=== PATIENT | male | born 1980 | race Two or more races ===

== ENCOUNTER 2020-11-06 17:04 | Emergency (ER) | payer MEDICAID, OTHER ==
[~2020-11-06] VITALS: Ht 165.1 cm; Wt 121.6 kg
[2020-11-06 18:00] LABS: Basophils # (auto) 0 10 ^3/uL (0-0.2); Basophils % (auto) 0.7 % (0.0-2.0); Eosinophils # (auto) 0.1 10 ^3/uL (0-0.8); Eosinophils % (auto) 1.7 % (0.0-7.0); Hematocrit 35.9 % (41.0-53.0); Hemoglobin 12.7 g/dL (13.5-17.5); Lymphocytes # (auto) 1.6 10 ^3/uL (0.4-5.4); Lymphocytes % (auto) 28.1 % (10.0-50.0); Mean Corpuscular Hemoglobin 31.2 pg (28.0-32.0); Mean Corpuscular Hgb Conc. 35.5 g/dL (32.0-36.0); Mean Corpuscular Volume 87.9 fL (80.0-100.0); Monocytes # (auto) 0.7 10 ^3/uL (0-1.3); Monocytes % (auto) 12.1 % (0.0-12.0); Neutrophils # (auto) 3.3 10 ^3/uL (1.6-8.6); Neutrophils % (auto) 57.4 % (37.0-80.0); Nucleated Red Blood Cells % 0.2 %; Platelet Count (auto) 100 10^3/uL (140-450); Red Blood Cells 4.08 10^6/uL (4.5-5.90); Red Cell Distribution Width 17.3 % (11.8-14.3); White Blood Cell 5.7 10^3/uL (4.4-10.8)
[2020-11-06 18:17] LABS: Albumin 2.8 g/dL (3.4-5.0); Calcium 8.3 mg/dL (8.5-10.1); Magnesium 2.2 mg/dL (1.6-2.6)
[2020-11-06 18:21] LABS: BUN/Creatinine Ratio 8.4; Bilirubin, Total 3.3 mg/dL (0.2-1.0); Total Protein 7.4 g/dL (6.4-8.2)
[2020-11-06 18:32] LABS: Potassium 2.4 mmol/L (3.5-5.1)
[2020-11-06 18:33] VITALS: BP 151/72
[2020-11-06] MEDS ORDERED: POTASSIUM EFFERVESENT TAB 25 MEQ PO ONE (18:45)
== END 2020-11-06 19:10 | disposition home or self-care (01) ==
LOC: ER 17:04
DX: E87.6 Hypokalemia (principal); K74.60 Unspecified cirrhosis of liver; E80.6 Other disorders of bilirubin metabolism; E44.0 Moderate protein-calorie malnutrition; Z68.41 Body mass index [BMI] 40.0-44.9, adult
CPT/HCPCS: 36415; 80053; 83735; 85025; 93005; 99284; J7030

== ENCOUNTER 2021-01-27 17:35 | Inpatient (IN) | payer MEDICAID, OTHER ==
[~2021-01-27] VITALS: Ht 165.1 cm; Wt 134.3 kg
[2021-01-27] MEDS ORDERED: IOHEXOL 300 MG/ML 100ML BOTTLE IJ ONE (18:24)
[2021-01-27 18:25] LABS: Hemoglobin 13.1 g/dL (13.5-17.5)
[2021-01-27 18:27] LABS: Hematocrit 36.8 % (41.0-53.0); Mean Corpuscular Hemoglobin 31.6 pg (28.0-32.0); Mean Corpuscular Hgb Conc. 35.7 g/dL (32.0-36.0); Mean Corpuscular Volume 88.5 fL (80.0-100.0); Platelet Count (auto) 53 10^3/uL (140-450); Red Blood Cells 4.16 10^6/uL (4.5-5.90); Red Cell Distribution Width 15.7 % (11.8-14.3); White Blood Cell 6.8 10^3/uL (4.4-10.8)
[2021-01-27 18:35] LABS: Basophils % (manual) 0 (0.0-2.0); Blast Cells 0; Eosinophils % (manual) 0 (0-7); Myelocytes % 0; Promyelocytes % 0; Reactive Lymphocytes 0
[2021-01-27 18:41] LABS: Albumin 2.5 g/dL (3.4-5.0); BUN/Creatinine Ratio 9.2; Calcium 7.7 mg/dL (8.5-10.1); Potassium 3.2 mmol/L (3.5-5.1)
[2021-01-27 18:43] LABS: Bilirubin, Total 5.3 mg/dL (0.2-1.0); Total Protein 6.4 g/dL (6.4-8.2)
[2021-01-27 19:07] LABS: Band Neutrophils % (manual) 17; Lymphocytes % (manual) 2 (10.0-50.0); Metamyelocytes % 1; Monocytes % (manual) 5 (0-12)
[2021-01-27] MEDS ORDERED: CLINDAMYCIN 600MG IV 50 ML IV ONE (19:30)
[2021-01-27] MEDS ORDERED: ONDANSETRON HCL 4 MG/2 ML VIAL IV ONE (20:30)
[2021-01-27] MEDS ORDERED: MORPHINE SULFATE 4 MG/ML SYR/VIAL IV ONE (20:30)
[2021-01-27 21:10] LABS: Urine Bacteria NONE SEEN /hpf (None Seen); Urine Blood Negative /uL (Negative); Urine Specific Gravity 1.042 (1.001-1.035); Urine WBC <1 /hpf (0 - 3)
[2021-01-27] MEDS ORDERED: DOCUSATE SOD 100 MG CAP PO PRN (22:00)
[2021-01-27] MEDS ORDERED: POTASSIUM CHL 20 Meq TABLET PO ONE (22:00)
[2021-01-27] MEDS ORDERED: MORPHINE SULFATE 4 MG/ML SYR/VIAL IV PRN (22:00)
[2021-01-27] MEDS ORDERED: NITROGLYCERIN 0.4 MG SL TAB SL PRN (22:00)
[2021-01-27] MEDS ORDERED: ONDANSETRON HCL 4 MG/2 ML VIAL IV PRN (22:00)
[2021-01-27] MEDS ORDERED: TEMAZEPAM 15 MG CAP PO PRN (22:00)
[2021-01-27] MEDS ORDERED: ACETAMINOPHEN 325 MG TAB PO PRN (22:00)
[2021-01-27] MEDS ORDERED: CLINDAMYCIN 600MG IV 50 ML IV SCH (22:00)
[2021-01-27] MEDS ORDERED: MORPHINE SULF INJ 2 MG/ML SYRINGE 1ML IV PRN (22:00)
[2021-01-27] MEDS: SODIUM CHLOR 0.9% PF (SALINE LOCK) 10ML VIAL/SYR IV SCH (22:56)
[2021-01-27] MEDS: ASCORBIC ACID 500 MG TAB PO SCH (23:02)
[2021-01-27] MEDS: FAMOTIDINE 20 MG TAB PO SCH (23:03)
[2021-01-28 01:08] VITALS: BP 121/69
[2021-01-28] MEDS ORDERED: LACT10PA2 PO (01:22)
[2021-01-28] MEDS ORDERED: FURO1TAB33 PO (01:22)
[2021-01-28] MEDS: HYDROcodone-ACET 5/325MG TAB PO PRN (02:39)
[2021-01-28 05:00] VITALS: BP 118/61
[2021-01-28] MEDS: SODIUM CHLOR 0.9% PF (SALINE LOCK) 10ML VIAL/SYR IV SCH ×3 (06:18→22:30)
[2021-01-28] MEDS: CLINDAMYCIN 600MG IV 50 ML IV SCH ×3 (06:19→22:30)
[2021-01-28 06:47] LABS: White Blood Cell 13.4 10^3/uL (4.4-10.8)
[2021-01-28 06:50] LABS: Hematocrit 36.9 % (41.0-53.0); Mean Corpuscular Hemoglobin 31.2 pg (28.0-32.0); Mean Corpuscular Hgb Conc. 35.3 g/dL (32.0-36.0); Mean Corpuscular Volume 88.4 fL (80.0-100.0); Platelet Count (auto) 46 10^3/uL (140-450); Red Blood Cells 4.18 10^6/uL (4.5-5.90); Red Cell Distribution Width 16.4 % (11.8-14.3)
[2021-01-28 06:57] LABS: INR 1.62 (0.9-1.15); Partial Thromboplastin Time 37.3 sec (23.0-31.2)
[2021-01-28 07:03] LABS: Albumin 2.5 g/dL (3.4-5.0); Basophils % (manual) 0 (0.0-2.0); Blast Cells 0; Calcium 7.6 mg/dL (8.5-10.1); Eosinophils % (manual) 0 (0-7); Myelocytes % 0; Potassium 4.2 mmol/L (3.5-5.1); Promyelocytes % 0; Reactive Lymphocytes 0
[2021-01-28 07:06] LABS: Bilirubin, Total 5.6 mg/dL (0.2-1.0); Total Protein 6.5 g/dL (6.4-8.2)
[2021-01-28 07:35] LABS: Lymphocytes % (manual) 4 (10.0-50.0); Metamyelocytes % 2; Monocytes % (manual) 8 (0-12)
[2021-01-28 07:36] LABS: Band Neutrophils % (manual) 27
[2021-01-28 08:00] VITALS: BP 96/55
[2021-01-28] MEDS: SPIRONOLACTONE 25 MG TAB PO SCH (09:31)
[2021-01-28] MEDS: ZINC SULFATE 220mg CAP or TAB PO SCH (09:32)
[2021-01-28] MEDS: FAMOTIDINE 20 MG TAB PO SCH ×2 (09:32→22:30)
[2021-01-28] MEDS: ASCORBIC ACID 500 MG TAB PO SCH ×2 (09:32→22:31)
[2021-01-28] MEDS: MULTIPLE VITAMIN TAB PO SCH (09:32)
[2021-01-28 12:53] VITALS: BP 96/57
[2021-01-28] MEDS ORDERED: cefTRIAXone 1GM/50ML D5W 50 ML IV ONE (14:15)
[2021-01-28 16:46] VITALS: BP 125/75
[2021-01-28 22:00] VITALS: BP 119/66
[2021-01-29 05:00] VITALS: BP 103/48
[2021-01-29] MEDS: SODIUM CHLOR 0.9% PF (SALINE LOCK) 10ML VIAL/SYR IV SCH (05:40)
[2021-01-29] MEDS: CLINDAMYCIN 600MG IV 50 ML IV SCH (05:40)
[2021-01-29 06:41] LABS: Basophils # (auto) 0 10 ^3/uL (0-0.2); Eosinophils # (auto) 0 10 ^3/uL (0-0.8); Eosinophils % (auto) 0.2 % (0.0-7.0); Hemoglobin 12.2 g/dL (13.5-17.5); Lymphocytes # (auto) 1.1 10 ^3/uL (0.4-5.4); Monocytes # (auto) 0.8 10 ^3/uL (0-1.3); Neutrophils # (auto) 9.7 10 ^3/uL (1.6-8.6); Red Cell Distribution Width 16.3 % (11.8-14.3); White Blood Cell 11.7 10^3/uL (4.4-10.8)
[2021-01-29 06:46] LABS: Basophils % (auto) 0.2 % (0.0-2.0); Hematocrit 33.8 % (41.0-53.0); Lymphocytes % (auto) 9.7 % (10.0-50.0); Mean Corpuscular Hemoglobin 31.7 pg (28.0-32.0); Mean Corpuscular Volume 87.8 fL (80.0-100.0); Monocytes % (auto) 7.2 % (0.0-12.0); Neutrophils % (auto) 82.7 % (37.0-80.0); Platelet Count (auto) 38 10^3/uL (140-450); Red Blood Cells 3.84 10^6/uL (4.5-5.90)
[2021-01-29 07:02] LABS: Albumin 2.3 g/dL (3.4-5.0); Calcium 7.9 mg/dL (8.5-10.1); Potassium 3.5 mmol/L (3.5-5.1)
[2021-01-29 07:06] LABS: BUN/Creatinine Ratio 18.5; Bilirubin, Total 4.7 mg/dL (0.2-1.0); Total Protein 6.3 g/dL (6.4-8.2)
[2021-01-29 09:00] VITALS: BP 129/76
[2021-01-29] MEDS ORDERED: cefTRIAXone 1GM/50ML D5W 50 ML IV SCH (09:00)
[2021-01-29] MEDS: FAMOTIDINE 20 MG TAB PO SCH (10:09)
[2021-01-29] MEDS: SPIRONOLACTONE 25 MG TAB PO SCH (10:09)
[2021-01-29] MEDS: ASCORBIC ACID 500 MG TAB PO SCH (10:09)
[2021-01-29] MEDS: ZINC SULFATE 220mg CAP or TAB PO SCH (10:10)
[2021-01-29] MEDS: HYDROcodone-ACET 5/325MG TAB PO PRN (10:10)
[2021-01-29] MEDS: MULTIPLE VITAMIN TAB PO SCH (10:10)
[2021-01-29 12:41] VITALS: BP 131/76
== END 2021-01-29 13:30 | disposition home or self-care (01) | DRG 383 ==
LOC: ER 17:35 → TELE 21:54 → TELE-WESTW 23:20
PROVIDERS: ADMIT Nurse Practitioner Family; ATTEND Internal Medicine
DX: L03.115 Cellulitis of right lower limb (principal); N17.0 Acute kidney failure with tubular necrosis; R65.11 Systemic inflammatory response syndrome (SIRS) of non-infectious origin with acute organ dysfunction; E44.0 Moderate protein-calorie malnutrition; K76.6 Portal hypertension; E88.09 Other disorders of plasma-protein metabolism, not elsewhere classified; E66.01 Morbid (severe) obesity due to excess calories; K74.60 Unspecified cirrhosis of liver; L03.314 Cellulitis of groin; R10.9 Unspecified abdominal pain; K80.20 Calculus of gallbladder without cholecystitis without obstruction; E87.6 Hypokalemia; R16.1 Splenomegaly, not elsewhere classified; D47.3 Essential (hemorrhagic) thrombocythemia; Z20.822 Contact with and (suspected) exposure to COVID-19; Z68.41 Body mass index [BMI] 40.0-44.9, adult; D63.8 Anemia in other chronic diseases classified elsewhere; K42.9 Umbilical hernia without obstruction or gangrene; K59.00 Constipation, unspecified; N18.9 Chronic kidney disease, unspecified; T50.2X5A Adverse effect of carbonic-anhydrase inhibitors, benzothiadiazides and other diuretics, initial encounter; Z82.49 Family history of ischemic heart disease and other diseases of the circulatory system; Z83.3 Family history of diabetes mellitus; Y92.89 Other specified places as the place of occurrence of the external cause
CPT/HCPCS: 36415; 71045; 74177; 74250; 80053; 81001; 82150; 83690; 84443; 85007; 85025; 85027; 85049; 85610; 85730; 86850; 86900; 86901; 87426; 96365; 96366; 96375; G0378; J0696; J2405; J3490

== ENCOUNTER 2021-03-18 20:55 | Inpatient (IN) | payer MEDICAID ==
[~2021-03-18] VITALS: Ht 165.1 cm; Wt 129.6 kg
[~2021-03-18 20:55] MED LIST: FURO1TAB33 PO; LACT10PA2 PO
[2021-03-18] MEDS ORDERED: KETOROLAC TROMETH 60MG/2ML VIAL IM ONE (21:45)
[2021-03-18] MEDS ORDERED: SODIUM CHLORIDE 0.9% 1,000 ML IV ONE (22:00)
[2021-03-18 22:33] LABS: Eosinophils # (auto) 0 10 ^3/uL (0-0.8); Hematocrit 40.1 % (41.0-53.0); Monocytes # (auto) 0.3 10 ^3/uL (0-1.3); Neutrophils # (auto) 1.8 10 ^3/uL (1.6-8.6); White Blood Cell 2.9 10^3/uL (4.4-10.8)
[2021-03-18 22:35] LABS: Basophils # (auto) 0 10 ^3/uL (0-0.2); Basophils % (auto) 0.4 % (0.0-2.0); Eosinophils % (auto) 0.4 % (0.0-7.0); Hemoglobin 14.1 g/dL (13.5-17.5); Lymphocytes # (auto) 0.7 10 ^3/uL (0.4-5.4); Lymphocytes % (auto) 25.1 % (10.0-50.0); Mean Corpuscular Hemoglobin 30.5 pg (28.0-32.0); Mean Corpuscular Volume 87.2 fL (80.0-100.0); Monocytes % (auto) 11.2 % (0.0-12.0); Neutrophils % (auto) 62.9 % (37.0-80.0); Nucleated Red Blood Cells % 0.6 %
[2021-03-18 22:40] LABS: Albumin 2.6 g/dL (3.4-5.0); Calcium 7.6 mg/dL (8.5-10.1); Potassium 4.6 mmol/L (3.5-5.1)
[2021-03-18 22:44] LABS: BUN/Creatinine Ratio 7.5; Bilirubin, Total 2.5 mg/dL (0.2-1.0); Total Protein 7.4 g/dL (6.4-8.2)
[2021-03-18] MEDS ORDERED: cefTRIAXone 1GM/50ML D5W 50 ML IV ONE (23:30)
[2021-03-18] MEDS ORDERED: DOXYCYCLINE 100MG/250ML 250 ML IV ONE (23:30)
[2021-03-18 23:44] LABS: Urine Bacteria FEW /hpf (None Seen); Urine Blood Negative /uL (Negative); Urine Specific Gravity 1.012 (1.001-1.035); Urine WBC 1 /hpf (0 - 3)
[2021-03-19] VITALS (7 sets, daily range): BP systolic 117–133; BP diastolic 52–78
[2021-03-19] MEDS ORDERED: ACETAMINOPHEN 500 MG TAB PO PRN (04:00)
[2021-03-19] MEDS ORDERED: MORPHINE SULFATE INJECTION 2 MG/2 ML SYRG IV PRN (04:00)
[2021-03-19] MEDS ORDERED: HYDROcodone-ACET 5/325MG TAB PO PRN (04:00)
[2021-03-19] MEDS ORDERED: ONDANSETRON HCL 4 MG/2 ML VIAL IV PRN (04:00)
[2021-03-19] MEDS ORDERED: NITROGLYCERIN 0.4 MG SL TAB SL PRN (04:00)
[2021-03-19] MEDS: SODIUM CHLOR 0.9% PF (SALINE LOCK) 10ML VIAL/SYR IV SCH ×3 (06:15→22:28)
[2021-03-19] MEDS ORDERED: ENOXAPARIN SOD 40 MG/0.4 ML SYRINGE SC SCH (10:00)
[2021-03-19] MEDS: FAMOTIDINE (10MG/ML) 2ML VL IV SCH ×2 (10:16→22:27)
[2021-03-19] MEDS: DexAMETHasone SOD PHOS 10MG/1ML VIAL INJ IV SCH (10:16)
[2021-03-19] MEDS: MULTIPLE VITAMIN TAB PO SCH (10:16)
[2021-03-19] MEDS: cefTRIAXone 1GM/50ML D5W 50 ML IV SCH (10:16)
[2021-03-19] MEDS: ZINC SULFATE 220mg CAP or TAB PO SCH (10:16)
[2021-03-19] MEDS: CHOLECALCIFEROL (VITD3) 2,000 UNIT CAP/TAB PO SCH (10:17)
[2021-03-19] MEDS: ASCORBIC ACID 1,000 MG TAB PO SCH (10:17)
[2021-03-19] MEDS: DOXYCYCLINE 100MG/250ML 250 ML IV SCH ×2 (10:37→22:28)
[2021-03-19] MEDS: BUDESONIDE (INHALATION) 180 MCG IH IN SCH (19:13)
[2021-03-19] MEDS: ALBUTEROL SULF HFA 90MCG INH 200DOSE IN PRN (19:13)
[2021-03-20 05:00] VITALS: BP 116/50
[2021-03-20] MEDS: SODIUM CHLOR 0.9% PF (SALINE LOCK) 10ML VIAL/SYR IV SCH ×2 (05:44→14:38)
[2021-03-20 06:45] LABS: Basophils # (auto) 0 10 ^3/uL (0-0.2); Eosinophils # (auto) 0 10 ^3/uL (0-0.8); Hemoglobin 14.3 g/dL (13.5-17.5); Lymphocytes # (auto) 0.8 10 ^3/uL (0.4-5.4); Monocytes # (auto) 0.4 10 ^3/uL (0-1.3); Nucleated Red Blood Cells % 0.1 %
[2021-03-20 06:47] LABS: Basophils % (auto) 0.2 % (0.0-2.0); Hematocrit 40.6 % (41.0-53.0); Lymphocytes % (auto) 11.6 % (10.0-50.0); Mean Corpuscular Hemoglobin 30.8 pg (28.0-32.0); Mean Corpuscular Hgb Conc. 35.3 g/dL (32.0-36.0); Mean Corpuscular Volume 87.2 fL (80.0-100.0); Monocytes % (auto) 5.7 % (0.0-12.0); Neutrophils % (auto) 82.5 % (37.0-80.0); Red Blood Cells 4.65 10^6/uL (4.5-5.90); Red Cell Distribution Width 15.9 % (11.8-14.3); White Blood Cell 7.3 10^3/uL (4.4-10.8)
[2021-03-20] MEDS: ALBUTEROL SULF HFA 90MCG INH 200DOSE IN PRN (06:54)
[2021-03-20] MEDS: BUDESONIDE (INHALATION) 180 MCG IH IN SCH (06:54)
[2021-03-20 07:02] LABS: Albumin 2.5 g/dL (3.4-5.0); Potassium 4.1 mmol/L (3.5-5.1)
[2021-03-20 07:12] LABS: BUN/Creatinine Ratio 13.1; Bilirubin, Total 1.9 mg/dL (0.2-1.0); Total Protein 7.5 g/dL (6.4-8.2)
[2021-03-20 08:20] VITALS: BP 128/73
[2021-03-20 09:03] VITALS: BP 128/73
[2021-03-20] MEDS: cefTRIAXone 1GM/50ML D5W 50 ML IV SCH (09:10)
[2021-03-20] MEDS: DOXYCYCLINE 100MG/250ML 250 ML IV SCH (09:40)
[2021-03-20] MEDS: ZINC SULFATE 220mg CAP or TAB PO SCH (09:40)
[2021-03-20] MEDS: DexAMETHasone SOD PHOS 10MG/1ML VIAL INJ IV SCH (09:40)
[2021-03-20] MEDS: MULTIPLE VITAMIN TAB PO SCH (09:40)
[2021-03-20] MEDS: FAMOTIDINE (10MG/ML) 2ML VL IV SCH (09:40)
[2021-03-20] MEDS: ASCORBIC ACID 1,000 MG TAB PO SCH (09:41)
[2021-03-20] MEDS: CHOLECALCIFEROL (VITD3) 2,000 UNIT CAP/TAB PO SCH (09:41)
[2021-03-20] MEDS ORDERED: IVERMECTIN 3 MG TAB PO SCH (10:00)
[2021-03-20 12:21] VITALS: BP 123/55
[2021-03-20 13:12] VITALS: BP 123/85
== END 2021-03-20 14:40 | disposition home or self-care (01) | DRG 137 ==
LOC: ER 20:55 → OVERFLOW 03-19 03:46 → EAST 03-19 09:13
PROVIDERS: ADMIT Nurse Practitioner Family; ATTEND Nurse Practitioner Family
DX: U07.1 COVID-19 (principal); J12.82 Pneumonia due to coronavirus disease 2019; D61.818 Other pancytopenia; D69.59 Other secondary thrombocytopenia; K70.30 Alcoholic cirrhosis of liver without ascites; E66.9 Obesity, unspecified; E88.09 Other disorders of plasma-protein metabolism, not elsewhere classified; Z68.41 Body mass index [BMI] 40.0-44.9, adult; Z79.899 Other long term (current) drug therapy; Z82.49 Family history of ischemic heart disease and other diseases of the circulatory system; Z83.3 Family history of diabetes mellitus; F10.20 Alcohol dependence, uncomplicated; Y90.9 Presence of alcohol in blood, level not specified; I51.7 Cardiomegaly; R79.89 Other specified abnormal findings of blood chemistry; J98.11 Atelectasis
CPT/HCPCS: 36415; 71045; 80053; 81001; 83735; 83880; 84484; 85025; 85379; 87081; 87426; 94640; 96361; 96365; 96366; 96368; G0378; J0696; J1100; J3490

== ENCOUNTER 2021-12-19 19:35 | Inpatient (IN) | payer MEDICAID ==
[~2021-12-19] VITALS: Ht 162.6 cm; Wt 137.3 kg
[2021-12-19 20:35] LABS: Hematocrit 38.2 % (41.0-53.0); Hemoglobin 13.5 g/dL (13.5-17.5); Mean Corpuscular Hgb Conc. 35.4 g/dL (32.0-36.0); Mean Corpuscular Volume 90.5 fL (80.0-100.0); Red Blood Cells 4.22 10^6/uL (4.5-5.90); Red Cell Distribution Width 17.1 % (11.8-14.3)
[2021-12-19 20:50] LABS: INR 1.36 (0.9-1.15); Partial Thromboplastin Time 28.8 sec (23.6-33.0)
[2021-12-19 20:51] LABS: Albumin 2.4 g/dL (3.4-5.0); BUN/Creatinine Ratio 11.1; Calcium 7.8 mg/dL (8.5-10.1); Magnesium 1.9 mg/dL (1.6-2.6); Potassium 3.2 mmol/L (3.5-5.1)
[2021-12-19 20:54] LABS: Bilirubin, Total 4.6 mg/dL (0.2-1.0); Lactic Acid w/Reflex 3.4 mmol/L (0.4-2.0); Total Protein 6.3 g/dL (6.4-8.2)
[2021-12-19 20:55] LABS: White Blood Cell 1.6 10^3/uL (4.4-10.8)
[2021-12-19 21:58] LABS: Basophils % (manual) 0 (0.0-2.0); Blast Cells 0; Eosinophils % (manual) 0 (0-7); Metamyelocytes % 0; Myelocytes % 0; Promyelocytes % 0; Reactive Lymphocytes 0
[2021-12-19 22:02] LABS: Band Neutrophils % (manual) 5; Lymphocytes % (manual) 23 (10.0-50.0); Monocytes % (manual) 5 (0-12)
[2021-12-20 02:13] LABS: Urine Bacteria NONE SEEN /hpf (None Seen); Urine Blood Negative /uL (Negative); Urine Specific Gravity 1.018 (1.001-1.035); Urine WBC 1 /hpf (0 - 3)
[2021-12-20] MEDS ORDERED: ONDANSETRON HCL 4 MG/2 ML VIAL IV ONE (03:00)
[2021-12-20] MEDS ORDERED: HYDROmorphone HCL 2 MG/ML VL/or syr IV ONE ×2 (03:00→12:30)
[2021-12-20] MEDS ORDERED: cefTRIAXone 1GM/50ML D5W 50 ML IV ONE (03:45)
[2021-12-20] MEDS ORDERED: SOD CHL 0.9%/ KCL 20MEQ 1,000 ML IV ONE (05:15)
[2021-12-20] MEDS ORDERED: ONDANSETRON HCL 4 MG/2 ML VIAL IV PRN (05:15)
[2021-12-20] MEDS ORDERED: PANTOPRAZOLE 40 MG/10 ML VIAL INJ IV ONE (05:15)
[2021-12-20] MEDS ORDERED: VANCOMYCIN PER PHARMACY 0 MG IV SCH (07:15)
[2021-12-20 08:09] LABS: Hemoglobin 13.3 g/dL (13.5-17.5)
[2021-12-20 08:11] LABS: Hematocrit 38.5 % (41.0-53.0)
[2021-12-20] MEDS: VANCOMYCIN 1GM/250ML 250 ML IV SCH ×3 (08:37→18:12)
[2021-12-20] MEDS: PANTOPRAZOLE 40 MG/10 ML VIAL INJ IV SCH ×2 (10:37→22:33)
[2021-12-20 12:30] VITALS: BP 120/63
[2021-12-20 14:12] VITALS: BP 104/60
[2021-12-20] MEDS ORDERED: FUROSEMIDE 40 MG/4 ML VIAL IV ONE (14:15)
[2021-12-20] MEDS: ALBUMIN 25% 100 ML IV SCH ×2 (15:45→22:34)
[2021-12-20 16:48] VITALS: BP 110/64
[2021-12-20] MEDS ORDERED: SPIR25TA8 PO (17:43)
[2021-12-20] MEDS: LACTULOSE 20Gm/30ML SOLN PO SCH ×2 (18:12→22:33)
[2021-12-20] MEDS ORDERED: cefTRIAXone 1GM/50ML D5W 50 ML IV SCH (21:00)
[2021-12-20 22:00] VITALS: BP 116/74
[2021-12-21] MEDS: VANCOMYCIN 1GM/250ML 250 ML IV SCH ×2 (00:45→08:53)
[2021-12-21] MEDS: MORPHINE SULFATE 4 MG/ML SYR/VIAL IV PRN ×2 (01:09→21:43)
[2021-12-21] MEDS: LACTULOSE 20Gm/30ML SOLN PO SCH ×6 (02:00→21:44)
[2021-12-21 05:00] VITALS: BP 126/71
[2021-12-21 06:02] LABS: Albumin 2.8 g/dL (3.4-5.0); Calcium 7.9 mg/dL (8.5-10.1); Potassium 3.7 mmol/L (3.5-5.1)
[2021-12-21 06:05] LABS: BUN/Creatinine Ratio 21.6; Bilirubin, Total 6.1 mg/dL (0.2-1.0); Phosphorus 2.6 mg/dL (2.5-4.90); Total Protein 6.1 g/dL (6.4-8.2)
[2021-12-21 06:08] LABS: Red Blood Cells 3.55 10^6/uL (4.5-5.90)
[2021-12-21 06:10] LABS: Hematocrit 32.2 % (41.0-53.0); Hemoglobin 11.4 g/dL (13.5-17.5); Mean Corpuscular Hgb Conc. 35.4 g/dL (32.0-36.0); Mean Corpuscular Volume 90.5 fL (80.0-100.0); Red Cell Distribution Width 17.3 % (11.8-14.3); White Blood Cell 5.6 10^3/uL (4.4-10.8)
[2021-12-21] MEDS: ALBUMIN 25% 100 ML IV SCH (06:12)
[2021-12-21 06:15] LABS: Basophils % (manual) 0 (0.0-2.0); Blast Cells 0; Eosinophils % (manual) 0 (0-7); Myelocytes % 0; Promyelocytes % 0; Reactive Lymphocytes 0
[2021-12-21 08:20] LABS: Band Neutrophils % (manual) 42; Lymphocytes % (manual) 7 (10.0-50.0); Metamyelocytes % 5; Monocytes % (manual) 4 (0-12)
[2021-12-21] MEDS: PANTOPRAZOLE 40 MG/10 ML VIAL INJ IV SCH ×2 (08:52→21:36)
[2021-12-21] MEDS: FUROSEMIDE 40 MG/4 ML VIAL IV SCH (08:53)
[2021-12-21 09:00] VITALS: BP 109/56
[2021-12-21] MEDS: CEFTRIAXONE SODIUM 2 GM in D5W 5% 50 ML IV SCH (11:19)
[2021-12-21] MEDS ORDERED: LIDOCAINE VISCOUS 2% 15ML UD ONE (12:04)
[2021-12-21] MEDS ORDERED: MIDAZOLAM HCL 5 MG/ML-1ML VIAL ONE (12:04)
[2021-12-21] MEDS ORDERED: SODIUM CHLORIDE LOCK 10 ML ONE (12:04)
[2021-12-21] MEDS ORDERED: diphenhdrAMINE HCL 50 MG/1 ML VL ONE (12:04)
[2021-12-21] MEDS ORDERED: fentaNYL CITRATE 100 MCG/2 ML VL ONE (12:05)
[2021-12-21 13:00] VITALS: BP 104/61
[2021-12-21 17:00] VITALS: BP 119/66
[2021-12-21 21:48] VITALS: BP 122/79
[2021-12-22] MEDS: LACTULOSE 20Gm/30ML SOLN PO SCH ×6 (02:00→22:34)
[2021-12-22] MEDS: MORPHINE SULFATE 4 MG/ML SYR/VIAL IV PRN (03:49)
[2021-12-22 04:37] VITALS: BP 113/68
[2021-12-22 08:00] VITALS: BP 110/77
[2021-12-22 09:00] VITALS: BP 110/77
[2021-12-22] MEDS: PANTOPRAZOLE 40 MG/10 ML VIAL INJ IV SCH ×2 (11:08→22:34)
[2021-12-22] MEDS: FUROSEMIDE 40 MG/4 ML VIAL IV SCH (11:08)
[2021-12-22] MEDS ORDERED: MORPHINE SULFATE 4 MG/ML SYR/VIAL IV PRN (11:45)
[2021-12-22] MEDS: CEFTRIAXONE SODIUM 2 GM in D5W 5% 50 ML IV SCH (11:58)
[2021-12-22 14:00] VITALS: BP_SYST 133; BP_SYST 94; BP_DIAS 42; BP_DIAS 83
[2021-12-22 17:00] VITALS: BP 117/80
[2021-12-22 21:38] VITALS: BP 131/77
[2021-12-23] MEDS: LACTULOSE 20Gm/30ML SOLN PO SCH ×4 (02:00→14:00)
[2021-12-23 04:59] VITALS: BP 119/84
[2021-12-23] MEDS: PANTOPRAZOLE 40 MG/10 ML VIAL INJ IV SCH (08:36)
[2021-12-23] MEDS: FUROSEMIDE 40 MG/4 ML VIAL IV SCH (08:37)
[2021-12-23] MEDS: CEFTRIAXONE SODIUM 2 GM in D5W 5% 50 ML IV SCH (08:46)
[2021-12-23 09:00] VITALS: BP 128/56
[2021-12-23] MEDS ORDERED: POTA10TA51 PO (11:01)
[2021-12-23] MEDS ORDERED: FURO1TAB31 PO (11:01)
[2021-12-23] MEDS ORDERED: PANT40T PO (11:01)
[2021-12-23] MEDS ORDERED: CLIN-203 PO (11:04)
[2021-12-23 13:00] VITALS: BP 128/91
== END 2021-12-23 15:25 | disposition home or self-care (01) | DRG 720 ==
LOC: ER 19:35 → OVERFLOW 12-20 05:14 → EAST 12-20 08:59
PROVIDERS: ADMIT Nurse Practitioner; ATTEND Family Medicine
PROC: 0DB68ZX Excision of Stomach, Via Natural or Artificial Opening Endoscopic, Diagnostic (ICD-10-PCS; 2021-12-21)
PROC: 0DB98ZX Excision of Duodenum, Via Natural or Artificial Opening Endoscopic, Diagnostic (ICD-10-PCS; principal; 2021-12-21 12:53)
DX: A40.1 Sepsis due to streptococcus, group B (principal); K72.00 Acute and subacute hepatic failure without coma; R65.21 Severe sepsis with septic shock; D61.818 Other pancytopenia; E43 Unspecified severe protein-calorie malnutrition; K29.91 Gastroduodenitis, unspecified, with bleeding; K74.60 Unspecified cirrhosis of liver; E88.09 Other disorders of plasma-protein metabolism, not elsewhere classified; L03.115 Cellulitis of right lower limb; K80.20 Calculus of gallbladder without cholecystitis without obstruction; K44.9 Diaphragmatic hernia without obstruction or gangrene; E66.9 Obesity, unspecified; E87.6 Hypokalemia; Z20.822 Contact with and (suspected) exposure to COVID-19; Z68.43 Body mass index [BMI] 50.0-59.9, adult; Z86.16 Personal history of COVID-19; Z82.49 Family history of ischemic heart disease and other diseases of the circulatory system; Z83.3 Family history of diabetes mellitus
CPT/HCPCS: 36415; 43239; 71045; 74176; 80053; 81001; 82140; 82270; 83605; 83690; 83735; 84100; 84484; 85007; 85014; 85018; 85027; 85610; 85730; 86850; 86900; 86901; 87040; 87077; 87186; 93005; 93971; C9113; G0378; J0696; J2250; J2405; J7060; P9047

== ENCOUNTER 2022-05-13 11:40 | Emergency (ER) | payer MEDICAID ==
[~2022-05-13] VITALS: Ht 165.1 cm; Wt 121.5 kg
[~2022-05-13 11:40] MED LIST changes: +CLIN-203 PO; +FURO1TAB31 PO; +PANT40T PO; +POTA10TA51 PO; +SPIR25TA8 PO
[2022-05-13 11:59] VITALS: BP 118/70
[2022-05-13 12:31] LABS: Basophils # (auto) 0 10 ^3/uL (0-0.2); Eosinophils # (auto) 0 10 ^3/uL (0-0.8); Monocytes # (auto) 0.8 10 ^3/uL (0-1.3); Nucleated Red Blood Cells % 0.2 %
[2022-05-13 12:33] LABS: Basophils % (auto) 0.4 % (0.0-2.0); Eosinophils % (auto) 0.1 % (0.0-7.0); Hematocrit 38.4 % (41.0-53.0); Hemoglobin 13.3 g/dL (13.5-17.5); Lymphocytes % (auto) 9.7 % (10.0-50.0); Mean Corpuscular Hemoglobin 31.2 pg (28.0-32.0); Mean Corpuscular Hgb Conc. 34.7 g/dL (32.0-36.0); Neutrophils # (auto) 8.5 10 ^3/uL (1.6-8.6); Neutrophils % (auto) 81.8 % (37.0-80.0); Red Blood Cells 4.27 10^6/uL (4.5-5.90); Red Cell Distribution Width 14.9 % (11.8-14.3); White Blood Cell 10.4 10^3/uL (4.4-10.8)
[2022-05-13 12:55] LABS: Albumin 2.6 g/dL (3.4-5.0); Calcium 7.8 mg/dL (8.5-10.1); Potassium 3.6 mmol/L (3.5-5.1)
[2022-05-13 12:58] LABS: Total Protein 6.8 g/dL (6.4-8.2)
[2022-05-13] MEDS ORDERED: CEFD300C2 PO (16:46)
[2022-05-13] MEDS ORDERED: SPIR25TA PO (16:46)
[2022-05-13] MEDS ORDERED: FURO1TAB33 PO (16:46)
== END 2022-05-13 17:33 | disposition home or self-care (01) ==
LOC: ER 11:40
DX: I87.2 Venous insufficiency (chronic) (peripheral) (principal); E80.6 Other disorders of bilirubin metabolism; E46 Unspecified protein-calorie malnutrition; R60.9 Edema, unspecified; K74.60 Unspecified cirrhosis of liver; I50.9 Heart failure, unspecified; Z79.899 Other long term (current) drug therapy
CPT/HCPCS: 36415; 80053; 85025; 93971

== ENCOUNTER 2023-03-22 16:22 | Inpatient (IN) | payer MEDICAID ==
[~2023-03-22] VITALS: Ht 165.1 cm; Wt 133.4 kg
[~2023-03-22 16:22] MED LIST changes: +CEFD300C2 PO; +SPIR25TA PO
[2023-03-22 16:53] VITALS: PULSE 74; RESP 16; O2SAT 97
[2023-03-22 17:12] LABS: Basophils # (auto) 0 10 ^3/uL (0-0.2); Basophils % (auto) 0.3 % (0.0-2.0); Eosinophils # (auto) 0 10 ^3/uL (0-0.8); Eosinophils % (auto) 0.1 % (0.0-7.0); Hematocrit 41.9 % (41.0-53.0); Hemoglobin 13.7 g/dL (13.5-17.5); Lymphocytes # (auto) 0.8 10 ^3/uL (0.4-5.4); Lymphocytes % (auto) 6.5 % (10.0-50.0); Mean Corpuscular Hemoglobin 29.8 pg (28.0-32.0); Mean Corpuscular Hgb Conc. 32.7 g/dL (32.0-36.0); Mean Corpuscular Volume 91.1 fL (80.0-100.0); Monocytes # (auto) 0.3 10 ^3/uL (0-1.3); Monocytes % (auto) 2.5 % (0.0-12.0); Neutrophils # (auto) 11.2 10 ^3/uL (1.6-8.6); Neutrophils % (auto) 90.6 % (37.0-80.0); Nucleated Red Blood Cells % 0.1 %; Red Cell Distribution Width 16.2 % (11.8-14.3); White Blood Cell 12.3 10^3/uL (4.4-10.8)
[2023-03-22] MEDS ORDERED: ONDANSETRON HCL 4 MG/2 ML VIAL IV ONE (17:15)
[2023-03-22] MEDS ORDERED: MORPHINE SULFATE INJ 2 MG/ml SYRG IV ONE (17:15)
[2023-03-22 17:30] LABS: INR 1.57 (0.9-1.15); Partial Thromboplastin Time 30.7 SEC (24.5-34.5)
[2023-03-22 18:27] LABS: Albumin 2.7 g/dL (3.4-5.0); Anion Gap 11 (5-15); Calcium 8.1 mg/dL (8.5-10.1); Carbon Dioxide 21 mmol/L (21-32); Chloride 109 mmol/L (98-107); Glucose 131 mg/dL (74-106); Potassium 3.1 mmol/L (3.5-5.1); Sodium 141 mmol/L (136-145)
[2023-03-22 18:28] LABS: Lactic Acid w/Reflex 3.2 mmol/L (0.4-2.0)
[2023-03-22 18:32] LABS: Alanine Aminotransferase 53 U/L (16-61); Alkaline Phosphatase 128 U/L (45-117); Aspartate Aminotransferase 104 U/L (15-37); Bilirubin, Total 5.4 mg/dL (0.2-1.0); GFR African American 107 mL/min; GFR Non-African American 88 mL/min; Total Protein 6.8 g/dL (6.4-8.2)
[2023-03-22 18:37] LABS: Lipase > 30000 U/L (73-393)
[2023-03-22 18:41] LABS: BUN/Creatinine Ratio 10.2 (10.0-20.0); Blood Urea Nitrogen 10 mg/dL (7-18)
[2023-03-22] MEDS ORDERED: VANCOMYCIN 1GM/250ML 250 ML IV ONE (18:45)
[2023-03-22] MEDS ORDERED: PIPERACILLIN-TAZOB 3.375GM 100 ML IV ONE (18:45)
[2023-03-22] MEDS ORDERED: SODIUM CHLORIDE 0.9% 1,000 ML IV ONE (18:45)
[2023-03-22] MEDS ORDERED: HYDROmorphone HCL 2 MG/ML VL/or syr IV ONE (19:15)
[2023-03-22] MEDS ORDERED: LACTULOSE 20Gm/30ML SOLN PO ONE (19:30)
[2023-03-22 19:40] VITALS: PULSE 68; RESP 28; O2SAT 98
[2023-03-22] MEDS ORDERED: ACETAMINOPHEN 325 MG TAB PO PRN (20:15)
[2023-03-22] MEDS ORDERED: POTASSIUM EFFERVESENT TAB 25 MEQ PO ONE (20:15)
[2023-03-22] MEDS ORDERED: KETOROLAC TROMETH 30 MG/ML 1ML VIAL IV ONE (20:15)
[2023-03-22] MEDS ORDERED: KETOROLAC TROMETH 30 MG/ML 1ML VIAL IV PRN (20:15)
[2023-03-22] MEDS ORDERED: VANCOMYCIN PER PHARMACY 0 MG IV SCH (20:15)
[2023-03-22] MEDS ORDERED: ALBUTEROL SULF 2.5 MG/0.5ML(0.5%) NEB SOLN NEB PRN (20:45)
[2023-03-22 21:21] LABS: Cholesterol 126 mg/dL (< 200); Triglycerides 109 mg/dL (< 150)
[2023-03-22 21:22] LABS: HDL Cholesterol 46 mg/dL (40-59); LDL Cholesterol 84 mg/dL (< 100)
[2023-03-22] MEDS: LACTULOSE 20Gm/30ML SOLN PO SCH (21:23)
[2023-03-22] MEDS: PANTOPRAZOLE 40 MG TAB PO SCH (21:23)
[2023-03-22 21:45] VITALS: PULSE 76; RESP 22; O2SAT 95
[2023-03-22] MEDS ORDERED: CEFDINIR PO SCH (22:00)
[2023-03-22] MEDS ORDERED: CEFDINIR 300 MG PO SCH (22:00)
[2023-03-22 22:35] LABS: Urine Bacteria NONE SEEN /hpf (None Seen); Urine Blood Negative /uL (Negative); Urine Clarity Clear (Clear); Urine Color Yellow (Yellow); Urine Protein, UAD Negative (Negative); Urine Specific Gravity 1.012 (1.001-1.035); Urine Urobilinogen Normal (Negative); Urine WBC <1 /hpf (0 - 3)
[2023-03-22 22:57] LABS: Alcohol, Urine < 3.0 mg/dL (0-10); Amphetamine Screen, Urine NEGATIVE (NEGATIVE); Barbiturate Scree,Urine NEGATIVE (NEGATIVE); Benzodiazephine Screen, Urine NEGATIVE (NEGATIVE); Cannabinoid Screen, Urine NEGATIVE (NEGATIVE); Cocaine Screen, Urine NEGATIVE (NEGATIVE); Opiate Scree,Urine NEGATIVE (NEGATIVE); Phencyclidine Screen, Urine NEGATIVE (NEGATIVE)
[2023-03-22 23:17] VITALS: BP 133/69; PULSE 74; RESP 19; TEMP 97.9; O2SAT 97
[2023-03-23] VITALS (7 sets, daily range): BP systolic 123–152; BP diastolic 79–91; PULSE 76–82; RESP 18–20; TEMP 36.6; O2SAT 92–97
[2023-03-23] MEDS: PIPERACILLIN-TAZOB 3.375GM 100 ML IV SCH ×3 (03:00→18:12)
[2023-03-23] MEDS: VANCOMYCIN 1GM/250ML 250 ML IV SCH ×3 (03:17→21:18)
[2023-03-23 06:53] LABS: Basophils # (auto) 0 10 ^3/uL (0-0.2); Eosinophils # (auto) 0.2 10 ^3/uL (0-0.8); Lymphocytes # (auto) 0.9 10 ^3/uL (0.4-5.4); Monocytes # (auto) 0.7 10 ^3/uL (0-1.3); Monocytes % (auto) 6.9 % (0.0-12.0); Nucleated Red Blood Cells % 0.2 %
[2023-03-23 07:02] LABS: Basophils % (auto) 0.2 % (0.0-2.0); Eosinophils % (auto) 1.6 % (0.0-7.0); Hematocrit 37.6 % (41.0-53.0); Lymphocytes % (auto) 8.6 % (10.0-50.0); Mean Corpuscular Hemoglobin 31.1 pg (28.0-32.0); Mean Corpuscular Hgb Conc. 34.6 g/dL (32.0-36.0); Neutrophils # (auto) 8.8 10 ^3/uL (1.6-8.6); Neutrophils % (auto) 82.7 % (37.0-80.0); Red Blood Cells 4.18 10^6/uL (4.5-5.90); Red Cell Distribution Width 16.3 % (11.8-14.3); White Blood Cell 10.7 10^3/uL (4.4-10.8)
[2023-03-23 07:05] LABS: Potassium 3.5 mmol/L (3.5-5.1)
[2023-03-23 07:15] LABS: BUN/Creatinine Ratio 10.8 (10.0-20.0); Bilirubin, Total 6.6 mg/dL (0.2-1.0); Calcium 7.7 mg/dL (8.5-10.1); Total Protein 6.3 g/dL (6.4-8.2)
[2023-03-23 07:25] LABS: Albumin 2.3 g/dL (3.4-5.0)
[2023-03-23 09:17] LABS: Platelet Estimate Decreased
[2023-03-23] MEDS: FUROSEMIDE 20 MG TAB PO SCH (09:46)
[2023-03-23] MEDS: SPIRONOLACTONE 25 MG TAB PO SCH (09:46)
[2023-03-23] MEDS: POTASSIUM CHL 10 Meq TABLET PO SCH (09:47)
[2023-03-23] MEDS: LACTULOSE 20Gm/30ML SOLN PO SCH ×4 (09:47→23:34)
[2023-03-23] MEDS: PANTOPRAZOLE 40 MG TAB PO SCH ×2 (09:47→21:15)
[2023-03-23] MEDS ORDERED: ENOXAPARIN SOD 40 MG/0.4 ML SYRINGE SC SCH (10:00)
[2023-03-23] MEDS: D5W/SOD CHLO 0.9% 1,000 ML IV SCH ×2 (13:10→20:45)
[2023-03-23 14:52] LABS: Lactic Acid w/Reflex 2.8 mmol/L (0.4-2.0)
[2023-03-23] MEDS: HYDROcodone-ACET 5/325MG TAB PO PRN (21:15)
[2023-03-24] VITALS (8 sets, daily range): BP systolic 128–149; BP diastolic 70–95; PULSE 68–74; RESP 18–20; TEMP 36.8; O2SAT 92–97
[2023-03-24] MEDS: PIPERACILLIN-TAZOB 3.375GM 100 ML IV SCH ×4 (02:38→23:05)
[2023-03-24] MEDS: VANCOMYCIN 1GM/250ML 250 ML IV SCH ×3 (03:48→20:14)
[2023-03-24] MEDS: D5W/SOD CHLO 0.9% 1,000 ML IV SCH ×3 (04:45→20:45)
[2023-03-24] MEDS: LACTULOSE 20Gm/30ML SOLN PO SCH ×4 (06:22→23:05)
[2023-03-24 06:58] LABS: Hemoglobin 12.6 g/dL (13.5-17.5); Lymphocytes # (auto) 1.4 10 ^3/uL (0.4-5.4); Monocytes # (auto) 0.9 10 ^3/uL (0-1.3)
[2023-03-24 07:04] LABS: Basophils # (auto) 0.1 10 ^3/uL (0-0.2); Basophils % (auto) 0.8 % (0.0-2.0); Eosinophils # (auto) 0.5 10 ^3/uL (0-0.8); Eosinophils % (auto) 5.9 % (0.0-7.0); Lymphocytes % (auto) 17.2 % (10.0-50.0); Mean Corpuscular Hemoglobin 30.7 pg (28.0-32.0); Mean Corpuscular Volume 90.2 fL (80.0-100.0); Monocytes % (auto) 11.4 % (0.0-12.0); Neutrophils # (auto) 5.2 10 ^3/uL (1.6-8.6); Neutrophils % (auto) 64.7 % (37.0-80.0); Nucleated Red Blood Cells % 0.6 %; Red Cell Distribution Width 16.3 % (11.8-14.3)
[2023-03-24 07:32] LABS: Albumin 2.5 g/dL (3.4-5.0); Calcium 7.5 mg/dL (8.5-10.1); Potassium 3.1 mmol/L (3.5-5.1)
[2023-03-24 07:38] LABS: BUN/Creatinine Ratio 8.1 (10.0-20.0); Bilirubin, Total 5.9 mg/dL (0.2-1.0); Total Protein 6.3 g/dL (6.4-8.2)
[2023-03-24] MEDS: SPIRONOLACTONE 25 MG TAB PO SCH (09:01)
[2023-03-24] MEDS: FUROSEMIDE 20 MG TAB PO SCH (09:01)
[2023-03-24] MEDS: PANTOPRAZOLE 40 MG TAB PO SCH ×2 (09:01→21:29)
[2023-03-24] MEDS: POTASSIUM CHL 10 Meq TABLET PO SCH (09:01)
[2023-03-24] MEDS: HYDROcodone-ACET 5/325MG TAB PO PRN (23:05)
[2023-03-25] MEDS: VANCOMYCIN 1GM/250ML 250 ML IV SCH ×2 (03:54→12:17)
[2023-03-25] MEDS: D5W/SOD CHLO 0.9% 1,000 ML IV SCH (04:45)
[2023-03-25 05:00] VITALS: BP 134/69; PULSE 72; RESP 20; TEMP 97.8; O2SAT 93
[2023-03-25 05:02] LABS: Potassium 2.7 mmol/L (3.5-5.1)
[2023-03-25 05:08] LABS: Albumin 2.3 g/dL (3.4-5.0); BUN/Creatinine Ratio 8.2 (10.0-20.0); Bilirubin, Total 5.4 mg/dL (0.2-1.0); Calcium 7.4 mg/dL (8.5-10.1); Total Protein 6.2 g/dL (6.4-8.2)
[2023-03-25] MEDS ORDERED: POTASSIUM CHL 20 Meq TABLET PO ONE (05:15)
[2023-03-25] MEDS ORDERED: POTASSIUM CHL 20MEQ/100ML 200 ML IV ONE (05:48)
[2023-03-25] MEDS: LACTULOSE 20Gm/30ML SOLN PO SCH ×2 (05:54→12:16)
[2023-03-25] MEDS ORDERED: POTASSIUM CHLORIDE 40 MEQ, LIDOCAINE 1% (LOCAL ANESTH.) 4 ML in SODIUM CHL 0.9% 250 ML IV ONE (06:00)
[2023-03-25 07:53] VITALS: O2SAT 96
[2023-03-25 08:33] LABS: Basophils % (auto) 0.6 % (0.0-2.0); Lymphocytes % (auto) 13.6 % (10.0-50.0); Monocytes % (auto) 12.1 % (0.0-12.0); Neutrophils % (auto) 70.7 % (37.0-80.0); White Blood Cell 7.6 10^3/uL (4.4-10.8)
[2023-03-25 08:34] LABS: Basophils # (auto) 0 10 ^3/uL (0-0.2); Eosinophils # (auto) 0.2 10 ^3/uL (0-0.8); Hematocrit 36.2 % (41.0-53.0); Hemoglobin 12.3 g/dL (13.5-17.5); Mean Corpuscular Hemoglobin 30.4 pg (28.0-32.0); Mean Corpuscular Hgb Conc. 33.9 g/dL (32.0-36.0); Mean Corpuscular Volume 89.7 fL (80.0-100.0); Monocytes # (auto) 0.9 10 ^3/uL (0-1.3); Neutrophils # (auto) 5.3 10 ^3/uL (1.6-8.6); Red Blood Cells 4.03 10^6/uL (4.5-5.90); Red Cell Distribution Width 16.4 % (11.8-14.3)
[2023-03-25 09:15] VITALS: BP 132/83; PULSE 77; RESP 20; TEMP 98.9; O2SAT 98
[2023-03-25 10:00] VITALS: O2SAT 5; O2SAT 95
[2023-03-25] MEDS: FUROSEMIDE 20 MG TAB PO SCH (10:00)
[2023-03-25] MEDS: SPIRONOLACTONE 25 MG TAB PO SCH (10:00)
[2023-03-25] MEDS ORDERED: FURO1TAB33 PO (10:29)
[2023-03-25] MEDS ORDERED: POTA1TAB4 PO (10:29)
[2023-03-25] MEDS ORDERED: SPIR25TA8 PO (10:29)
[2023-03-25] MEDS: PANTOPRAZOLE 40 MG TAB PO SCH (10:30)
[2023-03-25] MEDS: POTASSIUM CHL 10 Meq TABLET PO SCH (10:30)
[2023-03-25 12:17] VITALS: BP 132/83; PULSE 77; RESP 20; TEMP 98.9; O2SAT 95
[2023-03-25 13:00] VITALS: BP 131/81; PULSE 77; RESP 16; TEMP 98.1; O2SAT 97
[2023-03-26 13:38] LABS: Hepatitis B Surface Antigen Negative (Negative)
[2023-03-26 13:39] LABS: Hepatitis C Antibody Negative (Negative)
== END 2023-03-25 13:15 | disposition home or self-care (01) | DRG 720 ==
LOC: ER 16:22 → OVERFLOW 20:10 → WEST WING 23:03
PROVIDERS: ADMIT Nurse Practitioner Family; ATTEND Family Medicine
DX: A41.9 Sepsis, unspecified organism (principal); I50.31 Acute diastolic (congestive) heart failure; E44.0 Moderate protein-calorie malnutrition; K85.10 Biliary acute pancreatitis without necrosis or infection; K70.31 Alcoholic cirrhosis of liver with ascites; I11.0 Hypertensive heart disease with heart failure; E87.6 Hypokalemia; E66.01 Morbid (severe) obesity due to excess calories; K21.9 Gastro-esophageal reflux disease without esophagitis; K80.20 Calculus of gallbladder without cholecystitis without obstruction; Z83.3 Family history of diabetes mellitus; Z82.49 Family history of ischemic heart disease and other diseases of the circulatory system; Z68.41 Body mass index [BMI] 40.0-44.9, adult
CPT/HCPCS: 36415; 71250; 74176; 74181; 80053; 80061; 80202; 80307; 81001; 82140; 83605; 83690; 83880; 84443; 84484; 85025; 85610; 85730; 86803; 87040; 87340; 93005; 93306; 96365; 96366; 96368; 96375; G0378; J1885; J2001; J2405; J2543; J3480; J7042

== ENCOUNTER 2023-05-03 12:18 | Inpatient (IN) | payer MEDICAID ==
[~2023-05-03] VITALS: Ht 165.1 cm; Wt 131.8 kg
[~2023-05-03 12:18] MED LIST changes: +POTA1TAB4 PO
[2023-05-03 13:03] LABS: Basophils # (auto) 0 10 ^3/uL (0-0.2); Eosinophils # (auto) 0 10 ^3/uL (0-0.8); Hemoglobin 13.4 g/dL (13.5-17.5); Lymphocytes # (auto) 0.8 10 ^3/uL (0.4-5.4); Monocytes # (auto) 0 10 ^3/uL (0-1.3); Neutrophils # (auto) 2.2 10 ^3/uL (1.6-8.6)
[2023-05-03 13:06] LABS: Basophils % (auto) 0.4 % (0.0-2.0); Eosinophils % (auto) 0.5 % (0.0-7.0); Hematocrit 38.9 % (41.0-53.0); Lymphocytes % (auto) 26.3 % (10.0-50.0); Mean Corpuscular Hemoglobin 30.8 pg (28.0-32.0); Mean Corpuscular Hgb Conc. 34.5 g/dL (32.0-36.0); Mean Corpuscular Volume 89.3 fL (80.0-100.0); Monocytes % (auto) 0.8 % (0.0-12.0); Nucleated Red Blood Cells % 0.7 %; Red Blood Cells 4.36 10^6/uL (4.5-5.90); Red Cell Distribution Width 17.4 % (11.8-14.3)
[2023-05-03 13:16] LABS: INR 1.46 (0.9-1.15); Partial Thromboplastin Time 29.1 SEC (24.5-34.5)
[2023-05-03 13:23] LABS: Alanine Aminotransferase 38 U/L (7-40); Albumin 2.9 g/dL (3.2-4.8); Alkaline Phosphatase 235 U/L (46-116); Anion Gap 12 (5-15); Aspartate Aminotransferase 91 U/L (13-40); BUN/Creatinine Ratio 10.4 (10.0-20.0); Bilirubin, Total 5.8 mg/dL (0.2-1.0); Blood Urea Nitrogen 8 mg/dL (9-23); Calcium 7.9 mg/dL (8.7-10.4); Carbon Dioxide 19 mmol/L (20-30); Chloride 109 mmol/L (98-107); Glucose 96 mg/dL (74-106); Potassium 3.2 mmol/L (3.5-5.1); Sodium 140 mmol/L (136-145); Total Protein 6.9 g/dL (5.7-8.2)
[2023-05-03 13:33] VITALS: PULSE 107; RESP 14; O2SAT 95
[2023-05-03] MEDS ORDERED: LACTULOSE 20Gm/30ML SOLN PO ONE (13:45)
[2023-05-03] MEDS ORDERED: PANTOPRAZOLE 80 MG in SODIUM CHL 0.9% 100 ML IV ONE (14:30)
[2023-05-03] MEDS ORDERED: OCTREOTIDE ACETATE 100 MCG in SODIUM CHL 0.9% 50 ML IV ONE (14:30)
[2023-05-03] MEDS ORDERED: ONDANSETRON HCL 4 MG/2 ML VIAL IV ONE (14:45)
[2023-05-03] MEDS ORDERED: MORPHINE SULFATE INJ 2 MG/ml SYRG IV ONE (14:45)
[2023-05-03] MEDS ORDERED: DOCUSATE SOD 100 MG CAP PO PRN (16:15)
[2023-05-03] MEDS ORDERED: PANTOPRAZOLE 40mg/50ML NS AE 50 ML IV ONE (16:15)
[2023-05-03] MEDS ORDERED: ONDANSETRON HCL 4 MG/2 ML VIAL IV PRN (16:15)
[2023-05-03] MEDS ORDERED: POTASSIUM EFFERVESENT TAB 25 MEQ PO ONE (16:45)
[2023-05-03 16:48] LABS: Lactic Acid w/Reflex 3.5 mmol/L (0.4-2.0)
[2023-05-03] MEDS: ceFAZolin 1GM/50ML 50 ML IV SCH (18:00)
[2023-05-03] MEDS: FUROSEMIDE 40 MG/4 ML VIAL IV SCH (18:00)
[2023-05-03] MEDS: metroNIDAZOLE 500MG/100ML 100 ML IV SCH (18:24)
[2023-05-03] MEDS: LACTULOSE 20Gm/30ML SOLN PO SCH ×2 (18:25→23:02)
[2023-05-03 19:30] VITALS: PULSE 96; RESP 18; O2SAT 95
[2023-05-03 20:14] LABS: Hematocrit 35.3 % (41.0-53.0); Hemoglobin 11.8 g/dL (13.5-17.5)
[2023-05-03 21:40] VITALS: BP 107/41; PULSE 94; RESP 18; TEMP 98.1; O2SAT 97
[2023-05-03 22:14] VITALS: PULSE 94; RESP 18; O2SAT 97
[2023-05-03] MEDS ORDERED: phytonadione 10 MG in SODIUM CHL 0.9% 50 ML IV ONE (23:45)
[2023-05-03] MEDS ORDERED: VANCOMYCIN 1GM/250ML 250 ML IV ONE (23:45)
[2023-05-04] VITALS (7 sets, daily range): BP systolic 100–114; BP diastolic 46–68; PULSE 100–114; RESP 16–68; TEMP 98.2–98.7; O2SAT 91–100
[2023-05-04] MEDS ORDERED: phytonadione 1 ML ONE (00:28)
[2023-05-04] MEDS: MORPHINE SULFATE INJ 2 MG/ml SYRG IV PRN ×2 (02:02→09:38)
[2023-05-04] MEDS: ceFAZolin 1GM/50ML 50 ML IV SCH ×3 (02:03→17:22)
[2023-05-04] MEDS: LACTULOSE 20Gm/30ML SOLN PO SCH ×6 (02:03→21:23)
[2023-05-04] MEDS: metroNIDAZOLE 500MG/100ML 100 ML IV SCH ×3 (03:22→18:53)
[2023-05-04] MEDS: FUROSEMIDE 40 MG/4 ML VIAL IV SCH ×2 (06:03→18:53)
[2023-05-04 06:49] LABS: Basophils # (auto) 0 10 ^3/uL (0-0.2); Basophils % (auto) 0.1 % (0.0-2.0); Eosinophils # (auto) 0 10 ^3/uL (0-0.8); Lymphocytes # (auto) 0.2 10 ^3/uL (0.4-5.4); Monocytes # (auto) 0.5 10 ^3/uL (0-1.3); Monocytes % (auto) 3.1 % (0.0-12.0); Nucleated Red Blood Cells % 0.1 %
[2023-05-04 06:51] LABS: Eosinophils % (auto) 0.1 % (0.0-7.0); Hematocrit 37.1 % (41.0-53.0); Hemoglobin 12.5 g/dL (13.5-17.5); Mean Corpuscular Hemoglobin 31.2 pg (28.0-32.0); Mean Corpuscular Hgb Conc. 33.7 g/dL (32.0-36.0); Mean Corpuscular Volume 92.6 fL (80.0-100.0); Neutrophils # (auto) 16.2 10 ^3/uL (1.6-8.6); Neutrophils % (auto) 95.7 % (37.0-80.0); Red Blood Cells 4.01 10^6/uL (4.5-5.90); Red Cell Distribution Width 18.2 % (11.8-14.3); White Blood Cell 16.9 10^3/uL (4.4-10.8)
[2023-05-04 07:07] LABS: Alanine Aminotransferase 50 U/L (7-40); Albumin 2.4 g/dL (3.2-4.8); Alkaline Phosphatase 81 U/L (46-116); Anion Gap 17 (5-15); Aspartate Aminotransferase 162 U/L (13-40); BUN/Creatinine Ratio 9.9 (10.0-20.0); Bilirubin, Total 9.1 mg/dL (0.2-1.0); Blood Urea Nitrogen 15 mg/dL (9-23); Calcium 8.1 mg/dL (8.5-10.1); Carbon Dioxide 13 mmol/L (20-30); Chloride 111 mmol/L (98-107); Glucose 100 mg/dL (74-106); Potassium 3.5 mmol/L (3.5-5.1); Sodium 141 mmol/L (136-145); Total Protein 6.1 g/dL (5.7-8.2)
[2023-05-04 08:59] LABS: Platelet Estimate Decreased
[2023-05-04] MEDS: SPIRONOLACTONE 25 MG TAB PO SCH (09:32)
[2023-05-04] MEDS: D5W/SOD CHL 0.45% 1,000 ML IV SCH ×2 (13:05)
[2023-05-04 14:58] LABS: Hemoglobin 12.9 g/dL (13.5-17.5)
[2023-05-04 15:00] LABS: Hematocrit 38.9 % (41.0-53.0)
[2023-05-04 23:20] LABS: Hemoglobin 12.4 g/dL (13.5-17.5)
[2023-05-05] VITALS (7 sets, daily range): BP systolic 107–121; BP diastolic 57–69; PULSE 87–111; RESP 14–19; TEMP 97.4–98.4; O2SAT 0–97
[2023-05-05] MEDS: ceFAZolin 1GM/50ML 50 ML IV SCH ×3 (01:08→16:45)
[2023-05-05] MEDS: LACTULOSE 20Gm/30ML SOLN PO SCH ×6 (01:10→22:49)
[2023-05-05] MEDS: D5W/SOD CHL 0.45% 1,000 ML IV SCH ×3 (01:10→16:46)
[2023-05-05] MEDS: MORPHINE SULFATE INJ 2 MG/ml SYRG IV PRN (01:50)
[2023-05-05] MEDS: FUROSEMIDE 40 MG/4 ML VIAL IV SCH ×2 (05:29→18:51)
[2023-05-05 05:47] LABS: Urine Bacteria NONE SEEN /hpf (None Seen); Urine Blood 2+ /uL (Negative); Urine Clarity Clear (Clear); Urine Color Yellow (Yellow); Urine Hyaline Cast FEW /lpf (0 - 2); Urine Protein, UAD Negative (Negative); Urine Specific Gravity 1.014 (1.001-1.035); Urine Urobilinogen Normal (Negative); Urine WBC 7 /hpf (0 - 3)
[2023-05-05] MEDS: SPIRONOLACTONE 25 MG TAB PO SCH (11:08)
[2023-05-05] MEDS ORDERED: guaiFENesin 200 MG/10 ML UD PO PRN (22:00)
[2023-05-05] MEDS: traMADol HCL 50 MG TAB PO PRN (23:22)
[2023-05-06] VITALS (7 sets, daily range): BP systolic 109–119; BP diastolic 45–66; PULSE 77–100; RESP 15–22; TEMP 97.7–98.3; O2SAT 0–99
[2023-05-06] MEDS: ceFAZolin 1GM/50ML 50 ML IV SCH ×3 (01:48→17:16)
[2023-05-06] MEDS: LACTULOSE 20Gm/30ML SOLN PO SCH ×6 (01:48→23:02)
[2023-05-06] MEDS: D5W/SOD CHL 0.45% 1,000 ML IV SCH ×2 (05:13→17:27)
[2023-05-06] MEDS: FUROSEMIDE 40 MG/4 ML VIAL IV SCH ×2 (05:14→17:16)
[2023-05-06] MEDS: SPIRONOLACTONE 25 MG TAB PO SCH (10:00)
[2023-05-06] MEDS: URSODIOL 300 MG CAP PO SCH ×2 (14:25→22:59)
[2023-05-06] MEDS: traMADol HCL 50 MG TAB PO PRN (19:39)
[2023-05-07] VITALS (7 sets, daily range): BP systolic 110–141; BP diastolic 50–79; PULSE 71–86; RESP 18–20; TEMP 97.1–98.3; O2SAT 95–98
[2023-05-07] MEDS: ceFAZolin 1GM/50ML 50 ML IV SCH ×3 (01:47→17:29)
[2023-05-07] MEDS: LACTULOSE 20Gm/30ML SOLN PO SCH ×4 (01:47→17:29)
[2023-05-07] MEDS: FUROSEMIDE 40 MG/4 ML VIAL IV SCH ×2 (05:29→17:30)
[2023-05-07] MEDS: D5W/SOD CHL 0.45% 1,000 ML IV SCH ×2 (05:29→17:33)
[2023-05-07 06:11] LABS: Basophils # (auto) 0 10 ^3/uL (0-0.2); Neutrophils # (auto) 6.2 10 ^3/uL (1.6-8.6); Neutrophils % (auto) 66.2 % (37.0-80.0)
[2023-05-07 06:14] LABS: Basophils % (auto) 0.3 % (0.0-2.0); Eosinophils # (auto) 0.1 10 ^3/uL (0-0.8); Eosinophils % (auto) 1.5 % (0.0-7.0); Hematocrit 36.7 % (41.0-53.0); Hemoglobin 12.6 g/dL (13.5-17.5); Lymphocytes # (auto) 2.1 10 ^3/uL (0.4-5.4); Lymphocytes % (auto) 22.3 % (10.0-50.0); Mean Corpuscular Hgb Conc. 34.5 g/dL (32.0-36.0); Mean Corpuscular Volume 89.9 fL (80.0-100.0); Monocytes # (auto) 0.9 10 ^3/uL (0-1.3); Monocytes % (auto) 9.7 % (0.0-12.0); Nucleated Red Blood Cells % 0.3 %; Red Blood Cells 4.08 10^6/uL (4.5-5.90); Red Cell Distribution Width 17.9 % (11.8-14.3); White Blood Cell 9.4 10^3/uL (4.4-10.8)
[2023-05-07 06:35] LABS: Alanine Aminotransferase 41 U/L (7-40); Alkaline Phosphatase 101 U/L (46-116); Anion Gap 9 (5-15); Aspartate Aminotransferase 132 U/L (13-40); Blood Urea Nitrogen 19 mg/dL (9-23); Calcium 7.9 mg/dL (8.5-10.1); Carbon Dioxide 25 mmol/L (20-30); Chloride 103 mmol/L (98-107); Glucose 90 mg/dL (74-106); Sodium 137 mmol/L (136-145)
[2023-05-07 06:36] LABS: Albumin 2.7 g/dL (3.2-4.8); Bilirubin, Total 12.3 mg/dL (0.2-1.0); Total Protein 6.7 g/dL (5.7-8.2)
[2023-05-07 06:42] LABS: Potassium 2.5 mmol/L (3.5-5.1)
[2023-05-07 06:43] LABS: BUN/Creatinine Ratio 16.1 (10.0-20.0)
[2023-05-07] MEDS ORDERED: POTASSIUM CHL 20MEQ/100ML 100 ML IV ONE (07:00)
[2023-05-07] MEDS ORDERED: POTASSIUM CHL 20 Meq TABLET PO ONE (07:00)
[2023-05-07 08:46] LABS: Platelet Estimate Markedly Decreased
[2023-05-07 09:28] LABS: Anisocytosis Slight
[2023-05-07] MEDS: SPIRONOLACTONE 25 MG TAB PO SCH (09:31)
[2023-05-07] MEDS: URSODIOL 300 MG CAP PO SCH ×2 (13:02→21:17)
[2023-05-07] MEDS: traMADol HCL 50 MG TAB PO PRN (17:29)
[2023-05-07] MEDS ORDERED: VANCOMYCIN PER PHARMACY 0 MG IV SCH (19:15)
[2023-05-07] MEDS ORDERED: VANCOMYCIN 1GM/250ML 250 ML IV ONE (19:30)
[2023-05-07] MEDS: MORPHINE SULFATE INJ 2 MG/ml SYRG IV PRN (22:29)
[2023-05-08] MEDS: ceFAZolin 1GM/50ML 50 ML IV SCH ×3 (00:03→16:48)
[2023-05-08] MEDS: LACTULOSE 20Gm/30ML SOLN PO SCH ×4 (00:04→18:01)
[2023-05-08 05:00] VITALS: BP 135/77; PULSE 74; RESP 17; TEMP 98.1; O2SAT 97
[2023-05-08] MEDS: FUROSEMIDE 40 MG/4 ML VIAL IV SCH ×2 (05:00→18:02)
[2023-05-08] MEDS: VANCOMYCIN 1GM/250ML 250 ML IV SCH ×2 (05:01→12:24)
[2023-05-08] MEDS: traMADol HCL 50 MG TAB PO PRN ×2 (05:30→18:02)
[2023-05-08 07:45] VITALS: PULSE 78
[2023-05-08 09:00] VITALS: BP 147/82; PULSE 70; RESP 19; TEMP 98.4; O2SAT 96
[2023-05-08] MEDS ORDERED: POTASSIUM EFFERVESENT TAB 25 MEQ GT ONE (10:00)
[2023-05-08] MEDS: URSODIOL 300 MG CAP PO SCH ×2 (10:02→21:33)
[2023-05-08] MEDS: SPIRONOLACTONE 25 MG TAB PO SCH (10:02)
[2023-05-08] MEDS: D5W/SOD CHL 0.45% 1,000 ML IV SCH (12:24)
[2023-05-08 13:00] VITALS: BP 146/74; PULSE 81; RESP 19; TEMP 98; O2SAT 97
[2023-05-08 13:32] LABS: Hematocrit 37.4 % (41.0-53.0); Hemoglobin 12.4 g/dL (13.5-17.5); Red Blood Cells 4.07 10^6/uL (4.5-5.90); White Blood Cell 11.2 10^3/uL (4.4-10.8)
[2023-05-08 13:33] LABS: Mean Corpuscular Hemoglobin 30.4 pg (28.0-32.0); Mean Corpuscular Hgb Conc. 33.2 g/dL (32.0-36.0); Mean Corpuscular Volume 91.8 fL (80.0-100.0); Red Cell Distribution Width 18.2 % (11.8-14.3)
[2023-05-08 13:45] LABS: Basophils % (manual) 0 (0.0-2.0); Blast Cells 0; Eosinophils % (manual) 0 (0-7); Myelocytes % 0; Promyelocytes % 0; Reactive Lymphocytes 0
[2023-05-08 14:07] LABS: Band Neutrophils % (manual) 3; Lymphocytes % (manual) 23 (10.0-50.0); Metamyelocytes % 4; Monocytes % (manual) 6 (0-12); Platelet Estimate Decreased
[2023-05-08 14:26] LABS: Alanine Aminotransferase 37 U/L (7-40); Albumin 2.4 g/dL (3.2-4.8); Alkaline Phosphatase 126 U/L (46-116); Anion Gap 11 (5-15); Aspartate Aminotransferase 116 U/L (13-40); Blood Urea Nitrogen 17 mg/dL (9-23); Carbon Dioxide 23 mmol/L (20-30); Chloride 100 mmol/L (98-107); Glucose 112 mg/dL (74-106); Sodium 134 mmol/L (136-145)
[2023-05-08 14:27] LABS: Bilirubin, Total 11.1 mg/dL (0.2-1.0)
[2023-05-08 15:55] LABS: BUN/Creatinine Ratio 18.3 (10.0-20.0)
[2023-05-08 15:57] LABS: Potassium 2.4 mmol/L (3.5-5.1)
[2023-05-08] MEDS ORDERED: POTASSIUM CHLORIDE 60 MEQ, LIDOCAINE 1% (LOCAL ANESTH.) 6 ML in SODIUM CHL 0.9% 500 ML IV ONE (16:15)
[2023-05-08 16:55] VITALS: BP 150/75; PULSE 74; RESP 19; TEMP 97.8; O2SAT 97
[2023-05-08] MEDS ORDERED: POTASSIUM EFFERVESENT TAB 25 MEQ GT SCH (18:00)
[2023-05-08] MEDS: POTASSIUM EFFERVESENT TAB 25 MEQ PO SCH (18:02)
[2023-05-08 20:00] VITALS: BP 136/69; PULSE 85; PULSE 93; RESP 19; TEMP 97.1
[2023-05-09] VITALS (7 sets, daily range): BP systolic 127–138; BP diastolic 66–76; PULSE 79–97; RESP 16–22; TEMP 97.1–98.8; O2SAT 95–99
[2023-05-09] MEDS: LACTULOSE 20Gm/30ML SOLN PO SCH ×4 (00:23→18:29)
[2023-05-09] MEDS: FUROSEMIDE 40 MG/4 ML VIAL IV SCH ×2 (06:16→18:29)
[2023-05-09] MEDS: D5W/SOD CHL 0.45% 1,000 ML IV SCH (06:36)
[2023-05-09] MEDS ORDERED: POTASSIUM EFFERVESENT TAB 25 MEQ PO ONE (08:30)
[2023-05-09] MEDS: URSODIOL 300 MG CAP PO SCH ×2 (09:01→21:07)
[2023-05-09] MEDS: SPIRONOLACTONE 25 MG TAB PO SCH (09:01)
[2023-05-09] MEDS: CEFTRIAXONE SODIUM 2 GM in D5W 5% 100 ML IV SCH (09:02)
[2023-05-09] MEDS: POTASSIUM EFFERVESENT TAB 25 MEQ PO SCH (11:05)
[2023-05-10] MEDS: LACTULOSE 20Gm/30ML SOLN PO SCH ×3 (00:35→11:46)
[2023-05-10 05:00] VITALS: BP 135/53; PULSE 85; RESP 22; TEMP 97.9; O2SAT 98
[2023-05-10] MEDS: FUROSEMIDE 40 MG/4 ML VIAL IV SCH (05:36)
[2023-05-10 08:00] VITALS: PULSE 80
[2023-05-10 09:00] VITALS: BP 143/73; PULSE 90; RESP 20; TEMP 98.1; O2SAT 100
[2023-05-10] MEDS: POTASSIUM EFFERVESENT TAB 25 MEQ PO SCH (09:03)
[2023-05-10] MEDS: SPIRONOLACTONE 25 MG TAB PO SCH (09:03)
[2023-05-10] MEDS: CEFTRIAXONE SODIUM 2 GM in D5W 5% 100 ML IV SCH (09:03)
[2023-05-10] MEDS: URSODIOL 300 MG CAP PO SCH (09:03)
[2023-05-10] MEDS ORDERED: POTA10TA51 PO (10:26)
[2023-05-10] MEDS ORDERED: AUG875T PO (10:26)
[2023-05-10] MEDS ORDERED: POTA-180 PO (10:26)
[2023-05-10] MEDS ORDERED: POTASSIUM EFFERVESENT TAB 25 MEQ PO ONE (10:30)
[2023-05-10] MEDS ORDERED: URSO300C2 PO (10:40)
[2023-05-10 11:59] VITALS: BP 131/53; TEMP 36.7
[2023-05-10 13:00] VITALS: BP 138/70; PULSE 93; RESP 17; TEMP 98.3; O2SAT 99
== END 2023-05-10 17:52 | disposition home or self-care (01) | DRG 720 ==
LOC: ER 12:18 → TELE 16:14 → TELE-WESTW 21:28
PROVIDERS: ADMIT Nurse Practitioner Family; ATTEND Family Medicine
PROC: 05HD33Z Insertion of Infusion Device into Right Cephalic Vein, Percutaneous Approach (ICD-10-PCS; principal; 2023-05-08)
PROC: B54MZZA Ultrasonography of Right Upper Extremity Veins, Guidance (ICD-10-PCS; 2023-05-08)
DX: A40.1 Sepsis due to streptococcus, group B (principal); K76.82 Hepatic encephalopathy; D68.59 Other primary thrombophilia; E44.1 Mild protein-calorie malnutrition; D69.59 Other secondary thrombocytopenia; K92.2 Gastrointestinal hemorrhage, unspecified; L03.116 Cellulitis of left lower limb; E87.6 Hypokalemia; K21.9 Gastro-esophageal reflux disease without esophagitis; D64.9 Anemia, unspecified; K80.20 Calculus of gallbladder without cholecystitis without obstruction; K70.30 Alcoholic cirrhosis of liver without ascites; I50.9 Heart failure, unspecified; F10.20 Alcohol dependence, uncomplicated; Z82.49 Family history of ischemic heart disease and other diseases of the circulatory system; Z83.3 Family history of diabetes mellitus; Z68.42 Body mass index [BMI] 45.0-49.9, adult
CPT/HCPCS: 36415; 70450; 71045; 76705; 80053; 81001; 82140; 83605; 83880; 84132; 84484; 85007; 85014; 85018; 85025; 85027; 85610; 85730; 86850; 86900; 86901; 87040; 87077; 87186; 93005; 93306; 93970; 93971; 96365; 96367; 96375; 99291; C9113; G0378; J0690; J0696; J2001; J2405; J3430; J3480; J3490; J7060

== ENCOUNTER 2023-06-09 13:04 | Emergency (ER) | payer MEDICAID ==
[~2023-06-09] VITALS: Ht 165.1 cm; Wt 123.4 kg
[~2023-06-09 13:04] MED LIST changes: +AUG875T PO; +POTA-180 PO; +URSO300C2 PO
[2023-06-09 13:41] LABS: Basophils # (auto) 0 10 ^3/uL (0-0.2); Basophils % (auto) 0.5 % (0.0-2.0); Eosinophils # (auto) 0 10 ^3/uL (0-0.8); Eosinophils % (auto) 0.7 % (0.0-7.0); Hematocrit 34.3 % (41.0-53.0); Hemoglobin 11.6 g/dL (13.5-17.5); Lymphocytes # (auto) 1.2 10 ^3/uL (0.4-5.4); Lymphocytes % (auto) 22.4 % (10.0-50.0); Mean Corpuscular Hemoglobin 32.1 pg (28.0-32.0); Mean Corpuscular Hgb Conc. 33.9 g/dL (32.0-36.0); Mean Corpuscular Volume 94.5 fL (80.0-100.0); Monocytes # (auto) 0.3 10 ^3/uL (0-1.3); Monocytes % (auto) 6.3 % (0.0-12.0); Neutrophils # (auto) 3.7 10 ^3/uL (1.6-8.6); Neutrophils % (auto) 70.1 % (37.0-80.0); Nucleated Red Blood Cells % 0.1 %; Red Blood Cells 3.62 10^6/uL (4.5-5.90); Red Cell Distribution Width 17.7 % (11.8-14.3); White Blood Cell 5.3 10^3/uL (4.4-10.8)
[2023-06-09 13:58] LABS: INR 1.58 (0.9-1.15); Partial Thromboplastin Time 34.4 SEC (24.5-34.5); Prothrombin Time 16.1 sec (9.3-11.8)
[2023-06-09 14:01] LABS: Alanine Aminotransferase 49 U/L (7-40); Albumin 2.5 g/dL (3.2-4.8); Alkaline Phosphatase 175 U/L (46-116); Anion Gap 8 (5-15); Aspartate Aminotransferase 111 U/L (13-40); BUN/Creatinine Ratio 9.5 (10.0-20.0); Blood Urea Nitrogen 7 mg/dL (9-23); Carbon Dioxide 25 mmol/L (20-30); Chloride 102 mmol/L (98-107); Glucose 171 mg/dL (74-106); Potassium 3.1 mmol/L (3.5-5.1); Sodium 135 mmol/L (136-145)
[2023-06-09 14:02] LABS: Bilirubin, Total 7.3 mg/dL (0.2-1.0); Total Protein 6.7 g/dL (5.7-8.2)
[2023-06-09] MEDS ORDERED: POTASSIUM EFFERVESENT TAB 25 MEQ PO ONE (17:15)
[2023-06-09] MEDS ORDERED: POTA10TA51 PO (17:17)
[2023-06-09 17:34] VITALS: BP 129/50; TEMP 97.6
[2023-06-09 17:36] VITALS: PULSE 82; RESP 16; O2SAT 97
== END 2023-06-09 17:41 | disposition home or self-care (01) ==
LOC: ER 13:04
DX: E87.6 Hypokalemia (principal); K74.60 Unspecified cirrhosis of liver; R73.9 Hyperglycemia, unspecified; E80.6 Other disorders of bilirubin metabolism; E43 Unspecified severe protein-calorie malnutrition; Z79.899 Other long term (current) drug therapy; K21.9 Gastro-esophageal reflux disease without esophagitis; I50.9 Heart failure, unspecified
CPT/HCPCS: 36415; 80053; 82962; 85025; 85610; 85730; 93005

== ENCOUNTER 2024-05-08 20:46 | Inpatient (IN) | payer MEDICAID ==
[~2024-05-08] VITALS: Ht 165.1 cm; Wt 123.2 kg
[~2024-05-08 20:46] MED LIST changes: +POTA-36 PO; -POTA10TA51 PO
[2024-05-08 21:38] LABS: Basophils # (auto) 0 10 ^3/uL (0-0.2); Eosinophils # (auto) 0 10 ^3/uL (0-0.8); Hemoglobin 9.8 g/dL (13.5-17.5); Lymphocytes # (auto) 0.7 10 ^3/uL (0.4-5.4); Monocytes # (auto) 0.7 10 ^3/uL (0-1.3); Neutrophils # (auto) 7.4 10 ^3/uL (1.6-8.6)
[2024-05-08 21:40] LABS: Basophils % (auto) 0.3 % (0.0-2.0); Eosinophils % (auto) 0.5 % (0.0-7.0); Hematocrit 30.7 % (41.0-53.0); Lymphocytes % (auto) 7.4 % (10.0-50.0); Mean Corpuscular Hemoglobin 25.5 pg (28.0-32.0); Mean Corpuscular Volume 79.6 fL (80.0-100.0); Monocytes % (auto) 7.6 % (0.0-12.0); Neutrophils % (auto) 84.2 % (37.0-80.0); Platelet Count (auto) 71 10^3/uL (140-450); Red Blood Cells 3.86 10^6/uL (4.5-5.90); White Blood Cell 8.8 10^3/uL (4.4-10.8)
[2024-05-08 21:44] LABS: Red Cell Distribution Width 20.8 % (11.8-14.3)
[2024-05-08 21:59] LABS: Alanine Aminotransferase 38 U/L (7-40); Albumin 2.9 g/dL (3.2-4.8); Alkaline Phosphatase 165 U/L (46-116); Anion Gap 5 (5-15); Aspartate Aminotransferase 77 U/L (13-40); BUN/Creatinine Ratio 7.4 (10.0-20.0); Bilirubin, Total 5.3 mg/dL (0.2-1.0); Blood Urea Nitrogen 9 mg/dL (9-23); Calcium 8.4 mg/dL (8.7-10.4); Carbon Dioxide 25 mmol/L (20-31); Chloride 107 mmol/L (98-107); Glucose 126 mg/dL (74-106); Magnesium 1.9 mg/dL (1.6-2.6); Potassium 3.6 mmol/L (3.5-5.1); Sodium 137 mmol/L (136-145); Total Protein 6.2 g/dL (5.7-8.2)
[2024-05-08 22:07] LABS: Lipase 3477 U/L (12-53)
[2024-05-08 22:18] LABS: Anisocytosis Slight; Large Platelets FEW; Platelet Estimate Decreased
[2024-05-08] MEDS: FUROSEMIDE 100 MG/10ML VIAL IV ONE (23:31)
[2024-05-08] MEDS: fentaNYL CITRATE 100 MCG/2 ML VL IV ONE (23:43)
[2024-05-08] MEDS: PIPERACILLIN-TAZOB 3.375GM 100 ML IV ONE (23:57)
[2024-05-09] VITALS (7 sets, daily range): BP systolic 109–132; BP diastolic 40–69; PULSE 63–80; RESP 16–24; TEMP 97.8–99.2; O2SAT 93–99
[2024-05-09] MEDS: ONDANSETRON HCL 4 MG/2 ML VIAL IV PRN (00:03)
[2024-05-09] MEDS: LACTATED RINGER'S 1,000 ML IV SCH ×2 (00:26→01:45)
[2024-05-09] MEDS: PANTOPRAZOLE 40 MG/10 ML VIAL INJ IV ONE (02:00)
[2024-05-09 02:26] LABS: Urine Bacteria None Seen /hpf (None Seen); Urine WBC None Seen /hpf (0 - 3)
[2024-05-09 02:35] LABS: Urine Blood Negative /uL (Negative); Urine Clarity Clear (Clear); Urine Protein, UAD Negative (Negative); Urine Specific Gravity 1.006 (1.001-1.035); Urine Urobilinogen Normal (Negative)
[2024-05-09 02:37] LABS: Urine Color STRAW (Yellow)
[2024-05-09 03:06] LABS: Amphetamine Screen, Urine Neg (NEGATIVE)
[2024-05-09 03:07] LABS: Barbiturate Scree,Urine Neg (NEGATIVE); Benzodiazephine Screen, Urine Neg (NEGATIVE); Cannabinoid Screen, Urine Neg (NEGATIVE); Cocaine Screen, Urine Neg (NEGATIVE); Opiate Scree,Urine Neg (NEGATIVE); Phencyclidine Screen, Urine Neg (NEGATIVE)
[2024-05-09] MEDS: MORPHINE SULFATE INJ 2 MG/ml SYRG IV PRN (03:23)
[2024-05-09] MEDS ORDERED: CHOL500021 OR (05:19)
[2024-05-09] MEDS: PANTOPRAZOLE 40 MG/10 ML VIAL INJ IV SCH (09:50)
[2024-05-09] MEDS: ALBUMIN 25% 50 ML IV ONE (09:50)
[2024-05-09 12:07] LABS: Basophils # (auto) 0 10 ^3/uL (0-0.2); Lymphocytes # (auto) 0.9 10 ^3/uL (0.4-5.4); White Blood Cell 6.3 10^3/uL (4.4-10.8)
[2024-05-09 12:13] LABS: Basophils % (auto) 0.4 % (0.0-2.0); Eosinophils # (auto) 0 10 ^3/uL (0-0.8); Eosinophils % (auto) 0.8 % (0.0-7.0); Hematocrit 30.5 % (41.0-53.0); Lymphocytes % (auto) 14.2 % (10.0-50.0); Mean Corpuscular Hgb Conc. 32.8 g/dL (32.0-36.0); Mean Corpuscular Volume 79.4 fL (80.0-100.0); Monocytes # (auto) 0.6 10 ^3/uL (0-1.3); Monocytes % (auto) 9.2 % (0.0-12.0); Neutrophils # (auto) 4.7 10 ^3/uL (1.6-8.6); Neutrophils % (auto) 75.4 % (37.0-80.0); Platelet Count (auto) 63 10^3/uL (140-450); Red Blood Cells 3.84 10^6/uL (4.5-5.90); Red Cell Distribution Width 20.7 % (11.8-14.3)
[2024-05-09 12:15] LABS: INR 1.69 (0.9-1.15); Partial Thromboplastin Time 36.2 SEC (24.5-34.5); Prothrombin Time 17.2 sec (9.3-11.8)
[2024-05-09 12:19] LABS: Alanine Aminotransferase 38 U/L (7-40); Alkaline Phosphatase 161 U/L (46-116); Anion Gap 8 (5-15); Aspartate Aminotransferase 79 U/L (13-40); BUN/Creatinine Ratio 10.3 (10.0-20.0); Bilirubin, Total 5.9 mg/dL (0.2-1.0); Blood Urea Nitrogen 10 mg/dL (9-23); Calcium 8.1 mg/dL (8.7-10.4); Carbon Dioxide 25 mmol/L (20-31); Chloride 107 mmol/L (98-107); Glucose 82 mg/dL (74-106); Magnesium 1.8 mg/dL (1.6-2.6); Potassium 3.1 mmol/L (3.5-5.1); Sodium 140 mmol/L (136-145); Total Protein 6.3 g/dL (5.7-8.2)
[2024-05-09 12:59] LABS: Triglycerides 60 mg/dL (< 150)
[2024-05-09 13:00] LABS: Blood Alcohol < 3.0 mg/dL (<10); LDL Cholesterol 58 mg/dL (< 100)
[2024-05-09 13:01] LABS: Bilirubin, Direct 2.3 mg/dL (<0.3); Cholesterol 110 mg/dL (< 200); HDL Cholesterol 28 mg/dL (40-59)
[2024-05-09] MEDS: ERGOCALCIFEROL 50,000 UNIT(1.25MG) CAP PO SCH (14:24)
[2024-05-10 05:00] VITALS: BP 117/52; PULSE 77; RESP 21; TEMP 99.1; O2SAT 97
[2024-05-10 06:05] LABS: Eosinophils # (auto) 0.3 10 ^3/uL (0-0.8); Hemoglobin 9.2 g/dL (13.5-17.5); Lymphocytes # (auto) 1.2 10 ^3/uL (0.4-5.4); Neutrophils # (auto) 3.2 10 ^3/uL (1.6-8.6); White Blood Cell 5.4 10^3/uL (4.4-10.8)
[2024-05-10 06:07] LABS: Basophils # (auto) 0.1 10 ^3/uL (0-0.2); Eosinophils % (auto) 5.8 % (0.0-7.0); Lymphocytes % (auto) 22.6 % (10.0-50.0); Mean Corpuscular Hemoglobin 25.2 pg (28.0-32.0); Mean Corpuscular Hgb Conc. 31.7 g/dL (32.0-36.0); Mean Corpuscular Volume 79.6 fL (80.0-100.0); Monocytes # (auto) 0.6 10 ^3/uL (0-1.3); Monocytes % (auto) 11.5 % (0.0-12.0); Neutrophils % (auto) 59.1 % (37.0-80.0); Nucleated Red Blood Cells % 0.4 %; Platelet Count (auto) 59 10^3/uL (140-450); Red Blood Cells 3.65 10^6/uL (4.5-5.90)
[2024-05-10 06:16] LABS: Red Cell Distribution Width 20.8 % (11.8-14.3)
[2024-05-10 06:26] LABS: Alanine Aminotransferase 33 U/L (7-40); Albumin 2.7 g/dL (3.2-4.8); Alkaline Phosphatase 144 U/L (46-116); Anion Gap 7 (5-15); Aspartate Aminotransferase 62 U/L (13-40); BUN/Creatinine Ratio 10.5 (10.0-20.0); Bilirubin, Total 7.5 mg/dL (0.2-1.0); Blood Urea Nitrogen 9 mg/dL (9-23); Calcium 8.1 mg/dL (8.7-10.4); Carbon Dioxide 25 mmol/L (20-31); Chloride 108 mmol/L (98-107); Glucose 81 mg/dL (74-106); Lipase 67 U/L (12-53); Potassium 2.9 mmol/L (3.5-5.1); Sodium 140 mmol/L (136-145); Total Protein 5.6 g/dL (5.7-8.2)
[2024-05-10 06:44] LABS: Anisocytosis Slight
[2024-05-10 06:46] LABS: Large Platelets FEW; Stomatocytes Few
[2024-05-10 06:48] LABS: Platelet Estimate Decreased
[2024-05-10 07:35] LABS: INR 1.76 (0.9-1.15); Partial Thromboplastin Time 39.5 SEC (24.5-34.5); Prothrombin Time 17.9 sec (9.3-11.8)
[2024-05-10 08:04] VITALS: O2SAT 98
[2024-05-10] MEDS ORDERED: POTASSIUM CHL 20 Meq TABLET PO ONE (08:45)
[2024-05-10 09:08] VITALS: BP 120/50; PULSE 75; RESP 18; TEMP 97.6; O2SAT 100
[2024-05-10] MEDS: POTASSIUM CHL 20 Meq TABLET PO SCH (09:58)
[2024-05-10] MEDS: LACTULOSE 20Gm/30ML SOLN PO SCH (09:59)
[2024-05-10] MEDS: MAGNESIUM SULFATE 1GM/100ML 100 ML IV ONE (12:11)
[2024-05-10 13:00] VITALS: BP 120/42; PULSE 72; RESP 16; TEMP 98; O2SAT 98
[2024-05-10] MEDS ORDERED: METOCLOPRAMIDE HCL 5MG/ml INJ 2ml VIAL ONE (13:59)
[2024-05-10] MEDS: POTASSIUM CHL 20 Meq TABLET PO ONE (16:30)
[2024-05-10] MEDS ORDERED: PANT40T PO (16:38)
[2024-05-10] MEDS ORDERED: POTA1TAB4 PO (16:38)
[2024-05-10] MEDS ORDERED: LACT10PA2 PO (16:38)
[2024-05-10 16:58] VITALS: BP 125/47; PULSE 74; RESP 17; TEMP 98; O2SAT 98
== END 2024-05-10 17:47 | disposition home or self-care (01) | DRG 282 ==
LOC: ER 20:46 → OVERFLOW 23:42 → EAST 05-09 05:00
PROVIDERS: ADMIT Internal Medicine; ATTEND Internal Medicine Gastroenterology
DX: K85.10 Biliary acute pancreatitis without necrosis or infection (principal); K76.82 Hepatic encephalopathy; D69.6 Thrombocytopenia, unspecified; E44.0 Moderate protein-calorie malnutrition; I50.42 Chronic combined systolic (congestive) and diastolic (congestive) heart failure; I11.0 Hypertensive heart disease with heart failure; K74.60 Unspecified cirrhosis of liver; D64.9 Anemia, unspecified; R16.1 Splenomegaly, not elsewhere classified; E55.9 Vitamin D deficiency, unspecified; R74.01 Elevation of levels of liver transaminase levels; K21.9 Gastro-esophageal reflux disease without esophagitis; E66.01 Morbid (severe) obesity due to excess calories; Z68.42 Body mass index [BMI] 45.0-49.9, adult; Z79.899 Other long term (current) drug therapy
CPT/HCPCS: 36415; 71045; 74176; 76705; 80053; 80061; 80307; 80320; 81001; 82140; 82248; 82306; 82607; 83036; 83540; 83550; 83605; 83615; 83690; 83735; 83880; 84132; 84484; 85025; 85045; 85610; 85730; 93306; 93970; 99291; G0378; J2405; J2470; J2543

== ENCOUNTER 2024-09-07 10:49 | Inpatient (IN) | payer MEDICAID, OTHER ==
[~2024-09-07] VITALS: Ht 165.1 cm; Wt 97.6 kg
[~2024-09-07 10:49] MED LIST changes: -AUG875T PO; -CEFD300C2 PO; +CHOL500021 OR; -CLIN-203 PO; -FURO1TAB31 PO; -POTA-180 PO; -POTA-36 PO; -SPIR25TA PO; -URSO300C2 PO
--- NOTE | 2024-09-07 11:32 | ED.PDOC ---
GI ASSESSMENT HPI Comments 44 y.o male with PMHx of Liver cirrhosis, presents to the ED for a chief complaint of rectal bleeding associated with nausea, vomiting, lower abdominal pain, dizziness, SOB and headaches that presented 3 days ago. Patient reports having bloody stool daily, described as red and black with increased headache and SOB. Patient states previous episode of rectal bleeding due to his liver cirrhosis diagnose and has had colonoscopies and endoscopies. He denies any recent alcohol use, fever, chills, diarrhea, chest pain. Chief Complaint: GI Bleed Time Seen by MD: 11:17 Primary Care Provider: ludy Reviewed Notes: Nurses Notes, Medications, Allergies Allergies: Coded Allergies: NO KNOWN ALLERGIES (Unverified , 11/06/20) Home Meds Active Scripts Potassium Chloride (K-Tab) 20 Meq Tab, 20 MEQ PO DAILY for 90 Days, #90 TAB Prov:HERON LEVY RESIDENT 05/10/24 Pantoprazole Sodium Sesquihydr (Pantoprazole Sodium) 40 Mg Tab, 40 MG PO BID for 30 Days, #60 TAB Prov:HERON LEVY RESIDENT 05/10/24 Lactulose (Lactulose) 10 Gm Rei, 30 ML PO BID for 30 Days, #2000 ML 1 Refill Prov:HERON LEVY RESIDENT 05/10/24 Reported Medications Cholecalciferol (VITAMIN D) 5,000 Unit Tab, 5000 UNIT OR DAILY, TAB 05/09/24 Spironolactone (Spironolactone) 25 Mg Tab, 1 TAB PO DAILY, #90 TAB 1 Refill 12/20/21 Furosemide (Lasix) 20 Mg Tb, 1 TAB PO DAILY, #90 TAB 1 Refill 01/28/21 Information Source: Patient Mode of Arrival: Ambulatory Timing: Days (3) Duration: Since onset Quality: Aching Vomitus: None Stool: Blood Streaked, Black Severity: Moderate Recent: None Recent Hx of: None Pain Location: Suprapubic Modifying Factors: Nothing Associated sign and symptoms: Nausea, Vomiting, Abdominal Pain, Blood in Stool Past Medical History PAST MEDICAL HISTORY: CHF, GERD, Liver Surgical History (Other): stent, colonoscopy and endoscopy Family History Family History: Family hx of DM, Family hx of HTN Social History Smoker: Non-Smoker Alcohol: Sober Drugs: Denies Drug Use Lives In: Home Constitutional: denies: chills, diaphoresis, fatigue, fever, malaise, sweats, weakness, others EENTM: denies: blurred vision, double vision, ear bleeding, ear discharge, ear drainage, ear pain, ear ringing, eye pain, eye redness, hearing loss, mouth pain, mouth swelling, nasal discharge, nose bleeding, nose congestion, nose pain, photophobia, tearing, throat pain, throat swelling, voice changes, others Respiratory: reports: SOB at rest, shortness of breath, SOB with excertion; denies: cough, hemoptysis, orthopnea, stridor, wheezing, others Cardiovascular: denies: chest pain, dizzy spells, diaphoresis, Dyspnea on exertion, edema, irregular heart beat, left arm pain, lightheadedness, palpitations, PND, syncope, others Gastrointestinal: reports: abdominal pain, rectal pain; denies: abdomen distended, blood streaked bowels, constipated, diarrhea, dysphagia, difficulty swallowing, hematemesis, melena, nausea, poor appetite, poor fluid intake, rectal bleeding, vomiting, others Genitourinary: denies: burning, dysuria, flank pain, frequency, hematuria, incontinence, penile discharge, penile sore, pain, testicle pain, testicle swelling, urgency, others Neurological: reports: dizziness, headache; denies: fainting, left sided numbness, left sided weakness, numbness, paresthesia, pre-existing deficit, right sided numbness, right sided weakness, seizure, speech problems, tingling, tremors, weakness, others Musculoskeletal: denies: back pain, gout, joint pain, joint swelling, muscle pain, muscle stiffness, neck pain, others Integumetry: denies: bruises, change in color, change in hair/nails, dryness, laceration, lesions, lumps, rash, wounds, others Allergic/Immunocompromised: denies: Difficulty Healing, Frequent Infections, Hives, Itching, others Hematologic/Lymphatic: denies: anemia, blood clots, easy bleeding, easy bruising, swollen glands, others Endocrine: denies: excessive hunger, excessive sweating, excessive thirst, excessive urination, flushing, intolerance to cold, intolerance to heat, unexplained weight gain, unexplained weight loss, others Psychiatric: denies: anxiety, bipolar disorder, depression, hopeless, panic disorder, schizophrenia, sleepless, suicidal, others All Other Systems: Reviewed and Negative Physical Exam General Appearance: No Apparent Distress, Normal HEENT: Normal ENT Inspection, Pharynx Normal, Scleral Icterus (L), Scleral Icterus (R), TMs Normal Neck: Full Range of Motion, Non-Tender, Normal, Normal Inspection Respiratory: Chest Non-Tender, Lungs Clear, No Accessory Muscle Use, No Respiratory Distress, Normal Breath Sounds Cardiovascular: No Edema, No JVD, No Murmur, No Gallop, Normal Peripheral Pulses, Regular Rate/Rhythm Breast Exam: Deferred Gastrointestinal: Non Tender, No Pulsatile Mass, Normal Bowel Sounds, Soft Genitalia: Deferred Pelvic: Deferred Rectal: Deferred Extremities: No calf tenderness, Normal capillary refill, Normal inspection, Normal range of motion, Non-tender, No pedal edema Musculoskeletal : Apperance: Normal Neurologic: Alert, safety manager II-XII nml as Tested, No Motor Deficits, Normal Affect, Normal Mood, No Sensory Deficits Cerebellar Function: Normal Reflexes: Normal Skin: Dry, Normal Color, Warm Lymphatic: No Adenopathy Was a procedure done? Was a procedure done?: No GI differential Dx Differential Diagnosis: AAA, Appendicitis, Esophagitis, Gastritis/PUD, Gastroenteritis, GI hemorrhage, Hepatitis, Pancreatitis, Electrolyte Imbalance, Anemia, Esophageal Varicies, Stress Ulcer X-Ray, Labs, Meds, VS Vital Signs Date Time Temp Pulse Resp B/P (MAP) Pulse Ox O2 Delivery O2 Flow Rate FiO2 09/07/24 12:51 97.8 90 20 138/65 (89) 99 97.8 09/07/24 12:50 Room Air* 0 21 09/07/24 10:59 97.5 89 19 138/65 (89) 98 Lab Test 09/07/24 11:25 Range/Units White Blood Count 5.0 4.4-10.8 10^3/uL Red Blood Count 2.78 L 4.5-5.90 10^6/uL Hemoglobin 7.8 L 13.5-17.5 g/dL Hematocrit 24.8 L 41.0-53.0 % Mean Corpuscular Volume 89.3 80.0-100.0 fL Mean Corpuscular Hemoglobin 28.2 28.0-32.0 pg Mean Corpuscular Hemoglobin Concent 31.6 L 32.0-36.0 g/dL Red Cell Distribution Width 21.3 H 11.8-14.3 % Platelet Count 52 L 140-450 10^3/uL Mean Platelet Volume 9.1 6.9-10.8 fL Neutrophils (%) (Auto) 61.1 37.0-80.0 % Lymphocytes (%) (Auto) 23.0 10.0-50.0 % Monocytes (%) (Auto) 12.7 H 0.0-12.0 % Eosinophils (%) (Auto) 2.1 0.0-7.0 % Basophils (%) (Auto) 1.1 0.0-2.0 % Neutrophils # (Auto) 3.0 1.6-8.6 10 ^3/uL Lymphocytes # (Auto) 1.1 0.4-5.4 10 ^3/uL Monocytes # (Auto) 0.6 0-1.3 10 ^3/uL Eosinophils # (Auto) 0.1 0-0.8 10 ^3/uL Basophils # (Auto) 0.1 0-0.2 10 ^3/uL Nucleated Red Blood Cells 0.1 % Platelet Estimate Decreased Prothrombin Time 17.1 H 9.3-11.8 sec Prothrombin Time INR 1.70 H 0.9-1.15 Sodium Level 140 136-145 mmol/L Potassium Level 2.9 L 3.5-5.1 mmol/L Chloride Level 107 98-107 mmol/L Carbon Dioxide Level 25 20-31 mmol/L Anion Gap 8 5-15 Blood Urea Nitrogen 10 9-23 mg/dL Creatinine 0.97 0.700-1.30 mg/dL Glomerular Filtration Rate Calc 98 >90 mL/min BUN/Creatinine Ratio 10.3 10.0-20.0 Serum Glucose 88 74-106 mg/dL Calcium Level 7.8 L 8.7-10.4 mg/dL Total Bilirubin 6.4 H 0.2-1.0 mg/dL Direct Bilirubin 2.9 H <0.3 mg/dL Aspartate Amino Transferase (AST) 98 H 13-40 U/L Alanine Aminotransferase (ALT) 44 H 7-40 U/L Alkaline Phosphatase 198 H 46-116 U/L Total Protein 5.4 L 5.7-8.2 g/dL Albumin 2.5 L 3.2-4.8 g/dL Current Medications Medications (Trade) Dose Ordered Sig/Christina Route Start Time Stop Time Status Last Admin Potassium Chloride/Sodium Chloride 1,000 ml @ 75 mls/hr [id number] ONCE IV 09/07/24 12:30 09/08/24 01:49 09/07/24 12:47 X-Ray, Labs, Meds, VS Comment 44 yo male w hx cirrhosis here with c/o rectal bleeding, weakness, SOB with history of the same requiring EGD/colo. VSS. Exam w e/o scleral icterus but otherwise unremarkable. Labs notable for mild anemia not requiring transfusion and hypoK which was repleted with IV K. Plan to admit patient for EGD/colo for UGIB iso cirrhosis. Patient started on fluids and protonix and admitted to medicine team. Time of 1ST Reevaluation: 11:27 Reevaluation 1ST: Improved Patient Education/Counseling: Diagnosis, Treatment, Prognosis Family Education/Counseling: No Family Present Departure 1 Departure Time of Disposition: 13:56 Impression: Primary Impression: UGIB (upper gastrointestinal bleed) Additional Impressions: Anemia Hypokalemia History of cirrhosis Disposition: ADMITTED INPATIENT Admit to: Tele Condition: Guarded Critical Care Note Critical Care Time?: Yes (35 min-critical care time only) Stability Stability form required: No I personally scribed for PARVEEN YOUSIF MD ([email or web address]) on 09/07/24 at 11:32. Electronically submitted by Brunilda aLl ([facility]). PARVEEN YOUSIF MD Sep 07, 2024 11:32
[2024-09-07 12:05] LABS: Basophils # (auto) 0.1 10 ^3/uL (0-0.2); Basophils % (auto) 1.1 % (0.0-2.0); Chloride 107 mmol/L (98-107); Eosinophils # (auto) 0.1 10 ^3/uL (0-0.8); Eosinophils % (auto) 2.1 % (0.0-7.0); Hematocrit 24.8 % (41.0-53.0); Hemoglobin 7.8 g/dL (13.5-17.5); Lymphocytes # (auto) 1.1 10 ^3/uL (0.4-5.4); Mean Corpuscular Hemoglobin 28.2 pg (28.0-32.0); Mean Corpuscular Hgb Conc. 31.6 g/dL (32.0-36.0); Mean Corpuscular Volume 89.3 fL (80.0-100.0); Monocytes # (auto) 0.6 10 ^3/uL (0-1.3); Monocytes % (auto) 12.7 % (0.0-12.0); Neutrophils % (auto) 61.1 % (37.0-80.0); Nucleated Red Blood Cells % 0.1 %; Platelet Count (auto) 52 10^3/uL (140-450); Red Blood Cells 2.78 10^6/uL (4.5-5.90); Red Cell Distribution Width 21.3 % (11.8-14.3); Sodium 140 mmol/L (136-145)
[2024-09-07 12:06] LABS: Anion Gap 8 (5-15); Carbon Dioxide 25 mmol/L (20-31)
[2024-09-07 12:10] LABS: INR 1.7 (0.9-1.15); Prothrombin Time 17.1 sec (9.3-11.8)
[2024-09-07 12:11] LABS: BUN/Creatinine Ratio 10.3 (10.0-20.0); Blood Urea Nitrogen 10 mg/dL (9-23); Calcium 7.8 mg/dL (8.7-10.4); Glucose 88 mg/dL (74-106); Potassium 2.9 mmol/L (3.5-5.1)
[2024-09-07 12:14] LABS: Albumin 2.5 g/dL (3.2-4.8); Bilirubin, Direct 2.9 mg/dL (<0.3); Bilirubin, Total 6.4 mg/dL (0.2-1.0); Total Protein 5.4 g/dL (5.7-8.2)
[2024-09-07 12:36] LABS: Platelet Estimate Decreased
[2024-09-07] MEDS: SOD CHL 0.9%/ KCL 40MEQ 1,000 ML IV ONE (12:47)
[2024-09-07] MEDS: PANTOPRAZOLE 40 MG/10 ML VIAL INJ IV ONE (14:53)
[2024-09-07] MEDS: SODIUM CHLORIDE 0.9% 1,000 ML IV ONE (14:53)
[2024-09-07] MEDS: cefTRIAXone 2GM/50ML D5W 50 ML IV ONE (14:53)
[2024-09-07] MEDS ORDERED: PANTOPRAZOLE 40mg/50ML NS AE 50 ML IV SCH (19:00)
[2024-09-07] MEDS ORDERED: ONDANSETRON HCL 4 MG/2 ML VIAL IV PRN (19:00)
[2024-09-07 19:50] LABS: Hematocrit 27.3 % (41.0-53.0); Hemoglobin 8.6 g/dL (13.5-17.5)
[2024-09-07] MEDS: PANTOPRAZOLE 40mg/50ML NS AE 50 ML IV SCH (20:53)
[2024-09-07 21:37] VITALS: BP 123/52; PULSE 83; RESP 19; TEMP 98.4; O2SAT 99
--- NOTE | 2024-09-07 22:31 | DVHHP2 ---
History of Present Illness Reason for Visit: GI bleed History of Present Illness 44-year-old male with a history of liver cirrhosis currently on a transplant list at [facility]. He presents with a two day history of noticing dark colored stool. He denies abdominal pain or nausea. Reports mild dizziness. No chest pain or palpitations. No other acute complaints reported. Past Medical History Liver cirrhosis, CHF carried Past Surgical History Biliary stent Family History Noncontributory ALCOHOL: none (sober x 20 years) Drugs: None Lives: with Family Review of Systems Review of Systems Review of systems are currently negative addressed in HPI Allergies: Coded Allergies: NO KNOWN ALLERGIES (Unverified , 11/06/20) Medications Current Medications Medications Dose Ordered Sig/Christina Route Start Time Stop Time Status Last Admin Dose Admin Ondansetron HCl 4 mg Q4HP PRN IV 09/07/24 19:15 Pantoprazole Sodium 50 ml @ 10 mls/hr Q5H IV 09/07/24 19:15 Exam Vital Signs Vital Signs Date Time Temp Pulse Resp B/P (MAP) Pulse Ox O2 Delivery O2 Flow Rate FiO2 09/07/24 21:37 98.4 83 19 123/52 (75) 99 98.4 09/07/24 12:50 Room Air* 0 21 Exam Gen: 44-year-old male in mild distress Skin: Warm, dry, normal color and texture, no rash. HEENT: Normocephalic atraumatic, mucous membranes moist and pink. Neck: Cervical and supraclavicular nodes normal without enlargement, trachea is midline, thyroid gland is normal without masses. Pulmonary: Clear to auscultation and percussion bilaterally. Cardiac: Regular rate and rhythm. No murmur Abdomen: Soft, nontender, nondistended, bowel sounds present all 4 quadrants, no guarding, no rigidity, no organomegaly. Extremities: No cyanosis, clubbing, no edema Neuro: Cranial nerves II through XII grossly intact, normal affect and speech, no focal motor deficits. Labs/Xrays Labs Test 09/07/24 19:36 09/07/24 11:25 Range/Units Hemoglobin 8.6 L 13.5-17.5 g/dL Hematocrit 27.3 #L 41.0-53.0 % White Blood Count 5.0 4.4-10.8 10^3/uL Red Blood Count 2.78 L 4.5-5.90 10^6/uL Mean Corpuscular Volume 89.3 80.0-100.0 fL Mean Corpuscular Hemoglobin 28.2 28.0-32.0 pg Mean Corpuscular Hemoglobin Concent 31.6 L 32.0-36.0 g/dL Red Cell Distribution Width 21.3 H 11.8-14.3 % Platelet Count 52 L 140-450 10^3/uL Mean Platelet Volume 9.1 6.9-10.8 fL Neutrophils (%) (Auto) 61.1 37.0-80.0 % Lymphocytes (%) (Auto) 23.0 10.0-50.0 % Monocytes (%) (Auto) 12.7 H 0.0-12.0 % Eosinophils (%) (Auto) 2.1 0.0-7.0 % Basophils (%) (Auto) 1.1 0.0-2.0 % Neutrophils # (Auto) 3.0 1.6-8.6 10 ^3/uL Lymphocytes # (Auto) 1.1 0.4-5.4 10 ^3/uL Monocytes # (Auto) 0.6 0-1.3 10 ^3/uL Eosinophils # (Auto) 0.1 0-0.8 10 ^3/uL Basophils # (Auto) 0.1 0-0.2 10 ^3/uL Nucleated Red Blood Cells 0.1 % Platelet Estimate Decreased Prothrombin Time 17.1 H 9.3-11.8 sec Prothrombin Time INR 1.70 H 0.9-1.15 Sodium Level 140 136-145 mmol/L Potassium Level 2.9 L 3.5-5.1 mmol/L Chloride Level 107 98-107 mmol/L Carbon Dioxide Level 25 20-31 mmol/L Anion Gap 8 5-15 Blood Urea Nitrogen 10 9-23 mg/dL Creatinine 0.97 0.700-1.30 mg/dL Glomerular Filtration Rate Calc 98 >90 mL/min BUN/Creatinine Ratio 10.3 10.0-20.0 Serum Glucose 88 74-106 mg/dL Calcium Level 7.8 L 8.7-10.4 mg/dL Total Bilirubin 6.4 H 0.2-1.0 mg/dL Direct Bilirubin 2.9 H <0.3 mg/dL Aspartate Amino Transferase (AST) 98 H 13-40 U/L Alanine Aminotransferase (ALT) 44 H 7-40 U/L Alkaline Phosphatase 198 H 46-116 U/L Total Protein 5.4 L 5.7-8.2 g/dL Albumin 2.5 L 3.2-4.8 g/dL Assessment/Plan Assessment/Plan Assessment GI bleed Liver cirrhosis Pancytopenia secondary to the above Coagulopathy Hypokalemia Moderate protein malnutrition Morbid obesity Plan Admit the patient to Med surge to the hospitalist NPO GI consultation Protonix IV twice a day Maintenance IV fluids Replete electrolytes Continue treatment per orders. Plan discussed with: Patient My Orders Orders - ADALID DILL Procedure Category Date Status Time * Gi [facility] S[facility] CONS 09/07/24 Transmitted 18:58 Admit ADMIT 09/07/24 Transmitted 18:58 Complete Blood Count LAB 09/08/24 Verified 04:00 Comprehensive LAB 09/08/24 Verified Metabolic Panel 04:00 Npo (Nothing By DIET 09/08/24 Transmitted Mouth) Diet Breakfast Condition: Fair MAHAD 09/07/24 In Process 18:58 Bedrest With Bathroom MAHAD 09/07/24 In Process Privileg 18:58 Stool Occult Blood LAB 09/07/24 Logged 18:58 PTPTT LAB 09/08/24 Verified 04:00 Ondansetron Hcl PHA 09/07/24 In Process (Zofran) 19:15 Pantoprazole PHA 09/07/24 In Process 40mg/50ml Ns Ae 19:15 Pantoprazole PHA 09/08/24 Verified (Protonix) 10:00 Date of Service: Sep 07, 2024 Billing Provider: ADALID DILL Common Visit Codes: 99351-[id number] INP/OBS CARE (HIGH) ADALID DILL Sep 07, 2024 22:31
[2024-09-08] VITALS (9 sets, daily range): BP systolic 112–143; BP diastolic 48–75; PULSE 74–89; RESP 16–20; TEMP 97.1–98.5; O2SAT 96–100
[2024-09-08 06:13] LABS: Basophils # (auto) 0 10 ^3/uL (0-0.2); Eosinophils # (auto) 0.1 10 ^3/uL (0-0.8); Hemoglobin 7.4 g/dL (13.5-17.5); Lymphocytes # (auto) 0.9 10 ^3/uL (0.4-5.4); White Blood Cell 4.7 10^3/uL (4.4-10.8)
[2024-09-08 06:15] LABS: Basophils % (auto) 0.8 % (0.0-2.0); Eosinophils % (auto) 1.8 % (0.0-7.0); Lymphocytes % (auto) 19.8 % (10.0-50.0); Mean Corpuscular Hemoglobin 28.8 pg (28.0-32.0); Mean Corpuscular Volume 89.8 fL (80.0-100.0); Monocytes # (auto) 0.5 10 ^3/uL (0-1.3); Monocytes % (auto) 10.8 % (0.0-12.0); Neutrophils # (auto) 3.1 10 ^3/uL (1.6-8.6); Neutrophils % (auto) 66.8 % (37.0-80.0); Nucleated Red Blood Cells % 0.3 %; Platelet Count (auto) 52 10^3/uL (140-450); Red Blood Cells 2.56 10^6/uL (4.5-5.90)
[2024-09-08 06:19] LABS: INR 1.8 (0.9-1.15); Partial Thromboplastin Time 38.8 SEC (24.5-34.5)
[2024-09-08 06:20] LABS: Red Cell Distribution Width 21.4 % (11.8-14.3)
[2024-09-08 06:44] LABS: Alanine Aminotransferase 36 U/L (7-40); Anion Gap 8 (5-15); BUN/Creatinine Ratio 11.8 (10.0-20.0); Blood Urea Nitrogen 10 mg/dL (9-23); Carbon Dioxide 23 mmol/L (20-31); Glucose 81 mg/dL (74-106); Sodium 143 mmol/L (136-145)
[2024-09-08 06:45] LABS: Albumin 2.4 g/dL (3.2-4.8); Alkaline Phosphatase 176 U/L (46-116); Aspartate Aminotransferase 82 U/L (13-40); Bilirubin, Total 6.8 mg/dL (0.2-1.0); Chloride 112 mmol/L (98-107); Potassium 3.2 mmol/L (3.5-5.1); Total Protein 5.2 g/dL (5.7-8.2)
[2024-09-08] MEDS: PANTOPRAZOLE 40 MG/10 ML VIAL INJ IV SCH (09:46)
[2024-09-08] MEDS ORDERED: FERR240T9 PO (09:55)
[2024-09-08 10:27] LABS: Hepatitis B Surface Antigen Negative (Negative); Hepatitis C Antibody Negative (Negative)
--- NOTE | 2024-09-08 11:17 | DVHCONRES ---
Date Seen: Sep 08, 2024 Resident Creating Document: JOSE ANTONIO ALVARADO RESIDENT History of Present Illness Mr. 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 BMs are formed but tarry black. Reports taking iron pills, EGD Denies hemetamesis, N/V/D On liver transplant list Admitted 12/2023 for Acute pancreatitis likely due to gallstones Upper Endoscopy with biopsy 12/21/21 for history of coffee-ground emesis: 2 cm sliding-type hiatal hernia with no significant erosive esophagitis; there were no varices. Mild gastroduodenitis with erosions. Home medications: Iron, Lactulose, Lasix, pantoprazole Patient seen and examined at the bedside. Hemoglobin dropped to 7.4 from 8.6. LFTs down trending. AFP pending. Liver ultrasound shows cholelithiasis with no acute cholecystitis. Family History: Diabetes mellitus G8 MOTHER Hypertension G8 MOTHER Allergies: Coded Allergies: NO KNOWN ALLERGIES (Unverified , 11/06/20) Home Meds Active Scripts Potassium Chloride (K-Tab) 20 Meq Tab, 20 MEQ PO DAILY for 90 Days, #90 TAB Prov:HERON LEVY RESIDENT 05/10/24 Pantoprazole Sodium Sesquihydr (Pantoprazole Sodium) 40 Mg Tab, 40 MG PO BID for 30 Days, #60 TAB Prov:HERON LEVY RESIDENT 05/10/24 Lactulose (Lactulose) 10 Gm Rei, 30 ML PO BID for 30 Days, #2000 ML 1 Refill Prov:HERON LEVY RESIDENT 05/10/24 Reported Medications Ferrous Gluconate (Iron 27) 240 Mg Tab, 240 MG PO DAILY, TAB 09/08/24 Cholecalciferol (VITAMIN D) 5,000 Unit Tab, 5000 UNIT OR DAILY, TAB 05/09/24 Spironolactone (Spironolactone) 25 Mg Tab, 1 TAB PO DAILY, #90 TAB 1 Refill 12/20/21 Furosemide (Lasix) 20 Mg Tb, 1 TAB PO DAILY, #90 TAB 1 Refill 01/28/21 Current Medications Current Medications Medications (Trade) Dose Ordered Sig/Christina Route PRN Reason Start Time Stop Time Status Last Admin Pantoprazole Sodium 50 ml @ 10 mls/hr Q5H IV 09/07/24 19:00 09/07/24 19:05 DC Ondansetron HCl (Zofran) 4 mg Q4HP PRN IV NAUSEA / VOMITING 09/07/24 19:00 09/07/24 19:05 DC Ondansetron HCl (Zofran) 4 mg Q4HP PRN IV NAUSEA / VOMITING 09/07/24 19:15 Pantoprazole Sodium 50 ml @ 10 mls/hr Q5H IV 09/07/24 19:15 09/07/24 22:18 DC Pantoprazole Sodium (Protonix) 40 mg BID IV 09/08/24 10:00 09/08/24 09:46 Potassium Chloride/Sodium Chloride 1,000 ml @ 75 mls/hr [id number] IV 09/08/24 10:00 Review of Systems Constitutional: No: Fever, Chills, Sweats, Weakness, Malaise, Other Eyes: No: Pain, Vision change, Conjunctivae inflammation, Eyelid inflammation, Other, Redness ENT: No: Ear pain, Ear discharge, Nose pain, Nose discharge, Nose congestion, Mouth pain, Mouth swelling, Throat pain, Throat swelling, Other Respiratory: No: Cough, Dry, Shortness of breath, SOB with excertion, Wheezing, Hemoptysis, Pleuritic Pain, Sputum, Wheezing, Other Cardiovascular: No: Chest Pain, Palpitations, Orthopnea, Paroxysmal Noc. Dyspnea, Edema, Lt Headedness, Other Gastrointestinal: Reports melena NO N/V/D Genitourinary: No Dysuria, No Frequency, No Incontinence, No Hematuria, No Retention, No Other Musculoskeletal: No: other, neck pain, shoulder pain, arm pain, back pain, hand pain, leg pain, foot pain Skin: No: Rash, Lesions, Jaundice, Bruising, Other Neurological: No: Weakness, Numbness, Incoordination, Change in speech, Confusion, Seizures, Other Vital Signs Vital Signs Date Time Temp Pulse Resp B/P (MAP) Pulse Ox O2 Delivery O2 Flow Rate FiO2 09/08/24 09:00 98.1 80 18 126/57 (80) 100 98.1 09/08/24 08:00 Room Air* 0 21 Physical Exam General Appearance: Alert, Oriented X3, Cooperative, No acute distress HEENT: Atraumatic, PERRLA, EOMI, mucous membranes moist Respiratory: Clear to auscultation, Normal air movement Cardiovascular: Regular rate, Normal S1, Normal S2 Abdominal: soft, non tender, non distended, normoactiv Extremities: Bilateral pedal pitting edema 1+ but no cyanosis or tenderness Skin: No rashes, No breakdown Neuro: normal speech, no sensory motor deficits Labs/Diagnostic Data Labs Test 09/08/24 05:24 09/07/24 11:25 Range/Units White Blood Count 4.7 4.4-10.8 10^3/uL Red Blood Count 2.56 L 4.5-5.90 10^6/uL Hemoglobin 7.4 L 13.5-17.5 g/dL Hematocrit 23.0 #L 41.0-53.0 % Mean Corpuscular Volume 89.8 80.0-100.0 fL Mean Corpuscular Hemoglobin 28.8 28.0-32.0 pg Mean Corpuscular Hemoglobin Concent 32.0 32.0-36.0 g/dL Red Cell Distribution Width 21.4 H 11.8-14.3 % Platelet Count 52 L 140-450 10^3/uL Mean Platelet Volume 9.7 6.9-10.8 fL Neutrophils (%) (Auto) 66.8 37.0-80.0 % Lymphocytes (%) (Auto) 19.8 10.0-50.0 % Monocytes (%) (Auto) 10.8 0.0-12.0 % Eosinophils (%) (Auto) 1.8 0.0-7.0 % Basophils (%) (Auto) 0.8 0.0-2.0 % Neutrophils # (Auto) 3.1 1.6-8.6 10 ^3/uL Lymphocytes # (Auto) 0.9 0.4-5.4 10 ^3/uL Monocytes # (Auto) 0.5 0-1.3 10 ^3/uL Eosinophils # (Auto) 0.1 0-0.8 10 ^3/uL Basophils # (Auto) 0 0-0.2 10 ^3/uL Nucleated Red Blood Cells 0.3 % Prothrombin Time 18.0 H 9.3-11.8 sec Prothrombin Time INR 1.80 H 0.9-1.15 Activated Partial Thromboplast Time 38.8 H 24.5-34.5 SEC Sodium Level 143 136-145 mmol/L Potassium Level 3.2 L 3.5-5.1 mmol/L Chloride Level 112 H 98-107 mmol/L Carbon Dioxide Level 23 20-31 mmol/L Anion Gap 8 5-15 Blood Urea Nitrogen 10 9-23 mg/dL Creatinine 0.85 0.700-1.30 mg/dL Glomerular Filtration Rate Calc 109 >90 mL/min BUN/Creatinine Ratio 11.8 10.0-20.0 Serum Glucose 81 74-106 mg/dL Calcium Level 8.0 L 8.7-10.4 mg/dL Total Bilirubin 6.8 H 0.2-1.0 mg/dL Aspartate Amino Transferase (AST) 82 H 13-40 U/L Alanine Aminotransferase (ALT) 36 7-40 U/L Alkaline Phosphatase 176 H 46-116 U/L Total Protein 5.2 L 5.7-8.2 g/dL Albumin 2.4 L 3.2-4.8 g/dL Hepatitis B Surface Antigen Negative Negative Hepatitis C Antibody Negative Negative Platelet Estimate Decreased Direct Bilirubin 2.9 H <0.3 mg/dL Assessment Liver cirrhosis secondary to alcoholic abuse Dx 2004, status post tips 2004 ? GI bleeding Anemia secondary to above Transaminitis Chronic cholelithiasis History of gallstone pancreatitis Morbid obesity Hypokalemia Plan; Given the history of melena, low hemoglobin and cirrhosis, patient will be scheduled for upper EGD 09/09/2024. Soft diet until midnight, NPO after midnight. Continue pantoprazole 40 mg IV b.i.d. Follow up with LDH, retic, haptoglobin Follow up with tumor marker AFP Plan discussed with patient in which all questions have been answered Case discussed with Dr. Flores Plan discussed with: Patient JOSE ANTONIO ALVARADO RESIDENT Sep 08, 2024 11:17
[2024-09-08] MEDS: SOD CHL 0.9%/ KCL 40MEQ 1,000 ML IV SCH (12:15)
--- NOTE | 2024-09-08 12:28 | DVH ---
CLINICAL INFORMATION: 44 years old, Male; hx of cirrhosis, r/o hcc. TECHNIQUE: Grayscale sonographic imaging of the right upper quadrant of the abdomen was performed, a ssisted by color Doppler techniques. COMPARISON: US LIVER on DOS: 05/09/24, US ABDOMEN LIMITED on DOS: 05/03/23 FINDINGS: Limited examination due to body habitus and bowel gas. The gallbladder wall measures 1.9 mm in thickness, within normal limits. Multiple shadowing gallstones are seen in the gallbladder. Neg ative reported sonographic zamudio's sign. The common bile duct measures 5.1 mm in diameter, within n ormal limits. Coarsened liver echotexture cirrhotic liver morphology. TIPS appears patent. The pancreas is obscured by bowel gas. The right kidney measures 9.9 cm. There is no hydronephrosis. Right renal cortical echogenicity an d cortical thickness are within normal limits. IMPRESSION: 1. Coarsened liver echotexture and cirrhotic liver morphology. TIPS in place and appears grossly neves nt. 2. Cholelithiasis. No sonographic evidence of acute cholecystitis. 3. Limited examination for the reasons described above.
[2024-09-08] MEDS: OCTREOTIDE ACETATE 500 MCG in SODIUM CHL 0.9% 99 ML IV SCH (13:33)
[2024-09-08] MEDS: phytonadione 5 MG in SODIUM CHL 0.9% 50 ML IV ONE (16:30)
--- NOTE | 2024-09-08 19:54 | DVHPNRES ---
Progress Note Date Seen: Sep 08, 2024 Resident Creating Document: PAKO HEARD RESIDENT Has the PT tested + for MRSA If YES, has PT been informed?: No Medical Necessity Reason Pt with a Central, PICC or Fol: No Medical Necessity Reason Melena stool x3 Subjective Review of Systems This is a 44-year-old male with a history of liver cirrhosis S/P TIPS currently on a transplant list at [facility] presented to the ED with 2 day's history of dark stools. According to the patient, 7 years ago, he had a similar episodes of melena stools that leads to diagnoses of liver cirrhossis. He denies hematemesis, recent drinking. He complained of fatigue, dizziness,but no chest pain ro palpitations. Vitals were temp: 98.7, hr: 89, RR: 18, BP: 138/65. WBC: 5 Hgb: 7.4, K: 2.9--> 3.2. US of the liver shows Coarsened liver echotexture and cirrhotic liver morphology. TIPS in place and appears grossly patent.Cholelithiasis. No sonographic evidence of acute cholecystitis. Review of Systems Constitutional: No: Fever, Chills, Sweats, Weakness, Malaise, Other Eyes: No: Pain, Vision change, Conjunctivae inflammation, Eyelid inflammation, Other, Redness ENT: No: Ear pain, Ear discharge, Nose pain, Nose discharge, Nose congestion, Mouth pain, Mouth swelling, Throat pain, Throat swelling, Other Respiratory: No: Cough, Dry, Shortness of breath, SOB with excertion, Wheezing, Hemoptysis, Pleuritic Pain, Sputum, Wheezing, Other Cardiovascular: No: Chest Pain, Palpitations, Orthopnea, Paroxysmal Noc. Dyspnea, Edema, Lt Headedness, Other Gastrointestinal: Reports melena NO N/V/D Genitourinary: No Dysuria, No Frequency, No Incontinence, No Hematuria, No Retention, No Other Musculoskeletal: No: other, neck pain, shoulder pain, arm pain, back pain, hand pain, leg pain, foot pain Skin: No: Rash, Lesions, Jaundice, Bruising, Other Neurological: No: Weakness, Numbness, Incoordination, Change in speech, Confusion, Seizures, Other Objective vital signs Vital Sign Date Time Temp Pulse Resp B/P (MAP) Pulse Ox O2 Delivery O2 Flow Rate FiO2 2/3/25 17:00 97.1 87 16 136/75 (95) 100 97.1 09/08/24 08:00 Room Air* 0 21 Total Intake and Output 09/07/24 09/07/24 09/08/24 15:00 23:00 07:00 Intake Total 150 ml 1425 ml 375 ml Output Total 300 ml Balance 150 ml 1425 ml 75 ml medications Current Medications Medications Dose Ordered Sig/Christina Route Start Time Stop Time Status Last Admin Dose Admin Ondansetron HCl 4 mg Q4HP PRN IV 09/07/24 19:15 Pantoprazole Sodium 40 mg BID IV 09/08/24 10:00 09/08/24 09:46 40 MG Potassium Chloride/Sodium Chloride 1,000 ml @ 75 mls/hr [id number] IV 09/08/24 10:00 09/08/24 12:15 75 MLS/HR Octreotide Acetate 500 mcg/ Sodium Chloride 100 ml @ 10 mls/hr Q10H IV 09/08/24 11:30 09/08/24 13:33 10 MLS/HR Examination Physical Exam General Appearance: Morbidly obese male, Alert, Oriented X3, Cooperative, No acute distress HEENT: Atraumatic, PERRLA, EOMI, mucous membranes moist Respiratory: Clear to auscultation, Normal air movement Cardiovascular: Regular rate, Normal S1, Normal S2 Abdominal: soft, non tender, non distended, normoactiv Extremities: Bilateral pedal pitting edema 1+ but no cyanosis or tenderness Skin: No rashes, No breakdown Neuro: normal speech, no sensory motor deficits laboratory and microbiology Laboratory Tests 09/08/24 05:24 Test 09/08/24 05:24 Range/Units Serum Glucose 81 74-106 mg/dL Problem List/Assessment/Plan Problem List/Assessment/Plan Assessment Melena stool rule Upper GI bleed Anemia secondary to ? GI bleed Liver cirrhosis secondary to alcoholic abuse Dx 2004, status post tips 2005 Transaminitis Chronic cholelithiasis History of gallstone pancreatitis Morbid obesity, BMI: 47.9 Hypokalemia Thrombocytopenia Coagulopathy Moderate protein malnutrition , albumin 2.4 Plan Monitor closely, transfuse if the hgb< 7 Continue pantoprazole 40 mg IV b.i.d octreotide Follow up with LDH, retic, haptoglobin Follow up with tumor marker AFP GI consult for possible EGD NPO at midnight Code status: full Goal of care discussed for more than 35 minutes Case and plan discussed with Dr. Hunter Plan discussed with: Patient My Orders My Orders Orders - PAKO HEARD Procedure Category Date Status Time Sod Chl 0.9%/ Kcl PHA 09/08/24 In Process 40meq 10:00 Date of Service: Sep 08, 2024 Billing Provider: HELENE HUNTER MD Common Visit Codes: [id number] INP/OBS CARE(HIGH) PAKO HEARD RESIDENT Sep 08, 2024 19:54 HELENE HUNTER MD Sep 08, 2024 21:48
[2024-09-08] MEDS: ONDANSETRON HCL 4 MG/2 ML VIAL IV PRN (21:18)
[2024-09-09] VITALS (9 sets, daily range): BP systolic 103–150; BP diastolic 52–78; PULSE 67–89; RESP 16–22; TEMP 97.2–98.4; O2SAT 94–100
[2024-09-09 07:47] LABS: Alanine Aminotransferase 39 U/L (7-40); Anion Gap 10 (5-15); BUN/Creatinine Ratio 10.2 (10.0-20.0); Blood Urea Nitrogen 11 mg/dL (9-23); Potassium 4.5 mmol/L (3.5-5.1); Sodium 141 mmol/L (136-145)
[2024-09-09 07:51] LABS: Albumin 2.1 g/dL (3.2-4.8); Alkaline Phosphatase 151 U/L (46-116); Aspartate Aminotransferase 113 U/L (13-40); Bilirubin, Total 6.9 mg/dL (0.2-1.0); Calcium 7.9 mg/dL (8.7-10.4); Carbon Dioxide 18 mmol/L (20-31); Chloride 113 mmol/L (98-107); Glucose 64 mg/dL (74-106); Total Protein 4.9 g/dL (5.7-8.2)
[2024-09-09 08:05] LABS: Basophils # (auto) 0 10 ^3/uL (0-0.2); Basophils % (auto) 0.8 % (0.0-2.0); Eosinophils # (auto) 0.3 10 ^3/uL (0-0.8); Eosinophils % (auto) 4.9 % (0.0-7.0); Hematocrit 24.2 % (41.0-53.0); Hemoglobin 7.4 g/dL (13.5-17.5); Lymphocytes # (auto) 1.3 10 ^3/uL (0.4-5.4); Lymphocytes % (auto) 21.3 % (10.0-50.0); Mean Corpuscular Hemoglobin 28.8 pg (28.0-32.0); Mean Corpuscular Hgb Conc. 30.8 g/dL (32.0-36.0); Mean Corpuscular Volume 93.5 fL (80.0-100.0); Monocytes # (auto) 0.8 10 ^3/uL (0-1.3); Monocytes % (auto) 12.6 % (0.0-12.0); Neutrophils # (auto) 3.7 10 ^3/uL (1.6-8.6); Neutrophils % (auto) 60.4 % (37.0-80.0); Nucleated Red Blood Cells % 0.2 %; Platelet Count (auto) 50 10^3/uL (140-450); Red Blood Cells 2.58 10^6/uL (4.5-5.90); Red Cell Distribution Width 22.3 % (11.8-14.3); White Blood Cell 6.1 10^3/uL (4.4-10.8)
[2024-09-09] MEDS ORDERED: LIDOCAINE VISCOUS 2% 15ML UD ONE (14:31)
[2024-09-09] MEDS ORDERED: MIDAZOLAM HCL 2MG/2ML 2ml VIAL (1mg/ml) ONE (14:40)
[2024-09-09] MEDS ORDERED: fentaNYL CITRATE 100 MCG/2 ML VL ONE (14:40)
[2024-09-09] MEDS ORDERED: PROPOFOL 10 MG/ML 20 ML IV ONE (14:43)
--- NOTE | 2024-09-09 14:51 | DVHOP2 ---
Operative Report DATE OF OPERATION: 09/09/24 PROCEDURE: Upper Endoscopy with biopsy. PREOPERATIVE INDICATION: The patient is a 44 -year-old male undergoing endoscopy for melena and anemia POSTOPERATIVE DIAGNOSES: 1. Mild antral gastritis with pre-pyloric 2 antral gastric ulcers and erosions 2. Pdqb-gl-phziurie gastroparesis 3. Otherwise grossly normal examination up to the 2nd and 3rd part of the duodenal with no blood in the upper GI tract 4. There was no evidence of esophageal or gastric varices although there was slight congestion of the gastric mucosa at the diaphragmatic impingement PROCEDURE PERFORMED BY: Zayda Flores GI NURSE: Pete SCOPE: Olympus videoendoscope. ASA CLASS: 3. PREOPERATIVE MEDICATIONS: MAC sedation, Dr. Mcneil PROCEDURE IN DETAIL: After obtaining an informed consent, the patient was placed on left lateral decubitus position. The patient was then sedated with the above medications. A bite block was placed between his teeth. The endoscope was then passed through the oropharynx, into the esophagus, and through the stomach and pylorus up to the second and third part of the duodenum. The endoscope was then withdrawn. The 2nd and 3rd part of the duodenum and the duodenal bulb were normal. The pre-pyloric area antrum and distal body showed gastritis. There were two pre-pyloric antral gastric ulcers and multiple small erosions. Gastric biopsies were obtained . There was no fresh or old blood in the GI tract On retroflexion there were no clear-cut gastric varices but mild congestion of the gastric mucosa of the diaphragmatic impingement. The endoscope was then withdrawn into the distal esophagus where there was no significant hiatal hernia, no esophagitis, no esophageal varices The patient tolerated the procedure well without difficulty. COMPLICATIONS : None SPECIMENS: Gastric biopsies DISPOSITION: Transfer back to the floor Stable PLAN: 1. Await for biopsy result 2. Will place pt on Protonix 40 mg bid 3. Carafate 1 g p.o. twice a day 4. Reglan 5 mg IV q.8 hours 5. DC aspirin NSAIDs smoking alcohol 6. Resume pre-admission medications and follow up with his transplant team ZAYDA FLORES MD Sep 09, 2024 14:51
[2024-09-09] MEDS ORDERED: METOCLOPRAMIDE HCL 5MG/ml INJ 2ml VIAL IV PRN (15:00)
--- NOTE | 2024-09-09 16:53 | DVHPNRES ---
Progress Note Date Seen: Sep 09, 2024 Resident Creating Document: PAKO HEARD RESIDENT Has the PT tested + for MRSA If YES, has PT been informed?: No Medical Necessity Reason Pt with a Central, PICC or Fol: No Medical Necessity Reason Melena stool EGD today Subjective Review of Systems This is a 44-year-old male with a history of liver cirrhosis S/P TIPS currently on a transplant list at [facility] presented to the ED with 2 day's history of dark stools. According to the patient, 7 years ago, he had a similar episodes of melena stools that leads to diagnoses of liver cirrhossis. He denies hematemesis, recent drinking. He complained of fatigue, dizziness,but no chest pain ro palpitations. Vitals were temp: 98.7, hr: 89, RR: 18, BP: 138/65. WBC: 5 Hgb: 7.4, K: 2.9--> 3.2. US of the liver shows Coarsened liver echotexture and cirrhotic liver morphology. TIPS in place and appears grossly patent.Cholelithiasis. No sonographic evidence of acute cholecystitis. PN 09/09/2024: Patient is seen and examined today the bedside. He was not did mood has no complaints actually no shortness a breath no dizziness no nausea. Patient had a bowel movement this my knee and I looked status the stool color was dark brown black. Patient had an EGD today and they thought revealed Mild antral gastritis with pre-pyloric 2 antral gastric ulcers and erosions, Zpep-oo-dsthaidc gastroparesis. Otherwise grossly normal examination up to the 2nd and 3rd part of the duodenal with no blood in the upper GI tract. But no evidence of esophageal or gastric varices although there was slight congestion of the gastric mucosa at the diaphragmatic impingement. Objective vital signs Vital Sign Date Time Temp Pulse Resp B/P (MAP) Pulse Ox O2 Delivery O2 Flow Rate FiO2 09/09/24 15:15 77 20 107/55 (72) 93 09/09/24 14:50 97.8 97.8 09/09/24 14:50 Room Air 0 100 Total Intake and Output 09/08/24 09/08/24 09/09/24 15:00 23:00 07:00 Intake Total 236 ml 1036 ml Output Total 790 ml 900 ml Balance -554 ml 136 ml medications Current Medications Medications Dose Ordered Sig/Christina Route Start Time Stop Time Status Last Admin Dose Admin Ondansetron HCl 4 mg Q4HP PRN IV 09/07/24 19:15 Hold 09/08/24 21:18 4 MG Pantoprazole Sodium 40 mg BID IV 09/08/24 10:00 09/09/24 08:37 40 MG Potassium Chloride/Sodium Chloride 1,000 ml @ 75 mls/hr [id number] IV 09/08/24 10:00 09/08/24 21:18 75 MLS/HR Sucralfate 1 gm QID@0600,1130,1700,2200 PO 09/09/24 17:00 Metoclopramide HCl 5 mg Q8HPRN PRN IV 09/09/24 15:00 Examination Physical Exam General Appearance: Morbidly obese male, Alert, Oriented X3, Cooperative, No acute distress HEENT: Atraumatic, PERRLA, EOMI, mucous membranes moist Respiratory: Clear to auscultation, Normal air movement Cardiovascular: Regular rate, Normal S1, Normal S2 Abdominal: soft, non tender, non distended, normoactive Extremities: Bilateral pedal pitting edema 1+ but no cyanosis or tenderness Skin: No rashes, No breakdown Neuro: normal speech, no sensory motor deficits laboratory and microbiology Laboratory Tests 09/09/24 06:15 Test 09/09/24 06:15 Range/Units Serum Glucose 64 L 74-106 mg/dL Problem List/Assessment/Plan Problem List/Assessment/Plan Assessment Melena stool; Upper GI bleed ruled out; S/P EGD: no evidence of esophageal varices or bleeding ulcers Melena stool could be secondary to iron tablets he is currently taking Anemia secondary hemoglobin 7.4 Mild antral gastritis with pre-pyloric 2 antral gastric ulcers and erosions Crej-pq-udcxnsne gastroparesis 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 Hunter Plan discussed with: Patient Date of Service: Sep 09, 2024 Billing Provider: HELENE HUNTER MD Common Visit Codes: [id number] INP/OBS CARE(HIGH) PAKO HEARD RESIDENT Sep 09, 2024 16:53 HELENE HUNTER MD Sep 09, 2024 18:18
[2024-09-09] MEDS: SUCRALFATE 1 GM/10 ML ORAL SUSP PO SCH (17:19)
[2024-09-09] MEDS: metroNIDAZOLE 500MG/100ML 100 ML IV SCH (21:54)
[2024-09-10] VITALS (8 sets, daily range): BP systolic 108–127; BP diastolic 50–75; PULSE 67–91; RESP 16–20; TEMP 97.2–98.6; O2SAT 93–100
[2024-09-10] MEDS: GASTROGRAFIN 30 ML SOL ONE (09:01)
[2024-09-10 11:08] LABS: Basophils # (auto) 0 10 ^3/uL (0-0.2); Basophils % (auto) 0.1 % (0.0-2.0); Eosinophils # (auto) 0 10 ^3/uL (0-0.8); Neutrophils # (auto) 18.4 10 ^3/uL (1.6-8.6)
[2024-09-10] MEDS: IOHEXOL 300 MG/ML 100ML BOTTLE IJ ONE (11:08)
[2024-09-10 11:14] LABS: Hematocrit 25.8 % (41.0-53.0); Hemoglobin 8.2 g/dL (13.5-17.5); Lymphocytes # (auto) 0.9 10 ^3/uL (0.4-5.4); Lymphocytes % (auto) 4.5 % (10.0-50.0); Mean Corpuscular Hemoglobin 28.2 pg (28.0-32.0); Mean Corpuscular Volume 88.2 fL (80.0-100.0); Monocytes # (auto) 1.1 10 ^3/uL (0-1.3); Monocytes % (auto) 5.3 % (0.0-12.0); Neutrophils % (auto) 90.1 % (37.0-80.0); Nucleated Red Blood Cells % 0.2 %; Platelet Count (auto) 60 10^3/uL (140-450); Red Blood Cells 2.92 10^6/uL (4.5-5.90); White Blood Cell 20.4 10^3/uL (4.4-10.8)
[2024-09-10 11:17] LABS: Red Cell Distribution Width 20.4 % (11.8-14.3)
--- NOTE | 2024-09-10 11:33 | DVH ---
Exam: CT CT ABD PELVIS W CON-ORAL IV History: MELENA, STOOL WBC POSITIVE. TECHNIQUE: A digital document control clerk image was obtained. During the uneventful, intravenous administration of c ontrast material, multislice data acquisition was obtained through the abdomen and pelvis. The data s et was subsequently reconstructed into axial images. Images were reviewed on a work station using a c ombination of axial and multiplanar using a variety of window levels and settings. 100 cc of Omnipaqu e 300 contrast was injected intravenously. All CT scans at this medical facility are performed using dose modulation techniques as appropriate t o a performed exam including the following:Automated exposure control was utilized; adjustment of the MA and/or KV according to patient size; and use of iterative reconstruction technique. Radiation Dose Information: CT Dose: CTDI volume is 28 mGy. Dose-length product is 15 16 mGy*cm Comparison: CT CT AB PEL WO CON-NO ORAL OR IV on DOS: 05/08/24 FINDINGS: There is stable appearing cirrhotic liver with no evidence of a suspicious appearing hepatic lesion o n CT. There is stable tips between the main portal vein and hepatic vein. There are multiple small calcified gallstones in the gallbladder. The pancreas, kidneys, adrenal gla nds, and spleen appear within normal limits. There is no evidence of abdominal lymphadenopathy. There is no significant ascites. There is no free intraperitoneal air. The stomach grossly appears unremarkable. The small and large bowel loops demonstrate normal caliber and appear within normal limits. The abdominal aorta and IVC appear within normal limits. The bladder is decompressed limiting evaluation. Pelvic organs is unremarkable. There is no evidence of a pelvic mass or lymphadenopathy. There is no free fluid collection. Lung bases are clear. There is no acute osseous abnormality. There is diffuse anasarca in the soft tissues. IMPRESSION: 1. There is no acute process in the abdomen and pelvis.. 2. Stable hepatic cirrhosis status post tips. 3. Cholelithiasis. 4. Diffuse soft tissue anasarca. HS:Y
[2024-09-10 11:36] LABS: Anion Gap 10 (5-15); BUN/Creatinine Ratio 10.9 (10.0-20.0); Blood Urea Nitrogen 11 mg/dL (9-23); Chloride 107 mmol/L (98-107); Potassium 3.9 mmol/L (3.5-5.1); Sodium 137 mmol/L (136-145)
[2024-09-10 11:37] LABS: Total Protein 5.9 g/dL (5.7-8.2)
[2024-09-10 11:47] LABS: Alanine Aminotransferase 46 U/L (7-40); Albumin 2.6 g/dL (3.2-4.8); Alkaline Phosphatase 182 U/L (46-116); Aspartate Aminotransferase 115 U/L (13-40); Calcium 8.2 mg/dL (8.7-10.4); Carbon Dioxide 20 mmol/L (20-31); Glucose 114 mg/dL (74-106)
--- NOTE | 2024-09-10 14:14 | DVHPN2 ---
Progress Note Date Seen: Sep 10, 2024 Resident Creating Document: JOSE ANTONIO ALVARADO RESIDENT Has the PT tested + for MRSA If YES, has PT been informed?: No Medical Necessity Reason Pt with a Central, PICC or Fol: No Subjective Review of Systems Mr. Cool is a 44 years old male with PMHx Liver cirrhosis 2004 secondary to alcoholism with TIPS, cholelithiasis, HTN, morbid obesity, GERD, hepatic encephalopathy, esophageal varices, pancreatitis and PSHx TIPS in 2004 in [place], Esophageal variceal banding who presented to the ED with the chief complaints of dizziness,SOB and black stools srarting 09/04. BMs are formed but tarry black. Reports taking iron pills, EGD Denies hemetamesis, N/V/D On liver transplant list Admitted 12/2023 for Acute pancreatitis likely due to gallstones Upper Endoscopy with biopsy 12/21/21 for history of coffee-ground emesis: 2 cm sliding-type hiatal hernia with no significant erosive esophagitis; there were no varices. Mild gastroduodenitis with erosions. Home medications: Iron, Lactulose, Lasix, pantoprazole Patient seen and examined at the bedside. CT abdomen shows no acute process. Stable hepatic cirrhosis. Hemoglobin stable 8.2. LFTs down trending. Unremarkable. Objective vital signs Vital Sign Date Time Temp Pulse Resp B/P (MAP) Pulse Ox O2 Delivery O2 Flow Rate FiO2 09/10/24 09:00 97.2 82 20 108/50 (69) 100 97.2 09/10/24 08:00 Room Air* 0 21 Total Intake and Output 09/09/24 09/09/24 09/10/24 14:59 22:59 06:59 Intake Total 200 ml 500 ml 2000 ml Output Total 500 ml Balance 200 ml 500 ml 1500 ml medications Current Medications Medications Dose Ordered Sig/Christina Route Start Time Stop Time Status Last Admin Dose Admin Ondansetron HCl 4 mg Q4HP PRN IV 09/07/24 19:15 Hold 09/08/24 21:18 4 MG Pantoprazole Sodium 40 mg BID IV 09/08/24 10:00 09/10/24 11:55 40 MG Potassium Chloride/Sodium Chloride 1,000 ml @ 75 mls/hr [id number] IV 09/08/24 10:00 09/08/24 21:18 75 MLS/HR Sucralfate 1 gm QID@0600,1130,1700,2200 PO 09/09/24 17:00 09/10/24 11:55 1 GM Metoclopramide HCl 5 mg Q8HPRN PRN IV 09/09/24 15:00 Metronidazole 100 ml @ 100 mls/hr Q8HR IV 09/09/24 22:00 09/10/24 05:44 100 MLS/HR Examination General Appearance: Alert, Oriented X3, Cooperative, No acute distress HEENT: Atraumatic, PERRLA, EOMI, mucous membranes moist Respiratory: Clear to auscultation, Normal air movement Cardiovascular: Regular rate, Normal S1, Normal S2 Abdominal: soft, non tender, non distended, normoactiv Extremities: Bilateral pedal pitting edema 1+ but no cyanosis or tenderness Skin: No rashes, No breakdown Neuro: normal speech, no sensory motor deficits laboratory and microbiology Laboratory Tests 09/10/24 10:40 Test 09/10/24 10:40 Range/Units Serum Glucose 114 H 74-106 mg/dL Labs and/or images reviewed: Labs reviewed by me, Image(s) reviewed by me Problem List/Assessment/Plan Problem List/Assessment/Plan Liver cirrhosis secondary to alcoholic abuse Dx 2004, status post tips 2004 GI bleeding - resolved, no varices Hasd-or-qcuzsfpq gastroparesis Anemia secondary to above Mild antral gastritis with 2 gastric ulcers Transaminitis Chronic cholelithiasis History of gallstone pancreatitis Morbid obesity Hypokalemia CT abdomen shows no acute process. Stable hepatic cirrhosis status post tips. Diffuse soft tissue anasarca. EGD completed 09/09/2024 shows mild antral gastritis with to antral gastric ulcers and erosions. Oxor-ls-idrelqyl gastroparesis. No variceal bleeding. AP unremarkable Plan; Given the unremarkable CT scan, resolved GI bleeding, we recommend outpatient GI follow up within 2-4 weeks for transaminitis. Follow up with the stool culture. Continue Flagyl Q 8 hourly, started ceftriaxone IV daily Continue pantoprazole 40 mg twice daily and Carafate 1 g p.o. twice daily. Continue Reglan Avoid NSAIDs/aspirin/smoking/alcohol Plan discussed with patient in which all questions have been answered Case discussed with Dr. Flores Plan discussed with: Patient My Orders My Orders Orders - JOSE ANTONIO ALVARADO RESIDENT Procedure Category Date Status Time Ct Abd Pelvis W CT 09/09/24 Resulted Con-Oral & Iv 15:27 JOSE ANTONIO ALVARADO RESIDENT Sep 10, 2024 14:14
[2024-09-10] MEDS: cefTRIAXone 1GM/50ML D5W 50 ML IV ONE (16:20)
--- NOTE | 2024-09-10 18:47 | DVHPNRES ---
Progress Note Date Seen: Sep 10, 2024 Resident Creating Document: PAKO HEARD RESIDENT Has the PT tested + for MRSA If YES, has PT been informed?: No Medical Necessity Reason Pt with a Central, PICC or Fol: No Medical Necessity Reason Melena Cirrhosis Subjective Review of Systems This is a 44-year-old male with a history of liver cirrhosis S/P TIPS currently on a transplant list at [facility] presented to the ED with 2 day's history of dark stools. According to the patient, 7 years ago, he had a similar episodes of melena stools that leads to diagnoses of liver cirrhossis. He denies hematemesis, recent drinking. He complained of fatigue, dizziness,but no chest pain ro palpitations. Vitals were temp: 98.7, hr: 89, RR: 18, BP: 138/65. WBC: 5 Hgb: 7.4, K: 2.9--> 3.2. US of the liver shows Coarsened liver echotexture and cirrhotic liver morphology. TIPS in place and appears grossly patent.Cholelithiasis. No sonographic evidence of acute cholecystitis. PN 09/09/2024: Patient is seen and examined today the bedside. He was not did mood has no complaints actually no shortness a breath no dizziness no nausea. Patient had a bowel movement this my knee and I looked status the stool color was dark brown black. Patient had an EGD today and they thought revealed Mild antral gastritis with pre-pyloric 2 antral gastric ulcers and erosions, Ghfw-zl-cqbxtdnv gastroparesis. Otherwise grossly normal examination up to the 2nd and 3rd part of the duodenal with no blood in the upper GI tract. But no evidence of esophageal or gastric varices although there was slight congestion of the gastric mucosa at the diaphragmatic impingement. PN 09/10/2024: Patient is seen and examined today the bedside with present. He is doing well. EGD did not reveal any variceal bleed. And CT abdomen with contrast today also did not relieve any evidence of bleeding. However, his white cell count today weight was 20.4 and metabolic acidosis. No current evidence of infection noted Patient is started on ceftriaxone and we will monitor him overnight. Ordered blood blood culture, UA and chest x-ray to rule out any possible infection. Objective vital signs Vital Sign Date Time Temp Pulse Resp B/P (MAP) Pulse Ox O2 Delivery O2 Flow Rate FiO2 09/10/24 17:00 97.8 87 19 127/62 (83) 100 97.8 09/10/24 08:00 Room Air* 0 21 Total Intake and Output 09/09/24 09/09/24 09/10/24 15:00 23:00 07:00 Intake Total 200 ml 500 ml 2000 ml Output Total 500 ml Balance 200 ml 500 ml 1500 ml medications Current Medications Medications Dose Ordered Sig/Christina Route Start Time Stop Time Status Last Admin Dose Admin Ondansetron HCl 4 mg Q4HP PRN IV 09/07/24 19:15 Hold 09/08/24 21:18 4 MG Pantoprazole Sodium 40 mg BID IV 09/08/24 10:00 09/10/24 11:55 40 MG Potassium Chloride/Sodium Chloride 1,000 ml @ 75 mls/hr [id number] IV 09/08/24 10:00 09/08/24 21:18 75 MLS/HR Sucralfate 1 gm QID@0600,1130,1700,2200 PO 09/09/24 17:00 09/10/24 16:23 1 GM Metoclopramide HCl 5 mg Q8HPRN PRN IV 09/09/24 15:00 Metronidazole 100 ml @ 100 mls/hr Q8HR IV 09/09/24 22:00 09/10/24 15:03 100 MLS/HR Ceftriaxone Sodium 50 ml @ 100 mls/hr DAILY@09 IV 09/11/24 09:00 Examination General Appearance: Morbidly obese male, Alert, Oriented X3, Cooperative, No acute distress HEENT: Atraumatic, PERRLA, EOMI, mucous membranes moist Respiratory: Clear to auscultation, Normal air movement Cardiovascular: Regular rate, Normal S1, Normal S2 Abdominal: soft, non tender, non distended, normoactive Extremities: Bilateral pedal pitting edema 1+ but no cyanosis or tenderness Skin: No rashes, No breakdown Neuro: normal speech, no sensory motor deficits laboratory and microbiology Laboratory Tests 09/10/24 10:40 Test 09/10/24 10:40 Range/Units Serum Glucose 114 H 74-106 mg/dL Microbiology Date/Time Source Procedure Growth Status 09/10/24 10:30 Stool Stool Culture - Preliminary Resulted 09/10/24 10:30 Stool Shiga Toxin I & II - Final Resulted Problem List/Assessment/Plan Problem List/Assessment/Plan Assessment Melena stool; Upper GI bleed ruled out; S/P EGD: no evidence of esophageal varices or bleeding ulcers Melena stool could be secondary to iron tablets he is currently taking Anemia secondary hemoglobin 7.4 Mild antral gastritis with pre-pyloric 2 antral gastric ulcers and erosions Ukek-ul-yvhikemg gastroparesis 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 Hunter Plan discussed with: Patient, Spouse Date of Service: Sep 10, 2024 Billing Provider: HELENE HUNTER MD Common Visit Codes: [id number] INP/OBS CARE(HIGH) PAKO HEARD RESIDENT Sep 10, 2024 18:47 HELENE HUNTER MD Sep 10, 2024 19:52
[2024-09-10] MEDS ORDERED: ACETAMINOPHEN 325 MG TAB PO PRN (21:00)
[2024-09-10 21:29] LABS: Urine Bacteria None Seen /hpf (None Seen)
[2024-09-10 21:40] LABS: Urine Blood Negative /uL (Negative); Urine Clarity Clear (Clear); Urine Color Yellow (Yellow); Urine Protein, UAD Negative (Negative); Urine Specific Gravity 1.024 (1.001-1.035); Urine Squamous Epithelial Cell FEW /hpf (<5); Urine Urobilinogen Normal (Negative); Urine WBC 1 /HPF (0-3); Urine pH 6.5 (5.0-9.0)
[2024-09-10] MEDS: ACETAMINOPHEN 325 MG TAB PO ONE (21:56)
[2024-09-11] VITALS (7 sets, daily range): BP systolic 109–158; BP diastolic 65–89; PULSE 73–89; RESP 18–19; TEMP 97.7–98.3; O2SAT 95–99
--- NOTE | 2024-09-11 07:00 | DVH ---
CHEST RADIOGRAPH Indication: leukocytosis Technique: Single frontal view of the chest was obtained Comparison: XY CHEST PORTABLE on DOS: 05/09/24 FINDINGS: Lines and Tubes: None Lungs: No focal consolidation. Pleura: No effusion. No pneumothorax. Cardiomediastinal contours: Unremarkable Bones: No acute osseous abnormality. IMPRESSION: 1. No acute cardiopulmonary disease.
[2024-09-11 07:15] LABS: Basophils # (auto) 0 10 ^3/uL (0-0.2); Basophils % (auto) 0.1 % (0.0-2.0); Eosinophils # (auto) 0 10 ^3/uL (0-0.8); Hemoglobin 7.7 g/dL (13.5-17.5); Lymphocytes # (auto) 1.1 10 ^3/uL (0.4-5.4); Lymphocytes % (auto) 5.7 % (10.0-50.0); Monocytes # (auto) 0.7 10 ^3/uL (0-1.3); Neutrophils # (auto) 17.5 10 ^3/uL (1.6-8.6); Platelet Count (auto) 51 10^3/uL (140-450); White Blood Cell 19.3 10^3/uL (4.4-10.8)
[2024-09-11 07:18] LABS: Hematocrit 24.1 % (41.0-53.0); Mean Corpuscular Hemoglobin 28.1 pg (28.0-32.0); Mean Corpuscular Hgb Conc. 32.1 g/dL (32.0-36.0); Mean Corpuscular Volume 87.7 fL (80.0-100.0); Monocytes % (auto) 3.5 % (0.0-12.0); Neutrophils % (auto) 90.7 % (37.0-80.0); Nucleated Red Blood Cells % 0.1 %; Red Blood Cells 2.75 10^6/uL (4.5-5.90); Red Cell Distribution Width 20.8 % (11.8-14.3)
[2024-09-11 07:42] LABS: Anion Gap 10 (5-15); BUN/Creatinine Ratio 12.5 (10.0-20.0); Blood Urea Nitrogen 12 mg/dL (9-23); Potassium 3.8 mmol/L (3.5-5.1); Sodium 137 mmol/L (136-145)
[2024-09-11 07:47] LABS: Alanine Aminotransferase 46 U/L (7-40); Albumin 2.4 g/dL (3.2-4.8); Alkaline Phosphatase 167 U/L (46-116); Aspartate Aminotransferase 106 U/L (13-40); Bilirubin, Total 6.6 mg/dL (0.2-1.0); Calcium 7.9 mg/dL (8.7-10.4); Carbon Dioxide 19 mmol/L (20-31); Chloride 108 mmol/L (98-107); Glucose 108 mg/dL (74-106); Total Protein 5.4 g/dL (5.7-8.2)
[2024-09-11 08:44] LABS: Benzodiazephine Screen, Urine Pos (NEGATIVE)
[2024-09-11 08:50] LABS: Amphetamine Screen, Urine Neg (NEGATIVE); Barbiturate Scree,Urine Neg (NEGATIVE); Cannabinoid Screen, Urine Neg (NEGATIVE); Cocaine Screen, Urine Neg (NEGATIVE); Opiate Scree,Urine Neg (NEGATIVE); Phencyclidine Screen, Urine Neg (NEGATIVE)
[2024-09-11] MEDS: cefTRIAXone 1GM/50ML D5W 50 ML IV SCH (09:15)
[2024-09-11] MEDS: GOLYTELY 4L KIT PO ONE (11:54)
--- NOTE | 2024-09-11 12:06 | DVHPN2 ---
Progress Note Date Seen: Sep 11, 2024 Resident Creating Document: JOSE ANTONIO ALVARADO RESIDENT Has the PT tested + for MRSA If YES, has PT been informed?: No Medical Necessity Reason Pt with a Central, PICC or Fol: No Subjective Review of Systems Mr. Cool is a 44 years old male with PMHx Liver cirrhosis 2004 secondary to alcoholism with TIPS, cholelithiasis, HTN, morbid obesity, GERD, hepatic encephalopathy, esophageal varices, pancreatitis and PSHx TIPS in 2004 in [place], Esophageal variceal banding who presented to the ED with the chief complaints of dizziness,SOB and black stools srarting 09/04. BMs are formed but tarry black. Reports taking iron pills, EGD Denies hemetamesis, N/V/D On liver transplant list Admitted 12/2023 for Acute pancreatitis likely due to gallstones Upper Endoscopy with biopsy 12/21/21 for history of coffee-ground emesis: 2 cm sliding-type hiatal hernia with no significant erosive esophagitis; there were no varices. Mild gastroduodenitis with erosions. Home medications: Iron, Lactulose, Lasix, pantoprazole Patient seen and examined at the bedside. Reports feeling fine. CT abdomen shows no acute process. Colonoscopy scheduled for tomorrow. Objective vital signs Vital Sign Date Time Temp Pulse Resp B/P (MAP) Pulse Ox O2 Delivery O2 Flow Rate FiO2 09/11/24 09:00 98.1 83 18 147/74 (98) 95 98.1 09/10/24 20:00 Room Air* 0 21 Total Intake and Output 09/10/24 09/10/24 09/11/24 15:00 23:00 07:00 Intake Total 1205 ml 1040 ml Output Total 760 ml Balance 1205 ml 280 ml medications Current Medications Medications Dose Ordered Sig/Christina Route Start Time Stop Time Status Last Admin Dose Admin Ondansetron HCl 4 mg Q4HP PRN IV 09/07/24 19:15 Hold 09/08/24 21:18 4 MG Pantoprazole Sodium 40 mg BID IV 09/08/24 10:00 09/11/24 09:16 40 MG Potassium Chloride/Sodium Chloride 1,000 ml @ 75 mls/hr [id number] IV 09/08/24 10:00 09/08/24 21:18 75 MLS/HR Sucralfate 1 gm QID@0600,1130,1700,2200 PO 09/09/24 17:00 09/11/24 11:53 1 GM Metoclopramide HCl 5 mg Q8HPRN PRN IV 09/09/24 15:00 Metronidazole 100 ml @ 100 mls/hr Q8HR IV 09/09/24 22:00 09/11/24 05:31 100 MLS/HR Ceftriaxone Sodium 50 ml @ 100 mls/hr DAILY@09 IV 09/11/24 09:00 09/11/24 09:15 100 MLS/HR Acetaminophen 650 mg Q6HP PRN PO 09/10/24 21:00 Examination General Appearance: Alert, Oriented X3, Cooperative, No acute distress HEENT: Atraumatic, PERRLA, EOMI, mucous membranes moist Respiratory: Clear to auscultation, Normal air movement Cardiovascular: Regular rate, Normal S1, Normal S2 Abdominal: soft, non tender, non distended, normoactiv Extremities: Bilateral pedal pitting edema 1+ but no cyanosis or tenderness Skin: No rashes, No breakdown Neuro: normal speech, no sensory motor deficits laboratory and microbiology Laboratory Tests 09/11/24 06:17 Test 09/11/24 06:17 Range/Units Serum Glucose 108 H 74-106 mg/dL Microbiology Date/Time Source Procedure Growth Status 09/10/24 10:30 Stool Stool Culture - Preliminary Resulted 09/10/24 10:30 Stool Shiga Toxin I & II - Final Resulted Labs and/or images reviewed: Labs reviewed by me, Image(s) reviewed by me Problem List/Assessment/Plan Problem List/Assessment/Plan ? Colitis Liver cirrhosis secondary to alcoholic abuse Dx 2004, status post tips 2004 GI bleeding - resolved, no varices Kfdg-pj-ggfxlzvh gastroparesis Anemia secondary to above Mild antral gastritis with 2 gastric ulcers Transaminitis Chronic cholelithiasis History of gallstone pancreatitis Morbid obesity Hypokalemia CT abdomen shows no acute process. Stable hepatic cirrhosis status post tips. Diffuse soft tissue anasarca. EGD completed 09/09/2024 shows mild antral gastritis with to antral gastric ulcers and erosions. Lcde-ca-[id number] gastroparesis. No variceal bleeding. AP unremarkable Plan; Given the elevated WBC count, stool WBC, we will schedule the patient for colonoscopy to rule out colitis on 09/12. Bowel prep started. Clear liquid for now. Follow up with the stool culture. Change IV lines Continue Flagyl Q 8 hourly, started ceftriaxone IV daily Continue pantoprazole 40 mg twice daily and Carafate 1 g p.o. twice daily. Continue Reglan Avoid NSAIDs/aspirin/smoking/alcohol Plan discussed with patient in which all questions have been answered Case discussed with Dr. Flores Plan discussed with: Patient My Orders My Orders Orders - JOSE ANTONIO ALVARADO Procedure Category Date Status Time Ceftriaxone 1gm/50ml PHA 09/11/24 In Process D5w (Rocephin) 09:00 JOSE ANTONIO ALVARADO Sep 11, 2024 12:06
--- NOTE | 2024-09-11 20:28 | DVHPNRES ---
Progress Note Date Seen: Sep 11, 2024 Resident Creating Document: PAKO HEARD RESIDENT Has the PT tested + for MRSA If YES, has PT been informed?: No Medical Necessity Reason Pt with a Central, PICC or Fol: No Medical Necessity Reason melena stool leukocytes Subjective Review of Systems This is a 44-year-old male with a history of liver cirrhosis S/P TIPS currently on a transplant list at [facility] presented to the ED with 2 day's history of dark stools. According to the patient, 7 years ago, he had a similar episodes of melena stools that leads to diagnoses of liver cirrhossis. He denies hematemesis, recent drinking. He complained of fatigue, dizziness,but no chest pain ro palpitations. Vitals were temp: 98.7, hr: 89, RR: 18, BP: 138/65. WBC: 5 Hgb: 7.4, K: 2.9--> 3.2. US of the liver shows Coarsened liver echotexture and cirrhotic liver morphology. TIPS in place and appears grossly patent.Cholelithiasis. No sonographic evidence of acute cholecystitis. PN 09/09/2024: Patient is seen and examined today the bedside. He was not did mood has no complaints actually no shortness a breath no dizziness no nausea. Patient had a bowel movement this my knee and I looked status the stool color was dark brown black. Patient had an EGD today and they thought revealed Mild antral gastritis with pre-pyloric 2 antral gastric ulcers and erosions, Cqef-fy-kuvlaiwd gastroparesis. Otherwise grossly normal examination up to the 2nd and 3rd part of the duodenal with no blood in the upper GI tract. But no evidence of esophageal or gastric varices although there was slight congestion of the gastric mucosa at the diaphragmatic impingement. PN 09/10/2024: Patient is seen and examined today the bedside with present. He is doing well. EGD did not reveal any variceal bleed. And CT abdomen with contrast today also did not relieve any evidence of bleeding. However, his white cell count today weight was 20.4 and metabolic acidosis. No current evidence of infection noted Patient is started on ceftriaxone and we will monitor him overnight. Ordered blood blood culture, UA and chest x-ray to rule out any possible infection. PN 09/11/2024: Patient is seen and examined today the bedside with present. He is doing well. EGD did not reveal any variceal bleed. And CT abdomen with contrast today also did not relieve any evidence of bleeding. wbc is mild down on antibiotics.GI following and recommend sigmoidoscpy to rule out any colitis. Given the elevated WBC count, stool WBC, we will schedule the patient for colonoscopy to rule out colitis on 09/12. Bowel prep started. Clear liquid for now. Follow up with the stool culture. Change IV line Objective vital signs Vital Sign Date Time Temp Pulse Resp B/P (MAP) Pulse Ox O2 Delivery O2 Flow Rate FiO2 09/11/24 17:00 98.0 73 18 130/72 (91) 97 98.0 09/11/24 08:05 Room Air* 0 21 Total Intake and Output 09/10/24 09/10/24 09/11/24 15:00 23:00 07:00 Intake Total 1205 ml 1040 ml Output Total 760 ml Balance 1205 ml 280 ml medications Current Medications Medications Dose Ordered Sig/Christina Route Start Time Stop Time Status Last Admin Dose Admin Ondansetron HCl 4 mg Q4HP PRN IV 09/07/24 19:15 Hold 09/08/24 21:18 4 MG Pantoprazole Sodium 40 mg BID IV 09/08/24 10:00 09/11/24 09:16 40 MG Potassium Chloride/Sodium Chloride 1,000 ml @ 75 mls/hr [id number] IV 09/08/24 10:00 09/11/24 18:48 75 MLS/HR Sucralfate 1 gm QID@0600,1130,1700,2200 PO 09/09/24 17:00 09/11/24 18:48 1 GM Metoclopramide HCl 5 mg Q8HPRN PRN IV 09/09/24 15:00 Metronidazole 100 ml @ 100 mls/hr Q8HR IV 09/09/24 22:00 09/11/24 15:50 100 MLS/HR Ceftriaxone Sodium 50 ml @ 100 mls/hr DAILY@09 IV 09/11/24 09:00 09/11/24 09:15 100 MLS/HR Acetaminophen 650 mg Q6HP PRN PO 09/10/24 21:00 Examination General Appearance: Morbidly obese male, Alert, Oriented X3, Cooperative, No acute distress HEENT: Atraumatic, PERRLA, EOMI, mucous membranes moist Respiratory: Clear to auscultation, Normal air movement Cardiovascular: Regular rate, Normal S1, Normal S2 Abdominal: soft, non tender, non distended, normoactive Extremities: Bilateral pedal pitting edema 1+ but no cyanosis or tenderness Skin: No rashes, No breakdown Neuro: normal speech, no sensory motor deficits laboratory and microbiology Laboratory Tests 09/11/24 06:17 Test 09/11/24 06:17 Range/Units Serum Glucose 108 H 74-106 mg/dL Microbiology Date/Time Source Procedure Growth Status 09/10/24 10:30 Stool Stool Culture - Preliminary Resulted 09/10/24 10:30 Stool Shiga Toxin I & II - Final Resulted Problem List/Assessment/Plan Problem List/Assessment/Plan Assessment Melena stool; Upper GI bleed ruled out; S/P EGD: no evidence of esophageal varices or bleeding ulcers Melena stool could be secondary to iron tablets he is currently taking Anemia secondary hemoglobin 7.4 Mild antral gastritis with pre-pyloric 2 antral gastric ulcers and erosions Zezl-vi-zbkglpco gastroparesis Liver cirrhosis secondary to alcoholic abuse Dx 2004, status post tips 2005 Transaminitis History of gallstone pancreatitis Morbid obesity, BMI: 47.9 Hypokalemia Thrombocytopenia Coagulopathy Moderate protein malnutrition , albumin 2.4 AFP: 3.8 CT abdomen unremarkable Leukocytosis BC of 20.4 Cholelithiasis metabolic Acidosis leukocytosis rule out colitis Plan Monitor closely, transfuse if the hgb< 7 Continue pantoprazole 40 mg IV b.i.d Follow up with LDH, retic, haptoglobin: pending Blood culture For sigmoidoscopy Code status: full Goal of care discussed for more than 20 minutes Case and plan discussed with Dr. Hunter Plan discussed with: Patient My Orders My Orders Orders - PAKO HEARD Procedure Category Date Status Time Complete Blood Count LAB 09/12/24 Verified 04:00 Comprehensive LAB 09/12/24 Verified Metabolic Panel 04:00 Date of Service: Sep 11, 2024 Billing Provider: HELENE HUNTER MD Common Visit Codes: [id number] INP/OBS CARE(HIGH) PAKO HEARD Sep 11, 2024 20:28 HELENE HUNTER MD Sep 12, 2024 05:05
[2024-09-12] VITALS (10 sets, daily range): BP systolic 120–144; BP diastolic 53–78; PULSE 69–94; RESP 11–20; TEMP 97.5–98.1; O2SAT 97–100
[2024-09-12] MEDS: MAGNESIUM CITRATE SOLUTION 300 ML BTL PO ONE (05:56)
[2024-09-12] MEDS: GOLYTELY 4L KIT PO ONE (05:56)
[2024-09-12 11:32] LABS: Basophils # (auto) 0 10 ^3/uL (0-0.2); Basophils % (auto) 0.1 % (0.0-2.0); Eosinophils # (auto) 0 10 ^3/uL (0-0.8); Hematocrit 23.4 % (41.0-53.0); Hemoglobin 7.5 g/dL (13.5-17.5); Lymphocytes # (auto) 1.5 10 ^3/uL (0.4-5.4); Lymphocytes % (auto) 10.9 % (10.0-50.0); Mean Corpuscular Hemoglobin 27.7 pg (28.0-32.0); Mean Corpuscular Volume 86.8 fL (80.0-100.0); Monocytes # (auto) 1.7 10 ^3/uL (0-1.3); Monocytes % (auto) 12.4 % (0.0-12.0); Neutrophils # (auto) 10.4 10 ^3/uL (1.6-8.6); Neutrophils % (auto) 76.6 % (37.0-80.0); Nucleated Red Blood Cells % 0.6 %; Platelet Count (auto) 57 10^3/uL (140-450); Red Cell Distribution Width 20.7 % (11.8-14.3); White Blood Cell 13.6 10^3/uL (4.4-10.8)
[2024-09-12 11:57] LABS: Anion Gap 9 (5-15); BUN/Creatinine Ratio 12.5 (10.0-20.0); Blood Urea Nitrogen 12 mg/dL (9-23); Carbon Dioxide 23 mmol/L (20-31); Chloride 107 mmol/L (98-107); Sodium 139 mmol/L (136-145)
[2024-09-12 12:10] LABS: Alanine Aminotransferase 52 U/L (7-40); Albumin 2.4 g/dL (3.2-4.8); Alkaline Phosphatase 156 U/L (46-116); Aspartate Aminotransferase 99 U/L (13-40); Bilirubin, Total 6.4 mg/dL (0.2-1.0); Calcium 7.7 mg/dL (8.7-10.4); Glucose 108 mg/dL (74-106); Potassium 2.9 mmol/L (3.5-5.1); Total Protein 5.2 g/dL (5.7-8.2)
[2024-09-12] MEDS ORDERED: PROPOFOL 10 MG/ML 20 ML IV ONE (15:02)
--- NOTE | 2024-09-12 15:27 | DVHOP2 ---
Operative Report DATE OF OPERATION: 09/12/24 PROCEDURE: Diagnostic Colonoscopy PREOPERATIVE INDICATION: The patient is a 44 -year-old male undergoing colonoscopy for evaluation of GI bleeding WBCs in the stool and Hemoccult- positive stools rule out colitis POSTOPERATIVE DIAGNOSES: 1. 1+ internal hemorrhoids otherwise completely normal colonoscopy examination up to the cecum and terminal ileum PROCEDURE PERFORMED BY: Zayda Flores M.D. SCOPE: Olympus videocolonoscope. ASA CLASS: 3. PREOPERATIVE MEDICATIONS: Dr. Magdalena Gross PROCEDURE IN DETAIL: After obtaining an informed consent, the patient was placed on left lateral decubitus position. He was then sedated with the above medications. A rectal examination was performed that was normal. The colonoscope was then passed through the anus into the rectosigmoid and through the descending, transverse, and ascending colon up to the cecum with visualization of the appendiceal orifice, base of the cecum and the ileocecal valve. The colonoscope was then withdrawn. The distal 5-10 cm of the terminal ileum were normal There were no masses or polyps. There was no colitis or diverticular disease. On retroflexion and straight on view the patient had 1+ internal hemorrhoids that were slightly engorged The patient tolerated the procedure well without difficulty. WITHDRAWAL TIME: 6 minutes QUALITY OF THE PREP: Provencal Bowel Prep score: 9. COMPLICATIONS : None SPECIMENS: None DISPOSITION: Transfer back to the floor Stable PLAN: 1. Repeat colonoscopy in 10 years 2. Resume GI soft diet advance as tolerated 3. Increase fluid and fiber intake 4. Local anorectal hemorrhoidal care 5. Outpatient follow up with me in 4-6 weeks to monitor his liver condition ZAYDA FLORES MD Sep 12, 2024 15:27
--- NOTE | 2024-09-12 17:07 | DVHPNRES ---
Progress Note Date Seen: Sep 12, 2024 Resident Creating Document: PAKO HEARD RESIDENT Has the PT tested + for MRSA If YES, has PT been informed?: No Medical Necessity Reason Pt with a Central, PICC or Fol: No Medical Necessity Reason Melena stool Leukocytosis Subjective Review of Systems Review of Systems This is a 44-year-old male with a history of liver cirrhosis S/P TIPS currently on a transplant list at [facility] presented to the ED with 2 day's history of dark stools. According to the patient, 7 years ago, he had a similar episodes of melena stools that leads to diagnoses of liver cirrhossis. He denies hematemesis, recent drinking. He complained of fatigue, dizziness,but no chest pain ro palpitations. Vitals were temp: 98.7, hr: 89, RR: 18, BP: 138/65. WBC: 5 Hgb: 7.4, K: 2.9--> 3.2. US of the liver shows Coarsened liver echotexture and cirrhotic liver morphology. TIPS in place and appears grossly patent.Cholelithiasis. No sonographic evidence of acute cholecystitis. PN 09/09/2024: Patient is seen and examined today the bedside. He was not did mood has no complaints actually no shortness a breath no dizziness no nausea. Patient had a bowel movement this my knee and I looked status the stool color was dark brown black. Patient had an EGD today and they thought revealed Mild antral gastritis with pre-pyloric 2 antral gastric ulcers and erosions, Hywy-en-fydiuxxy gastroparesis. Otherwise grossly normal examination up to the 2nd and 3rd part of the duodenal with no blood in the upper GI tract. But no evidence of esophageal or gastric varices although there was slight congestion of the gastric mucosa at the diaphragmatic impingement. PN 09/10/2024: Patient is seen and examined today the bedside with present. He is doing well. EGD did not reveal any variceal bleed. And CT abdomen with contrast today also did not relieve any evidence of bleeding. However, his white cell count today weight was 20.4 and metabolic acidosis. No current evidence of infection noted Patient is started on ceftriaxone and we will monitor him overnight. Ordered blood blood culture, UA and chest x-ray to rule out any possible infection. PN 09/11/2024: Patient is seen and examined today the bedside with present. He is doing well. EGD did not reveal any variceal bleed. And CT abdomen with contrast today also did not relieve any evidence of bleeding. wbc is mild down on antibiotics.GI following and recommend sigmoidoscpy to rule out any colitis. Given the elevated WBC count, stool WBC, we will schedule the patient for colonoscopy to rule out colitis on 09/12. Bowel prep started. Clear liquid for now. Follow up with the stool culture. Change IV line PN 09/12/2024: Patient is seen and examined today at the bedside.Blood work done today shwoed WBC trending downward to the at 13.9. Patient will be going for occult sigmoidoscopy today to rule out any possible colitis contributing to the elevated WBC. Also notable today is potassium level of 2.9 which has been replaced. S/P sigmoidoscopy today there was no abnormal finding. Patient is stable for discharge. However given the low potassium we will keep the patient replaced the potassium and hopefully once everything improves we will discharge him tomorrow Objective vital signs Vital Sign Date Time Temp Pulse Resp B/P (MAP) Pulse Ox O2 Delivery O2 Flow Rate FiO2 09/12/24 15:55 80 15 142/62 (88) 99 09/12/24 15:35 Room Air 0 98 09/12/24 15:25 98.1 98.1 Total Intake and Output 09/11/24 09/11/24 09/12/24 15:00 23:00 07:00 Intake Total 50 ml 1100 ml 1000 ml Balance 50 ml 1100 ml 1000 ml medications Current Medications Medications Dose Ordered Sig/Christina Route Start Time Stop Time Status Last Admin Dose Admin Ondansetron HCl 4 mg Q4HP PRN IV 09/07/24 19:15 Hold 09/08/24 21:18 4 MG Pantoprazole Sodium 40 mg BID IV 09/08/24 10:00 09/12/24 08:42 40 MG Potassium Chloride/Sodium Chloride 1,000 ml @ 75 mls/hr [id number] IV 09/08/24 10:00 09/11/24 18:48 75 MLS/HR Sucralfate 1 gm QID@0600,1130,1700,2200 PO 09/09/24 17:00 09/12/24 05:56 1 GM Metoclopramide HCl 5 mg Q8HPRN PRN IV 09/09/24 15:00 Metronidazole 100 ml @ 100 mls/hr Q8HR IV 09/09/24 22:00 09/12/24 13:36 100 MLS/HR Ceftriaxone Sodium 50 ml @ 100 mls/hr DAILY@09 IV 09/11/24 09:00 09/12/24 08:42 100 MLS/HR Acetaminophen 650 mg Q6HP PRN PO 09/10/24 21:00 Examination General Appearance: Morbidly obese male, Alert, Oriented X3, Cooperative, No acute distress HEENT: Atraumatic, PERRLA, EOMI, mucous membranes moist Respiratory: Clear to auscultation, Normal air movement Cardiovascular: Regular rate, Normal S1, Normal S2 Abdominal: soft, non tender, non distended, normoactive Extremities: Bilateral pedal pitting edema 1+ but no cyanosis or tenderness Skin: No rashes, No breakdown Neuro: normal speech, no sensory motor deficits laboratory and microbiology Laboratory Tests 09/12/24 11:06 Test 09/12/24 11:06 Range/Units Serum Glucose 108 H 74-106 mg/dL Microbiology Date/Time Source Procedure Growth Status 09/11/24 02:10 Blood Blood Culture - Preliminary NO GROWTH AFTER 24 HOURS OF INCUBATION. Resulted 09/10/24 10:30 Stool Stool Culture - Preliminary Resulted 09/10/24 10:30 Stool Shiga Toxin I & II - Final Resulted Labs and/or images reviewed: Labs reviewed by me, Image(s) reviewed by me Problem List/Assessment/Plan Problem List/Assessment/Plan Assessment Melena stool; Upper GI bleed ruled out; S/P EGD: no evidence of esophageal varices or bleeding ulcers Melena stool could be secondary to iron tablets he is currently taking Anemia secondary to blood loss; hemoglobin 7.4; dropping level of hemoglobin Mild antral gastritis with pre-pyloric 2 antral gastric ulcers and erosions Qyxl-xd-rddbsjoo gastroparesis Liver cirrhosis secondary to alcoholic abuse Dx 2004, status post tips 2005 Transaminitis History of gallstone pancreatitis Morbid obesity, BMI: 47.9 Hypokalemia; potassium of 2.9 Thrombocytopenia Coagulopathy Moderate protein malnutrition , albumin 2.4 AFP: 3.8 CT abdomen unremarkable Leukocytosis WBCs of 20.4 Cholelithiasis metabolic Acidosis Sepsis due to suspected gastritis/colitis S/P SIGMOIDOSCOPY: 1+ internal hemorrhoids otherwise completely normal colonoscopy examination up to the cecum and terminal ileum Plan Monitor closely, transfuse if the hgb< 7 Continue pantoprazole 40 mg IV b.i.d Follow up with LDH, retic, haptoglobin: pending Blood culture Continue furosemide and spironolactone Ordered replacement for hypokalemia; ordered morning magnesium level Code status: full Goal of care discussed for 20 minutes Case and plan discussed with Dr. Mckeon Plan discussed with: Patient, Spouse, Other (RN) My Orders My Orders Orders - PAKO HEARD RESIDENT Procedure Category Date Status Time Potassium Chloride PHA 09/12/24 In Process (Potassium Chloride). 15:15 Magnesium LAB 09/13/24 Verified 04:00 Dietary Evaluation Review Comments: 1. TPN per pharmacy if NPO>7 days 2. Consider Clinimix 241ml/hr, providie 42.5g protein in amino acids and 510 kcal in dextrose plus TF if PO is not feasible. 3. If EN/GI accessible, TF nepro @30ml/hr providing 58g pro 1274 kcal in 24 hrs. the combo of TF and Clinimix will provide 100.5g Pro and 1784 kcal in 24 hrs. $. If pt is able to accept PO feedings, offer a 2 gNa high quality protein 80gram diet, texture as tolerated. Expected Outcomes/Goals: gradual wt loss, improved protein nutrition, a better candidate for transplant. Addendum Addendum Addendum I was physically present for the lee portions of the service provided to patient by THE RESIDENT. I have reviewed the documentation, discussed the case with resident and agree with the resident's documentation except as noted. Also the patient's clinical case was discussed with the patient's nurse. This medical document was created using an electronic medical record system with computerized dictation system. Although this document has been carefully reviewed, there might still be some phonetic and typographical errors. These areas are purely typographical due to imperfections of the software programs, and do not reflect any compromise in the patient's medical care. Late signature. Date of Service: Sep 12, 2024 Billing Provider: MATTHEW MCKEON MD Common Visit Codes: [id number] INP/OBS CARE(HIGH) Secondary Visit Codes: [id number] CARE PLAN 30 MINUTES (20 minutes) PAKO HEARD RESIDENT Sep 12, 2024 17:07 MATTHEW MCKEON MD Sep 13, 2024 07:50
[2024-09-12] MEDS: POTASSIUM EFFERVESENT TAB 25 MEQ PO ONE (17:32)
[2024-09-12] MEDS: POTASSIUM CHLORIDE 40 MEQ, LIDOCAINE 1% (LOCAL ANESTH.) 4 ML in SODIUM CHL 0.9% 250 ML IV ONE (18:13)
[2024-09-12] MEDS: FUROSEMIDE 20 MG TAB PO ONE (18:14)
[2024-09-13] VITALS (9 sets, daily range): BP systolic 112–148; BP diastolic 46–72; PULSE 75–93; RESP 14–20; TEMP 97.2–98.5; O2SAT 95–99
[2024-09-13 03:21] LABS: Basophils # (auto) 0 10 ^3/uL (0-0.2); Eosinophils # (auto) 0 10 ^3/uL (0-0.8); Mean Corpuscular Volume 87.1 fL (80.0-100.0)
[2024-09-13 03:24] LABS: Eosinophils % (auto) 0.4 % (0.0-7.0); Hematocrit 21.1 % (41.0-53.0); Lymphocytes # (auto) 1.3 10 ^3/uL (0.4-5.4); Lymphocytes % (auto) 18.2 % (10.0-50.0); Mean Corpuscular Hemoglobin 28.5 pg (28.0-32.0); Mean Corpuscular Hgb Conc. 32.8 g/dL (32.0-36.0); Monocytes % (auto) 13.8 % (0.0-12.0); Neutrophils % (auto) 67.6 % (37.0-80.0); Nucleated Red Blood Cells % 0.8 %; Platelet Count (auto) 41 10^3/uL (140-450); Red Blood Cells 2.42 10^6/uL (4.5-5.90); Red Cell Distribution Width 20.3 % (11.8-14.3); White Blood Cell 7.4 10^3/uL (4.4-10.8)
[2024-09-13 03:27] LABS: Hemoglobin 6.9 g/dL (13.5-17.5)
[2024-09-13 03:37] LABS: Anion Gap 7 (5-15); BUN/Creatinine Ratio 9.8 (10.0-20.0); Carbon Dioxide 25 mmol/L (20-31); Glucose 91 mg/dL (74-106); Potassium 3.5 mmol/L (3.5-5.1); Sodium 141 mmol/L (136-145)
[2024-09-13 03:41] LABS: Alanine Aminotransferase 48 U/L (7-40); Albumin 2.3 g/dL (3.2-4.8); Alkaline Phosphatase 145 U/L (46-116); Aspartate Aminotransferase 79 U/L (13-40); Bilirubin, Total 6.3 mg/dL (0.2-1.0); Blood Urea Nitrogen 9 mg/dL (9-23); Calcium 7.8 mg/dL (8.7-10.4); Chloride 109 mmol/L (98-107); Total Protein 4.8 g/dL (5.7-8.2)
[2024-09-13] MEDS: SPIRONOLACTONE 25 MG TAB PO SCH (09:18)
[2024-09-13] MEDS: FUROSEMIDE 20 MG TAB PO SCH (09:19)
[2024-09-13] MEDS: POTASSIUM EFFERVESENT TAB 25 MEQ GT ONE (10:24)
--- NOTE | 2024-09-13 16:11 | DVHPN2 ---
Progress Note Date Seen: Sep 13, 2024 Resident Creating Document: JOSE ANTONIO ALVARADO RESIDENT Has the PT tested + for MRSA If YES, has PT been informed?: No Medical Necessity Reason Pt with a Central, PICC or Fol: No Subjective Review of Systems Mr. Cool is a 44 years old male with PMHx Liver cirrhosis 2004 secondary to alcoholism with TIPS, cholelithiasis, HTN, morbid obesity, GERD, hepatic encephalopathy, esophageal varices, pancreatitis and PSHx TIPS in 2004 in [place], Esophageal variceal banding who presented to the ED with the chief complaints of dizziness,SOB and black stools srarting 09/04. BMs are formed but tarry black. Reports taking iron pills, EGD Denies hemetamesis, N/V/D On liver transplant list Admitted 12/2023 for Acute pancreatitis likely due to gallstones Upper Endoscopy with biopsy 12/21/21 for history of coffee-ground emesis: 2 cm sliding-type hiatal hernia with no significant erosive esophagitis; there were no varices. Mild gastroduodenitis with erosions. Home medications: Iron, Lactulose, Lasix, pantoprazole Patient seen and examined at the bedside. Reports feeling fine. H&H has dropped, could be dilutional or previous bleeding. CT abdomen shows no acute process. Colonoscopy was unremarkable. Objective vital signs Vital Sign Date Time Temp Pulse Resp B/P (MAP) Pulse Ox O2 Delivery O2 Flow Rate FiO2 09/13/24 15:47 98.5 77 17 130/54 98.5 09/13/24 13:00 95 09/13/24 08:00 Room Air* 0 21 Total Intake and Output 09/12/24 09/12/24 09/13/24 15:00 23:00 07:00 Intake Total 150 ml 374 ml 1300 ml Output Total 800 ml Balance 150 ml 374 ml 500 ml medications Current Medications Medications Dose Ordered Sig/Christina Route Start Time Stop Time Status Last Admin Dose Admin Ondansetron HCl 4 mg Q4HP PRN IV 09/07/24 19:15 Hold 09/08/24 21:18 4 MG Pantoprazole Sodium 40 mg BID IV 09/08/24 10:00 09/13/24 09:17 40 MG Potassium Chloride/Sodium Chloride 1,000 ml @ 75 mls/hr [id number] IV 09/08/24 10:00 09/12/24 22:12 75 MLS/HR Sucralfate 1 gm QID@0600,1130,1700,2200 PO 09/09/24 17:00 09/13/24 11:46 1 GM Metoclopramide HCl 5 mg Q8HPRN PRN IV 09/09/24 15:00 Metronidazole 100 ml @ 100 mls/hr Q8HR IV 09/09/24 22:00 09/13/24 05:32 100 MLS/HR Ceftriaxone Sodium 50 ml @ 100 mls/hr DAILY@09 IV 09/11/24 09:00 09/13/24 09:19 100 MLS/HR Acetaminophen 650 mg Q6HP PRN PO 09/10/24 21:00 Furosemide 20 mg DAILY PO 09/13/24 10:00 09/13/24 09:19 20 MG Spironolactone 25 mg DAILY PO 09/13/24 10:00 09/13/24 09:18 25 MG Examination General Appearance: Alert, Oriented X3, Cooperative, No acute distress HEENT: Atraumatic, PERRLA, EOMI, mucous membranes moist Respiratory: Clear to auscultation, Normal air movement Cardiovascular: Regular rate, Normal S1, Normal S2 Abdominal: soft, non tender, non distended, normoactiv Extremities: Bilateral pedal pitting edema 1+ but no cyanosis or tenderness Skin: No rashes, No breakdown Neuro: normal speech, no sensory motor deficits laboratory and microbiology Laboratory Tests 09/13/24 02:50 Test 09/13/24 02:50 Range/Units Serum Glucose 91 74-106 mg/dL Microbiology Date/Time Source Procedure Growth Status 09/11/24 02:10 Blood Blood Culture - Preliminary NO GROWTH AFTER 48 HOURS OF INCUBATION. Resulted 09/10/24 10:30 Stool Stool Culture - Final Complete 09/10/24 10:30 Stool Shiga Toxin I & II - Final Complete Labs and/or images reviewed: Labs reviewed by me, Image(s) reviewed by me Problem List/Assessment/Plan Problem List/Assessment/Plan Rule out colitis - remarkable colonoscopy 1+ internal hemorrhoids Liver cirrhosis secondary to alcoholic abuse Dx 2004, status post tips 2004 GI bleeding - resolved, no varices Eitb-hr-lwdvfowr gastroparesis Anemia secondary to above, requiring transfusion Mild antral gastritis with 2 gastric ulcers Transaminitis, likely alcoholic hepatitis Chronic cholelithiasis History of gallstone pancreatitis Morbid obesity Hypokalemia CT abdomen shows no acute process. Stable hepatic cirrhosis status post tips. Diffuse soft tissue anasarca. EGD completed 09/09/2024 shows mild antral gastritis with to antral gastric ulcers and erosions. Fueh-jm-itnukjro gastroparesis. No variceal bleeding. AP unremarkable Colonoscopy 09/12 shows 1+ internal hemorrhoids, otherwise normal. Next colonoscopy in 10 years. Plan; Drop in hemoglobin could be dilutional. Repeat H&H after transfusion. No active bleeding noted clinically. Patient is stable. Continue Flagyl Q 8 hourly, started ceftriaxone IV daily Continue pantoprazole 40 mg twice daily and Carafate 1 g p.o. twice daily. Continue Reglan Avoid NSAIDs/aspirin/smoking/alcohol Plan discussed with patient in which all questions have been answered Case discussed with Dr. Flores Plan discussed with: Patient, Spouse Dietary Evaluation Review Comments: 1. TPN per pharmacy if NPO>7 days 2. Consider Clinimix 241ml/hr, providie 42.5g protein in amino acids and 510 kcal in dextrose plus TF if PO is not feasible. 3. If EN/GI accessible, TF nepro @30ml/hr providing 58g pro 1274 kcal in 24 hrs. the combo of TF and Clinimix will provide 100.5g Pro and 1784 kcal in 24 hrs. $. If pt is able to accept PO feedings, offer a 2 gNa high quality protein 80gram diet, texture as tolerated. Expected Outcomes/Goals: gradual wt loss, improved protein nutrition, a better candidate for transplant. JOSE ANTONIO ALVARADO RESIDENT Sep 13, 2024 16:11
[2024-09-13 16:56] LABS: Hemoglobin 8.3 g/dL (13.5-17.5)
[2024-09-13 16:58] LABS: Hematocrit 25.7 % (41.0-53.0)
--- NOTE | 2024-09-13 18:47 | DVHDSRES ---
Discharge Summary Date of Admission Resident Creating Document: JOSE ANTONIO ALVARADO Sep 07, 2024 at 18:58 Date of Discharge: Sep 13, 2024 Admitting Diagnosis Melena stool cirrhosis Labs/Diagnostic Data: PATIENT: IOANA PARK ACCT: [id number] UNIT: [id number] : 1980 LOC[facility] AGE / SEX: 44 / M ADM STATUS: ADM IN SERVICE 0700 ORDERING PHYSICIAN: PAKO HEARD PROCEDURE(s): CXR1 - CHEST XRAY 1 VIEW REASON: leukocytosis ORDER NUMBER(s): [id number], ACCESSION NUMBER(s): [id number] CHEST RADIOGRAPH Indication: leukocytosis Technique: Single frontal view of the chest was obtained Comparison: XY CHEST PORTABLE on DOS: 05/09/24 FINDINGS: Lines and Tubes: None Lungs: No focal consolidation. Pleura: No effusion. No pneumothorax. Cardiomediastinal contours: Unremarkable Bones: No acute osseous abnormality. IMPRESSION: 1. No acute cardiopulmonary disease. ATED BY: DASIA CHRISTENSEN MD DICTATED DATE/TIME: 09/11/24 0658 PATIENT: IOANA PARK ACCT: [id number] UNIT: [id number] : 1980 LOC: [facility] AGE / SEX: 44 / M ADM STATUS: ADM IN SERVICE 1527 ORDERING PHYSICIAN: JOSE ANTONIO ALVARADO PROCEDURE(s): ABPLC - CT ABD PELVIS W CON-ORAL & IV REASON: MELENA, STOOL WBC POSITIVE. ORDER NUMBER(s): [id number], ACCESSION NUMBER(s): [id number] Exam: CT CT ABD PELVIS W CON-ORAL IV History: MELENA, STOOL WBC POSITIVE. TECHNIQUE: A digital regional rehabilitation director image was obtained. During the uneventful, intravenous administration of contrast material, multislice data acquisition was obtained through the abdomen and pelvis. The data set was subsequently reconstructed into axial images. Images were reviewed on a work station using a combination of axial and multiplanar using a variety of window levels and settings. 100 cc of Omnipaque 300 contrast was injected intravenously. All CT scans at this medical facility are performed using dose modulation techniques as appropriate to a performed exam including the following:Automated exposure control was utilized; adjustment of the MA and/or KV according to patient size; and use of iterative reconstruction technique. Radiation Dose Information: CT Dose: CTDI volume is 28 mGy. Dose-length product is 15 16 mGy*cm Comparison: CT CT AB PEL WO CON-NO ORAL OR IV on DOS: 05/08/24 FINDINGS: There is stable appearing cirrhotic liver with no evidence of a suspicious appearing hepatic lesion on CT. There is stable tips between the main portal vein and hepatic vein. There are multiple small calcified gallstones in the gallbladder. The pancreas, kidneys, adrenal glands, and spleen appear within normal limits. There is no evidence of abdominal lymphadenopathy. There is no significant ascites. There is no free intraperitoneal air. The stomach grossly appears unremarkable. The small and large bowel loops demonstrate normal caliber and appear within normal limits. The abdominal aorta and IVC appear within normal limits. The bladder is decompressed limiting evaluation. Pelvic organs is unremarkable. There is no evidence of a pelvic mass or lymphadenopathy. There is no free fluid collection. Lung bases are clear. There is no acute osseous abnormality. There is diffuse anasarca in the soft tissues. IMPRESSION: 1. There is no acute process in the abdomen and pelvis.. 2. Stable hepatic cirrhosis status post tips. 3. Cholelithiasis. 4. Diffuse soft tissue anasarca. HS:Y ATED BY: IZAIAH SUMMERS MD DICTATED DATE/TIME: 09/10/24 1131 PATIENT: IOANA PARK ACCT: [id number] UNIT: [id number] : 1980 LOC: [facility] AGE / SEX: 44 / M ADM STATUS: ADM IN SERVICE 1115 ORDERING PHYSICIAN: JOSE ANTONIO ALVARADO RESIDENT PROCEDURE(s): LIVUS - LIVER REASON: hx of cirrhosis, r/o hcc ORDER NUMBER(s): [id number], ACCESSION NUMBER(s): [id number] CLINICAL INFORMATION: 44 years old, Male; hx of cirrhosis, r/o hcc. TECHNIQUE: Grayscale sonographic imaging of the right upper quadrant of the abdomen was performed, assisted by color Doppler techniques. COMPARISON: US LIVER on DOS: 05/09/24, US ABDOMEN LIMITED on DOS: 05/03/23 FINDINGS: Limited examination due to body habitus and bowel gas. The gallbladder wall measures 1.9 mm in thickness, within normal limits. Multiple shadowing gallstones are seen in the gallbladder. Negative reported sonographic zamudio's sign. The common bile duct measures 5.1 mm in diameter, within normal limits. Coarsened liver echotexture cirrhotic liver morphology. TIPS appears patent. The pancreas is obscured by bowel gas. The right kidney measures 9.9 cm. There is no hydronephrosis. Right renal cortical echogenicity and cortical thickness are within normal limits. IMPRESSION: 1. Coarsened liver echotexture and cirrhotic liver morphology. TIPS in place and appears grossly patent. 2. Cholelithiasis. No sonographic evidence of acute cholecystitis. 3. Limited examination for the reasons described above. ATED BY: MANSOOR HUNTER DO DICTATED DATE/TIME: 09/08/24 1225 Laboratory Results Test 09/13/24 16:42 09/13/24 02:50 09/11/24 06:17 09/10/24 20:39 Hemoglobin 8.3 g/dL (13.5-17.5) Hematocrit 25.7 % (41.0-53.0) White Blood Count 7.4 10^3/uL (4.4-10.8) Red Blood Count 2.42 10^6/uL (4.5-5.90) Mean Corpuscular Volume 87.1 fL (80.0-100.0) Mean Corpuscular Hemoglobin 28.5 pg (28.0-32.0) Mean Corpuscular Hemoglobin Concent 32.8 g/dL (32.0-36.0) Red Cell Distribution Width 20.3 % (11.8-14.3) Platelet Count 41 10^3/uL (140-450) Mean Platelet Volume 11.0 fL (6.9-10.8) Neutrophils (%) (Auto) 67.6 % (37.0-80.0) Lymphocytes (%) (Auto) 18.2 % (10.0-50.0) Monocytes (%) (Auto) 13.8 % (0.0-12.0) Eosinophils (%) (Auto) 0.4 % (0.0-7.0) Basophils (%) (Auto) 0.0 % (0.0-2.0) Neutrophils # (Auto) 5.0 10 ^3/uL (1.6-8.6) Lymphocytes # (Auto) 1.3 10 ^3/uL (0.4-5.4) Monocytes # (Auto) 1.0 10 ^3/uL (0-1.3) Eosinophils # (Auto) 0 10 ^3/uL (0-0.8) Basophils # (Auto) 0 10 ^3/uL (0-0.2) Nucleated Red Blood Cells 0.8 % Sodium Level 141 mmol/L (136-145) Potassium Level 3.5 mmol/L (3.5-5.1) Chloride Level 109 mmol/L (98-107) Carbon Dioxide Level 25 mmol/L (20-31) Anion Gap 7 (5-15) Blood Urea Nitrogen 9 mg/dL (9-23) Creatinine 0.92 mg/dL (0.700-1.30) Glomerular Filtration Rate Calc 105 mL/min (>90) BUN/Creatinine Ratio 9.8 (10.0-20.0) Serum Glucose 91 mg/dL (74-106) Calcium Level 7.8 mg/dL (8.7-10.4) Magnesium Level 2.0 mg/dL (1.6-2.6) Total Bilirubin 6.3 mg/dL (0.2-1.0) Aspartate Amino Transferase (AST) 79 U/L (13-40) Alanine Aminotransferase (ALT) 48 U/L (7-40) Alkaline Phosphatase 145 U/L (46-116) Total Protein 4.8 g/dL (5.7-8.2) Albumin 2.3 g/dL (3.2-4.8) B-Type Natriuretic Peptide 79.24 pg/mL (0-100) Lipase 47 U/L (12-53) Urine Color Yellow (Yellow) Urine Clarity Clear (Clear) Urine pH 6.5 (5.0-9.0) Urine Specific [place] 1.024 (1.001-1.035) Urine Protein Negative (Negative) Urine Ketones Negative (Negative) Urine Blood Negative /uL (Negative) Urine Nitrite Negative (Negative) Urine Bilirubin Negative (Negative) Urine Urobilinogen Normal mg/dL (Negative) Urine Leukocyte Esterase Negative /uL (Negative) Urine RBC 1 /hpf (0 - 3) Urine Microscopic WBC 1 /HPF (0-3) Urine Squamous Epithelial Cells Few /hpf (<5) Urine Bacteria None seen /hpf (None Seen) Urine Glucose Normal mg/dL (Normal) Urine Opiates Screen Neg (NEGATIVE) Urine Fentanyl Screen Neg (NEGATIVE) Urine Barbiturates Screen Neg (NEGATIVE) Urine Phencyclidine Screen Neg (NEGATIVE) Urine Amphetamines Screen Neg (NEGATIVE) Urine Benzodiazepines Screen Pos (NEGATIVE) Urine Cocaine Screen Neg (NEGATIVE) Urine Cannabinoids Screen Neg (NEGATIVE) Test 09/10/24 10:40 09/09/24 08:20 09/08/24 12:28 09/08/24 05:24 Plasma/Serum Blood Alcohol 3.3 mg/dL (<10) Stool Occult Blood Positive (Negative) Stool Occult Blood Sample #3 (Negative) Stool for White Cells Many Ammonia 30 umol/L (11-32) Tumor Marker Alpha Fetoprotein 3.8 ng/mL (0.0-6.9) Prothrombin Time 18.0 sec (9.3-11.8) Prothrombin Time INR 1.80 (0.9-1.15) Activated Partial Thromboplast Time 38.8 SEC (24.5-34.5) Hepatitis B Surface Antigen Negative (Negative) Hepatitis C Antibody Negative (Negative) Test 09/07/24 11:25 Platelet Estimate Decreased Direct Bilirubin 2.9 mg/dL (<0.3) Other Laboratory Tests 09/13/24 16:42 09/13/24 02:50 Brief Hx & Hospital Course: Brief history and physical and hospital course This 44-year-old male with a history of liver cirrhosis s/p TIPS currently on a transplant list at [facility] presented to the ED on 09/07/2024 with 2 day's history of dark stools. According to the patient, 7 years ago, he had a similar episodes of melena stools that leads to diagnoses of the variceal bled leading to his TIPs. He denied hematemesis or recent drinking. He complained of fatigue, dizziness, but no chest pain ro palpitations. Vitals were temp: 98.7, hr: 89, RR: 18, BP: 138/65. WBC: 5 Hgb: 7.4, K: 2.9--> 3.2. US of the liver shows Coarsened liver echotexture and cirrhotic liver morphology. TIPS in place and appears grossly patent. Cholelithiasis. No sonographic evidence of acute cholecystitis. Hospital course At [facility], Patient denied any complaints. He had a bowel movement that was dark brown black. Patient underwent EGD which revealed mild antral gastritis with pre-pyloric 2 antral gastric ulcers and erosions, Zbrv-zf-yvexxjes gastroparesis. Otherwise grossly normal examination up to the 2nd and 3rd part of the duodenal with no blood in the upper GI tract. No evidence of esophageal or gastric varices although there was slight congestion of the gastric mucosa at the diaphragmatic impingement. Patient then had CT abdomen with contrast which also did not reveal any evidence of bleeding. However, his white cell count increased to wbc 20.4 with lab data showing metabolic acidosis. No evidence of infection noted. Patient was started on ceftriaxone empirically. Blood blood culture, UA and chest x-ray were negative for infection. Given this elevated WBC, GI recommend sigmoidoscopy to rule out any colitis. Sigmoidoscopy was negative, electrolyte abnormality corrected and leukocytosis had improved. On 09/13/2024, patient's HGB dropped 6.9. I gave patient one PRBC. A repeat H/Hct showed 8.3/ 25.7. GI saw the patient and cleared him for discharge. Examination General Appearance: Morbidly obese male, Alert, Oriented X3, Cooperative, No acute distress HEENT: Atraumatic, PERRLA, EOMI, mucous membranes moist Respiratory: Clear to auscultation, Normal air movement Cardiovascular: Regular rate, Normal S1, Normal S2 Abdominal: soft, non tender, non distended, normoactive Extremities: Bilateral pedal pitting edema 1+ but no cyanosis or tenderness Skin: No rashes, No breakdown Neuro: normal speech, no sensory motor deficits Diagnoses Melena stool; Upper GI bleed ruled out; S/P EGD: no evidence of esophageal varices or bleeding ulcers Dark stool could be secondary to iron tablets he is currently taking Anemia likely due underlying liver cirrhosis; Hemorrhage ruled out Mild antral gastritis with pre-pyloric 2 antral gastric ulcers and erosions Tysg-jo-perkhany gastroparesis Liver cirrhosis secondary to alcoholic abuse Dx 2004 Transaminitis History of gallstone pancreatitis Morbid obesity, BMI: 47.9 Hypokalemia; potassium of 2.9 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 Boswell Consults/Reason for consult GI: ANEMIA, MELENA STOOL, IN A LIVER CIRRHOTIC PATIENT Operations or Procedures Operative Report DATE OF OPERATION: 09/12/24 PROCEDURE: Diagnostic Colonoscopy PREOPERATIVE INDICATION: The patient is a 44 -year-old male undergoing colonoscopy for evaluation of GI bleeding WBCs in the stool and Hemoccult- positive stools rule out colitis POSTOPERATIVE DIAGNOSES: 1. 1+ internal hemorrhoids otherwise completely normal colonoscopy examination up to the cecum and terminal ileum PROCEDURE PERFORMED BY: Zayda Stern M.D. SCOPE: Olympus videocolonoscope. ASA CLASS: 3. PREOPERATIVE MEDICATIONS: Dr. Magdalena Oneill PROCEDURE IN DETAIL: After obtaining an informed consent, the patient was placed on left lateral decubitus position. He was then sedated with the above medications. A rectal examination was performed that was normal. The colonoscope was then passed through the anus into the rectosigmoid and through the descending, transverse, and ascending colon up to the cecum with visualization of the appendiceal orifice, base of the cecum and the ileocecal valve. The colonoscope was then withdrawn. The distal 5-10 cm of the terminal ileum were normal There were no masses or polyps. There was no colitis or diverticular disease. On retroflexion and straight on view the patient had 1+ internal hemorrhoids that were slightly engorged The patient tolerated the procedure well without difficulty. WITHDRAWAL TIME: 6 minutes QUALITY OF THE PREP: [place] Bowel Prep score: 9. COMPLICATIONS : None SPECIMENS: None DISPOSITION: Transfer back to the floor Stable PLAN: 1. Repeat colonoscopy in 10 years 2. Resume GI soft diet advance as tolerated 3. Increase fluid and fiber intake 4. Local anorectal hemorrhoidal care 5. Outpatient follow up with me in 4-6 weeks to monitor his liver condition ZAYDA STERN MD Sep 12, 2024 15:27 DICTATED BY:ZAYDA STERN MD DICTATED DATE/TIME:09/12/24 1527 Operative Report DATE OF OPERATION: 09/09/24 PROCEDURE: Upper Endoscopy with biopsy. PREOPERATIVE INDICATION: The patient is a 44 -year-old male undergoing endoscopy for melena and anemia POSTOPERATIVE DIAGNOSES: 1. Mild antral gastritis with pre-pyloric 2 antral gastric ulcers and erosions 2. Peky-jr-pogjcruo gastroparesis 3. Otherwise grossly normal examination up to the 2nd and 3rd part of the duodenal with no blood in the upper GI tract 4. There was no evidence of esophageal or gastric varices although there was slight congestion of the gastric mucosa at the diaphragmatic impingement PROCEDURE PERFORMED BY: Zayda Stern GI NURSE: Pete SCOPE: Olympus videoendoscope. ASA CLASS: 3. PREOPERATIVE MEDICATIONS: Dr. Ewa Oneill PROCEDURE IN DETAIL: After obtaining an informed consent, the patient was placed on left lateral decubitus position. The patient was then sedated with the above medications. A bite block was placed between his teeth. The endoscope was then passed through the oropharynx, into the esophagus, and through the stomach and pylorus up to the second and third part of the duodenum. The endoscope was then withdrawn. The 2nd and 3rd part of the duodenum and the duodenal bulb were normal. The pre-pyloric area antrum and distal body showed gastritis. There were two pre-pyloric antral gastric ulcers and multiple small erosions. Gastric biopsies were obtained . There was no fresh or old blood in the GI tract On retroflexion there were no clear-cut gastric varices but mild congestion of the gastric mucosa of the diaphragmatic impingement. The endoscope was then withdrawn into the distal esophagus where there was no significant hiatal hernia, no esophagitis, no esophageal varices The patient tolerated the procedure well without difficulty. COMPLICATIONS : None SPECIMENS: Gastric biopsies DISPOSITION: Transfer back to the floor Stable PLAN: 1. Await for biopsy result 2. Will place pt on Protonix 40 mg bid 3. Carafate 1 g p.o. twice a day 4. Reglan 5 mg IV q.8 hours 5. DC aspirin NSAIDs smoking alcohol 6. Resume pre-admission medications and follow up with his transplant team ZAYDA STERN MD Sep 09, 2024 14:51 DICTATED BY:ZAYDA STERN MD DICTATED DATE/TIME:09/09/24 9344 Condition at Discharge: Good Final Diagnosis/Problems List Melena stool; Upper GI bleed ruled out; S/P EGD: no evidence of esophageal varices or bleeding ulcers Dark stool could be secondary to iron tablets he is currently taking Anemia likely due underlying liver cirrhosis; Hemorrhage ruled out Mild antral gastritis with pre-pyloric 2 antral gastric ulcers and erosions Vyyg-hl-tbwclvol gastroparesis Liver cirrhosis secondary to alcoholic abuse Dx 2004, status post tips 2004 Transaminitis History of gallstone pancreatitis Morbid obesity, BMI: 47.9 Hypokalemia; potassium of 2.9 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 Patient was counseled about treatment plan, medications, possible side effects, patientverbalized understanding. All questions were answered to the best of my ability. This discharge took greater then 30 minutes in planning, reviewing documentation, counseling the patient, and discussing with other team members." ASSESSMENT ASSESSMENT Assessment Melena stool; Upper GI bleed ruled out; S/P EGD: no evidence of esophageal varices or bleeding ulcers Melena stool could be secondary to iron tablets he is currently taking Anemia secondary to blood loss; hemoglobin 7.4; dropping level of hemoglobin Mild antral gastritis with pre-pyloric 2 antral gastric ulcers and erosions Hfgf-oe-itfqombq gastroparesis Liver cirrhosis secondary to alcoholic abuse Dx 2004, status post tips 2004 Transaminitis History of gallstone pancreatitis Morbid obesity, BMI: 47.9 Hypokalemia; potassium of 2.9 Thrombocytopenia Coagulopathy Moderate protein malnutrition , albumin 2.4 AFP: 3.8 CT abdomen unremarkable Leukocytosis WBCs of 20.4 Cholelithiasis metabolic Acidosis Sepsis due to suspected gastritis/colitis S/P SIGMOIDOSCOPY: 1+ internal hemorrhoids otherwise completely normal colonoscopy examination up to the cecum and terminal ileum Date of Service: Sep 13, 2024 Billing Provider: HELENE BOSWELL MD Common Visit Codes: 79277-KFW/OBS DISCH DAY >30min PAKO HEARD RESIDENT Sep 13, 2024 18:47 HELENE BOSWELL MD Sep 14, 2024 09:47
== END 2024-09-13 10:45 | disposition home or self-care (01) | DRG 378 ==
LOC: ER 10:54 → TELE 18:58 → TELE-WESTW 21:29
PROVIDERS: ADMIT Internal Medicine; ATTEND Internal Medicine
PROC: 0DJD8ZZ Inspection of Lower Intestinal Tract, Via Natural or Artificial Opening Endoscopic (ICD-10-PCS; 2024-09-09)
PROC: 0DB68ZX Excision of Stomach, Via Natural or Artificial Opening Endoscopic, Diagnostic (ICD-10-PCS; principal; 2024-09-09 14:37)
DX: K25.4 Chronic or unspecified gastric ulcer with hemorrhage (principal); D61.818 Other pancytopenia; D68.9 Coagulation defect, unspecified; E44.0 Moderate protein-calorie malnutrition; E66.01 Morbid (severe) obesity due to excess calories; Z68.35 Body mass index [BMI] 35.0-35.9, adult; E87.6 Hypokalemia; I11.0 Hypertensive heart disease with heart failure; K21.9 Gastro-esophageal reflux disease without esophagitis; K70.30 Alcoholic cirrhosis of liver without ascites; K80.20 Calculus of gallbladder without cholecystitis without obstruction; K29.71 Gastritis, unspecified, with bleeding; I50.9 Heart failure, unspecified; K31.84 Gastroparesis; K64.8 Other hemorrhoids; Z82.49 Family history of ischemic heart disease and other diseases of the circulatory system; Z83.3 Family history of diabetes mellitus; Z87.19 Personal history of other diseases of the digestive system
CPT/HCPCS: 36415; 71045; 74177; 76705; 80048; 80053; 80076; 80307; 80320; 81001; 82105; 82140; 82270; 83690; 83735; 83880; 85014; 85018; 85025; 85048; 85610; 85730; 86803; 86850; 86900; 86901; 86920; 87040; 87045; 87340; 87427; 96365; 96375; 99291; G0378; J2003; J2250; J2405; J2470; J2704; J3430; J3490

== ENCOUNTER 2024-10-18 20:28 | Inpatient (IN) | payer MEDICAID, OTHER ==
[~2024-10-18] VITALS: Ht 152.4 cm; Wt 137.5 kg
[~2024-10-18 20:28] MED LIST changes: +FERR240T9 PO
[2024-10-18 22:14] LABS: Urine Bacteria FEW /hpf (None Seen); Urine Blood TRACE /uL (Negative); Urine Clarity Turbid (Clear); Urine Color Yellow (Yellow); Urine Protein, UAD TRACE (Negative); Urine Specific Gravity 1.011 (1.001-1.035); Urine Squamous Epithelial Cell FEW /hpf (<5); Urine Urobilinogen Normal (Negative); Urine WBC 127 /HPF (0-3); Urine pH 6.5 (5.0-9.0)
--- NOTE | 2024-10-18 22:27 | ED.PDOC ---
General HPI Comments 44-year-old male who came to emergency room due to a urinary problems. Past 4 days has been having suprapubic abdominal pain, dysuria, foul-smelling urine, nausea, headaches, fever and chills. Persistence prompted check up. Patient was administered lower cirrhosis. Chief Complaint: Urinary Time Seen by MD: 22:25 Primary Care Provider: ludy Contreras notes: Nurses Notes Allergies: Coded Allergies: NO KNOWN ALLERGIES (Unverified , 11/06/20) Home Meds Active Scripts Ferrous Gluconate (Iron 27) 240 Mg Tab, 240 MG PO DAILY for 60 Days, #60 TAB Prov:WALTER VILLARREAL RESIDENT 10/22/24 Pantoprazole Sodium Sesquihydr (Pantoprazole Sodium) 40 Mg Tab, 40 MG PO BID for 60 Days, #120 TAB Prov:WALTER VILLARREAL RESIDENT 10/22/24 Spironolactone (Spironolactone) 25 Mg Tab, 1 TAB PO DAILY for 60 Days, #60 TAB 1 Refill Prov:WALTER VILLARREAL [facility] 10/22/24 Doxycycline Monohydrate (Doxycycline Monohydrate) 100 Mg Tab, 100 MG PO Q12HR for 10 Days, #20 TAB Prov:WALTER VILLARREAL [facility] 10/22/24 Sucralfate (CARAFATE SUSP) 1 Gm/10 Ml Ss, 1 GM PO Q6HR for 30 Days, #120 ML Prov:WALTER VILLARREAL [facility] 10/22/24 Potassium Chloride (K-Tab) 20 Meq Tab, 20 MEQ PO DAILY for 90 Days, #90 TAB Prov:HERON LEVY RESIDENT 05/10/24 Lactulose (Lactulose) 10 Gm Rei, 30 ML PO BID for 30 Days, #2000 ML 1 Refill Prov:HERON LEVY RESIDENT 05/10/24 Reported Medications Cholecalciferol (VITAMIN D) 5,000 Unit Tab, 5000 UNIT OR DAILY, TAB 05/09/24 Discontinued Reported Medications Furosemide (Lasix) 20 Mg Tb, 1 TAB PO DAILY, #90 TAB 1 Refill 01/28/21 Information Source: Patient Mode of Arrival: Wheelchair Severity: Moderate Review of Systems REVIEW OF SYSTEMS: (+) fever, (+) chills, or fatigue HEENT: No sore throat, no earache, no congestion, no neck pain. Cardiac: No chest pain. No palpitations. Lungs: No shortness of breath, no cough. GI: (+) nausea, no vomiting, no diarrhea, no constipation, (+) suprapubic abdominal pain : (+) dysuria, frequency, or urgency. No hematuria. Musculoskeletal: No joint pain , no joint swelling, no extremity edema. Skin: No rash, no itching. Neuro: No headache, no dizziness, no weakness Vital Signs Vital Signs Date Time Temp Pulse Resp B/P (MAP) Pulse Ox O2 Delivery O2 Flow Rate FiO2 10/18/24 23:58 98.6 89 19 141/67 (91) 96 98.6 10/18/24 23:58 Room Air* 0 21 Physical Exam General: Awake, alert and oriented. No acute distress. Obese. Skin: Skin in warm, dry and intact. Appropriate color for ethnicity. Nailbeds pink with no cyanosis. HEENT: The head is normocephalic and atraumatic. Conjunctivae are clear without exudates or hemorrhage. Sclera icteric. EOM are intact. No signs of nystagmus. Eyelids are normal in appearance without swelling or lesions. Oral mucosa is pink and moist Neck: The neck is supple with normal range of motion. No JVD. Cardiac: Heart rate and rhythm are normal. No murmurs, gallops, or rubs are auscultated. Respiratory: No signs of respiratory distress. Lung sounds are clear in all lobes bilaterally without rales, ronchi, or wheezes. Abdominal: Abdomen is soft, positive suprapubic tenderness. No CVA tenderness.. Bowel sounds are present and normoactive in all four quadrants. Extremities: Upper and lower extremities are atraumatic in appearance without deformity or edema. Neurological: The patient is awake, alert and oriented to person, place, and time with normal speech. Speech is clear. There is no facial asymmetry. Psychiatric: Appropriate mood and affect. Good judgement and insight. No visual or auditory hallucinations. Past Medical History PAST MEDICAL HISTORY: CHF, GERD, Liver, PUD Past Medical History (Other): Liver cirrhosis, pancreatitis Surgical History: Denies all surgeries Family History Family History: Family hx of DM, Family hx of HTN Social History Smoker: Non-Smoker Alcohol: Sober Drugs: Denies Drug Use Lives In: Home Was a procedure done? Was a procedure done?: No Differential Diagnosis Kidney stone (Female): N/A Kidney stone (Male): Pyelonephritis, Urinary obstruction, Urolithiasis, Renal infarction, Urinary tract infection Urinary Problem (Male): Urethritis, Urinary Retention, Urolithiasis, UTI, Other X-Ray, Labs, Meds, VS Vital Signs Date Time Temp Pulse Resp B/P (MAP) Pulse Ox O2 Delivery O2 Flow Rate FiO2 10/18/24 23:58 98.6 89 19 141/67 (91) 96 98.6 10/18/24 23:58 89 19 100 Room Air* 0 21 10/18/24 20:38 99.6 92 16 130/47 (74) 100 99.6 Lab Test 10/19/24 00:49 10/18/24 22:53 10/18/24 20:44 Range/Units White Blood Count 7.6 7.4 4.4-10.8 10^3/uL Red Blood Count 2.53 L 2.45 L 4.5-5.90 10^6/uL Hemoglobin 7.3 L 7.2 L 13.5-17.5 g/dL Hematocrit 22.3 L 21.8 L 41.0-53.0 % Mean Corpuscular Volume 88.4 89.1 80.0-100.0 fL Mean Corpuscular Hemoglobin 28.8 29.5 28.0-32.0 pg Mean Corpuscular Hemoglobin Concent 32.6 33.1 32.0-36.0 g/dL Red Cell Distribution Width 21.0 H 20.3 H 11.8-14.3 % Platelet Count 52 L 47 L 140-450 10^3/uL Mean Platelet Volume 9.3 9.4 6.9-10.8 fL Neutrophils (%) (Auto) 80.3 H 81.0 H 37.0-80.0 % Lymphocytes (%) (Auto) 9.1 L 8.8 L 10.0-50.0 % Monocytes (%) (Auto) 10.3 9.7 0.0-12.0 % Eosinophils (%) (Auto) 0.1 0.2 0.0-7.0 % Basophils (%) (Auto) 0.2 0.3 0.0-2.0 % Neutrophils # (Auto) 6.1 6.0 1.6-8.6 10 ^3/uL Lymphocytes # (Auto) 0.7 0.7 0.4-5.4 10 ^3/uL Monocytes # (Auto) 0.8 0.7 0-1.3 10 ^3/uL Eosinophils # (Auto) 0 0 0-0.8 10 ^3/uL Basophils # (Auto) 0 0 0-0.2 10 ^3/uL Nucleated Red Blood Cells 0.1 0.1 % Platelet Estimate Decreased Anisocytosis (manual) Slight Sodium Level 133 L 132 L 136-145 mmol/L Potassium Level 3.8 3.2 L 3.5-5.1 mmol/L Chloride Level 106 106 98-107 mmol/L Carbon Dioxide Level 21 20 20-31 mmol/L Anion Gap 6 6 5-15 Blood Urea Nitrogen 11 10 9-23 mg/dL Creatinine 0.96 0.93 0.700-1.30 mg/dL Glomerular Filtration Rate Calc 99 103 >90 mL/min BUN/Creatinine Ratio 11.5 10.8 10.0-20.0 Serum Glucose 98 99 74-106 mg/dL Calcium Level 7.6 L 7.5 L 8.7-10.4 mg/dL Total Bilirubin 6.5 H 6.4 H 0.2-1.0 mg/dL Aspartate Amino Transferase (AST) 120 H 121 H 13-40 U/L Alanine Aminotransferase (ALT) 43 H 43 H 7-40 U/L Alkaline Phosphatase 139 H 140 H 46-116 U/L Total Protein 5.8 5.7 5.7-8.2 g/dL Albumin 2.1 L 2.1 L 3.2-4.8 g/dL Hepatitis A IgM Antibody Negative Hepatitis B Surface Antigen Negative Negative Hepatitis B Core IgM Antibody Negative Negative Hepatitis C Antibody Negative Negative Urine Color Yellow Yellow Urine Clarity Turbid H Clear Urine pH 6.5 5.0-9.0 Urine Specific [place] 1.011 1.001-1.035 Urine Protein Trace H Negative Urine Ketones Negative Negative Urine Blood Trace H Negative /uL Urine Nitrite Negative Negative Urine Bilirubin 1+ Negative Urine Urobilinogen Normal Negative mg/dL Urine Leukocyte Esterase 3+ Negative /uL Urine RBC 2 0 - 3 /hpf Urine Microscopic WBC 127 H 0-3 /HPF Urine Squamous Epithelial Cells Few <5 /hpf Urine Bacteria Few H None Seen /hpf Urine Glucose Normal Normal mg/dL Microbiology Date/Time Source Procedure Growth Status 10/18/24 20:44 Voided Urine Urine Culture - Final Complete Exam: CT CT AB PEL WO CON-NO ORAL OR IV History: Abdominal pain, UTI Comparison Study: CT CT AB PEL WO CON-NO ORAL OR IV on DOS: 05/08/24, CT [facility] AB PEL WO CON-NO IV/ORAL on DOS: 03/22/23, CT ABD PELVIS WO CONTRAST on DOS: 12/19/21 Technique: Multidetector spiral CT of the abdomen was performed from lung bases to pubic symphysis. Imaging was performed without IV contrast. Axial, coronal and sagittal multiplanar reformats were obtained from the axial data set by the technologist. Radiation Dose : 1. Abdomen/Pelvis: CTDIvol 25.4 mGy, DLP 1626 mGy*cm. Findings: Evaluation of solid organs is limited due to lack of intravenous contrast use. Lung Bases: 6 mm nodular density in the right upper lobe may reflect mild atypical pneumonia Liver: Cirrhotic liver. Tips stent in place. Multiple abdominal varices are seen. Gallbladder and Biliary Tree: Cholelithiasis. Spleen: Splenomegaly measuring up to 14.8 cm Pancreas: The pancreas is grossly normal in appearance. Adrenal Glands: Unremarkable Kidneys: Kidneys are grossly normal without calculi or hydronephrosis. Bladder: Grossly unremarkable for degree of distention. Bowel: The stomach is grossly normal in appearance. Minimal wall thickening of the distal colon may reflect mild colitis The appendix is not visualized; however, no secondary findings of acute appendicitis identified. Ascites: Trace abdominopelvic ascites. Lymphadenopathy: No mesenteric, retroperitoneal or periportal lymphadenopathy. Abdominal Wall and Mesentery: Unremarkable. Vasculature: The visualized abdominal aorta is normal in size and caliber. Evaluation of abdominal and pelvic vessels is limited due to lack of intravenous contrast. Pelvic Organs: Unremarkable Musculoskeletal: No aggressive focal bony lesions, acute fractures or dislocation. IMPRESSION: 1. Cirrhotic liver with portal hypertension. 2. Mild wall thickening of the distal colon may reflect mild colitis. 3. 6 mm nodular density is partially visualized in the right upper lobe may reflect mild atypical pneumonia. Recommend follow-up noncontrast chest CT in 2-4 weeks to evaluate for stability. 4. Trace abdominopelvic ascites. Time of 1ST Reevaluation: 22:23 Reevaluation 1ST: Unchanged Patient Education/Counseling: Diagnosis, Treatment Family Education/Counseling: No Family Present Departure 1 Departure Time of Disposition: 22:46 Impression: Primary Impression: Urinary tract infection Additional Impression: History of cirrhosis of liver Disposition: ADMITTED INPATIENT Condition: Stable e-Prescriptions Ferrous Gluconate (Iron 27) 240 Mg Tab 240 MG PO DAILY for 60 Days, #60 TAB Prov: WALTER VILLARREAL 10/22/24 Pantoprazole Sodium Sesquihydr (Pantoprazole Sodium) 40 Mg Tab 40 MG PO BID for 60 Days, #120 TAB Prov: WALTER VILLARREAL 10/22/24 Spironolactone (Spironolactone) 25 Mg Tab 1 TAB PO DAILY for 60 Days, #60 TAB 1 Refill Prov: WALTER VILLARREAL 10/22/24 Doxycycline Monohydrate (Doxycycline Monohydrate) 100 Mg Tab 100 MG PO Q12HR for 10 Days, #20 TAB Prov: WALTER VILLARREAL 10/22/24 Sucralfate (CARAFATE SUSP) 1 Gm/10 Ml Ss 1 GM PO Q6HR for 30 Days, #120 ML Prov: WALTER VILLARREAL 10/22/24 Critical Care Note Critical Care Time?: No Stability Stability form required: No Heart Score Heart Score: Heart Score Response (Comments) Value History N/A 0 EKG N/A 0 Age N/A 0 Risk Factors N/A 0 Troponin N/A 0 Total 0 I personally scribed for ROBEL RAGLAND MD ([email or web address]) on 10/18/24 at 22:27. Electronically submitted by Mehran Carter ([facility]). I personally scribed for ROBEL RAGLAND MD ([email or web address]) on 10/19/24 at 00:29. Electronically submitted by Mehran Carter ([employer]). ROBEL RAGLAND MD Oct 18, 2024 22:27
[2024-10-18] MEDS ORDERED: CEFEPIME 1GM/ 50ML 50 ML IV ONE (22:45)
[2024-10-18] MEDS: CEFEPIME 1GM/ 50ML 50 ML IV ONE (22:58)
--- NOTE | 2024-10-18 22:59 | DVH ---
Exam: CT CT AB PEL WO CON-NO ORAL OR IV History: Abdominal pain, UTI Comparison Study: CT CT AB PEL WO CON-NO ORAL OR IV on DOS: 05/08/24, CT [facility] AB PEL WO CON-NO IV/ORA L on DOS: 03/22/23, CT ABD PELVIS WO CONTRAST on DOS: 12/19/21 Technique: Multidetector spiral CT of the abdomen was performed from lung bases to pubic symphysis. Imaging was performed without IV contrast. Axial, coronal and sagittal multiplanar reformats were ob tained from the axial data set by the technologist. Radiation Dose : 1. Abdomen/Pelvis: CTDIvol 25.4 mGy, DLP 1626 mGy*cm. Findings: Evaluation of solid organs is limited due to lack of intravenous contrast use. Lung Bases: 6 mm nodular density in the right upper lobe may reflect mild atypical pneumonia Liver: Cirrhotic liver. Tips stent in place. Multiple abdominal varices are seen. Gallbladder and Biliary Tree: Cholelithiasis. Spleen: Splenomegaly measuring up to 14.8 cm Pancreas: The pancreas is grossly normal in appearance. Adrenal Glands: Unremarkable Kidneys: Kidneys are grossly normal without calculi or hydronephrosis. Bladder: Grossly unremarkable for degree of distention. Bowel: The stomach is grossly normal in appearance. Minimal wall thickening of the distal colon may r eflect mild colitis The appendix is not visualized; however, no secondary findings of acute appendic itis identified. Ascites: Trace abdominopelvic ascites. Lymphadenopathy: No mesenteric, retroperitoneal or periportal lymphadenopathy. Abdominal Wall and Mesentery: Unremarkable. Vasculature: The visualized abdominal aorta is normal in size and caliber. Evaluation of abdominal a nd pelvic vessels is limited due to lack of intravenous contrast. Pelvic Organs: Unremarkable Musculoskeletal: No aggressive focal bony lesions, acute fractures or dislocation. IMPRESSION: 1. Cirrhotic liver with portal hypertension. 2. Mild wall thickening of the distal colon may reflect mild colitis. 3. 6 mm nodular density is partially visualized in the right upper lobe may reflect mild atypical pne umonia. Recommend follow-up noncontrast chest CT in 2-4 weeks to evaluate for stability. 4. Trace abdominopelvic ascites. Radiation optimization: All CT scans at this facility use at least one of these dose optimization tj hniques: automated exposure control mA and/or kV adjustment per patient size (includes targeted exam s where dose is matched to clinical indication) or iterative reconstruction.
[2024-10-18 23:03] LABS: Basophils # (auto) 0 10 ^3/uL (0-0.2); Basophils % (auto) 0.3 % (0.0-2.0); Eosinophils # (auto) 0 10 ^3/uL (0-0.8); Eosinophils % (auto) 0.2 % (0.0-7.0); Hemoglobin 7.2 g/dL (13.5-17.5); Lymphocytes # (auto) 0.7 10 ^3/uL (0.4-5.4); Monocytes # (auto) 0.7 10 ^3/uL (0-1.3); Red Cell Distribution Width 20.3 % (11.8-14.3)
[2024-10-18 23:05] LABS: Hematocrit 21.8 % (41.0-53.0); Lymphocytes % (auto) 8.8 % (10.0-50.0); Mean Corpuscular Hemoglobin 29.5 pg (28.0-32.0); Mean Corpuscular Hgb Conc. 33.1 g/dL (32.0-36.0); Mean Corpuscular Volume 89.1 fL (80.0-100.0); Monocytes % (auto) 9.7 % (0.0-12.0); Nucleated Red Blood Cells % 0.1 %; Platelet Count (auto) 47 10^3/uL (140-450); Red Blood Cells 2.45 10^6/uL (4.5-5.90); White Blood Cell 7.4 10^3/uL (4.4-10.8)
[2024-10-18 23:21] LABS: Anion Gap 6 (5-15); BUN/Creatinine Ratio 10.8 (10.0-20.0); Blood Urea Nitrogen 10 mg/dL (9-23); Chloride 106 mmol/L (98-107); Glucose 99 mg/dL (74-106); Total Protein 5.7 g/dL (5.7-8.2)
[2024-10-18 23:28] LABS: Alanine Aminotransferase 43 U/L (7-40); Albumin 2.1 g/dL (3.2-4.8); Alkaline Phosphatase 140 U/L (46-116); Aspartate Aminotransferase 121 U/L (13-40); Bilirubin, Total 6.4 mg/dL (0.2-1.0); Calcium 7.5 mg/dL (8.7-10.4); Carbon Dioxide 20 mmol/L (20-31); Potassium 3.2 mmol/L (3.5-5.1); Sodium 132 mmol/L (136-145)
[2024-10-18 23:58] VITALS: PULSE 89; RESP 19; O2SAT 100
[2024-10-19] VITALS (8 sets, daily range): BP systolic 113–130; BP diastolic 45–71; PULSE 65–94; RESP 14–18; TEMP 37.2; O2SAT 99–100
[2024-10-19] MEDS: POTASSIUM EFFERVESENT TAB 25 MEQ PO ONE (00:12)
[2024-10-19] MEDS ORDERED: ONDANSETRON HCL 4 MG/2 ML VIAL IV PRN (00:30)
[2024-10-19] MEDS ORDERED: IBUPROFEN 400 MG TAB PO PRN (00:30)
[2024-10-19] MEDS ORDERED: DOCUSATE SOD 100 MG CAP PO PRN (00:30)
[2024-10-19 01:19] LABS: Basophils # (auto) 0 10 ^3/uL (0-0.2); Eosinophils # (auto) 0 10 ^3/uL (0-0.8); Hemoglobin 7.3 g/dL (13.5-17.5); Lymphocytes # (auto) 0.7 10 ^3/uL (0.4-5.4); Monocytes # (auto) 0.8 10 ^3/uL (0-1.3); Neutrophils # (auto) 6.1 10 ^3/uL (1.6-8.6); White Blood Cell 7.6 10^3/uL (4.4-10.8)
[2024-10-19 01:21] LABS: Basophils % (auto) 0.2 % (0.0-2.0); Eosinophils % (auto) 0.1 % (0.0-7.0); Hematocrit 22.3 % (41.0-53.0); Lymphocytes % (auto) 9.1 % (10.0-50.0); Mean Corpuscular Hemoglobin 28.8 pg (28.0-32.0); Mean Corpuscular Hgb Conc. 32.6 g/dL (32.0-36.0); Mean Corpuscular Volume 88.4 fL (80.0-100.0); Monocytes % (auto) 10.3 % (0.0-12.0); Neutrophils % (auto) 80.3 % (37.0-80.0); Nucleated Red Blood Cells % 0.1 %; Platelet Count (auto) 52 10^3/uL (140-450); Red Blood Cells 2.53 10^6/uL (4.5-5.90)
[2024-10-19 01:28] LABS: Anion Gap 6 (5-15); BUN/Creatinine Ratio 11.5 (10.0-20.0); Blood Urea Nitrogen 11 mg/dL (9-23); Carbon Dioxide 21 mmol/L (20-31); Chloride 106 mmol/L (98-107); Glucose 98 mg/dL (74-106); Potassium 3.8 mmol/L (3.5-5.1); Total Protein 5.8 g/dL (5.7-8.2)
[2024-10-19 01:36] LABS: Alanine Aminotransferase 43 U/L (7-40); Albumin 2.1 g/dL (3.2-4.8); Alkaline Phosphatase 139 U/L (46-116); Aspartate Aminotransferase 120 U/L (13-40); Bilirubin, Total 6.5 mg/dL (0.2-1.0); Calcium 7.6 mg/dL (8.7-10.4); Sodium 133 mmol/L (136-145)
[2024-10-19 02:52] LABS: Platelet Estimate Decreased
[2024-10-19 02:57] LABS: Anisocytosis Slight
[2024-10-19] MEDS ORDERED: NITROGLYCERIN 0.4 MG SL TAB SL PRN (03:30)
[2024-10-19] MEDS ORDERED: MORPHINE SULFATE INJ 2 MG/ml SYRG IV PRN (03:30)
--- NOTE | 2024-10-19 03:47 | DVHHP2 ---
History of Present Illness Reason for Visit: Generalized weakness History of Present Illness The patient is a 45-year-old male morbidly obese with past medical history of liver cirrhosis, CHF, GERD, PUD, and pancreatitis who presented to [facility] ED with complaint of suprapubic abdominal pain. Patient reports symp toms progressively get worse with dysuria, foul-smelling urine, nausea, headache, fever, chills, getting worse that prompted this visit. Patient was seen and evaluated in the ED, laboratory data shows WBC 7.4, hemoglobin 7.2, hematocrit 21.8, platelets [id number], sodium 132, potassium 3.2, BUN 10, creatinine 0.93, GFR 103, glucose 99, albumin 2.1, AST 121, ALT 43, urinalysis positive for urinary tract infection. Abdomen/pelvis CT revealing cirrhotic liver with portal hypertension, mild wall thickening of the distal colon may reflect mild colitis, 6 mm nodular density is partially visualized in the right upper lobe may reflect mild atypical pneumonia. Patient was started on IV antibiotic regimen Rocephin, please see medication orders section in the computer. On my assessment, at bedside, patient denies chest pain, no headache, no dizziness, no diaphoresis, no nausea, vomiting, fever, or chills at this moment. Patient was admitted for further evaluation and medical management. Past Medical History CHF, GERD, PUD, Liver cirrhosis, pancreatitis Past Surgical History Denies all surgeries Family History Reviewed, noncontributory to the management of this case. Past Social History The patient lives at home, denies smoking, alcohol or illicit drugs abuse. Review of Systems Constitutional: Yes: Fever, Chills, Weakness; No: Sweats, Malaise, Other Eyes: No: Pain, Vision change, Conjunctivae inflammation, Eyelid inflammation, Other, Redness ENT: No: Ear pain, Ear discharge, Nose pain, Nose discharge, Nose congestion, Mouth pain, Mouth swelling, Throat pain, Throat swelling, Other Respiratory: No: Cough, Dry, Shortness of breath, SOB with excertion, Wheezing, Hemoptysis, Pleuritic Pain, Sputum, Wheezing, Other Cardiovascular: No: Chest Pain, Palpitations, Orthopnea, Paroxysmal Noc. Dyspnea, Edema, Lt Headedness, Other Gastrointestinal: No: Nausea, Vomiting, Abdominal Pain, Diarrhea, Constipation, Melena, Hematochezia, Other Genitourinary: Dysuria; No Frequency, No Incontinence, No Hematuria, No Retention, No Other Musculoskeletal: No: other, neck pain, shoulder pain, arm pain, back pain, hand pain, leg pain, foot pain Skin: No: Rash, Lesions, Jaundice, Bruising, Other Neurological: No: Weakness, Numbness, Incoordination, Change in speech, Confusion, Seizures, Other Allergies: Coded Allergies: NO KNOWN ALLERGIES (Unverified , 11/06/20) Medications Current Medications Medications Dose Ordered Sig/Christina Route Start Time Stop Time Status Last Admin Dose Admin Folic Acid 1 mg DAILY PO 10/19/24 10:00 Thiamine HCl 100 mg DAILY PO 10/19/24 10:00 Ceftriaxone Sodium 50 ml @ 100 mls/hr DAILY@09 IV 10/19/24 09:00 Spironolactone 25 mg DAILY PO 10/19/24 10:00 Lactulose 30 ml DAILY PO 10/19/24 10:00 Famotidine 20 mg DAILY IV 10/19/24 10:00 Sodium Chloride 1,000 ml @ 60 mls/hr [id number] IV 10/19/24 00:30 Acetaminophen/ Hydrocodone Bitart 1 tab Q4HP PRN PO 10/19/24 00:30 Ondansetron HCl 4 mg Q4HP PRN IV 10/19/24 00:30 Docusate Sodium 100 mg BIDPRN PRN PO 10/19/24 00:30 Ibuprofen 400 mg Q6HP PRN PO 10/19/24 00:30 Exam Vital Signs Vital Signs Date Time Temp Pulse Resp B/P (MAP) Pulse Ox O2 Delivery O2 Flow Rate FiO2 10/18/24 23:58 98.6 89 19 141/67 (91) 96 98.6 10/18/24 23:58 Room Air* 0 21 General Appearance: Alert, Oriented X3, Cooperative, No acute distress HEENT: Atraumatic, PERRLA, EOMI, Mucous membr. moist/pink Respiratory: Normal air movement, Other (Diminished breath sounds) Cardiovascular: Regular rate, Normal S1, Normal S2, No murmurs Abdominal: Normal bowel sounds, Soft, No tenderness, No hepatospenomegaly, No masses Extremities: No clubbing, No cyanosis, No edema, Normal pulses, No te nderness/swelling Skin: No rashes, No breakdown, No significant lesion Neuro: Normal speech, Normal tone, Sensation intact, Cranial nerves 3-12 NL, Reflexes 2+, Other (Generalized weakness) Psych/Mental Status: Mental status NL, Mood NL Labs/Xrays Labs Test 10/19/24 00:49 10/18/24 20:44 Range/Units White Blood Count 7.6 4.4-10.8 10^3/uL Red Blood Count 2.53 L 4.5-5.90 10^6/uL Hemoglobin 7.3 L 13.5-17.5 g/dL Hematocrit 22.3 L 41.0-53.0 % Mean Corpuscular Volume 88.4 80.0-100.0 fL Mean Corpuscular Hemoglobin 28.8 28.0-32.0 pg Mean Corpuscular Hemoglobin Concent 32.6 32.0-36.0 g/dL Red Cell Distribution Width 21.0 H 11.8-14.3 % Platelet Count 52 L 140-450 10^3/uL Mean Platelet Volume 9.3 6.9-10.8 fL Neutrophils (%) (Auto) 80.3 H 37.0-80.0 % Lymphocytes (%) (Auto) 9.1 L 10.0-50.0 % Monocytes (%) (Auto) 10.3 0.0-12.0 % Eosinophils (%) (Auto) 0.1 0.0-7.0 % Basophils (%) (Auto) 0.2 0.0-2.0 % Neutrophils # (Auto) 6.1 1.6-8.6 10 ^3/uL Lymphocytes # (Auto) 0.7 0.4-5.4 10 ^3/uL Monocytes # (Auto) 0.8 0-1.3 10 ^3/uL Eosinophils # (Auto) 0 0-0.8 10 ^3/uL Basophils # (Auto) 0 0-0.2 10 ^3/uL Nucleated Red Blood Cells 0.1 % Platelet Estimate Decreased Anisocytosis (manual) Slight Sodium Level 133 L 136-145 mmol/L Potassium Level 3.8 3.5-5.1 mmol/L Chloride Level 106 98-107 mmol/L Carbon Dioxide Level 21 20-31 mmol/L Anion Gap 6 5-15 Blood Urea Nitrogen 11 9-23 mg/dL Creatinine 0.96 0.700-1.30 mg/dL Glomerular Filtration Rate Calc 99 >90 mL/min BUN/Creatinine Ratio 11.5 10.0-20.0 Serum Glucose 98 74-106 mg/dL Calcium Level 7.6 L 8.7-10.4 mg/dL Total Bilirubin 6.5 H 0.2-1.0 mg/dL Aspartate Amino Transferase (AST) 120 H 13-40 U/L Alanine Aminotransferase (ALT) 43 H 7-40 U/L Alkaline Phosphatase 139 H 46-116 U/L Total Protein 5.8 5.7-8.2 g/dL Albumin 2.1 L 3.2-4.8 g/dL Urine Color Yellow Yellow Urine Clarity Turbid H Clear Urine pH 6.5 5.0-9.0 Urine Specific [place] 1.011 1.001-1.035 Urine Protein Trace H Negative Urine Ketones Negative Negative Urine Blood Trace H Negative /uL Urine Nitrite Negative Negative Urine Bilirubin 1+ Negative Urine Urobilinogen Normal Negative mg/dL Urine Leukocyte Esterase 3+ Negative /uL Urine RBC 2 0 - 3 /hpf Urine Microscopic WBC 127 H 0-3 /HPF Urine Squamous Epithelial Cells Few <5 /hpf Urine Bacteria Few H None Seen /hpf Urine Glucose Normal Normal mg/dL PATIENT: IOANA PARK ACCT: [id number] UNIT: [id number] : 1980 LOC: ER ROOM / BED: / AGE / SEX: 44 / M ADM STATUS: REG ER SERVICE 26 ORDERING PHYSICIAN: ROBEL RAGLAND MD PROCEDURE(s): ABPL - CT AB PEL WO CON-NO ORAL OR IV REASON: Abdominal pain, UTI ORDER NUMBER(s): [id number], ACCESSION NUMBER(s): [id number] Exam: CT CT AB PEL WO CON-NO ORAL OR IV History: Abdominal pain, UTI Comparison Study: CT CT AB PEL WO CON-NO ORAL OR IV on DOS: 05/08/24, CT CHST AB PEL WO CON-NO IV/ORAL on DOS: 03/22/23, CT ABD PELVIS WO CONTRAST on DOS: 12/19/21 Technique: Multidetector spiral CT of the abdomen was performed from lung bases to pubic symphysis. Imaging was performed without IV contrast. Axial, coronal and sagittal multiplanar reformats were obtained from the axial data set by the technologist. Radiation Dose: 1. Abdomen/Pelvis: CTDIvol 25.4 mGy, DLP 1626 mGy*cm. Findings: Evaluation of solid organs is limited due to lack of intravenous contrast use. Lung Bases: 6 mm nodular density in the right upper lobe may reflect mild atypical pneumonia Liver: Cirrhotic liver. Tips stent in place. Multiple abdominal varices are seen. Gallbladder and Biliary Tree: Cholelithiasis. Spleen: Splenomegaly measuring up to 14.8 cm Pancreas: The pancreas is grossly normal in appearance. Adrenal Glands: Unremarkable Kidneys: Kidneys are grossly normal without calculi or hydronephrosis. Bladder: Grossly unremarkable for degree of distention. Bowel: The stomach is grossly normal in appearance. Minimal wall thickening of the distal colon may reflect mild colitis The appendix is not visualized; however, no secondary findings of acute appendicitis identified. Ascites: Trace abdominopelvic ascites. Lymphadenopathy: No mesenteric, retroperitoneal or periportal lymphadenopathy. Abdominal Wall and Mesentery: Unremarkable. Vasculature: The visualized abdominal aorta is normal in size and caliber. Evaluation of abdominal and pelvic vessels is limited due to lack of intravenous contrast. Pelvic Organs: Unremarkable Musculoskeletal: No aggressive focal bony lesions, acute fractures or dislocation. IMPRESSION: 1. Cirrhotic liver with portal hypertension. 2. Mild wall thickening of the distal colon may reflect mild colitis. 3. 6 mm nodular density is partially visualized in the right upper lobe may reflect mild atypical pneumonia. Recommend follow-up noncontrast chest CT in 2-4 weeks to evaluate for stability. 4. Trace abdominopelvic ascites. Assessment/Plan Assessment/Plan Generalized weakness Urinary tract infection Colitis Electrolyte imbalance Elevated liver enzymes Anemia, unspecified Pneumonia, unspecified organisms History of cirrhosis of liver Plan 1. Admit to telemetry unit 2. Breathing treatment 3. Pain control management 4. IV antibiotic management 5. Management of fluids and electrolytes 6. Consultation for hospitalist 7. Diagnostic test abdomen/pelvis CT 8. DVT prophylaxis on SCDs 9. Repeat labs CBC, CMP in a.m. 10. Home medication reviewed and reconciled 11. Continue with current medical management 12. Treatment plan discussed with patient and RN. Patient verbalized understanding. Plan discussed with: Patient, Other (RN) My Orders Orders - MACARIO SCOTT DNP Procedure Category Date Status Time Urine Bacterial FRANCHESCA 10/19/24 In Process Culture 00:21 Folic Acid Tablet PHA 10/19/24 In Process 10:00 Thiamine Tab PHA 10/19/24 In Process 10:00 Ceftriaxone 1gm/50ml PHA 10/19/24 In Process D5w (Rocephin) 09:00 Spironolactone PHA 10/19/24 In Process (Aldactone) 10:00 Lactulose Oral PHA 10/19/24 In Process 10:00 Famotidine Injection PHA 10/19/24 In Process (Pepcid Injection) 10:00 Allergies MAHAD 10/19/24 In Process 00:21 Code Status CODE 10/19/24 Transmitted 00:21 Sodium Chloride 0.9% PHA 10/19/24 In Process 00:30 Oxygen Per Hour RT 10/19/24 Transmitted 00:21 Hydrocodone-Acet PHA 10/19/24 In Process 5/325mg Tab ([place] 00:30 Ondansetron Hcl PHA 10/19/24 In Process (Zofran) 00:30 Docusate Sodium PHA 10/19/24 In Process Capsule (Colace 00:30 Complete Blood Count LAB 10/20/24 Verified 04:00 Comprehensive LAB 10/20/24 Verified Metabolic Panel 04:00 Cardiac DIET 10/19/24 Transmitted Diet-2gna,Lofat,Lochol Breakfast Condition: Serious MAHAD 10/19/24 In Process 00:21 Bedrest With Bathroom MAHAD 10/19/24 In Process Privileg 00:21 Sequential MAHAD 10/19/24 In Process Compression Device Ibuprofen Tablet PHA 10/19/24 In Process (Motrin Tablet) 00:30 Admit ADMIT 10/19/24 Verified 03:25 Nitroglycerin PHA 10/19/24 Verified Sublingual (Ntrostat 03:30 Morphine Sulfate PHA 10/19/24 Verified Injection 03:30 Notify Of Changes MAHAD 10/19/24 Verified From Base 03:25 Java Project Manager For MAHAD 10/19/24 Verified 24 Hours 03:25 Emergency Dysrhythmia MAHAD 10/19/24 Verified Protocol 03:25 Rhythm Strips Once MAHAD 10/19/24 Verified Every Shift 03:25 Oxygen By Nasal RT 10/19/24 Verified Cannula 03:25 Problem List: (1) Generalized weakness (2) Urinary tract infection (3) Colitis (4) Elevated liver enzymes (5) Anemia, unspecified (6) Electrolyte imbalance (7) Pneumonia, unspecified organism (8) History of cirrhosis of liver Date of Service: Oct 19, 2024 Billing Provider: MACARIO SCOTT DNP Common Visit Codes: [id number] INP/OBS CARE (HIGH) MACARIO SCOTT DNP Oct 19, 2024 03:47
[2024-10-19] MEDS: AZITHROMYCIN 500MG/ 250ML 250 ML IV ONE (05:27)
[2024-10-19] MEDS: SODIUM CHLORIDE 0.9% 1,000 ML IV SCH (05:28)
[2024-10-19] MEDS: cefTRIAXone 1GM/50ML D5W 50 ML IV SCH (09:02)
[2024-10-19] MEDS: LACTULOSE 20Gm/30ML SOLN PO SCH (09:06)
[2024-10-19] MEDS: FAMOTIDINE (10MG/ML) 2ML VL IV SCH (09:06)
[2024-10-19] MEDS: FOLIC ACID 1 MG TAB PO SCH (09:07)
[2024-10-19] MEDS: THIAMINE HCL 100 MG TAB PO SCH (09:07)
[2024-10-19] MEDS: SPIRONOLACTONE 25 MG TAB PO SCH (09:07)
[2024-10-19] MEDS: HYDROcodone-ACET 5/325MG TAB PO PRN (20:59)
[2024-10-20] VITALS (11 sets, daily range): BP systolic 102–139; BP diastolic 44–67; PULSE 75–89; RESP 17–83; TEMP 97.6–98.4; O2SAT 93–99
[2024-10-20 06:13] LABS: Basophils # (auto) 0 10 ^3/uL (0-0.2); Basophils % (auto) 0.1 % (0.0-2.0); Eosinophils # (auto) 0.1 10 ^3/uL (0-0.8); Monocytes # (auto) 0.8 10 ^3/uL (0-1.3); Nucleated Red Blood Cells % 0.1 %; Platelet Count (auto) 48 10^3/uL (140-450)
[2024-10-20 06:15] LABS: Eosinophils % (auto) 2.1 % (0.0-7.0); Lymphocytes # (auto) 0.9 10 ^3/uL (0.4-5.4); Lymphocytes % (auto) 15.6 % (10.0-50.0); Mean Corpuscular Hemoglobin 28.6 pg (28.0-32.0); Mean Corpuscular Hgb Conc. 32.1 g/dL (32.0-36.0); Mean Corpuscular Volume 89.2 fL (80.0-100.0); Monocytes % (auto) 14.4 % (0.0-12.0); Neutrophils # (auto) 3.9 10 ^3/uL (1.6-8.6); Neutrophils % (auto) 67.8 % (37.0-80.0); Red Blood Cells 2.36 10^6/uL (4.5-5.90); Red Cell Distribution Width 21.5 % (11.8-14.3); White Blood Cell 5.8 10^3/uL (4.4-10.8)
[2024-10-20 06:33] LABS: Alanine Aminotransferase 38 U/L (7-40); Anion Gap 7 (5-15); BUN/Creatinine Ratio 10.2 (10.0-20.0); Carbon Dioxide 21 mmol/L (20-31); Glucose 77 mg/dL (74-106); Sodium 136 mmol/L (136-145)
[2024-10-20 06:35] LABS: Albumin 1.8 g/dL (3.2-4.8); Alkaline Phosphatase 123 U/L (46-116); Aspartate Aminotransferase 96 U/L (13-40); Blood Urea Nitrogen 9 mg/dL (9-23); Calcium 7.3 mg/dL (8.7-10.4); Chloride 108 mmol/L (98-107); Total Protein 5.1 g/dL (5.7-8.2)
[2024-10-20 06:36] LABS: Bilirubin, Total 5.1 mg/dL (0.2-1.0)
[2024-10-20 06:57] LABS: Hemoglobin 6.7 g/dL (13.5-17.5)
[2024-10-20 08:49] LABS: Hepatitis B Surface Antigen Negative (Negative)
[2024-10-20 09:40] LABS: Hepatitis A Ab IgM Negative; Hepatitis B Core IgM Negative (Negative); Hepatitis C Antibody Negative (Negative)
[2024-10-20] MEDS ORDERED: AZITHROMYCIN 500MG/ 250ML 250 ML IV SCH (10:00)
[2024-10-20] MEDS: PANTOPRAZOLE 40 MG/10 ML VIAL INJ IV ONE (10:10)
[2024-10-20 10:16] LABS: INR 1.88 (0.9-1.15); Prothrombin Time 18.7 sec (9.3-11.8)
[2024-10-20] MEDS ORDERED: ACETAMINOPHEN 325 MG TAB PO PRN (11:15)
[2024-10-20] MEDS: ACETAMINOPHEN 325 MG TAB PO ONE (11:15)
[2024-10-20] MEDS: POTASSIUM CHLORIDE 40 MEQ, LIDOCAINE 1% (LOCAL ANESTH.) 4 ML in SODIUM CHL 0.9% 250 ML IV ONE (11:52)
[2024-10-20] MEDS: DOXYCYCLINE 100 MG TAB/CAP PO ONE (11:53)
[2024-10-20] MEDS: SUCRALFATE 1 GM/10 ML ORAL SUSP PO ONE (11:54)
--- NOTE | 2024-10-20 16:08 | DVHPNRES ---
Progress Note Date Seen: Oct 20, 2024 Resident Creating Document: WALTER VILLARREAL RESIDENT Has the PT tested + for MRSA If YES, has PT been informed?: No Medical Necessity Reason Pt with a Central, PICC or Fol: No Subjective Review of Systems The patient is a 45-year-old male morbidly obese with past medical history of liver cirrhosis,alcohol dependency quit in 2004, heart failure preserved ejection fraction , pulmonary hypertension GERD, PUD, and pancreatitis who presented to [facility] ED with complaint of suprapubic abdominal pain. Patient reports symptoms progressively get worse with dysuria, foul-smelling urine, getting worse for the past weeks, that prompted this visit. He denies recent history of sexual activity ,he is in a monogamous relationship with his . He denied any past men/men sexual history. Hg was found to be 6.7 foe which he was given one PRBC. Currently on ceftriaxone and doxycicline to cover for atypical pneumonia ( showed in CT) and foul smelling urethral discharge while awaiting for GC/CT results. Review of system: Constitutional: No: Fever, Chills, Sweats, Weakness, Malaise, Other Eyes: No: Pain, Vision change, Conjunctivae inflammation, Eyelid inflammation, Other, Redness ENT: No: Ear pain, Ear discharge, Nose pain, Nose discharge, Nose congestion, Mouth pain, Mouth swelling, Throat pain, Throat swelling, Other Respiratory: Cough present, Shortness of breath, improving No Wheezing, Hemoptysis, Pleuritic Pain, Sputum, Wheezing, Other Cardiovascular: No: Chest Pain, Palpitations, Orthopnea, Paroxysmal Noc. Dyspnea, Edema, Lt Headedness, Other Gastrointestinal: No: Nausea, Vomiting, Abdominal Pain, Diarrhea, Constipation, Melena, Hematochezia, Other Musculoskeletal: No: other, neck pain, shoulder pain, arm pain, back pain, hand pain, leg pain, foot pain Neurological:; No: Weakness, Numbness, Incoordination, Change in speech, Confusion, Seizures Patient reports: No new complaints Changes from previous H/P or p: No Changes Objective vital signs Vital Sign Date Time Temp Pulse Resp B/P (MAP) Pulse Ox O2 Delivery O2 Flow Rate FiO2 10/20/24 13:41 98.2 78 18 127/67 98.2 10/20/24 13:00 97 10/20/24 08:00 Room Air* 0 21 Total Intake and Output 10/19/24 10/19/24 10/20/24 15:00 23:00 07:00 Intake Total 890 ml 820 ml 240 ml Output Total 100 ml 410 ml Balance 890 ml 720 ml -170 ml medications Current Medications Medications Dose Ordered Sig/Christina Route Start Time Stop Time Status Last Admin Dose Admin Folic Acid 1 mg DAILY PO 10/19/24 10:00 10/20/24 09:48 1 MG Thiamine HCl 100 mg DAILY PO 10/19/24 10:00 10/20/24 09:48 100 MG Ceftriaxone Sodium 50 ml @ 100 mls/hr DAILY@09 IV 10/19/24 09:00 10/20/24 09:49 100 MLS/HR Spironolactone 25 mg DAILY PO 10/19/24 10:00 10/20/24 09:48 25 MG Lactulose 30 ml DAILY PO 10/19/24 10:00 10/20/24 09:48 30 ML Sodium Chloride 1,000 ml @ 60 mls/hr [id number] IV 10/19/24 00:30 10/19/24 17:38 60 MLS/HR Acetaminophen/ Hydrocodone Bitart 1 tab Q4HP PRN PO 10/19/24 00:30 10/19/24 20:59 1 TAB Ondansetron HCl 4 mg Q4HP PRN IV 10/19/24 00:30 Docusate Sodium 100 mg BIDPRN PRN PO 10/19/24 00:30 Nitroglycerin 0.4 mg Q5MINP PRN SL 10/19/24 03:30 Morphine Sulfate 2 mg Q30M PRN IV 10/19/24 03:30 Pantoprazole Sodium 40 mg BID IV 10/20/24 22:00 Enteral Nutritional Formula 240 ml BIDWM PO 10/20/24 18:00 Sucralfate 1 gm BID@0600,2200 PO 10/20/24 22:00 Doxycycline Monohydrate 100 mg Q12HR PO 10/20/24 22:00 Acetaminophen 650 mg Q6HP PRN PO 10/20/24 11:15 Examination Examination General Appearance: morbidly obese, icteric Alert, Oriented X3, Cooperative, No acute distress Respiratory: Clear to auscultation, Normal air movement Cardiovascular: Regular rate, Normal S1, Normal S2 Abdominal: Normal bowel sounds Extremities: No cyanosis, No edema, Normal pulses, No tenderness/swelling Skin: icteric, No rashes, No breakdown : foulsmelling urethral discharge, no ulcers or rash Neuro: Normal gait, Normal speech, Strength at 5/5 X4 ext, Normal tone, Sensation intact, Cranial nerves 3-12 NL, Reflexes 2+ Psych/Mental Status: Mental status NL, Mood NL laboratory and microbiology Laboratory Tests 10/20/24 05:09 Test 10/20/24 05:09 Range/Units Serum Glucose 77 74-106 mg/dL Microbiology Date/Time Source Procedure Growth Status 10/18/24 20:44 Voided Urine Urine Culture - Preliminary Resulted Problem List/Assessment/Plan Problem List/Assessment/Plan SIRS due to complicated UTI - Telemetry - iv ceftriaxone - doxyciline #Severe anemia #History of Peptic ulcer disease - 1 PRBC transfused - hh - stool occult - EGD and colonoscopy done 1 month ago # Foulsmelling urethral discharge - rule out STI - Doxicycline - iv ceftriaxone # Hypokalemia - 40 Meq K replaced # Pneumonia likely atypical, ground glass opacities on ct - doxycicline - iv ceftriaxone #History of liver cirrhosis # history of alcoholism,, quit in 2004 #thrombocytopenia #transaminitis - On liver transplant list #Morbid obesity - lifestyle modification counseling - DVT PPX: scd diet: full liquid diet case discussed with goals of care discussed with the patient for 34 min code status: full code Plan discussed with: Patient, Spouse My Orders My Orders Orders - WALTER VILLARREAL RESIDENT Procedure Category Date Status Time Stool Occult Blood LAB 10/20/24 Logged 08:11 Pantoprazole PHA 10/20/24 In Process (Protonix) 22:00 Blood Culture FRANCHESCA 10/20/24 Uncollected 08:18 Full Liq Diet DIET 10/20/24 Verified Lunch Nutritional PHA 10/20/24 In Process Supplements (Ensure 18:00 Sucralfate Susp PHA 10/20/24 In Process (Carafate Susp) 22:00 Doxycycline Tablet PHA 10/20/24 In Process (Vibramycin Tablet) 22:00 Acetaminophen Tablet PHA 10/20/24 In Process (Tylenol Tablet) 11:15 Hiv 1&2 Antibody LAB 10/20/24 Logged 15:31 Chlamydia/Gc LAB 10/20/24 Logged Amplification 15:31 Hemoglobin & LAB 10/20/24 Logged Hematocrit 15:32 Date of Service: Oct 20, 2024 Billing Provider: SHELLY BANUELOS MD Common Visit Codes: [id number] INP/OBS CARE(HIGH) WALTER VILLARREAL RESIDENT Oct 20, 2024 16:08 SHELLY BANUELOS MD Oct 20, 2024 16:18
[2024-10-20] MEDS: Ensure Enlive Strawberry 8oz Bottle PO SCH (18:05)
[2024-10-20 18:15] LABS: Hemoglobin 8.2 g/dL (13.5-17.5)
[2024-10-20 18:16] LABS: Hematocrit 25.5 % (41.0-53.0)
[2024-10-20] MEDS: SUCRALFATE 1 GM/10 ML ORAL SUSP PO SCH (21:18)
[2024-10-20] MEDS: PANTOPRAZOLE 40 MG/10 ML VIAL INJ IV SCH (21:18)
[2024-10-20] MEDS: DOXYCYCLINE 100 MG TAB/CAP PO SCH (21:18)
[2024-10-21] VITALS (8 sets, daily range): BP systolic 100–116; BP diastolic 45–55; PULSE 73–83; RESP 17–20; TEMP 97.6–98.1; O2SAT 92–100
[2024-10-21 06:25] LABS: Sodium 137 mmol/L (136-145)
[2024-10-21 06:26] LABS: Anion Gap 6 (5-15); Carbon Dioxide 22 mmol/L (20-31)
[2024-10-21 06:31] LABS: BUN/Creatinine Ratio 10.5 (10.0-20.0); Glucose 77 mg/dL (74-106)
[2024-10-21 06:34] LABS: Blood Urea Nitrogen 9 mg/dL (9-23); Calcium 7.7 mg/dL (8.7-10.4); Chloride 109 mmol/L (98-107); Potassium 3.2 mmol/L (3.5-5.1)
[2024-10-21 06:59] LABS: Basophils # (auto) 0 10 ^3/uL (0-0.2); Basophils % (auto) 0.1 % (0.0-2.0); Eosinophils # (auto) 0.2 10 ^3/uL (0-0.8); Hematocrit 22.7 % (41.0-53.0); Hemoglobin 7.6 g/dL (13.5-17.5); Lymphocytes # (auto) 0.9 10 ^3/uL (0.4-5.4); Lymphocytes % (auto) 15.6 % (10.0-50.0); Mean Corpuscular Hemoglobin 29.6 pg (28.0-32.0); Mean Corpuscular Hgb Conc. 33.4 g/dL (32.0-36.0); Mean Corpuscular Volume 88.4 fL (80.0-100.0); Monocytes # (auto) 0.6 10 ^3/uL (0-1.3); Monocytes % (auto) 9.8 % (0.0-12.0); Neutrophils # (auto) 4.3 10 ^3/uL (1.6-8.6); Neutrophils % (auto) 71.5 % (37.0-80.0); Nucleated Red Blood Cells % 0.1 %; Platelet Count (auto) 57 10^3/uL (140-450); Red Blood Cells 2.57 10^6/uL (4.5-5.90); Red Cell Distribution Width 20.6 % (11.8-14.3)
[2024-10-21] MEDS ORDERED: POTASSIUM EFFERVESENT TAB 25 MEQ PO ONE (07:30)
[2024-10-21] MEDS: POTASSIUM EFFERVESENT TAB 25 MEQ PO ONE (10:00)
--- NOTE | 2024-10-21 16:18 | DVHPNRES ---
Progress Note Date Seen: Oct 21, 2024 Resident Creating Document: WALTER VILLARREAL RESIDENT Has the PT tested + for MRSA If YES, has PT been informed?: No Medical Necessity Reason Pt with a Central, PICC or Fol: No Subjective Review of Systems The patient is a 45-year-old male morbidly obese with past medical history of liver cirrhosis,alcohol dependency quit in 2004, heart failure preserved ejection fraction , pulmonary hypertension GERD, PUD, and pancreatitis who presented to [facility] ED with complaint of suprapubic abdominal pain. Patient reports symptoms progressively get worse with dysuria, foul-smelling urine, getting worse for the past weeks, that prompted this visit. He denies recent history of sexual activity ,he is in a monogamous relationship with his . He denied any past men/men sexual history. Hb cheryl down from 8,2 to 7,6. stool occult blood positive. GI was consulted. Continue PPI and carafate Currently on ceftriaxone and doxycicline to cover for atypical pneumonia ( showed in CT) and foul smelling urethral discharge while awaiting for GC/CT results. Review of Systems: HEENT:Normal, CVS:Normal, RESPIRATORY:Normal, GI:Normal, :Normal, MSK:Normal, NEURO:Normal Objective vital signs Vital Sign Date Time Temp Pulse Resp B/P (MAP) Pulse Ox O2 Delivery O2 Flow Rate FiO2 10/21/24 13:00 97.6 82 17 110/53 (72) 98 97.6 10/21/24 08:00 Room Air* 0 21 Total Intake and Output 10/20/24 10/20/24 10/21/24 15:00 23:00 07:00 Intake Total 1042 ml 400 ml Output Total 375 ml Balance 1042 ml 25 ml medications Current Medications Medications Dose Ordered Sig/Christina Route Start Time Stop Time Status Last Admin Dose Admin Folic Acid 1 mg DAILY PO 10/19/24 10:00 10/21/24 09:51 1 MG Thiamine HCl 100 mg DAILY PO 10/19/24 10:00 10/21/24 09:51 100 MG Ceftriaxone Sodium 50 ml @ 100 mls/hr DAILY@09 IV 10/19/24 09:00 10/21/24 09:50 100 MLS/HR Spironolactone 25 mg DAILY PO 10/19/24 10:00 10/21/24 09:51 25 MG Lactulose 30 ml DAILY PO 10/19/24 10:00 10/21/24 09:50 30 ML Sodium Chloride 1,000 ml @ 60 mls/hr [id number] IV 10/19/24 00:30 10/19/24 17:38 60 MLS/HR Acetaminophen/ Hydrocodone Bitart 1 tab Q4HP PRN PO 10/19/24 00:30 10/19/24 20:59 1 TAB Ondansetron HCl 4 mg Q4HP PRN IV 10/19/24 00:30 Docusate Sodium 100 mg BIDPRN PRN PO 10/19/24 00:30 Nitroglycerin 0.4 mg Q5MINP PRN SL 10/19/24 03:30 Morphine Sulfate 2 mg Q30M PRN IV 10/19/24 03:30 Pantoprazole Sodium 40 mg BID IV 10/20/24 22:00 10/21/24 09:50 40 MG Enteral Nutritional Formula 240 ml BIDWM PO 10/20/24 18:00 10/21/24 09:53 240 ML Sucralfate 1 gm BID@0600,2200 PO 10/20/24 22:00 10/21/24 05:13 1 GM Doxycycline Monohydrate 100 mg Q12HR PO 10/20/24 22:00 10/21/24 09:51 100 MG Acetaminophen 650 mg Q6HP PRN PO 10/20/24 11:15 Examination: GENERAL:Normal, HEENT:Normal, NECK:Normal, LUNGS:Normal, CVS:Normal, ABDOMEN:Normal, MSK:Normal, SKIN:Normal, NEURO:Normal, :Normal laboratory and microbiology Laboratory Tests 10/21/24 05:03 Test 10/21/24 05:03 Range/Units Serum Glucose 77 74-106 mg/dL Microbiology Date/Time Source Procedure Growth Status 10/18/24 20:44 Voided Urine Urine Culture - Final Complete Problem List/Assessment/Plan Problem List/Assessment/Plan SIRS due to complicated UTI - Telemetry - iv ceftriaxone - doxyciline - HIV negative - GC/CT, pending #Severe anemia #History of Peptic ulcer disease #GI bleed - pantoprazol 40 bid and carafate q6h - 1 PRBC transfused - hh - stool occult positive - EGD and colonoscopy done 1 month ago # Foulsmelling urethral discharge - rule out STI - Doxicycline - iv ceftriaxone # Hypokalemia - 40 Meq K replaced # Pneumonia likely atypical, ground glass opacities on ct - doxycicline - iv ceftriaxone #History of liver cirrhosis # history of alcoholism,, quit in 2004 #thrombocytopenia #transaminitis - On liver transplant list #Morbid obesity - lifestyle modification counseling - DVT PPX: scd diet: npo since midnight case discussed with goals of care discussed with the patient for 34 min code status: full code Plan discussed with: Patient, Spouse My Orders My Orders Orders - WALTER VILLARREAL Procedure Category Date Status Time Discontinue Tele MAHAD 10/20/24 In Process 17:43 Transfer Orders XFER 10/20/24 Transmitted 17:43 * [employer] Painter CONS 10/21/24 Transmitted 14:31 Date of Service: Oct 21, 2024 Billing Provider: SHELLY BANUELOS MD Common Visit Codes: [id number] INP/OBS CARE(HIGH) WALTER VILLARREAL Oct 21, 2024 16:18 SHELLY BANUELOS MD Oct 23, 2024 08:34
[2024-10-21] MEDS: SUCRALFATE 1 GM/10 ML ORAL SUSP PO SCH (16:31)
[2024-10-22] VITALS (7 sets, daily range): BP systolic 101–138; BP diastolic 34–81; PULSE 74–82; RESP 18–20; TEMP 97.5–98.2; O2SAT 92–100
[2024-10-22 06:45] LABS: Basophils # (auto) 0 10 ^3/uL (0-0.2); Basophils % (auto) 0.1 % (0.0-2.0); Hemoglobin 7.5 g/dL (13.5-17.5); Mean Corpuscular Hemoglobin 29.8 pg (28.0-32.0); Nucleated Red Blood Cells % 0.1 %; White Blood Cell 4.5 10^3/uL (4.4-10.8)
[2024-10-22 06:47] LABS: Eosinophils # (auto) 0.1 10 ^3/uL (0-0.8); Eosinophils % (auto) 3.3 % (0.0-7.0); Hematocrit 23.1 % (41.0-53.0); Lymphocytes # (auto) 0.9 10 ^3/uL (0.4-5.4); Lymphocytes % (auto) 20.4 % (10.0-50.0); Mean Corpuscular Hgb Conc. 32.5 g/dL (32.0-36.0); Mean Corpuscular Volume 91.8 fL (80.0-100.0); Monocytes # (auto) 0.4 10 ^3/uL (0-1.3); Neutrophils % (auto) 66.2 % (37.0-80.0); Platelet Count (auto) 51 10^3/uL (140-450); Red Blood Cells 2.52 10^6/uL (4.5-5.90)
[2024-10-22 06:50] LABS: Potassium 3.6 mmol/L (3.5-5.1); Sodium 138 mmol/L (136-145)
[2024-10-22 06:51] LABS: Anion Gap 6 (5-15); Carbon Dioxide 21 mmol/L (20-31)
[2024-10-22 06:53] LABS: Calcium 7.8 mg/dL (8.7-10.4); Chloride 111 mmol/L (98-107)
[2024-10-22 06:56] LABS: BUN/Creatinine Ratio 8.9 (10.0-20.0); Glucose 74 mg/dL (74-106)
[2024-10-22 06:59] LABS: Red Cell Distribution Width 20.8 % (11.8-14.3)
[2024-10-22 07:00] LABS: Blood Urea Nitrogen 7 mg/dL (9-23)
--- NOTE | 2024-10-22 15:14 | DVHCONRES ---
Date Seen: Oct 22, 2024 Resident Creating Document: LATA WADE RESIDENT Referring Physician Dr. Jackson Reason for Consultation severe anemia s/p transfusion History of Present Illness Patient is a 45-year-old male with past medical history of liver cirrhosis, alcohol dependency quit in 2004, s/p tips, heart failure with preserved ejection fraction, pulmonary hypertension, GERD, peptic ulcer disease, pancreatitis, who came in due to dysuria. According to the patient, he has been experiencing dysuria with a foul-smelling urine for the past 1 week associated with chills, which has been progressively getting worse which is what prompted this visit to the hospital. Currently patient reports improvement in his dysuria after starting antibiotics. Past Medical History liver cirrhosis, alcohol dependency quit in 2004, s/p tips, heart failure with preserved ejection fraction, pulmonary hypertension, GERD, peptic ulcer disease, pancreatitis Past Surgical History denies Family History: Diabetes mellitus G8 MOTHER Hypertension G8 MOTHER Allergies: Coded Allergies: NO KNOWN ALLERGIES (Unverified , 11/06/20) Home Meds Active Scripts Potassium Chloride (K-Tab) 20 Meq Tab, 20 MEQ PO DAILY for 90 Days, #90 TAB Prov:HERON LEVY RESIDENT 05/10/24 Pantoprazole Sodium Sesquihydr (Pantoprazole Sodium) 40 Mg Tab, 40 MG PO BID for 30 Days, #60 TAB Prov:HERON LEVY RESIDENT 05/10/24 Lactulose (Lactulose) 10 Gm Rei, 30 ML PO BID for 30 Days, #2000 ML 1 Refill Prov:HERON LEVY RESIDENT 05/10/24 Reported Medications Ferrous Gluconate (Iron 27) 240 Mg Tab, 240 MG PO DAILY, TAB 09/08/24 Cholecalciferol (VITAMIN D) 5,000 Unit Tab, 5000 UNIT OR DAILY, TAB 05/09/24 Spironolactone (Spironolactone) 25 Mg Tab, 1 TAB PO DAILY, #90 TAB 1 Refill 12/20/21 Discontinued Reported Medications Furosemide (Lasix) 20 Mg Tb, 1 TAB PO DAILY, #90 TAB 1 Refill 01/28/21 Current Medications Current Medications Medications (Trade) Dose Ordered Sig/Christina Route PRN Reason Start Time Stop Time Status Last Admin Sucralfate (Carafate Susp) 1 gm Q6HR PO 10/21/24 16:15 10/22/24 05:37 Review of Systems General: Fatigue, chills Eyes: No Pain, No Vision change, No Conjunctivae inflammation, No Eyelid inflammation, No Other, No Redness ENT: No Ear pain, No Ear discharge, No Nose pain, No Nose discharge, No Nose congestion, No Mouth pain, No Mouth swelling, No Throat pain, No Throat swelling, No Other Cardiovascular: No Chest Pain, No Palpitations, No Orthopnea, No Paroxysmal No Dyspnea, No Edema, No Lt Headedness, No Other Respiratory: No Cough, No Dry, No Shortness of breath, SOB with exertion, No Wheezing, No Hemoptysis, No Pleuritic Pain, No Sputum, No Other Gastrointestinal: No Nausea, No Vomiting, No Abdominal Pain, No Diarrhea, No Constipation, No Melena, No Hematochezia, No Other Genitourinary: Dysuria, No Frequency, No Incontinence, No Hematuria, No Retention, No Other Musculoskeletal: No other, No neck pain, No shoulder pain, No arm pain, No back pain, No hand pain, No leg pain, No foot pain Skin: No Rash, No Lesions, No Jaundice, No Bruising, No Other Vital Signs Vital Signs Date Time Temp Pulse Resp B/P (MAP) Pulse Ox O2 Delivery O2 Flow Rate FiO2 10/22/24 12:33 97.9 78 18 116/58 (77) 97 97.9 10/22/24 08:00 Room Air* 0 21 Physical Exam General Appearance: Cooperative. Well developed. Well nourished. NAD Head Exam: Normal inspection Neck Exam: Normal inspection. Non-tender. Normal alignment Pulmonary/Respiratory: Chest non-tender. Clear bilateral breath sounds, no crackles, no wheezing. Cardiovascular/Chest: Regular rate and rhythm. No murmurs. No JVD. Abdominal Exam: Normal bowel sounds. Soft. normal abdomen, no visible veins, Nontender. No hepatospenomegaly. No masses Lower extremities: Negative lower extremity edema Neuro/Mental Status: A&O x4. Coherent. Thoughts/Psych: Normal thought pattern. Appropriate mood and affect. Good judgement and insight Skin Exam: Normal inspection. Normal color. Warm. Dry Labs/Diagnostic Data Labs Test 10/22/24 06:00 10/21/24 12:30 10/20/24 09:39 10/20/24 05:09 Range/Units White Blood Count 4.5 4.4-10.8 10^3/uL Red Blood Count 2.52 L 4.5-5.90 10^6/uL Hemoglobin 7.5 L 13.5-17.5 g/dL Hematocrit 23.1 L 41.0-53.0 % Mean Corpuscular Volume 91.8 80.0-100.0 fL Mean Corpuscular Hemoglobin 29.8 28.0-32.0 pg Mean Corpuscular Hemoglobin Concent 32.5 32.0-36.0 g/dL Red Cell Distribution Width 20.8 H 11.8-14.3 % Platelet Count 51 L 140-450 10^3/uL Mean Platelet Volume 9.0 6.9-10.8 fL Neutrophils (%) (Auto) 66.2 37.0-80.0 % Lymphocytes (%) (Auto) 20.4 10.0-50.0 % Monocytes (%) (Auto) 10.0 0.0-12.0 % Eosinophils (%) (Auto) 3.3 0.0-7.0 % Basophils (%) (Auto) 0.1 0.0-2.0 % Neutrophils # (Auto) 3.0 1.6-8.6 10 ^3/uL Lymphocytes # (Auto) 0.9 0.4-5.4 10 ^3/uL Monocytes # (Auto) 0.4 0-1.3 10 ^3/uL Eosinophils # (Auto) 0.1 0-0.8 10 ^3/uL Basophils # (Auto) 0 0-0.2 10 ^3/uL Nucleated Red Blood Cells 0.1 % Sodium Level 138 136-145 mmol/L Potassium Level 3.6 3.5-5.1 mmol/L Chloride Level 111 H 98-107 mmol/L Carbon Dioxide Level 21 20-31 mmol/L Anion Gap 6 5-15 Blood Urea Nitrogen 7 L 9-23 mg/dL Creatinine 0.79 0.700-1.30 mg/dL Glomerular Filtration Rate Calc 112 >90 mL/min BUN/Creatinine Ratio 8.9 L 10.0-20.0 Serum Glucose 74 74-106 mg/dL Calcium Level 7.8 L 8.7-10.4 mg/dL Stool Occult Blood Positive Negative Stool Occult Blood Sample #3 Negative Prothrombin Time 18.7 H 9.3-11.8 sec Prothrombin Time INR 1.88 H 0.9-1.15 Ferritin 27.3 22-322 ng/mL Total Bilirubin 5.1 H 0.2-1.0 mg/dL Aspartate Amino Transferase (AST) 96 H 13-40 U/L Alanine Aminotransferase (ALT) 38 7-40 U/L Alkaline Phosphatase 123 H 46-116 U/L Total Protein 5.1 L 5.7-8.2 g/dL Albumin 1.8 L 3.2-4.8 g/dL HIV (1&2) Antibody Negative Negative Test 10/19/24 00:49 10/18/24 20:44 Range/Units Platelet Estimate Decreased Anisocytosis (manual) Slight Hepatitis A IgM Antibody Negative Hepatitis B Surface Antigen Negative Negative Hepatitis B Core IgM Antibody Negative Negative Hepatitis C Antibody Negative Negative Urine Color Yellow Yellow Urine Clarity Turbid H Clear Urine pH 6.5 5.0-9.0 Urine Specific [place] 1.011 1.001-1.035 Urine Protein Trace H Negative Urine Ketones Negative Negative Urine Blood Trace H Negative /uL Urine Nitrite Negative Negative Urine Bilirubin 1+ Negative Urine Urobilinogen Normal Negative mg/dL Urine Leukocyte Esterase 3+ Negative /uL Urine RBC 2 0 - 3 /hpf Urine Microscopic WBC 127 H 0-3 /HPF Urine Squamous Epithelial Cells Few <5 /hpf Urine Bacteria Few H None Seen /hpf Urine Glucose Normal Normal mg/dL Microbiology Date/Time Source Procedure Growth Status 10/21/24 09:01 Blood Blood Culture - Preliminary NO GROWTH AFTER 24 HOURS OF INCUBATION. Resulted 10/18/24 20:44 Voided Urine Urine Culture - Final Complete Assessment Liver cirrhosis Atypical pneumonia Anemia Complicated UTI History of peptic ulcer disease Thrombocytopenia Hemorrhoids + stool occult blood Plan: H&H stable Currently no signs of active GI bleed We will manage conservatively We will continue to monitor labs If signs of active bleeding develop then we will consider EGD on Sunday Continue full liquid diet Plan discussed with Dr. Flores Plan discussed with: Patient, Spouse, Other (RN) LATA WADE RESIDENT Oct 22, 2024 15:14
[2024-10-22] MEDS ORDERED: SUCR1SUS26 PO (17:56)
[2024-10-22] MEDS ORDERED: DOX100T PO (17:56)
[2024-10-22] MEDS ORDERED: PANT40T PO (17:58)
[2024-10-22] MEDS ORDERED: SPIR25TA8 PO (17:58)
[2024-10-22] MEDS ORDERED: FERR240T9 PO (17:58)
--- NOTE | 2024-10-22 19:13 | DVHDSRES ---
Discharge Summary Date of Admission Resident Creating Document: WALTER VILLARREAL RESIDENT Oct 19, 2024 at 03:25 Date of Discharge: Oct 22, 2024 Labs/Diagnostic Data: Laboratory Results Test 10/22/24 06:00 10/21/24 12:30 10/20/24 09:39 10/20/24 05:09 White Blood Count 4.5 10^3/uL (4.4-10.8) Red Blood Count 2.52 10^6/uL (4.5-5.90) Hemoglobin 7.5 g/dL (13.5-17.5) Hematocrit 23.1 % (41.0-53.0) Mean Corpuscular Volume 91.8 fL (80.0-100.0) Mean Corpuscular Hemoglobin 29.8 pg (28.0-32.0) Mean Corpuscular Hemoglobin Concent 32.5 g/dL (32.0-36.0) Red Cell Distribution Width 20.8 % (11.8-14.3) Platelet Count 51 10^3/uL (140-450) Mean Platelet Volume 9.0 fL (6.9-10.8) Neutrophils (%) (Auto) 66.2 % (37.0-80.0) Lymphocytes (%) (Auto) 20.4 % (10.0-50.0) Monocytes (%) (Auto) 10.0 % (0.0-12.0) Eosinophils (%) (Auto) 3.3 % (0.0-7.0) Basophils (%) (Auto) 0.1 % (0.0-2.0) Neutrophils # (Auto) 3.0 10 ^3/uL (1.6-8.6) Lymphocytes # (Auto) 0.9 10 ^3/uL (0.4-5.4) Monocytes # (Auto) 0.4 10 ^3/uL (0-1.3) Eosinophils # (Auto) 0.1 10 ^3/uL (0-0.8) Basophils # (Auto) 0 10 ^3/uL (0-0.2) Nucleated Red Blood Cells 0.1 % Sodium Level 138 mmol/L (136-145) Potassium Level 3.6 mmol/L (3.5-5.1) Chloride Level 111 mmol/L (98-107) Carbon Dioxide Level 21 mmol/L (20-31) Anion Gap 6 (5-15) Blood Urea Nitrogen 7 mg/dL (9-23) Creatinine 0.79 mg/dL (0.700-1.30) Glomerular Filtration Rate Calc 112 mL/min (>90) BUN/Creatinine Ratio 8.9 (10.0-20.0) Serum Glucose 74 mg/dL (74-106) Calcium Level 7.8 mg/dL (8.7-10.4) Stool Occult Blood Positive (Negative) Stool Occult Blood Sample #3 (Negative) Prothrombin Time 18.7 sec (9.3-11.8) Prothrombin Time INR 1.88 (0.9-1.15) Ferritin 27.3 ng/mL (22-322) Total Bilirubin 5.1 mg/dL (0.2-1.0) Aspartate Amino Transferase (AST) 96 U/L (13-40) Alanine Aminotransferase (ALT) 38 U/L (7-40) Alkaline Phosphatase 123 U/L (46-116) Total Protein 5.1 g/dL (5.7-8.2) Albumin 1.8 g/dL (3.2-4.8) HIV (1&2) Antibody Negative (Negative) Test 10/19/24 00:49 10/18/24 20:44 Platelet Estimate Decreased Anisocytosis (manual) Slight Hepatitis A IgM Antibody Negative Hepatitis B Surface Antigen Negative (Negative) Hepatitis B Core IgM Antibody Negative (Negative) Hepatitis C Antibody Negative (Negative) Urine Color Yellow (Yellow) Urine Clarity Turbid (Clear) Urine pH 6.5 (5.0-9.0) Urine Specific [place] 1.011 (1.001-1.035) Urine Protein Trace (Negative) Urine Ketones Negative (Negative) Urine Blood Trace /uL (Negative) Urine Nitrite Negative (Negative) Urine Bilirubin 1+ (Negative) Urine Urobilinogen Normal mg/dL (Negative) Urine Leukocyte Esterase 3+ /uL (Negative) Urine RBC 2 /hpf (0 - 3) Urine Microscopic WBC 127 /HPF (0-3) Urine Squamous Epithelial Cells Few /hpf (<5) Urine Bacteria Few /hpf (None Seen) Urine Glucose Normal mg/dL (Normal) Other Laboratory Tests 10/22/24 06:00 Final Diagnosis/Problems List UTI, Liver cirrohosis, severe anemia, PUD Discharge Disposition: Home Discharge Instruct/Medications Diet: Cardiac 2g Na,low cholest Activity: No Restrictions, As Tolerated Follow Up/Referral: FOLLOW UP WITH PCP WITHIN 2 WEEKS DC CLINIC 1 WEEKS FOLLOW UP WITH GI WITHIN 1 WEEK. Medications: SCRIPT TO PHARMACY Discharge Statement: "Patient was advised to return to the ER or call 911 if any headaches, dizziness, shortness of breath, chest pain, abdominal pain, bleeding, fevers, or worsening of medical condition. Patient was counseled about treatment plan, medications, possible side effects, patientverbalized understanding. All questions were answered to the best of my ability. This discharge took greater then 30 minutes in planning, reviewing documentation, counseling the patient, and discussing with other team members." ASSESSMENT ASSESSMENT Assessment UTI, Liver cirrohosis, severe anemia, PUD WALTER VILLARREAL RESIDENT Oct 22, 2024 19:13
[2024-10-23 00:07] LABS: Chlamydia Trachomatis, NAA Negative (Negative); Neisseria gonorrhoeae, NAA Negative (Negative)
== END 2024-10-22 19:54 | disposition home or self-care (01) ==
LOC: ER 20:32 → OVERFLOW 10-19 03:25 → TELE-WESTW 10-19 03:26 → WEST WING 10-21 18:30
PROVIDERS: ADMIT Student in an Organized Health Care Education/Training Program; ATTEND Emergency Medicine
PROC: 30233N1 Transfusion of Nonautologous Red Blood Cells into Peripheral Vein, Percutaneous Approach (ICD-10-PCS; principal; 2024-10-20)
DX: K74.60 Unspecified cirrhosis of liver (principal); Z76.82 Awaiting organ transplant status; D69.6 Thrombocytopenia, unspecified; I27.20 Pulmonary hypertension, unspecified; J18.9 Pneumonia, unspecified organism; K76.6 Portal hypertension; K52.9 Noninfective gastroenteritis and colitis, unspecified; N39.0 Urinary tract infection, site not specified; Z68.43 Body mass index [BMI] 50.0-59.9, adult; I11.0 Hypertensive heart disease with heart failure; D64.9 Anemia, unspecified; E66.01 Morbid (severe) obesity due to excess calories; K21.9 Gastro-esophageal reflux disease without esophagitis; R36.9 Urethral discharge, unspecified; E87.6 Hypokalemia; I50.32 Chronic diastolic (congestive) heart failure; Z79.84 Long term (current) use of oral hypoglycemic drugs; Z79.899 Other long term (current) drug therapy; Z82.49 Family history of ischemic heart disease and other diseases of the circulatory system; Z83.3 Family history of diabetes mellitus; Z87.11 Personal history of peptic ulcer disease
CPT/HCPCS: 36415; 74176; 80048; 80053; 80074; 81001; 82270; 82728; 85014; 85018; 85025; 85610; 86703; 86850; 86900; 86901; 86920; 87040; 87086; 96365; G0378; J2003; J2470; J3490

== ENCOUNTER 2025-02-09 11:16 | Inpatient (IN) | payer MEDICAID, OTHER ==
[~2025-02-09] VITALS: Ht 165.1 cm; Wt 294.4 kg
[~2025-02-09 11:16] MED LIST changes: +DOX100T PO; -FURO1TAB33 PO; +SUCR1SUS26 PO
--- NOTE | 2025-02-09 12:17 | ED.PDOC ---
History of Present Illness HPI Comments Patient is a 45-year-old male with a past medical history of alcohol-induced liver cirrhosis diagnosed in 2004, hypertension presented to the ED with a chief complaint of shortness of breath. Patient reported that yesterday in the morning when he was going for a walk with his , after walking about 100 ft started feeling short of breath, chest pressure which was substernal, nonradiating, relieved on taking rest, also reported of dizziness following which patient went back to his house and rested on a couch and continued to have shortness of breath. 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 Patient has had home is on 25 mg of spironolactone daily and 20 mg of Lasix daily. He does report of bilateral lower extremity swelling that he noticed came on since yesterday. Chief Complaint: Dizziness Time Seen by MD: 11:26 Primary Care Provider: ludy Allergies: Coded Allergies: NO KNOWN ALLERGIES (Unverified , 11/06/20) Home Meds Active Scripts Ferrous Gluconate (Iron 27) 240 Mg Tab, 240 MG PO DAILY for 60 Days, #60 TAB Prov:WALTER VILLARREAL RESIDENT 10/22/24 Pantoprazole Sodium Sesquihydr (Pantoprazole Sodium) 40 Mg Tab, 40 MG PO BID for 60 Days, #120 TAB Prov:WALTER VILLARREAL RESIDENT 10/22/24 Spironolactone (Spironolactone) 25 Mg Tab, 1 TAB PO DAILY for 60 Days, #60 TAB 1 Refill Prov:WALTER VILLARREAL [facility] 10/22/24 Doxycycline Monohydrate (Doxycycline Monohydrate) 100 Mg Tab, 100 MG PO Q12HR for 10 Days, #20 TAB Prov:WALTER VILLARREAL [facility] 10/22/24 Sucralfate (CARAFATE SUSP) 1 Gm/10 Ml Ss, 1 GM PO Q6HR for 30 Days, #120 ML Prov:DELILAH Szymanski [facility] 10/22/24 Potassium Chloride (K-Tab) 20 Meq Tab, 20 MEQ PO DAILY for 90 Days, #90 TAB Prov:HERON LEVY RESIDENT 05/10/24 Lactulose (Lactulose) 10 Gm Rei, 30 ML PO BID for 30 Days, #2000 ML 1 Refill Prov:HERON LEVY RESIDENT 05/10/24 Reported Medications Cholecalciferol (VITAMIN D) 5,000 Unit Tab, 5000 UNIT OR DAILY, TAB 05/09/24 Mode of Arrival: Ambulatory Past Medical History PAST MEDICAL HISTORY: CHF, GERD, Liver (Cirrhosis alcohol-induced), PUD Surgical History: Denies all surgeries Surgical History (Other): ? Vein repair/portal vein thrombectomy Family History Family History: Family hx of DM, Family hx of HTN Social History Smoker: Non-Smoker Alcohol: Sober Drugs: Denies Drug Use Lives In: Home Constitutional: reports: fatigue, weakness EENTM: denies: blurred vision, double vision, ear bleeding, ear discharge, ear drainage, ear pain, ear ringing, eye pain, eye redness, hearing loss, mouth pain, mouth swelling, nasal discharge, nose bleeding, nose congestion, nose pain, photophobia, tearing, throat pain, throat swelling, voice changes, others Respiratory: reports: SOB at rest Cardiovascular: reports: dizzy spells Gastrointestinal: denies: abdomen distended, abdominal pain, blood streaked bowels, constipated, diarrhea, dysphagia, difficulty swallowing, hematemesis, melena, nausea, poor appetite, poor fluid intake, rectal bleeding, rectal pain, vomiting, others Genitourinary: denies: burning, dysuria, flank pain, frequency, hematuria, incontinence, penile discharge, penile sore, pain, testicle pain, testicle swelling, urgency, others Neurological: reports: dizziness Musculoskeletal: denies: back pain, gout, joint pain, joint swelling, muscle pain, muscle stiffness, neck pain, others Integumetry: denies: bruises, change in color, change in hair/nails, dryness, laceration, lesions, lumps, rash, wounds, others Allergic/Immunocompromised: denies: Difficulty Healing, Frequent Infections, Hives, Itching, others Hematologic/Lymphatic: denies: anemia, blood clots, easy bleeding, easy bruising, swollen glands, others Endocrine: denies: excessive hunger, excessive sweating, excessive thirst, excessive urination, flushing, intolerance to cold, intolerance to heat, unexplained weight gain, unexplained weight loss, others Psychiatric: denies: anxiety, bipolar disorder, depression, hopeless, panic disorder, schizophrenia, sleepless, suicidal, others Physical Exam General Appearance: Mild Distress, Moderate Distress HEENT: Normal ENT Inspection, Pharynx Normal, TMs Normal Neck: Full Range of Motion, Non-Tender, Normal, Normal Inspection Respiratory: Chest Non-Tender, Lungs Clear, No Accessory Muscle Use, No Respiratory Distress, Normal Breath Sounds Cardiovascular: No JVD, No Murmur, No Gallop, Normal Peripheral Pulses, Regular Rate/Rhythm Breast Exam: Deferred Gastrointestinal: No Organomegaly, Non Tender, No Pulsatile Mass, Normal Bowel Sounds, Soft Genitalia: Deferred Pelvic: Deferred Rectal: Deferred Extremities: Leg edema, Normal range of motion, Non-tender Neurologic: Alert, clothespin machine operator II-XII nml as Tested, No Motor Deficits, Normal Affect, Normal Mood, No Sensory Deficits Cerebellar Function: Normal Reflexes: Normal, R Knee Skin: Dry, Normal Color, Warm Peripheral Pulses: 2+ carotid (R), 2+ carotid (L), 2+ femoral (R), 2+ femoral (L), 2+ dorsalis pedis (R), 2+ dorsalis pedis (L), 2+ Radial (R), 2+ Radial (L) Lymphatic: No Adenopathy Was a procedure done? Was a procedure done?: No Differential Dx Considerations may include: Acute PE, angina, DE, DVT, Volume overlaod d/t liver cirrhosis X-Ray, Labs, Meds, VS Vital Signs Date Time Temp Pulse Resp B/P (MAP) Pulse Ox O2 Delivery O2 Flow Rate FiO2 02/09/25 14:33 97.9 83 18 135/55 (81) 100 97.9 02/09/25 11:41 98.0 87 16 120/57 (78) 100 98.0 Lab Test 02/09/25 14:01 02/09/25 13:07 02/09/25 11:36 Range/Units Magnesium Level Pending Iron Level Pending Total Iron Binding Capacity Pending Percent Iron Saturation Pending Troponin I High Sensitivity Pending 7 </=54 ng/L White Blood Count 6.1 4.4-10.8 10^3/uL Red Blood Count 2.50 L 4.5-5.90 10^6/uL Hemoglobin 6.6 *L 13.5-17.5 g/dL Hematocrit 21.2 L 41.0-53.0 % Mean Corpuscular Volume 84.8 80.0-100.0 fL Mean Corpuscular Hemoglobin 26.6 L 28.0-32.0 pg Mean Corpuscular Hemoglobin Concent 31.4 L 32.0-36.0 g/dL Red Cell Distribution Width 20.5 H 11.8-14.3 % Platelet Count 61 L 140-450 10^3/uL Mean Platelet Volume 9.7 6.9-10.8 fL Neutrophils (%) (Auto) 79.3 37.0-80.0 % Lymphocytes (%) (Auto) 9.3 L 10.0-50.0 % Monocytes (%) (Auto) 10.4 0.0-12.0 % Eosinophils (%) (Auto) 0.3 0.0-7.0 % Basophils (%) (Auto) 0.7 0.0-2.0 % Neutrophils # (Auto) 4.8 1.6-8.6 10 ^3/uL Lymphocytes # (Auto) 0.6 0.4-5.4 10 ^3/uL Monocytes # (Auto) 0.6 0-1.3 10 ^3/uL Eosinophils # (Auto) 0 0-0.8 10 ^3/uL Basophils # (Auto) 0 0-0.2 10 ^3/uL Nucleated Red Blood Cells 0.1 % Platelet Estimate Pending D-Dimer, Quantitative 0.59 H 0.0-0.49 mg/L FEU Sodium Level 139 136-145 mmol/L Potassium Level 2.8 L 3.5-5.1 mmol/L Chloride Level 108 H 98-107 mmol/L Carbon Dioxide Level 22 20-31 mmol/L Anion Gap 9 5-15 Blood Urea Nitrogen 17 9-23 mg/dL Creatinine 1.16 0.700-1.30 mg/dL Glomerular Filtration Rate Calc 79 >90 mL/min BUN/Creatinine Ratio 14.7 10.0-20.0 Serum Glucose 106 74-106 mg/dL Calcium Level 7.9 L 8.7-10.4 mg/dL Total Bilirubin 7.9 H 0.2-1.0 mg/dL Aspartate Amino Transferase (AST) 77 H 13-40 U/L Alanine Aminotransferase (ALT) 42 H 7-40 U/L Alkaline Phosphatase 264 H 46-116 U/L B-Type Natriuretic Peptide 68.94 0-100 pg/mL Total Protein 5.2 L 5.7-8.2 g/dL Albumin 2.2 L 3.2-4.8 g/dL POC Glucose 126 H 70-106 mg/dl Patient is a 45-year-old male presented to the ED with a chief complaint of worsening shortness of breath which started 1 day ago. Patient reported also feeling dizziness but denied any focal weakness, no difficulty in speech or swallowing. 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 Wells score for PE was less than 4 and D-dimer and bilateral lower extremity venous duplex will altered which showed mild elevation in the D-dimer at 0.59 and no evidence of DVT in the lower extremities. Chest x-ray showed pulmonary vascular congestion. CBC showed hemoglobin at 6.6 with hypochromia, hypokalemia was also seen. Patient was ordered to receive 1 unit of PRBC. Patient has a history of alcoholic liver cirrhosis diagnosed in 2004 and Comprehensive metabolic profile also showed elevated serum bilirubin, elevated transaminases and ALP, low albumin along with thrombocytopenia. Patient denied any black stools or active bleeding per rectum, no hematemesis. Patient has symptomatic anemia and will be admitted to the hospital for further inpatient care and he agrees with the plan. Time of 1ST Reevaluation: 14:12 Reevaluation 1ST: Unchanged Patient Education/Counseling: Diagnosis, Treatment Family Education/Counseling: No Family Present SEPSIS Sepsis Screen Date sepsis recognized/suspect: Feb 09, 2025 Time Sepsis recognized/suspect: 1131 Recent Procedure: No On Antibiotic Therapy: No Respiratory Rate >20: No Heart Rate >90: No Temp<36 C (96.8 F) or >38.3 C: No SBP <90 or MAP <65 mmHG: No New Acute Mental Status Change: No Is the patient on CPAP, BIPAP,: No Physician Orders Complete Blood Count (02/09/25 12:02) Chest Portable (02/09/25 12:02) Troponin-I Hs (02/09/25 13:02) Troponin-I Hs (02/09/25 15:02) Bilat Lower Dvt (02/09/25 12:02) Rbc Morphology (02/09/25 13:07) Magnesium (02/09/25 14:14) Potassium Chl 20meq/100ml (02/09/25 14:15) Reticulocyte Count (02/09/25 14:14) Packedcells -Active Bleeding (02/09/25 14:16) Type And Screen (02/09/25 14:16) Iron Panel (02/09/25 14:16) Reticulocyte Count (02/09/25 14:16) Stool Occult Blood (02/09/25 14:16) Vital Signs Date Time Temp Pulse Resp B/P (MAP) Pulse Ox O2 Delivery O2 Flow Rate FiO2 02/09/25 14:33 97.9 83 18 135/55 (81) 100 97.9 02/09/25 11:41 98.0 87 16 120/57 (78) 100 98.0 Laboratory Tests Test 02/09/25 13:07 White Blood Count 6.1 10^3/uL (4.4-10.8) Departure 1 Departure Time of Disposition: 14:45 Impression: Primary Impression: Symptomatic anemia Additional Impressions: Hypochromic anemia Liver cirrhosis, alcoholic Thrombocytopenia Hypokalemia Pulmonary vascular congestion Disposition: ADMITTED INPATIENT Condition: Fair Critical Care Note Critical Care Time?: No Stability Stability form required: No Heart Score Heart Score: Heart Score Response (Comments) Value History Moderate Suspicious 1 EKG Normal 0 Age 45-64 1 Risk Factors 1 or 2 risk factors 1 Troponin Normal limit 0 Total 3 LILLIE BERNABE RESIDENT Feb 09, 2025 12:17
--- NOTE | 2025-02-09 12:36 | DVH ---
CHEST RADIOGRAPH Indication: SOB Technique: Single frontal view of the chest was obtained Comparison: None FINDINGS: The cardiac silhouette is unremarkable. The lungs demonstrate perihilar airspace opacity. The pulmona ry vasculature is prominent. There is no pleural effusion.. There is no pneumothorax. IMPRESSION: Perihilar airspace opacities and pulmonary vascular congestion.
--- NOTE | 2025-02-09 13:03 | DVH ---
Bilateral lower extremity venous duplex Clinical History: suspected DVT Comparison: US BILAT LOWER DVT on DOS: 05/09/24, US LT LOWER DVT on DOS: 05/07/23, US BILAT LOWER DVT o n DOS: 05/03/23, LT LOWER DVT on DOS: 05/13/22, RT LOWER DVT on DOS: 12/20/21 Technique: Duplex Doppler evaluation of the deep venous systems of both lower extremities from the common femora l veins to the popliteal veins including color Doppler and spectral/pulsed waveform analysis was perf ormed. Findings: RIGHT SIDE: The common femoral vein demonstrates appropriate compressibility and waveform variability. There is compressibility/patency of the great saphenous vein at the proximal thigh. The femoral vein demonstrates appropriate compressibility and waveform variability. The deep femoral vein demonstrates appropriate compressibility and waveform variability. The popliteal vein demonstrates appropriate compressibility and waveform variability. There is normal compressibility at the tibioperoneal trunk. LEFT SIDE: The common femoral vein demonstrates appropriate compressibility and waveform variability. There is compressibility/patency of the great saphenous vein at the proximal thigh. The femoral vein demonstrates appropriate compressibility and waveform variability. The deep femoral vein demonstrates appropriate compressibility and waveform variability. The popliteal vein demonstrates appropriate compressibility and waveform variability. There is normal compressibility at the tibioperoneal trunk. Impression: No right or left femoropopliteal venous thrombosis.
[2025-02-09 13:36] LABS: Hematocrit 21.2 % (41.0-53.0); Mean Corpuscular Hemoglobin 26.6 pg (28.0-32.0); Mean Corpuscular Volume 84.8 fL (80.0-100.0); Nucleated Red Blood Cells % 0.1 %
[2025-02-09 13:43] LABS: Hemoglobin 6.6 g/dL (13.5-17.5)
[2025-02-09 13:54] LABS: Anion Gap 9 (5-15); BUN/Creatinine Ratio 14.7 (10.0-20.0); Blood Urea Nitrogen 17 mg/dL (9-23); Carbon Dioxide 22 mmol/L (20-31); Glucose 106 mg/dL (74-106); Sodium 139 mmol/L (136-145)
[2025-02-09 13:55] LABS: Alanine Aminotransferase 42 U/L (7-40); Albumin 2.2 g/dL (3.2-4.8); Alkaline Phosphatase 264 U/L (46-116); Calcium 7.9 mg/dL (8.7-10.4); Chloride 108 mmol/L (98-107); Potassium 2.8 mmol/L (3.5-5.1); Total Protein 5.2 g/dL (5.7-8.2)
[2025-02-09 14:06] LABS: Bilirubin, Total 7.9 mg/dL (0.2-1.0)
[2025-02-09 14:46] LABS: Anisocytosis Slight
[2025-02-09 15:07] LABS: Iron 33.0 ug/dL (65-175)
[2025-02-09 15:08] LABS: Total Iron Binding Capacity 201.0 ug/dL (250-425)
[2025-02-09] MEDS ORDERED: FERR1TAB8 PO (17:14)
[2025-02-09] MEDS ORDERED: POTA-228 PO (17:14)
[2025-02-09] MEDS ORDERED: FURO20TA4 PO (17:14)
[2025-02-09] MEDS ORDERED: NITROGLYCERIN 0.4 MG SL TAB SL PRN (17:15)
[2025-02-09] MEDS ORDERED: DOCUSATE SOD 100 MG CAP PO PRN (17:15)
[2025-02-09] MEDS ORDERED: ONDANSETRON HCL 4 MG/2 ML VIAL IV PRN (17:15)
[2025-02-09] MEDS ORDERED: MORPHINE SULFATE INJ 2 MG/ml SYRG IV PRN (17:15)
[2025-02-09] MEDS ORDERED: ACETAMINOPHEN 325 MG TAB PO PRN (17:15)
--- NOTE | 2025-02-09 17:57 | DVHHP2 ---
History of Present Illness Reason for Visit: Shortness of breath History of Present Illness Sanket Cool is a 45-year-old male with past medical of liver cirrhosis, hypertension, CHF, anemia, and GERD, who came to the hospital for shortness of breath. He sates he has been short of breath with associated dizziness, weakness, and chest pressure since yesterday. Patient states he usually walks daily, when he went to go for his walk yesterday he became short of breath very quickly and had to go back home. His symptoms were not improving prompting him to come to the hospital. Patient has previously been admitted here for similar complaints. He has received a blood transfusion in the past and is agreeable to receive blood again. Denies any abdominal pain, distention, nausea, or vomiting. Cardiovascular: CHF, HTN GI: GERD Heme/Onc: Anemia NOS Hepatobiliary: Cirrhosis Past Surgical History: Other (stent in liver) Smoke: No ALCOHOL: none (quit 2004) Lives: with Family Domestic Violence: Neg Review of Systems Constitutional: No: Fever, Chills, Sweats, Weakness, Malaise, Other Eyes: No: Pain, Vision change, Conjunctivae inflammation, Eyelid inflammation, Other, Redness ENT: No: Ear pain, Ear discharge, Nose pain, Nose discharge, Nose congestion, Mouth pain, Mouth swelling, Throat pain, Throat swelling, Other Respiratory: Shortness of breath, SOB with excertion; No: Cough, Dry, Wheezing, Hemoptysis, Pleuritic Pain, Sputum, Wheezing, Other Cardiovascular: No: Chest Pain, Palpitations, Orthopnea, Paroxysmal Noc. Dyspnea, Edema, Lt Headedness, Other Gastrointestinal: No: Nausea, Vomiting, Abdominal Pain, Diarrhea, Constipation, Melena, Hematochezia, Other Genitourinary: No Dysuria, No Frequency, No Incontinence, No Hematuria, No Retention, No Other Musculoskeletal: No: other, neck pain, shoulder pain, arm pain, back pain, hand pain, leg pain, foot pain Skin: No: Rash, Lesions, Jaundice, Bruising, Other Neurological: No: Weakness, Numbness, Incoordination, Change in speech, Confusion, Seizures, Other Allergies: Coded Allergies: NO KNOWN ALLERGIES (Unverified , 11/06/20) Medications Current Medications Medications Dose Ordered Sig/Christina Route Start Time Stop Time Status Last Admin Dose Admin Potassium Chloride 100 ml @ 50 mls/hr Q2H IV 02/09/25 14:15 02/09/25 20:14 Sodium Chloride 10 ml Q8HR IV 02/09/25 22:00 UNV Acetaminophen/ Hydrocodone Bitart 1 tab Q4HP PRN PO 02/09/25 17:15 UNV Ondansetron HCl 4 mg Q4HP PRN IV 02/09/25 17:15 UNV Docusate Sodium 100 mg BIDPRN PRN PO 02/09/25 17:15 UNV Acetaminophen 650 mg Q6HP PRN PO 02/09/25 17:15 UNV Nitroglycerin 0.4 mg Q5MINP PRN SL 02/09/25 17:15 UNV Morphine Sulfate 2 mg Q30M PRN IV 02/09/25 17:15 UNV Patient Own Medication 5,000 unit DAILY OR 02/10/25 10:00 UNV Exam Vital Signs Vital Signs Date Time Temp Pulse Resp B/P (MAP) Pulse Ox O2 Delivery O2 Flow Rate FiO2 02/09/25 14:33 97.9 83 18 135/55 (81) 100 97.9 General Appearance: Alert, Oriented X3, Cooperative, moderate distress HEENT: Atraumatic, PERRLA Respiratory: Clear to auscultation, Other (Short of breath at rest and with activity) Cardiovascular: Regular rate, Normal S1, Normal S2 Abdominal: Normal bowel sounds, Soft, No tenderness, No hepatospenomegaly, Other (distended) Extremities: No clubbing, No cyanosis, Normal pulses, Other (bilateral lower extremity edema) Skin: No rashes, No breakdown, No significant lesion Neuro: Normal gait, Normal speech, Strength at 5/5 X4 ext Psych/Mental Status: Mental status NL, Mood NL Labs/Xrays Labs Test 02/09/25 14:01 02/09/25 13:07 02/09/25 11:36 Range/Units Magnesium Level 1.6 1.6-2.6 mg/dL Iron Level 33 L 65-175 ug/dL Total Iron Binding Capacity 201 L 250-425 ug/dL Percent Iron Saturation 16.4 L 20-55 % Troponin I High Sensitivity 9 </=54 ng/L White Blood Count 6.1 4.4-10.8 10^3/uL Red Blood Count 2.50 L 4.5-5.90 10^6/uL Hemoglobin 6.6 *L 13.5-17.5 g/dL Hematocrit 21.2 L 41.0-53.0 % Mean Corpuscular Volume 84.8 80.0-100.0 fL Mean Corpuscular Hemoglobin 26.6 L 28.0-32.0 pg Mean Corpuscular Hemoglobin Concent 31.4 L 32.0-36.0 g/dL Red Cell Distribution Width 20.5 H 11.8-14.3 % Platelet Count 61 L 140-450 10^3/uL Mean Platelet Volume 9.7 6.9-10.8 fL Neutrophils (%) (Auto) 79.3 37.0-80.0 % Lymphocytes (%) (Auto) 9.3 L 10.0-50.0 % Monocytes (%) (Auto) 10.4 0.0-12.0 % Eosinophils (%) (Auto) 0.3 0.0-7.0 % Basophils (%) (Auto) 0.7 0.0-2.0 % Neutrophils # (Auto) 4.8 1.6-8.6 10 ^3/uL Lymphocytes # (Auto) 0.6 0.4-5.4 10 ^3/uL Monocytes # (Auto) 0.6 0-1.3 10 ^3/uL Eosinophils # (Auto) 0 0-0.8 10 ^3/uL Basophils # (Auto) 0 0-0.2 10 ^3/uL Nucleated Red Blood Cells 0.1 % Platelet Estimate Decreased Poikilocytosis (manual) Slight Anisocytosis (manual) Slight Schistocytes Few Reticulocyte Count (auto) 7.11 H 0.5-1.5 % D-Dimer, Quantitative 0.59 H 0.0-0.49 mg/L FEU Sodium Level 139 136-145 mmol/L Potassium Level 2.8 L 3.5-5.1 mmol/L Chloride Level 108 H 98-107 mmol/L Carbon Dioxide Level 22 20-31 mmol/L Anion Gap 9 5-15 Blood Urea Nitrogen 17 9-23 mg/dL Creatinine 1.16 0.700-1.30 mg/dL Glomerular Filtration Rate Calc 79 >90 mL/min BUN/Creatinine Ratio 14.7 10.0-20.0 Serum Glucose 106 74-106 mg/dL Calcium Level 7.9 L 8.7-10.4 mg/dL Total Bilirubin 7.9 H 0.2-1.0 mg/dL Aspartate Amino Transferase (AST) 77 H 13-40 U/L Alanine Aminotransferase (ALT) 42 H 7-40 U/L Alkaline Phosphatase 264 H 46-116 U/L B-Type Natriuretic Peptide 68.94 0-100 pg/mL Total Protein 5.2 L 5.7-8.2 g/dL Albumin 2.2 L 3.2-4.8 g/dL POC Glucose 126 H 70-106 mg/dl CHEST RADIOGRAPH FINDINGS: The cardiac silhouette is unremarkable. The lungs demonstrate perihilar airspace opacity. The pulmonary vasculature is prominent. There is no pleural effusion.. There is no pneumothorax. IMPRESSION: Perihilar airspace opacities and pulmonary vascular congestion. Bilateral lower extremity venous duplex Findings: RIGHT SIDE: The common femoral vein demonstrates appropriate compressibility and waveform variability. There is compressibility/patency of the great saphenous vein at the proximal thigh. The femoral vein demonstrates appropriate compressibility and waveform variability. The deep femoral vein demonstrates appropriate compressibility and waveform va riability. The popliteal vein demonstrates appropriate compressibility and waveform variability. There is normal compressibility at the tibioperoneal trunk. LEFT SIDE: The common femoral vein demonstrates appropriate compressibility and waveform variability. There is compressibility/patency of the great saphenous vein at the proximal thigh. The femoral vein demonstrates appropriate compressibility and waveform variability. The deep femoral vein demonstrates appropriate compressibility and waveform v ariability. The popliteal vein demonstrates appropriate compressibility and waveform variability. There is normal compressibility at the tibioperoneal trunk. Impression: No right or left femoropopliteal venous thrombosis. Assessment/Plan Assessment/Plan Assessment: Symptomatic anemia, Thrombocytopenia, Liver cirrhosis, alcoholic, Transaminitis, Hypocalcemia, Hypokalemia, CHF, GERD, Plan: Admit to Tele, Transfuse 1 unit PRBC, Manage/Monitor H&H closely, Mange/Monitor electrolytes, Ammonia level, Supplemental oxygen as needed, Home medications reconciled, Plan discussed with: Patient My Orders Orders - ARNOL MORLEY LENS ENGRAVER Procedure Category Date Status Time Admit ADMIT 02/09/25 Transmitted 17:06 Code Status CODE 02/09/25 Transmitted 17:06 Sodium Chloride Lock PHA 02/09/25 Logged (Saline Lock Ns) 22:00 Hydrocodone-Acet PHA 02/09/25 Logged 5/325mg Tab ([place] 17:15 Ondansetron Hcl PHA 02/09/25 Logged (Zofran) 17:15 Docusate Sodium PHA 02/09/25 Logged Capsule (Colace 17:15 Complete Blood Count LAB 02/10/25 Verified 04:00 Comprehensive LAB 02/10/25 Verified Metabolic Panel 04:00 Cardiac DIET 02/09/25 Transmitted Diet-2gna,Lofat,Lochol Dinner Condition: Critical MAHAD 02/09/25 In Process 17:06 Acetaminophen Tablet PHA 02/09/25 Logged (Tylenol Tablet) 17:15 Nitroglycerin PHA 02/09/25 Logged Sublingual (Ntrostat 17:15 Morphine Sulfate PHA 02/09/25 Logged Injection 17:15 Stat Ekg For Chest MAHAD 02/09/25 In Process Pain 17:06 Notify Md Of Changes MAHAD 02/09/25 In Process From Base 17:06 Manager Dental For [facility] 02/09/25 In Process 24 Hours 17:06 Emergency Dysrhythmia [facility] 02/09/25 In Process Protocol 17:06 Rhythm Strips Once [facility] 02/09/25 In Process Every Shift 17:06 Oxygen By Nasal RT 02/09/25 Transmitted Cannula 17:06 Ammonia LAB 02/09/25 Logged 17:06 Ammonia LAB 02/10/25 Verified 04:00 (Nf) Cholecalciferol PHA 02/10/25 Logged (Vitamin D) 10:00 Magnesium Sulfate ORDERS 02/10/25 Transmitted 04:00 Furosemide Injection PHA 02/10/25 Verified (Lasix Injection) 10:00 (Nf) Ferrous Sulfate PHA 02/10/25 Verified (Gnp Iron) 07:00 Date of Service: Feb 09, 2025 Billing Provider: ARNOL MORLEY Common Visit Codes: [id number] INP/OBS CARE (HIGH) ARNOL MORLEY Feb 09, 2025 17:57
[2025-02-10] VITALS (11 sets, daily range): BP systolic 117–133; BP diastolic 51–74; PULSE 76–93; RESP 12–19; TEMP 97.4–98.7; O2SAT 96–100
[2025-02-10] MEDS: CALCIUM GLUC 1,000mg/50ml-NS 50 ML IV ONE (01:49)
[2025-02-10] MEDS: SODIUM CHLOR 0.9% PF (SALINE LOCK) 10ML VIAL/SYR IV SCH (01:49)
[2025-02-10] MEDS: MAGNESIUM SULFATE 1GM/100ML 100 ML IV ONE (02:03)
[2025-02-10] MEDS: HYDROcodone-ACET 5/325MG TAB PO PRN (02:07)
[2025-02-10] MEDS: POTASSIUM CHL 20 Meq TABLET PO ONE (03:19)
[2025-02-10] MEDS: POTASSIUM CHL 20MEQ/100ML 100 ML IV SCH (03:20)
[2025-02-10 05:19] LABS: Nucleated Red Blood Cells % 0.2 %
[2025-02-10 05:23] LABS: Hematocrit 21.4 % (41.0-53.0); Mean Corpuscular Hemoglobin 27.1 pg (28.0-32.0); Mean Corpuscular Volume 85.0 fL (80.0-100.0)
[2025-02-10 05:34] LABS: Anion Gap 10 (5-15); BUN/Creatinine Ratio 14.7 (10.0-20.0); Blood Urea Nitrogen 16 mg/dL (9-23); Carbon Dioxide 21 mmol/L (20-31); Glucose 87 mg/dL (74-106); Sodium 138 mmol/L (136-145)
[2025-02-10 05:45] LABS: Hemoglobin 6.8 g/dL (13.5-17.5)
[2025-02-10 05:57] LABS: Alanine Aminotransferase 41 U/L (7-40); Albumin 2.3 g/dL (3.2-4.8); Alkaline Phosphatase 265 U/L (46-116); Bilirubin, Total 7.6 mg/dL (0.2-1.0); Calcium 8.2 mg/dL (8.7-10.4); Chloride 107 mmol/L (98-107); Potassium 2.9 mmol/L (3.5-5.1); Total Protein 5.4 g/dL (5.7-8.2)
[2025-02-10] MEDS: FERROUS SULFATE 325mg EC TAB PO SCH (07:18)
[2025-02-10] MEDS: CHOLECALCIFEROL (VITD3) 1,000UNIT=25mCg TAB PO SCH (10:44)
[2025-02-10] MEDS: FUROSEMIDE 20 MG/2 ML VIAL IV SCH (10:47)
--- NOTE | 2025-02-10 12:14 | DVHPN2 ---
Subjective The patient is seen and examined at bedside. Complain of dizziness. Reviewed: Care Plan, H&P, Labs, Medications, Previous Orders, Radiology Changes from previous H/P or p: No Changes Eyes: No Pain, No Vision change, No Conjunctivae inflammation, No Eyelid inflammation, No Other, No Redness ENT: No Ear pain, No Ear discharge, No Nose pain, No Nose discharge, No Nose congestion, No Mouth pain, No Mouth swelling, No Throat pain, No Throat swelling, No Other Cardiovascular: No Chest Pain, No Palpitations, No Orthopnea, No Paroxysmal Noc. Dyspnea, No Edema, No Lt Headedness, No Other Respiratory: No Cough, No Dry; Shortness of breath, SOB with excertion; No Wheezing, No Hemoptysis, No Pleuritic Pain, No Sputum, No Other Gastrointestinal: No Nausea, No Vomiting, No Abdominal Pain, No Diarrhea, No Constipation, No Melena, No Hematochezia, No Other Genitourinary: No Dysuria, No Frequency, No Incontinence, No Hematuria, No Retention, No Other Musculoskeletal: No other, No neck pain, No shoulder pain, No arm pain, No back pain, No hand pain, No leg pain, No foot pain Skin: No Rash, No Lesions, No Jaundice, No Bruising, No Other Objective Vitals Vital Signs Date Time Temp Pulse Resp B/P (MAP) Pulse Ox O2 Delivery O2 Flow Rate FiO2 02/10/25 11:30 84 11 130/64 (86) 99 02/10/25 08:39 Room Air* 0 21 02/10/25 07:30 98.3 98.3 Intake/Output Intake and Output 02/10/25 07:00 Intake Total 600 ml Output Total 0 ml Balance 600 ml Intake Blood Product 600 ml Output Urine Total 0 ml General Appearance: Alert, Oriented X3, Cooperative, No acute distress HEENT: Atraumatic, PERRLA, EOMI, Mucous membr. moist/pink Neck: Supple Lungs: Clear to auscultation, Normal air movement Cardiovascular: Regular rate, Normal S1, Normal S2, No murmurs, Gallops, Rubs Abdomen: Normal bowel sounds, Soft, No tenderness Extremities: Normal pulses Neuro: Cranial nerves 3-12 NL Psych/Mental Status: Mental status NL Medications Current Medications Medications Dose Ordered Sig/Christina Route Start Time Stop Time Status Last Admin Dose Admin Sodium Chloride 10 ml Q8HR IV 7/7/25 22:00 02/10/25 06:08 10 ML Acetaminophen/ Hydrocodone Bitart 1 tab Q4HP PRN PO 02/09/25 17:15 02/10/25 02:07 1 TAB Ondansetron HCl 4 mg Q4HP PRN IV 02/09/25 17:15 Docusate Sodium 100 mg BIDPRN PRN PO 02/09/25 17:15 Acetaminophen 650 mg Q6HP PRN PO 02/09/25 17:15 Nitroglycerin 0.4 mg Q5MINP PRN SL 02/09/25 17:15 Morphine Sulfate 2 mg Q30M PRN IV 02/09/25 17:15 Cholecalciferol 5,000 unit DAILY PO 02/10/25 10:00 02/10/25 10:44 5,000 UNIT Furosemide 20 mg DAILY IV 02/10/25 10:00 02/10/25 10:47 20 MG Ferrous Sulfate 325 mg QAM PO 02/10/25 07:00 02/10/25 07:18 325 MG Laboratory Results Laboratory Tests 02/10/25 04:15 Chemistry Test 02/09/25 13:07 02/09/25 14:01 02/10/25 04:15 Albumin 2.2 g/dL (3.2-4.8) L 2.3 g/dL (3.2-4.8) L Calcium Level 7.9 mg/dL (8.7-10.4) L 8.2 mg/dL (8.7-10.4) L Total Protein 5.2 g/dL (5.7-8.2) L 5.4 g/dL (5.7-8.2) L Magnesium Level 1.6 mg/dL (1.6-2.6) Coagulation Test 02/09/25 13:07 D-Dimer, Quantitative 0.59 mg/L FEU (0.0-0.49) H Cardiac Markers Test 02/09/25 13:07 B-Type Natriuretic Peptide 68.94 pg/mL (0-100) LFT Test 02/09/25 13:07 02/10/25 04:15 Alanine Aminotransferase (ALT) 42 U/L (7-40) H 41 U/L (7-40) H Alkaline Phosphatase 264 U/L (46-116) H 265 U/L (46-116) H Aspartate Amino Transferase (AST) 77 U/L (13-40) H 77 U/L (13-40) H Total Bilirubin 7.9 mg/dL (0.2-1.0) H 7.6 mg/dL (0.2-1.0) H Labs and/or images reviewed: Labs reviewed by me Assessment/Plan Assessment/Plan Symptomatic anemia, Thrombocytopenia, Liver cirrhosis, alcoholic, Transaminitis, Hypocalcemia, Hypokalemia, CHF, GERD, Continuing current management. We will follow up closely with a H&H. Continuing Protonix. Advised to stop drinking alcohol more than 15 minutes. Replace electrolytes. Plan discussed with: Patient Date of Service: Feb 10, 2025 Billing Provider: HELENE BOSWELL MD Common Visit Codes: [id number] INP/OBS CARE(HIGH) HELENE BOSWELL MD Feb 10, 2025 12:14
[2025-02-11] VITALS (7 sets, daily range): BP systolic 105–129; BP diastolic 55–79; PULSE 69–86; RESP 18–20; TEMP 36.7; O2SAT 96–99
[2025-02-11 07:10] LABS: Hematocrit 25.1 % (41.0-53.0); Mean Corpuscular Volume 83.6 fL (80.0-100.0)
[2025-02-11 07:14] LABS: Hemoglobin 8.1 g/dL (13.5-17.5); Mean Corpuscular Hemoglobin 27.1 pg (28.0-32.0); Nucleated Red Blood Cells % 0.2 %
[2025-02-11 11:31] LABS: Alanine Aminotransferase 38 U/L (7-40); Anion Gap 6 (5-15); BUN/Creatinine Ratio 18.2 (10.0-20.0); Blood Urea Nitrogen 18 mg/dL (9-23); Carbon Dioxide 25 mmol/L (20-31); Chloride 106 mmol/L (98-107); Glucose 74 mg/dL (74-106); Sodium 137 mmol/L (136-145)
[2025-02-11 11:35] LABS: Albumin 2.2 g/dL (3.2-4.8); Alkaline Phosphatase 231 U/L (46-116); Bilirubin, Total 8.3 mg/dL (0.2-1.0); Calcium 8.2 mg/dL (8.7-10.4); Potassium 2.9 mmol/L (3.5-5.1); Total Protein 5.1 g/dL (5.7-8.2)
[2025-02-11] MEDS: POTASSIUM CHL 20 Meq TABLET PO SCH (13:07)
--- NOTE | 2025-02-11 13:10 | DVHPN2 ---
Subjective The patient is seen and examined at bedside. Complain of dizziness. Reviewed: Care Plan, H&P, Labs, Medications, Previous Orders, Radiology Eyes: No Pain, No Vision change, No Conjunctivae inflammation, No Eyelid inflammation, No Other, No Redness ENT: No Ear pain, No Ear discharge, No Nose pain, No Nose discharge, No Nose congestion, No Mouth pain, No Mouth swelling, No Throat pain, No Throat swelling, No Other Cardiovascular: No Chest Pain, No Palpitations, No Orthopnea, No Paroxysmal Noc. Dyspnea, No Edema, No Lt Headedness, No Other Respiratory: No Cough, No Dry; Shortness of breath, SOB with excertion; No Wheezing, No Hemoptysis, No Pleuritic Pain, No Sputum, No Other Gastrointestinal: No Nausea, No Vomiting, No Abdominal Pain, No Diarrhea, No Constipation, No Melena, No Hematochezia, No Other Genitourinary: No Dysuria, No Frequency, No Incontinence, No Hematuria, No Retention, No Other Musculoskeletal: No other, No neck pain, No shoulder pain, No arm pain, No back pain, No hand pain, No leg pain, No foot pain Skin: No Rash, No Lesions, No Jaundice, No Bruising, No Other Objective Vitals Vital Signs Date Time Temp Pulse Resp B/P (MAP) Pulse Ox O2 Delivery O2 Flow Rate FiO2 02/11/25 09:00 98.0 79 18 106/59 (75) 98 98.0 02/11/25 08:37 Room Air* 0 21 Intake/Output Intake and Output 02/11/25 07:00 Intake Total 1600 ml Output Total 500 ml Balance 1100 ml Intake Oral 1600 ml Output Urine Total 500 ml General Appearance: Alert, Oriented X3, Cooperative, No acute distress HEENT: Atraumatic, PERRLA, EOMI, Mucous membr. moist/pink Neck: Supple Lungs: Clear to auscultation, Normal air movement Cardiovascular: Regular rate, Normal S1, Normal S2, No murmurs, Gallops, Rubs Abdomen: Normal bowel sounds, Soft, No tenderness Extremities: Normal pulses Neuro: Cranial nerves 3-12 NL Psych/Mental Status: Mental status NL Medications Current Medications Medications Dose Ordered Sig/Christina Route Start Time Stop Time Status Last Admin Dose Admin Sodium Chloride 10 ml Q8HR IV 02/09/25 22:00 02/11/25 06:02 10 ML Acetaminophen/ Hydrocodone Bitart 1 tab Q4HP PRN PO 02/09/25 17:15 02/10/25 02:07 1 TAB Ondansetron HCl 4 mg Q4HP PRN IV 02/09/25 17:15 Docusate Sodium 100 mg BIDPRN PRN PO 02/09/25 17:15 Acetaminophen 650 mg Q6HP PRN PO 02/09/25 17:15 Nitroglycerin 0.4 mg Q5MINP PRN SL 02/09/25 17:15 Morphine Sulfate 2 mg Q30M PRN IV 02/09/25 17:15 Cholecalciferol 5,000 unit DAILY PO 02/10/25 10:00 02/11/25 09:02 5,000 UNIT Furosemide 20 mg DAILY IV 02/10/25 10:00 02/10/25 10:47 20 MG Ferrous Sulfate 325 mg QAM PO 02/10/25 07:00 02/11/25 06:02 325 MG Potassium Chloride 40 meq Q2H PO 02/11/25 12:45 02/11/25 14:46 02/11/25 13:07 40 MEQ Laboratory Results Laboratory Tests 02/11/25 06:20 02/11/25 10:38 Chemistry Test 02/11/25 10:38 Albumin 2.2 g/dL (3.2-4.8) L Calcium Level 8.2 mg/dL (8.7-10.4) L Total Protein 5.1 g/dL (5.7-8.2) L LFT Test 02/11/25 10:38 Alanine Aminotransferase (ALT) 38 U/L (7-40) Alkaline Phosphatase 231 U/L (46-116) H Aspartate Amino Transferase (AST) 78 U/L (13-40) H Total Bilirubin 8.3 mg/dL (0.2-1.0) H Assessment/Plan Assessment/Plan Symptomatic anemia, Thrombocytopenia, Liver cirrhosis, alcoholic, Transaminitis, Hypocalcemia, Hypokalemia, CHF, GERD, Continuing current management. We will follow up closely with a H&H. Continuing Protonix. Advised to stop drinking alcohol more than 15 minutes. Replace electrolytes. My Orders Orders - HELENE BOSWELL MD Procedure Category Date Status Time Potassium Er Tablet PHA 02/11/25 In Process (Klor-Con Tablet) 12:45 Gallbladder US 02/11/25 Logged 12:44 HELENE BOSWELL MD Feb 11, 2025 13:10
[2025-02-11] MEDS ORDERED: LACT10PA2 PO (13:40)
[2025-02-11] MEDS ORDERED: [UNRECOGNIZED DRUG - CODE] PO (13:40)
--- NOTE | 2025-02-11 13:42 | DVHDS2 ---
Discharge Summary Date of Admission Feb 09, 2025 at 17:06 Date of Discharge: Feb 11, 2025 Admitting Diagnosis Symptomatic anemia, Thrombocytopenia, Liver cirrhosis, alcoholic, Transaminitis, Hypocalcemia, Hypokalemia, CHF, GERD, Labs/Diagnostic Data: Laboratory Results Test 02/11/25 10:38 02/11/25 06:20 02/10/25 16:44 02/10/25 04:15 Sodium Level 137 mmol/L (136-145) Potassium Level 2.9 mmol/L (3.5-5.1) Chloride Level 106 mmol/L (98-107) Carbon Dioxide Level 25 mmol/L (20-31) Anion Gap 6 (5-15) Blood Urea Nitrogen 18 mg/dL (9-23) Creatinine 0.99 mg/dL (0.700-1.30) Glomerular Filtration Rate Calc 95 mL/min (>90) BUN/Creatinine Ratio 18.2 (10.0-20.0) Serum Glucose 74 mg/dL (74-106) Calcium Level 8.2 mg/dL (8.7-10.4) Total Bilirubin 8.3 mg/dL (0.2-1.0) Aspartate Amino Transferase (AST) 78 U/L (13-40) Alanine Aminotransferase (ALT) 38 U/L (7-40) Alkaline Phosphatase 231 U/L (46-116) Total Protein 5.1 g/dL (5.7-8.2) Albumin 2.2 g/dL (3.2-4.8) White Blood Count 7.0 10^3/uL (4.4-10.8) Red Blood Count 3.00 10^6/uL (4.5-5.90) Hemoglobin 8.1 g/dL (13.5-17.5) Hematocrit 25.1 % (41.0-53.0) Mean Corpuscular Volume 83.6 fL (80.0-100.0) Mean Corpuscular Hemoglobin 27.1 pg (28.0-32.0) Mean Corpuscular Hemoglobin Concent 32.4 g/dL (32.0-36.0) Red Cell Distribution Width 20.1 % (11.8-14.3) Platelet Count 49 10^3/uL (140-450) Mean Platelet Volume 9.4 fL (6.9-10.8) Neutrophils (%) (Auto) 62.8 % (37.0-80.0) Lymphocytes (%) (Auto) 20.3 % (10.0-50.0) Monocytes (%) (Auto) 12.5 % (0.0-12.0) Eosinophils (%) (Auto) 3.9 % (0.0-7.0) Basophils (%) (Auto) 0.5 % (0.0-2.0) Neutrophils # (Auto) 4.4 10 ^3/uL (1.6-8.6) Lymphocytes # (Auto) 1.4 10 ^3/uL (0.4-5.4) Monocytes # (Auto) 0.9 10 ^3/uL (0-1.3) Eosinophils # (Auto) 0.3 10 ^3/uL (0-0.8) Basophils # (Auto) 0 10 ^3/uL (0-0.2) Nucleated Red Blood Cells 0.2 % Stool Occult Blood Positive (Negative) Stool Occult Blood Sample #3 (Negative) Ammonia 50 umol/L (11-32) Test 02/09/25 14:01 02/09/25 13:07 02/09/25 11:36 Magnesium Level 1.6 mg/dL (1.6-2.6) Iron Level 33 ug/dL (65-175) Total Iron Binding Capacity 201 ug/dL (250-425) Percent Iron Saturation 16.4 % (20-55) Troponin I High Sensitivity 9 ng/L (</=54) Platelet Estimate Decreased Poikilocytosis (manual) Slight Anisocytosis (manual) Slight Schistocytes Few Reticulocyte Count (auto) 7.11 % (0.5-1.5) D-Dimer, Quantitative 0.59 mg/L FEU (0.0-0.49) B-Type Natriuretic Peptide 68.94 pg/mL (0-100) POC Glucose 126 mg/dl (70-106) Other Laboratory Tests 02/11/25 10:38 02/11/25 06:20 Brief Hx & Hospital Course: This is a 45 years old male with past medical history of liver cirrhosis, hypertension, congestive heart failure, anemia and GERD come to emergency department because of weakness, shortness for breath, dizziness and chest pressure for one day. Patient states that he usually walks daily however on the day of admission he become shortness for breath that he needs to return back to his home to rest. The patient's symptoms did not improve that is prompt him to come to hospital for further evaluation. The patient was found to have hemoglobin of 6.6. The patient received one packed red blood cell transfusions and today his hemoglobin up to 8.1. The patient is a liver transplant candidate. The patient had his appointment with his cartridge loading operator in [facility] in two weeks. The patient we will follow up with them per schedule. Today the patient did not complain of any dizziness or weakness. Patient tolerated diet. No so so bleeding. Hemoglobin stable. So I am going to discharge him home. Advised him to follow up with primary care physician 1-2 weeks. Follow up with his cartridge loading operator in [facility] per schedule. Activity as tolerated. Diet per home diet. Physical exam: HEENT: Normocephalic atraumatic pupils equal react to light and accommodation. Extraocular muscles intact, conjunctiva pink, oropharynx moist, no thrush, no exudate. Lymphatic: No lymphadenopathy Cardiovascular exam: S1, S2 was heard. No murmurs, rubs, gallops Lung: Clear on auscultation bilaterally, no wheeze, rale, rhonchi. GI: Abdominal soft, nondistended, nontenderness, positive bowel sounds. Extremity: No crepitus, cyanosis, edema. Pedal pulses present bilateral. Full range of motion. Skin: Normal turgor, no rash. Psych: Alert, oriented x3. Neurology: No focal deficits, cranial nerve II to XII grossly intact. This medical document was created using an electronic medical record system with [employer] direct computerized dictation system. Although this document has been carefully reviewed, there may still be some phonetic and typographical errors. These areas are purely typographical due to imperfections of the software programs, and do not reflect any compromise in the patient's medical care. Condition at Discharge: Stable Final Diagnosis/Problems List Symptomatic anemia, Thrombocytopenia, Liver cirrhosis, alcoholic, Transaminitis, Hypocalcemia, Hypokalemia, CHF, GERD, Discharge Disposition: Home Discharge Instruct/Medications Diet: Cardiac 2g Na,low cholest Activity: No Restrictions, As Tolerated Follow Up/Referral: PCP 1-2 WEEKS [employer]/GI AT [facility] PER SCHEDULE Scheduled Cholecalciferol (Vitamin D), 5,000 UNIT OR DAILY, (Reported) Effervescent Base (Bulk) (Effervescent), 30 TAB PO DAILY Ferrous Sulfate (Gnp Iron), 1 TAB PO QAM, (Reported) Furosemide (Furosemide), 1 TAB PO DAILY, (Reported) Lactulose (Lactulose), 30 ML PO BID Pantoprazole Sodium Sesquihydr (Pantoprazole Sodium), 40 MG PO BID Spironolactone (Spironolactone), 1 TAB PO DAILY Sucralfate (Carafate Susp), 1 GM PO Q6HR Discontinued Medications Doxycycline Monohydrate (Doxycycline Monohydrate), 100 MG PO Q12HR Ferrous Gluconate (Iron 27), 240 MG PO DAILY Potassium Chloride (K-Tab), 20 MEQ PO DAILY Potassium Chloride (Potassium Chloride ER), 2 TAB PO DAILY, (Reported) Discharge Statement: "Patient was advised to return to the ER or call 911 if any headaches, dizziness, shortness of breath, chest pain, abdominal pain, bleeding, fevers, or worsening of medical condition. Patient was counseled about treatment plan, medications, possible side effects, patientverbalized understanding. All questions were answered to the best of my ability. This discharge took greater then 30 minutes in planning, reviewing documentation, counseling the patient, and discussing with other team members." ASSESSMENT ASSESSMENT Assessment ANEMIA Date of Service: Feb 11, 2025 Billing Provider: HELENE BOSWELL MD Common Visit Codes: [id number] DISCH DAY >30min HELENE BOSWELL MD Feb 11, 2025 13:42
--- NOTE | 2025-02-11 14:05 | DVH ---
INDICATION: abnormal labs result TECHNIQUE: Multiple real-time sonographic images were obtained of the right upper quadrant. COMPARISON: US LIVER on DOS: 09/08/24, US LIVER on DOS: 05/09/24, US ABDOMEN LIMITED on DOS: 05/03/23 FINDINGS: Evaluation is limited due to obscuration from bowel gas and body habitus. The liver demonst rates coarsened echotexture. The liver measures 12 cm. Common bile duct is not well visualized due t o obscuration from bowel gas. Possible gallstones. The gallbladder wall measures 4 mm and is thickened. The right kidney measures 10.8 cm. The right kidney is normal in contour, size, and shape. The echog enicity is normal. There is no hydronephrosis. The pancreas is not well visualized due to overlying bowel gas. IMPRESSION: Evaluation is limited due to obscuration from bowel gas and body habitus. Coarsened liver echotexture suggestive of chronic liver disease. Possible gallstones. Mild gallbladder wall thickening which is nonspecific in the setting of chronic liver disease.
== END 2025-02-11 16:00 | disposition home or self-care (01) | DRG 663 ==
LOC: ER 11:16 → OVERFLOW 17:06 → TELE-WESTW 02-10 17:35
PROVIDERS: ADMIT Internal Medicine; ATTEND Internal Medicine
PROC: 30233N1 Transfusion of Nonautologous Red Blood Cells into Peripheral Vein, Percutaneous Approach (ICD-10-PCS; principal; 2025-02-10)
DX: D50.9 Iron deficiency anemia, unspecified (principal); I50.33 Acute on chronic diastolic (congestive) heart failure; D69.6 Thrombocytopenia, unspecified; K70.30 Alcoholic cirrhosis of liver without ascites; E83.51 Hypocalcemia; I11.0 Hypertensive heart disease with heart failure; E87.6 Hypokalemia; R09.89 Other specified symptoms and signs involving the circulatory and respiratory systems; K21.9 Gastro-esophageal reflux disease without esophagitis; Z82.49 Family history of ischemic heart disease and other diseases of the circulatory system; Z83.3 Family history of diabetes mellitus; Z87.11 Personal history of peptic ulcer disease
CPT/HCPCS: 36415; 71045; 76705; 80053; 82140; 82270; 82962; 83540; 83550; 83735; 83880; 84484; 85025; 85045; 85379; 86850; 86900; 86901; 86920; 93970; G0378

== ENCOUNTER 2025-03-04 06:17 | Inpatient (IN) | payer OTHER ==
[~2025-03-04] VITALS: Ht 165.1 cm; Wt 141.5 kg
[~2025-03-04 06:17] MED LIST changes: -DOX100T PO; +FERR1TAB8 PO; -FERR240T9 PO; +FURO20TA4 PO; -POTA1TAB4 PO; +[UNRECOGNIZED DRUG - CODE] PO
--- NOTE | 2025-03-04 06:40 | ED.PDOC ---
History of Present Illness HPI Comments THIS IS A 45 YEAR OLD MALE PRESENTING TO THE ED WITH CHIEF COMPLAINT OF ABNORMAL LABS. PATIENT REPORTS THAT HE VISITED HIS PCP YESTERDAY FOR BLOOD WORK TO CHECK HIS HEMOGLOBIN LEVELS. PATIENT RELAYS THAT HE HAS HISTORY OF LIVER CIRRHOSIS AND ANEMIA, NOTING THAT HE HAD A BLOOD TRANSFUSION PERFORMED IN [facility] 3 WEEKS AGO DUE TO HIS HGB BEING AT 6. PATIENT STATES THAT HE WAS TOLD TODAY THAT HIS HGB IS AT 7.1 AND HE NEEDS TO COME INTO THE ED FOR FURTHER EVALUATION. PATIENT NOTES THAT HE HAS BEEN EXPERIENCING INCREASED FATIGUE WITH ASSOCIATED SOB WITH EXERTION. PATIENT REPORTS THAT HE WAS STARTED ON IRON SUPPLEMENTS BY HIS PCP A MONTH AGO. PATIENT DENIES ANY ABDOMINAL PAIN, DISTENTION, RECTAL BLEEDING, CHEST PAIN, DIZZINESS, N/V, OR SYNCOPE. PT IS ALERT, ORIENTATION X4 WITH NORMAL GAIT. Time Seen by MD: 06:37 Primary Care Provider: ludy Reviewed Notes: Nurses Notes, Medications, Allergies Allergies: Coded Allergies: NO KNOWN ALLERGIES (Unverified , 11/06/20) Home Meds Active Scripts Effervescent Base (Bulk) (EFFERVESCENT) Pow, 30 TAB PO DAILY for 30 Days, #30 POW 3 Refills Prov:HELENE BOSWELL MD 02/11/25 Lactulose (Lactulose) 10 Gm Rei, 30 ML PO BID for 30 Days, #2000 ML 5 Refills Prov:HELENE BOSWELL MD 02/11/25 Pantoprazole Sodium Sesquihydr (Pantoprazole Sodium) 40 Mg Tab, 40 MG PO BID for 60 Days, #120 TAB Prov:WALTER VILLARREAL RESIDENT 10/22/24 Spironolactone (Spironolactone) 25 Mg Tab, 1 TAB PO DAILY for 60 Days, #60 TAB 1 Refill Prov:WALTER VILLARREAL RESIDENT 10/22/24 Reported Medications Potassium Chloride (Potassium Chloride ER) 20 Meq Tab, 1 TAB PO DAILY 03/04/25 Sucralfate (Sucralfate) 1 Gm Tab, 1 TAB PO BID 03/04/25 Ferrous Sulfate (Gnp Iron) 325 Mg Tab, 1 TAB PO QAM 02/09/25 Furosemide (Furosemide) 20 Mg Tab, 1 TAB PO DAILY 02/09/25 Cholecalciferol (VITAMIN D) 5,000 Unit Tab, 5000 UNIT OR DAILY, TAB 05/09/24 Discontinued Scripts Sucralfate (CARAFATE SUSP) 1 Gm/10 Ml Ss, 1 GM PO Q6HR for 30 Days, #120 ML Prov:WALTER VILLARREAL RESIDENT 10/22/24 Information Source: Patient Mode of Arrival: Ambulatory Severity: Mild Timing: Days Duration: Since onset, Days Prehospital treatment: None Medication Refill: For: Other (LOWER HGB, HX OF ANEMIA ) Past Medical History PAST MEDICAL HISTORY: Anemia, CHF, GERD, Liver, PUD Surgical History: Denies all surgeries Family History Family History: Family hx of DM, Family hx of HTN Social History Smoker: Non-Smoker Alcohol: Sober Drugs: Denies Drug Use Lives In: Home Constitutional: reports: fatigue; denies: chills, diaphoresis, fever, malaise, sweats, weakness, others EENTM: denies: blurred vision, double vision, ear bleeding, ear discharge, ear drainage, ear pain, ear ringing, eye pain, eye redness, hearing loss, mouth pain, mouth swelling, nasal discharge, nose bleeding, nose congestion, nose pain, photophobia, tearing, throat pain, throat swelling, voice changes, others Respiratory: denies: cough, hemoptysis, orthopnea, SOB at rest, shortness of breath, SOB with excertion, stridor, wheezing, others Cardiovascular: denies: chest pain, dizzy spells, diaphoresis, Dyspnea on exertion, edema, irregular heart beat, left arm pain, lightheadedness, palpitations, PND, syncope, others Gastrointestinal: denies: abdomen distended, abdominal pain, blood streaked bowels, constipated, diarrhea, dysphagia, difficulty swallowing, hematemesis, melena, nausea, poor appetite, poor fluid intake, rectal bleeding, rectal pain, vomiting, others Genitourinary: denies: burning, dysuria, flank pain, frequency, hematuria, incontinence, penile discharge, penile sore, pain, testicle pain, testicle swelling, urgency, others Neurological: denies: dizziness, fainting, headache, left sided numbness, left sided weakness, numbness, paresthesia, pre-existing deficit, right sided numbness, right sided weakness, seizure, speech problems, tingling, tremors, w eakness, others Musculoskeletal: denies: back pain, gout, joint pain, joint swelling, muscle pain, muscle stiffness, neck pain, others Integumetry: denies: bruises, change in color, change in hair/nails, dryness, laceration, lesions, lumps, rash, wounds, others Allergic/Immunocompromised: denies: Difficulty Healing, Frequent Infections, Hives, Itching, others Hematologic/Lymphatic: denies: anemia, blood clots, easy bleeding, easy bruising, swollen glands, others Endocrine: denies: excessive hunger, excessive sweating, excessive thirst, excessive urination, flushing, intolerance to cold, intolerance to heat, unexplained weight gain, unexplained weight loss, others Psychiatric: denies: anxiety, bipolar disorder, depression, hopeless, panic disorder, schizophrenia, sleepless, suicidal, others All Other Systems: Reviewed and Negative Physical Exam General Appearance: No Apparent Distress, Obese HEENT: Normal ENT Inspection, PERRL/EOMI Neck: Full Range of Motion, Non-Tender, Normal, Normal Inspection Respiratory: Chest Non-Tender, Lungs Clear, No Accessory Muscle Use, No Respiratory Distress, Normal Breath Sounds Cardiovascular: No Edema, No JVD, No Murmur, No Gallop, Normal Peripheral Pulses, Regular Rate/Rhythm Breast Exam: Deferred Gastrointestinal: No Organomegaly, Non Tender, No Pulsatile Mass, Normal Bowel Sounds, Soft Genitalia: Deferred Pelvic: Deferred Rectal: Deferred Extremities: No calf tenderness, Normal capillary refill, Normal inspection, Normal range of motion, Non-tender, No pedal edema Musculoskeletal : Apperance: Normal Neurologic: Alert, workers' compensation mediator II-XII nml as Tested, No Motor Deficits, Normal Affect, Normal Mood, No Sensory Deficits Cerebellar Function: Normal Reflexes: Normal Skin: Dry, Normal Color, Warm Peripheral Pulses: 2+ carotid (R), 2+ carotid (L) Lymphatic: No Adenopathy Was a procedure done? Was a procedure done?: No Differential Dx Considerations may include: ACUTE ON CHRONIC ANEMIA, HX OF LIVER CIRRHOSIS, BLOOD TRANSFUSION X-Ray, Labs, Meds, VS Vital Signs Date Time Temp Pulse Resp B/P (MAP) Pulse Ox O2 Delivery O2 Flow Rate FiO2 03/04/25 06:30 98.4 75 16 126/45 99 98.4 Lab Test 03/04/25 08:29 03/04/25 06:42 Range/Units Sodium Level 143 142 136-145 mmol/L Potassium Level 2.9 L 2.8 L 3.5-5.1 mmol/L Chloride Level 110 H 109 H 98-107 mmol/L Carbon Dioxide Level 24 22 20-31 mmol/L Anion Gap 9 11 5-15 Blood Urea Nitrogen 11 11 9-23 mg/dL Creatinine 1.00 1.05 0.700-1.30 mg/dL Glomerular Filtration Rate Calc 94 89 >90 mL/min BUN/Creatinine Ratio 11.0 10.5 10.0-20.0 Serum Glucose 84 99 74-106 mg/dL Calcium Level 7.8 L 7.8 L 8.7-10.4 mg/dL Total Bilirubin 7.5 H 0.2-1.0 mg/dL Aspartate Amino Transferase (AST) 88 H 13-40 U/L Alanine Aminotransferase (ALT) 47 H 7-40 U/L Alkaline Phosphatase 243 H 46-116 U/L Ammonia 58 H 11-32 umol/L Total Protein 5.1 L 5.7-8.2 g/dL Albumin 2.2 L 3.2-4.8 g/dL White Blood Count 3.7 L 4.4-10.8 10^3/uL Red Blood Count 2.54 L 4.5-5.90 10^6/uL Hemoglobin 7.4 L 13.5-17.5 g/dL Hematocrit 23.4 L 41.0-53.0 % Mean Corpuscular Volume 92.4 80.0-100.0 fL Mean Corpuscular Hemoglobin 29.3 28.0-32.0 pg Mean Corpuscular Hemoglobin Concent 31.7 L 32.0-36.0 g/dL Red Cell Distribution Width 24.5 H 11.8-14.3 % Platelet Count 47 L 140-450 10^3/uL Mean Platelet Volume 9.8 6.9-10.8 fL Neutrophils (%) (Auto) 66.1 37.0-80.0 % Lymphocytes (%) (Auto) 19.0 10.0-50.0 % Monocytes (%) (Auto) 9.4 0.0-12.0 % Eosinophils (%) (Auto) 4.4 0.0-7.0 % Basophils (%) (Auto) 1.1 0.0-2.0 % Neutrophils # (Auto) 2.4 1.6-8.6 10 ^3/uL Lymphocytes # (Auto) 0.7 0.4-5.4 10 ^3/uL Monocytes # (Auto) 0.3 0-1.3 10 ^3/uL Eosinophils # (Auto) 0.2 0-0.8 10 ^3/uL Basophils # (Auto) 0 0-0.2 10 ^3/uL Nucleated Red Blood Cells 0.3 % Prothrombin Time 20.7 H 9.3-11.8 sec Prothrombin Time INR 2.10 H 0.9-1.15 Current Medications Medications (Trade) Dose Ordered Sig/Christina Route Start Time Stop Time Status Last Admin Potassium Bicarbonate (Klor-Con/Ef) 75 meq ONCE ONCE PO 03/04/25 08:00 03/04/25 08:02 DC 03/04/25 09:48 X-Ray, Labs, Meds, VS Comment EXTERNAL MEDICAL RECORDS REVIEWED: [NONE] INDEPENDENT HISTORIANS: [NONE] SOCIAL DETERMINANTS OF HEALTH: [NONE] LABS ORDERED: CBC, BMP, TYPE/SCREEN, PTPTT REVIEWED AND INTERPRETED RESULTS: NONE IMAGING ORDERED: NONE TREATMENTS ORDERED: POTASSIUM 75 MEQ, CALCIUM 1G IV PROCEDURES PERFORMED: NONE CRITICAL CARE TIME: NONE I HAVE DISCUSSED THE PATIENT WITH THE ATTENDING PHYSICIAN DR. RUIZ AND HE AGREES WITH THE PATIENT'S PLAN OF CARE AND DISPOSITION. BASED ON HISTORY OF PRESENT ILLNESS, AND PHYSICAL EXAM, PATIENT WILL BE ADMITTED TO THE HOSPITAL FOR FURTHER INPATIENT EVALUATION AND TREATMENT. Time of 1ST Reevaluation: 07:00 Reevaluation 1ST: Unchanged Time of 2ND Reevaluation: 10:00 Reevaluation 2ND: Unchanged Patient Education/Counseling: Diagnosis, Treatment Family Education/Counseling: Diagnosis, Treatment SEPSIS Sepsis Screen Physician Orders Type And Screen (03/04/25 06:31) Heplock Iv (03/04/25 ) Vital Signs .PER UNIT PROTOCOL (03/04/25 08:10) Administer Blood Products UD (03/04/25 08:10) Ammonia (03/05/25 04:00) Pantoprazole Tablet (Protonix Tablet) (03/04/25 10:00) (Nf) Lactulose (03/04/25 10:00) Ferrous Sulfate Tablet (03/05/25 07:00) Vital Signs Date Time Temp Pulse Resp B/P (MAP) Pulse Ox O2 Delivery O2 Flow Rate FiO2 03/04/25 06:30 98.4 75 16 126/45 99 98.4 Laboratory Tests Test 03/04/25 06:42 White Blood Count 3.7 10^3/uL (4.4-10.8) L Medications Medications Dose Ordered Sig/Christina Route Start Time Stop Time Status Last Admin Dose Admin Potassium Bicarbonate 75 meq ONCE ONCE PO 03/04/25 08:00 03/04/25 08:02 DC 03/04/25 09:48 Departure 1 Departure Time of Disposition: 08:05 Impression: Primary Impression: Acute on chronic anemia Additional Impressions: Hypokalemia Hypocalcemia Disposition: ADMITTED INPATIENT Condition: Serious Critical Care Note Critical Care Time?: No Stability Stability form required: Yes Unstable for transfer: Requires medication, ED Physician Assesment, Possible rapid decline Heart Score Heart Score: Heart Score Response (Comments) Value History N/A 0 EKG N/A 0 Age N/A 0 Risk Factors N/A 0 Troponin N/A 0 Total 0 I personally scribed for ALMA MIRANDA ([email or web address]) on 03/04/25 at 06:40. Electronically submitted by Deshawn Kaur ([email or web address]). I personally scribed for ALMA MIRANDA ([email or web address]) on 03/04/25 at 07:48. Electronically submitted by Deshawn Kaur ([email or web address]). I personally scribed for ALMA MIRANDA PA ([email or web address]) on 03/04/25 at 08:02. Electronically submitted by Deshawn Kaur ([email or web address]). I personally scribed for ALMA MIRANDA ([email or web address]) on 03/04/25 at 08:05. Electronically submitted by Deshawn Kaur ([email or web address]). ALMA MIRANDA Mar 04, 2025 06:40
[2025-03-04 07:21] LABS: Hematocrit 23.4 % (41.0-53.0); Mean Corpuscular Hemoglobin 29.3 pg (28.0-32.0); Mean Corpuscular Volume 92.4 fL (80.0-100.0); Nucleated Red Blood Cells % 0.3 %
[2025-03-04 07:22] LABS: Hemoglobin 7.4 g/dL (13.5-17.5)
[2025-03-04 07:33] LABS: Sodium 142 mmol/L (136-145)
[2025-03-04 07:34] LABS: Anion Gap 11 (5-15); Carbon Dioxide 22 mmol/L (20-31)
[2025-03-04 07:39] LABS: Blood Urea Nitrogen 11 mg/dL (9-23); Calcium 7.8 mg/dL (8.7-10.4); Chloride 109 mmol/L (98-107); Glucose 99 mg/dL (74-106); Potassium 2.8 mmol/L (3.5-5.1)
[2025-03-04 07:40] LABS: BUN/Creatinine Ratio 10.5 (10.0-20.0); INR 2.1 (0.9-1.15); Prothrombin Time 20.7 sec (9.3-11.8)
[2025-03-04] MEDS ORDERED: SUCR1TAB PO (08:13)
[2025-03-04] MEDS ORDERED: DOCUSATE SOD 100 MG CAP PO PRN (09:15)
[2025-03-04] MEDS ORDERED: HYDROcodone-ACET 5/325MG TAB PO PRN (09:15)
[2025-03-04] MEDS ORDERED: ONDANSETRON HCL 4 MG/2 ML VIAL IV PRN (09:15)
[2025-03-04] MEDS ORDERED: ACETAMINOPHEN 325 MG TAB PO PRN (09:15)
[2025-03-04 09:27] LABS: Anion Gap 9 (5-15); BUN/Creatinine Ratio 11.0 (10.0-20.0); Blood Urea Nitrogen 11 mg/dL (9-23); Carbon Dioxide 24 mmol/L (20-31); Glucose 84 mg/dL (74-106); Sodium 143 mmol/L (136-145)
[2025-03-04] MEDS ORDERED: POTA-180 PO (09:29)
--- NOTE | 2025-03-04 09:31 | DVHHP2 ---
History of Present Illness Reason for Visit: Abnormal labs History of Present Illness Armando Cool is a 45-year-old male with past medical history of liver cirrhosis, anemia, CHF, and GERD, who came to the hospital for abnormal labs. Patient states he has been feeling fatigued and short of breath. He went to his primary care provider who had labs drawn that showed he had severe anemia. He was called and told to go to the hospital for a blood transfusion and further assessment. Patient has previously been admitted here for similar complaints. He has received a blood transfusion in the past and is agreeable to receive blood again. Denies any abdominal pain, distention, nausea, or vomiting. Cardiovascular: CHF GI: GERD Hepatobiliary: Cirrhosis Past Surgical History: Other (bilary stent) Smoke: No ALCOHOL: none Drugs: None Lives: with Family Domestic Violence: Neg Review of Systems Constitutional: Yes: Weakness, Malaise; No: Fever, Chills, Sweats, Other Eyes: No: Pain, Vision change, Conjunctivae inflammation, Eyelid inflammation, Other, Redness ENT: No: Ear pain, Ear discharge, Nose pain, Nose discharge, Nose congestion, Mouth pain, Mouth swelling, Throat pain, Throat swelling, Other Respiratory: No: Cough, Dry, Shortness of breath, SOB with excertion, Wheezing, Hemoptysis, Pleuritic Pain, Sputum, Wheezing, Other Cardiovascular: No: Chest Pain, Palpitations, Orthopnea, Paroxysmal Noc. Dyspnea, Edema, Lt Headedness, Other Gastrointestinal: No: Nausea, Vomiting, Abdominal Pain, Diarrhea, Constipation, Melena, Hematochezia, Other Genitourinary: No Dysuria, No Frequency, No Incontinence, No Hematuria, No Retention, No Other Musculoskeletal: No: other, neck pain, shoulder pain, arm pain, back pain, hand pain, leg pain, foot pain Skin: No: Rash, Lesions, Jaundice, Bruising, Other Neurological: No: Weakness, Numbness, Incoordination, Change in speech, Confusion, Seizures, Other Allergies: Coded Allergies: NO KNOWN ALLERGIES (Unverified , 11/06/20) Medications Current Medications Medications Dose Ordered Sig/Christina Route Start Time Stop Time Status Last Admin Dose Admin Pantoprazole Sodium 40 mg BID PO 03/04/25 10:00 UNV Patient Own Medication 1 tab QAM PO 03/05/25 07:00 UNV Patient Own Medication 30 ml BID PO 03/04/25 10:00 UNV Ferrous Sulfate 325 mg QAM PO 03/05/25 07:00 Exam Vital Signs Vital Signs Date Time Temp Pulse Resp B/P (MAP) Pulse Ox O2 Delivery O2 Flow Rate FiO2 03/04/25 06:30 98.4 75 16 126/45 99 98.4 General Appearance: Alert, Oriented X3, Cooperative, mild distress HEENT: Atraumatic Respiratory: Clear to auscultation, Normal air movement Cardiovascular: Regular rate, Normal S1, Normal S2 Abdominal: Normal bowel sounds, Soft, No tenderness, No hepatospenomegaly Extremities: No clubbing, No cyanosis, Normal pulses, Other (bilateral lower etremity edema) Skin: No rashes, No breakdown, No significant lesion Neuro: Normal gait, Normal speech, Strength at 5/5 X4 ext Psych/Mental Status: Mental status NL, Mood NL Labs/Xrays Labs Test 03/04/25 08:29 03/04/25 06:42 Range/Units White Blood Count 3.7 L 4.4-10.8 10^3/uL Red Blood Count 2.54 L 4.5-5.90 10^6/uL Hemoglobin 7.4 L 13.5-17.5 g/dL Hematocrit 23.4 L 41.0-53.0 % Mean Corpuscular Volume 92.4 80.0-100.0 fL Mean Corpuscular Hemoglobin 29.3 28.0-32.0 pg Mean Corpuscular Hemoglobin Concent 31.7 L 32.0-36.0 g/dL Red Cell Distribution Width 24.5 H 11.8-14.3 % Platelet Count 47 L 140-450 10^3/uL Mean Platelet Volume 9.8 6.9-10.8 fL Neutrophils (%) (Auto) 66.1 37.0-80.0 % Lymphocytes (%) (Auto) 19.0 10.0-50.0 % Monocytes (%) (Auto) 9.4 0.0-12.0 % Eosinophils (%) (Auto) 4.4 0.0-7.0 % Basophils (%) (Auto) 1.1 0.0-2.0 % Neutrophils # (Auto) 2.4 1.6-8.6 10 ^3/uL Lymphocytes # (Auto) 0.7 0.4-5.4 10 ^3/uL Monocytes # (Auto) 0.3 0-1.3 10 ^3/uL Eosinophils # (Auto) 0.2 0-0.8 10 ^3/uL Basophils # (Auto) 0 0-0.2 10 ^3/uL Nucleated Red Blood Cells 0.3 % Prothrombin Time 20.7 H 9.3-11.8 sec Prothrombin Time INR 2.10 H 0.9-1.15 SEPSIS Sepsis Screen Date sepsis recognized/suspect: Mar 04, 2025 Time Sepsis recognized/suspect: 629 Recent Procedure: No On Antibiotic Therapy: No Respiratory Rate >20: No Heart Rate >90: No Temp<36 C (96.8 F) or >38.3 C: No SBP <90 or MAP <65 mmHG: No New Acute Mental Status Change: No Is the patient on CPAP, BIPAP,: No Physician Orders Type And Screen (03/04/25 06:31) Heplock Iv (03/04/25 ) Packedcell-Noactive Bleeding (03/04/25 08:10) Vital Signs .PER UNIT PROTOCOL (03/04/25 08:10) Administer Blood Products UD (03/04/25 08:10) Ammonia (03/04/25 08:10) Comprehensive Metabolic Panel (03/04/25 08:10) Ammonia (03/05/25 04:00) Pantoprazole Tablet (Protonix Tablet) (03/04/25 10:00) (Nf) Lactulose (03/04/25 10:00) Ferrous Sulfate Tablet (03/05/25 07:00) Vital Signs Date Time Temp Pulse Resp B/P (MAP) Pulse Ox O2 Delivery O2 Flow Rate FiO2 03/04/25 06:30 98.4 75 16 126/45 99 98.4 Laboratory Tests Test 03/04/25 06:42 White Blood Count 3.7 10^3/uL (4.4-10.8) L Assessment/Plan Assessment/Plan Assessment: Symptomatic anemia, Pancytopenia, Hypokalemia, Liver cirrhosis, Obesity, Plan: Admit to Med-Surg, Transfuse 1 unit PRBC, Manage/Monitor H&H closely, Manage/Monitor electrolytes closely, Ammonia levels, Home medications reconciled, Plan discussed with: Patient My Orders Orders - ARNOL MORLEY Procedure Category Date Status Time Packedcell-Noactive BBK 03/04/25 Logged Bleeding 08:10 Vital Signs MAHAD 03/04/25 In Process 08:10 Administer Blood MAHAD 03/04/25 In Process Products 08:10 Ammonia LAB 03/04/25 In Process 08:10 Comprehensive LAB 03/04/25 In Process Metabolic Panel 08:10 Ammonia LAB 03/05/25 Verified 04:00 Pantoprazole Tablet PHA 03/04/25 Pending (Protonix Tablet) 10:00 (Nf) Lactulose PHA 03/04/25 Pending 10:00 Ferrous Sulfate Tablet PHA 03/05/25 In Process 07:00 Date of Service: Mar 04, 2025 Billing Provider: ARNOL MORLEY Common Visit Codes: [id number] INP/OBS CARE (MOD) ARNOL MORLEY Mar 04, 2025 09:31
[2025-03-04 09:34] LABS: Alanine Aminotransferase 47 U/L (7-40); Albumin 2.2 g/dL (3.2-4.8); Alkaline Phosphatase 243 U/L (46-116); Bilirubin, Total 7.5 mg/dL (0.2-1.0); Calcium 7.8 mg/dL (8.7-10.4); Chloride 110 mmol/L (98-107); Potassium 2.9 mmol/L (3.5-5.1); Total Protein 5.1 g/dL (5.7-8.2)
[2025-03-04] MEDS: POTASSIUM EFFERVESENT TAB 25 MEQ PO ONE (09:48)
[2025-03-04] MEDS: SUCRALFATE 1 GM TAB PO SCH (10:44)
[2025-03-04] MEDS: POTASSIUM CHL 20 Meq TABLET PO SCH (10:45)
[2025-03-04] MEDS: FUROSEMIDE 20 MG TAB PO SCH (10:45)
[2025-03-04 14:00] VITALS: BP 132/42; PULSE 79; RESP 20; TEMP 98.2; O2SAT 100
[2025-03-04] MEDS: LACTULOSE 20Gm/30ML SOLN PO ONE (14:40)
[2025-03-04] MEDS: PANTOPRAZOLE 40 MG TAB PO ONE (14:40)
[2025-03-04 15:25] LABS: Hematocrit 25.4 % (41.0-53.0); Hemoglobin 8.1 g/dL (13.5-17.5)
[2025-03-04 15:31] LABS: Potassium 3.1 mmol/L (3.5-5.1)
[2025-03-04 15:38] LABS: Magnesium 1.5 mg/dL (1.6-2.6)
[2025-03-04 15:56] VITALS: BP 118/50; PULSE 76; RESP 16; TEMP 98
[2025-03-04 16:03] VITALS: BP 108/51; PULSE 75; RESP 18; TEMP 98.2
[2025-03-04 16:15] VITALS: BP 128/54; PULSE 72; RESP 18; TEMP 98.1
[2025-03-04 18:47] VITALS: BP 127/57; PULSE 75; RESP 18; TEMP 97.9
[2025-03-04] MEDS: POTASSIUM CHL 20 Meq TABLET PO ONE (19:50)
[2025-03-04 20:53] LABS: Urine Protein, UAD Negative (Negative)
[2025-03-04] MEDS: MAGNESIUM SULFATE 1GM/100ML 100 ML IV SCH ×2 (21:25→23:15)
[2025-03-04 21:34] VITALS: BP 135/69; PULSE 79; RESP 20; TEMP 97.9; O2SAT 99
[2025-03-04] MEDS: LACTULOSE 20Gm/30ML SOLN PO SCH (22:13)
[2025-03-04] MEDS: CALCIUM GLUC 1,000mg/50ml-NS 50 ML IV ONE (22:37)
[2025-03-05] VITALS (8 sets, daily range): BP systolic 101–132; BP diastolic 45–77; PULSE 67–83; RESP 17–21; TEMP 97.5–98.4; O2SAT 97–100
[2025-03-05 05:38] LABS: Hematocrit 25.2 % (41.0-53.0); Hemoglobin 8.4 g/dL (13.5-17.5); Mean Corpuscular Hemoglobin 29.5 pg (28.0-32.0); Mean Corpuscular Volume 88.8 fL (80.0-100.0); Nucleated Red Blood Cells % 0.2 %
[2025-03-05 05:49] LABS: Anion Gap 8 (5-15); BUN/Creatinine Ratio 13.1 (10.0-20.0); Blood Urea Nitrogen 11 mg/dL (9-23); Carbon Dioxide 23 mmol/L (20-31); Magnesium 1.8 mg/dL (1.6-2.6); Sodium 142 mmol/L (136-145)
[2025-03-05] MEDS: FERROUS SULFATE 325mg EC TAB PO SCH (06:02)
[2025-03-05] MEDS: PANTOPRAZOLE 40 MG TAB PO SCH (06:02)
[2025-03-05 06:03] LABS: Alanine Aminotransferase 42 U/L (7-40); Albumin 1.9 g/dL (3.2-4.8); Alkaline Phosphatase 210 U/L (46-116); Bilirubin, Total 8.9 mg/dL (0.2-1.0); Calcium 7.3 mg/dL (8.7-10.4); Chloride 111 mmol/L (98-107); Glucose 74 mg/dL (74-106); Potassium 3.1 mmol/L (3.5-5.1); Total Protein 4.6 g/dL (5.7-8.2)
[2025-03-05] MEDS ORDERED: PATIENTS OWN MEDICATION (Ferrous Sulfate (Gnp Iron) 1 TAB) PO SCH (07:00)
--- NOTE | 2025-03-05 14:25 | DVHPN2 ---
Subjective Symptoms improving Reviewed: H&P Changes from previous H/P or p: No Changes General: Per HPI Eyes: No Pain, No Vision change, No Conjunctivae inflammation, No Eyelid inflammation, No Other, No Redness ENT: No Ear pain, No Ear discharge, No Nose pain, No Nose discharge, No Nose congestion, No Mouth pain, No Mouth swelling, No Throat pain, No Throat swelling, No Other Cardiovascular: No Chest Pain, No Palpitations, No Orthopnea, No Paroxysmal Noc. Dyspnea, No Edema, No Lt Headedness, No Other Respiratory: No Cough, No Dry, No Shortness of breath, No SOB with excertion, No Wheezing, No Hemoptysis, No Pleuritic Pain, No Sputum, No Other Gastrointestinal: No Nausea, No Vomiting, No Abdominal Pain, No Diarrhea, No Constipation, No Melena, No Hematochezia, No Other Genitourinary: No Dysuria, No Frequency, No Incontinence, No Hematuria, No Retention, No Other Musculoskeletal: No other, No neck pain, No shoulder pain, No arm pain, No back pain, No hand pain, No leg pain, No foot pain Skin: No Rash, No Lesions, No Jaundice, No Bruising, No Other Objective Vitals Vital Signs Date Time Temp Pulse Resp B/P (MAP) Pulse Ox O2 Delivery O2 Flow Rate FiO2 03/05/25 09:00 97.5 83 17 125/75 (92) 99 97.5 03/05/25 08:00 Room Air* 0 21 Intake/Output Intake and Output 03/05/25 07:00 Intake Total 1350 ml Output Total 250 ml Balance 1100 ml Intake Oral 800 ml IV Total 250 ml Blood Product 300 ml Output Urine Total 250 ml Exam GEN: Healthy appearing, well-developed, NAD. HEENT: NC/AT; MMM. CV: RRR, no m/r/g. LUNGS: CTAB, no w/r/c. ABD: Soft, NT/ND, NBS, no masses or organomegaly. EXT: skin Warm, well perfused. no rashes. No clubbing, cyanosis, or edema. NEURO: Ambulating with no limitations. No focal deficits. Medications Current Medications Medications Dose Ordered Sig/Christina Route Start Time Stop Time Status Last Admin Dose Admin Pantoprazole Sodium 40 mg QAM PO 03/05/25 07:00 03/05/25 06:02 40 MG Patient Own Medication 1 tab QAM PO 03/05/25 07:00 UNV Lactulose 30 ml BID PO 03/04/25 22:00 03/04/25 22:13 30 ML Ferrous Sulfate 325 mg QAM PO 03/05/25 07:00 03/05/25 06:02 325 MG Acetaminophen/ Hydrocodone Bitart 1 tab Q4HP PRN PO 03/04/25 09:15 Ondansetron HCl 4 mg Q4HP PRN IV 03/04/25 09:15 Docusate Sodium 100 mg BIDPRN PRN PO 03/04/25 09:15 Acetaminophen 650 mg Q6HP PRN PO 03/04/25 09:15 Sucralfate 1 gm BID PO 03/04/25 10:00 03/04/25 22:13 1 GM Furosemide 20 mg DAILY PO 03/04/25 10:00 03/04/25 10:45 20 MG Potassium Chloride 20 meq DAILY PO 03/04/25 10:00 03/04/25 10:45 20 MEQ Laboratory Results Laboratory Tests 03/05/25 05:11 Chemistry Test 03/04/25 15:11 03/05/25 05:11 Magnesium Level 1.5 mg/dL (1.6-2.6) L 1.8 mg/dL (1.6-2.6) Albumin 1.9 g/dL (3.2-4.8) L Calcium Level 7.3 mg/dL (8.7-10.4) L Total Protein 4.6 g/dL (5.7-8.2) L LFT Test 03/05/25 05:11 Alanine Aminotransferase (ALT) 42 U/L (7-40) H Alkaline Phosphatase 210 U/L (46-116) H Aspartate Amino Transferase (AST) 88 U/L (13-40) H Total Bilirubin 8.9 mg/dL (0.2-1.0) H Urinalysis Test 03/04/25 06:56 Urine Color Yellow (Yellow) Urine Clarity Clear (Clear) Urine pH 6.0 (5.0-9.0) Urine Specific [place] 1.011 (1.001-1.035) Urine Protein Negative (Negative) Urine Ketones Negative (Negative) Urine Blood Negative /uL (Negative) Urine Nitrite Negative (Negative) Urine Bilirubin 1+ (Negative) Urine Urobilinogen 2 mg/dL (Negative) H Urine Leukocyte Esterase Negative /uL (Negative) Urine RBC <1 /hpf (0 - 3) Urine Microscopic WBC 3 /HPF (0-3) Urine Squamous Epithelial Cells Few /hpf (<5) Urine Bacteria None seen /hpf (None Seen) Urine Glucose Normal mg/dL (Normal) Labs and/or images reviewed: Labs reviewed by me, Image(s) reviewed by me Assessment/Plan Assessment/Plan Armando Cool is a 45-year-old male with past medical history of alcoholic liver cirrhosis s/p TIPS (on transplant list [facility]) , anemia, CHF HFpEF, chronic alcohol dependence quit 2004, PUD, history chronic pancreatitis, pulmonary hypertension, and GERD, who came to the hospital for abnormal labs. Patient states he has been feeling fatigued and short of breath. He went to his primary care provider who had labs drawn that showed he had severe anemia. He was called and told to go to the hospital for a blood transfusion and further assessment. Patient has previously been admitted here for similar complaints. He has received a blood transfusion in the past and is agreeable to receive blood again. Denies any abdominal pain, distention, nausea, or vomiting. 03/05: Presented from PCP due to severe anemia on labs. Patient was given 1 unit PRBC. Noting patient has pancytopenia platelets today 44, hemoglobin 8.4, WBC 3.8,. Continues to have hypokalemia we will replete. There is ongoing transaminitis elevated T bili. Albumin low hypoalbuminemia today 1.9. INR elevated 2.1. Labs are suspicious for either bone marrow and/or liver failure. Hemoglobin yesterday was 7.4 symptomatic. Patient was given 1 unit and now is 8.4. - HS visits CT has shown cirrhotic liver portal hypertension, unknown reason for cirrhosis. Patient has been here before multiple times requiring periodic blood transfusions because of critical anemia, he has tea bag packer at [facility] when she follows regularly. - fasting EGD have shown mild antral gastritis with pre-pyloric and antral gastric ulcers with erosions, mild to moderate gastroparesis. - patient had appointment at [facility] today but missed it due to being in the hospital here. Patient is recommended to talk to PCP and/or [facility] to schedule a closer appointment done July. Patient does not have a ski patrol director yet and we will need to have referral to ski patrol director as soon as patient is discharged from the hospital. No bleeding currently we will monitor for 1 more night and repeat a.m. CBC. If stable could possibly be discharged tomorrow morning. Diagnosis: Symptomatic anemia Severe anemia due to below History of PUD History of chronic liver cirrhosis due to alcoholism History of alcoholism quit 2004 Pancytopenia, likely due to above Transaminitis Hyperbilirubinemia Hypo albuminemia Hypokalemia Obesity liver cirrhosis anemia CHF GERD Plan: -prn pain control -iron 325 q.a.m. -furosemide 20 daily -lactulose 30 mL b.i.d. -Protonix p.o. 40 mg daily -Carafate p.o. b.i.d. Plan discussed with: Patient My Orders Orders - CARO JUDD MD Procedure Category Date Status Time Potassium Effervesent PHA 03/05/25 Logged Tab (Klor-Con/Ef) 14:15 Date of Service: Mar 05, 2025 Billing Provider: CARO JUDD MD Common Visit Codes: [id number] INP/OBS CARE(HIGH) CARO JUDD MD Mar 05, 2025 14:25
[2025-03-05] MEDS: POTASSIUM EFFERVESENT TAB 25 MEQ PO ONE (14:53)
[2025-03-06 01:00] VITALS: BP 107/63; PULSE 76; RESP 18; TEMP 97.9; O2SAT 98
[2025-03-06 05:00] VITALS: BP 126/76; PULSE 75; RESP 18; TEMP 97.9; O2SAT 98
[2025-03-06 06:42] LABS: Hematocrit 25.7 % (41.0-53.0); Mean Corpuscular Hemoglobin 29.9 pg (28.0-32.0); Mean Corpuscular Volume 93.1 fL (80.0-100.0); Nucleated Red Blood Cells % 0.1 %
[2025-03-06 06:53] LABS: Hemoglobin 8.2 g/dL (13.5-17.5)
[2025-03-06 08:00] VITALS: PULSE 82; RESP 20; O2SAT 100
[2025-03-06 09:00] VITALS: BP 104/72; PULSE 82; RESP 16; TEMP 97.7; O2SAT 100
[2025-03-06] MEDS: FUROSEMIDE 40 MG/4 ML VIAL IV ONE (09:52)
--- NOTE | 2025-03-06 11:07 | DVH ---
LEFT Upper Extremity Venous Duplex Clinical History: edema Comparison: US BILAT LOWER DVT on DOS: 02/09/25, US BILAT LOWER DVT on DOS: 05/09/24, US LT LOWER DVT on DOS: 05/07/23, LLDVT on DOS: 05/13/22, LT LOWER DVT on DOS: 05/13/22 Findings: Duplex Doppler evaluation of the venous system of the LEFT lower neck and upper extremity including c olor Doppler and spectral/pulsed waveform analysis was performed. The internal jugular vein demonstrates appropriate compressibility and waveform variability. The subclavian vein is patent on color Doppler evaluation without intraluminal thrombus and demonstra christophe waveform variability. The visualized portion of the brachiocephalic vein is patent on color Doppler evaluation without intr aluminal thrombus and demonstrates waveform variability. The axillary vein demonstrates appropriate compressibility and waveform variability. The brachial veins demonstrate appropriate compressibility and patency on Doppler evaluation. The basilic vein demonstrates appropriate compressibility and patency on Doppler evaluation. The cephalic vein demonstrates appropriate compressibility and patency on Doppler evaluation. Impression: No venous thrombus identified in the LEFT upper extremity vessels evaluated above. If clinical concern/symptoms persist or worsen, short-interval follow-up study is suggested.
[2025-03-06 13:00] VITALS: BP 115/57; PULSE 73; RESP 16; TEMP 97; O2SAT 100
--- NOTE | 2025-03-06 14:11 | DVHDS2 ---
Discharge Summary Date of Admission Mar 04, 2025 at 09:03 Date of Discharge: Mar 06, 2025 Admitting Diagnosis Weakness Abnormal lab value Labs/Diagnostic Data: Laboratory Results Test 03/06/25 05:47 03/05/25 05:11 03/04/25 06:56 03/04/25 06:42 White Blood Count 3.1 10^3/uL (4.4-10.8) Red Blood Count 2.76 10^6/uL (4.5-5.90) Hemoglobin 8.2 g/dL (13.5-17.5) Hematocrit 25.7 % (41.0-53.0) Mean Corpuscular Volume 93.1 fL (80.0-100.0) Mean Corpuscular Hemoglobin 29.9 pg (28.0-32.0) Mean Corpuscular Hemoglobin Concent 32.1 g/dL (32.0-36.0) Red Cell Distribution Width 24.9 % (11.8-14.3) Platelet Count 41 10^3/uL (140-450) Mean Platelet Volume 9.8 fL (6.9-10.8) Neutrophils (%) (Auto) 59.1 % (37.0-80.0) Lymphocytes (%) (Auto) 23.3 % (10.0-50.0) Monocytes (%) (Auto) 10.0 % (0.0-12.0) Eosinophils (%) (Auto) 6.3 % (0.0-7.0) Basophils (%) (Auto) 1.3 % (0.0-2.0) Neutrophils # (Auto) 1.9 10 ^3/uL (1.6-8.6) Lymphocytes # (Auto) 0.7 10 ^3/uL (0.4-5.4) Monocytes # (Auto) 0.3 10 ^3/uL (0-1.3) Eosinophils # (Auto) 0.2 10 ^3/uL (0-0.8) Basophils # (Auto) 0 10 ^3/uL (0-0.2) Nucleated Red Blood Cells 0.1 % Sodium Level 142 mmol/L (136-145) Potassium Level 3.1 mmol/L (3.5-5.1) Chloride Level 111 mmol/L (98-107) Carbon Dioxide Level 23 mmol/L (20-31) Anion Gap 8 (5-15) Blood Urea Nitrogen 11 mg/dL (9-23) Creatinine 0.84 mg/dL (0.700-1.30) Glomerular Filtration Rate Calc 109 mL/min (>90) BUN/Creatinine Ratio 13.1 (10.0-20.0) Serum Glucose 74 mg/dL (74-106) Calcium Level 7.3 mg/dL (8.7-10.4) Magnesium Level 1.8 mg/dL (1.6-2.6) Total Bilirubin 8.9 mg/dL (0.2-1.0) Aspartate Amino Transferase (AST) 88 U/L (13-40) Alanine Aminotransferase (ALT) 42 U/L (7-40) Alkaline Phosphatase 210 U/L (46-116) Ammonia 36 umol/L (11-32) Total Protein 4.6 g/dL (5.7-8.2) Albumin 1.9 g/dL (3.2-4.8) Urine Color Yellow (Yellow) Urine Clarity Clear (Clear) Urine pH 6.0 (5.0-9.0) Urine Specific [place] 1.011 (1.001-1.035) Urine Protein Negative (Negative) Urine Ketones Negative (Negative) Urine Blood Negative /uL (Negative) Urine Nitrite Negative (Negative) Urine Bilirubin 1+ (Negative) Urine Urobilinogen 2 mg/dL (Negative) Urine Leukocyte Esterase Negative /uL (Negative) Urine RBC <1 /hpf (0 - 3) Urine Microscopic WBC 3 /HPF (0-3) Urine Squamous Epithelial Cells Few /hpf (<5) Urine Bacteria None seen /hpf (None Seen) Urine Glucose Normal mg/dL (Normal) Prothrombin Time 20.7 sec (9.3-11.8) Prothrombin Time INR 2.10 (0.9-1.15) Other Laboratory Tests 03/06/25 05:47 03/05/25 05:11 Brief Hx & Hospital Course: Armando Cool is a 45-year-old male with past medical history of alcoholic liver cirrhosis s/p TIPS (on transplant list [facility]) , anemia, CHF HFpEF, chronic alcohol dependence quit 2004, PUD, history chronic pancreatitis, pulmonary hypertension, and GERD, who came to the hospital for abnormal labs. Patient states he has been feeling fatigued and short of breath. He went to his primary care provider who had labs drawn that showed he had severe anemia. He was called and told to go to the hospital for a blood transfusion and further assessment. Patient has previously been admitted here for similar complaints. He has received a blood transfusion in the past and is agreeable to receive blood again. Denies any abdominal pain, distention, nausea, or vomiting. 03/05: Presented from PCP due to severe anemia on labs. Patient was given 1 unit PRBC. Noting patient has pancytopenia platelets today 44, hemoglobin 8.4, WBC 3.8,. Continues to have hypokalemia we will replete. There is ongoing transaminitis elevated T bili. Albumin low hypoalbuminemia today 1.9. INR elevated 2.1. Labs are suspicious for either bone marrow and/or liver failure. Hemoglobin yesterday was 7.4 symptomatic. Patient was given 1 unit and now is 8.4. - HS visits CT has shown cirrhotic liver portal hypertension, unknown reason for cirrhosis. Patient has been here before multiple times requiring periodic blood transfusions because of critical anemia, he has riding silks custodian at [facility] when she follows regularly. - fasting EGD have shown mild antral gastritis with pre-pyloric and antral gastric ulcers with erosions, mild to moderate gastroparesis. - patient had appointment at [facility] today but missed it due to being in the hospital here. Patient is recommended to talk to PCP and/or [facility] to schedule a closer appointment done July. Patient does not have a welding estimator yet and we will need to have referral to welding estimator as soon as patient is discharged from the hospital. No bleeding currently we will monitor for 1 more night and repeat a.m. CBC. If stable could possibly be discharged tomorrow morning. 03/06- Hemoglobin stable today 8.2. No source of bleed. Patient will try to continue following up with the pathologist and get referral for Hematology. DVT ultrasound left upper extremity is negative. Patient is stable for discharge as per plan below. Diagnosis: Symptomatic anemia Severe anemia due to below History of PUD History of chronic liver cirrhosis due to alcoholism History of alcoholism quit 2004 Pancytopenia, likely due to above Transaminitis Hyperbilirubinemia Hypo albuminemia Hypokalemia Obesity discharge plan: - continue visits with pcp, hematology and riding silks custodian - recommend outpatient scheduled blood infusions through PCP/welding estimator until hematology finds a permanent solution. 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 Condition at Discharge: Fair Final Diagnosis/Problems List Diagnosis: Symptomatic anemia Severe anemia due to below History of PUD History of chronic liver cirrhosis due to alcoholism History of alcoholism quit 2004 Pancytopenia, likely due to above Transaminitis Hyperbilirubinemia Hypo albuminemia Hypokalemia Obesity Discharge Disposition: Home Discharge Instruct/Medications Diet: Cardiac 2g Na,low cholest Diet comment: See below Activity: No Restrictions, As Tolerated Follow Up/Referral: See below Medications: See below Scheduled Cholecalciferol (Vitamin D), 5,000 UNIT OR DAILY, (Reported) Effervescent Base (Bulk) (Effervescent), 30 TAB PO DAILY Ferrous Sulfate (Gnp Iron), 1 TAB PO QAM, (Reported) Furosemide (Furosemide), 1 TAB PO DAILY, (Reported) Lactulose (Lactulose), 30 ML PO BID Pantoprazole Sodium Sesquihydr (Pantoprazole Sodium), 40 MG PO BID Potassium Chloride (Potassium Chloride ER), 1 TAB PO DAILY, (Reported) Spironolactone (Spironolactone), 1 TAB PO DAILY Sucralfate (Sucralfate), 1 TAB PO BID, (Reported) Discontinued Medications Sucralfate (Carafate Susp), 1 GM PO Q6HR Discharge Statement: "Patient was advised to return to the ER or call 911 if any headaches, dizziness, shortness of breath, chest pain, abdominal pain, bleeding, fevers, or worsening of medical condition. Patient was counseled about treatment plan, medications, possible side effects, patientverbalized understanding. All questions were answered to the best of my ability. This discharge took greater then 30 minutes in planning, reviewing documentation, counseling the patient, and discussing with other team members." Date of Service: Mar 06, 2025 Billing Provider: CARO JUDD MD Common Visit Codes: [id number] DISCH DAY >30min CARO JUDD MD Mar 06, 2025 14:11
[2025-03-06 14:47] VITALS: BP 104/72; PULSE 82; RESP 16; TEMP 97.7; O2SAT 100
== END 2025-03-06 15:25 | disposition home or self-care (01) | DRG 660 ==
LOC: ER 06:17 → OVERFLOW 09:03 → EAST 21:51 → CENTRAL 03-05 14:00
PROVIDERS: ADMIT Student in an Organized Health Care Education/Training Program; ATTEND Student in an Organized Health Care Education/Training Program
PROC: 30233N1 Transfusion of Nonautologous Red Blood Cells into Peripheral Vein, Percutaneous Approach (ICD-10-PCS; principal; 2025-03-04)
DX: D61.818 Other pancytopenia (principal); I50.32 Chronic diastolic (congestive) heart failure; K74.60 Unspecified cirrhosis of liver; E83.51 Hypocalcemia; E88.09 Other disorders of plasma-protein metabolism, not elsewhere classified; E66.9 Obesity, unspecified; Z68.42 Body mass index [BMI] 45.0-49.9, adult; R79.1 Abnormal coagulation profile; K31.84 Gastroparesis; E80.6 Other disorders of bilirubin metabolism; K21.9 Gastro-esophageal reflux disease without esophagitis; E87.6 Hypokalemia; Z87.11 Personal history of peptic ulcer disease; Z83.3 Family history of diabetes mellitus; Z82.49 Family history of ischemic heart disease and other diseases of the circulatory system
CPT/HCPCS: 36415; 80048; 80053; 81001; 82140; 83735; 84132; 85014; 85018; 85025; 85610; 86850; 86900; 86901; 86920; 93971; 96365; 96367; G0378

== ENCOUNTER 2025-03-13 09:05 | Inpatient (IN) | payer OTHER ==
[~2025-03-13] VITALS: Ht 165.1 cm; Wt 84.0 kg
[~2025-03-13 09:05] MED LIST changes: +POTA-180 PO; -SUCR1SUS26 PO; +SUCR1TAB PO
[2025-03-13 09:55] LABS: Hematocrit 23.1 % (41.0-53.0)
[2025-03-13 09:59] LABS: Hemoglobin 7.4 g/dL (13.5-17.5); Mean Corpuscular Hemoglobin 30.2 pg (28.0-32.0); Mean Corpuscular Volume 94.3 fL (80.0-100.0); Nucleated Red Blood Cells % 0.1 %
[2025-03-13 10:08] LABS: Potassium 3.5 mmol/L (3.5-5.1); Sodium 138 mmol/L (136-145)
[2025-03-13 10:09] LABS: Anion Gap 7 (5-15); Carbon Dioxide 23 mmol/L (20-31)
[2025-03-13 10:14] LABS: Glucose 95 mg/dL (74-106)
[2025-03-13 10:15] LABS: BUN/Creatinine Ratio 14.1 (10.0-20.0); Blood Urea Nitrogen 14 mg/dL (9-23)
[2025-03-13 10:17] LABS: Chloride 108 mmol/L (98-107)
[2025-03-13 10:18] LABS: Calcium 7.3 mg/dL (8.7-10.4)
--- NOTE | 2025-03-13 10:18 | ED.PDOC ---
GI ASSESSMENT HPI Comments 45 year old male presents to the ED with a chief complaint of melena onset 2 days. PMHx liver cirrhosis, CHF, PUD, anemia, GERD. Patient began experiencing dark tarry stool 2 days ago. He saw PCP yesterday, was told hemoglobin level was 6.1. He is currently experiencing shortness of breath, generalized weakness, dizziness. For the past 2 weeks, he has been experiencing abdominal distension, bilateral lower extremity swelling, is currently taking Lasix 40 mg. Denies chest pain, nausea, vomiting, hematemesis, chest pain, headache, blurry vision, dysuria, hematuria. No other symptoms or modifying factors present at this time. Chief Complaint: GI Bleed Time Seen by MD: 09:55 Primary Care Provider: ludy Contreras Notes: Medications, Allergies Allergies: Coded Allergies: NO KNOWN ALLERGIES (Unverified , 11/06/20) Home Meds Active Scripts Effervescent Base (Bulk) (EFFERVESCENT) Pow, 30 TAB PO DAILY for 30 Days, #30 POW 3 Refills Prov:HELENE BOSWELL MD 02/11/25 Lactulose (Lactulose) 10 Gm Rei, 30 ML PO BID for 30 Days, #2000 ML 5 Refills Prov:HELENE BOSWELL MD 02/11/25 Pantoprazole Sodium Sesquihydr (Pantoprazole Sodium) 40 Mg Tab, 40 MG PO BID for 60 Days, #120 TAB Prov:WALTER VILLARREAL RESIDENT 10/22/24 Spironolactone (Spironolactone) 25 Mg Tab, 1 TAB PO DAILY for 60 Days, #60 TAB 1 Refill Prov:WALTER VILLARREAL RESIDENT 10/22/24 Reported Medications Potassium Chloride (Potassium Chloride ER) 20 Meq Tab, 1 TAB PO DAILY 03/04/25 Sucralfate (Sucralfate) 1 Gm Tab, 1 TAB PO BID 03/04/25 Ferrous Sulfate (Gnp Iron) 325 Mg Tab, 1 TAB PO QAM 02/09/25 Furosemide (Furosemide) 20 Mg Tab, 1 TAB PO DAILY 02/09/25 Cholecalciferol (VITAMIN D) 5,000 Unit Tab, 5000 UNIT OR DAILY, TAB 05/09/24 Information Source: Patient Mode of Arrival: Ambulatory Timing: Days Duration: Since onset Prehospital treatment: None Vomitus: None Stool: Tarry Severity: Moderate Recent: None Recent Hx of: None Pain Location: Diffuse Associated sign and symptoms: Melena, Abdominal Pain Past Medical History PAST MEDICAL HISTORY: Anemia, CHF, GERD, Liver, PUD Surgical History: Denies all surgeries Family History Family History: Family hx of DM, Family hx of HTN Social History Smoker: Non-Smoker Alcohol: Sober Drugs: Denies Drug Use Lives In: Home Constitutional: reports: weakness; denies: chills, diaphoresis, fatigue, fever, malaise, sweats, others EENTM: denies: blurred vision, double vision, ear bleeding, ear discharge, ear drainage, ear pain, ear ringing, eye pain, eye redness, hearing loss, mouth pain, mouth swelling, nasal discharge, nose bleeding, nose congestion, nose pain, photophobia, tearing, throat pain, throat swelling, voice changes, others Respiratory: reports: shortness of breath; denies: cough, hemoptysis, orthopnea, SOB at rest, SOB with excertion, stridor, wheezing, others Cardiovascular: denies: chest pain, dizzy spells, diaphoresis, Dyspnea on exertion, edema, irregular heart beat, left arm pain, lightheadedness, palpitations, PND, syncope, others Gastrointestinal: reports: abdomen distended, melena, others (dark tarry stool); denies: abdominal pain, blood streaked bowels, constipated, diarrhea, dysphagia, difficulty swallowing, hematemesis, nausea, poor appetite, poor fluid intake, rectal bleeding, rectal pain, vomiting Genitourinary: denies: burning, dysuria, flank pain, frequency, hematuria, incontinence, penile discharge, penile sore, pain, testicle pain, testicle swelling, urgency, others Neurological: reports: dizziness, weakness; denies: fainting, headache, left sided numbness, left sided weakness, numbness, paresthesia, pre-existing deficit, right sided numbness, right sided weakness, seizure, speech problems, tingling, tremors, others Musculoskeletal: denies: back pain, gout, joint pain, joint swelling, muscle pain, muscle stiffness, neck pain, others Integumetry: denies: bruises, change in color, change in hair/nails, dryness, laceration, lesions, lumps, rash, wounds, others Allergic/Immunocompromised: denies: Difficulty Healing, Frequent Infections, Hives, Itching, others Hematologic/Lymphatic: denies: anemia, blood clots, easy bleeding, easy bruising, swollen glands, others Endocrine: denies: excessive hunger, excessive sweating, excessive thirst, excessive urination, flushing, intolerance to cold, intolerance to heat, unexplained weight gain, unexplained weight loss, others Psychiatric: denies: anxiety, bipolar disorder, depression, hopeless, panic disorder, schizophrenia, sleepless, suicidal, others All Other Systems: Reviewed and Negative Physical Exam General Appearance: Moderate Distress, Normal HEENT: Normal ENT Inspection, Pharynx Normal, Scleral Icterus (L), Scleral Icterus (R), TMs Normal Neck: Full Range of Motion, Non-Tender, Normal, Normal Inspection Respiratory: Chest Non-Tender, Lungs Clear, No Accessory Muscle Use, No Respiratory Distress, Normal Breath Sounds Cardiovascular: No Edema, No JVD, No Murmur, No Gallop, Normal Peripheral Pulses, Regular Rate/Rhythm Breast Exam: Deferred Gastrointestinal: No Organomegaly, Non Tender, No Pulsatile Mass, Normal Bowel Sounds, Soft Genitalia: Deferred Pelvic: Deferred Rectal: Deferred Extremities: No calf tenderness, Normal capillary refill, Normal range of motion, Non-tender, No pedal edema, Swelling (Bilateral lower extremity) Musculoskeletal : Apperance: Normal Neurologic: Alert, competitive intelligence manager II-XII nml as Tested, No Motor Deficits, Normal Affect, Normal Mood, No Sensory Deficits Cerebellar Function: Normal Reflexes: Normal Skin: Dry, Normal Color, Warm Peripheral Pulses: 3+ Radial (R), 3+ Radial (L) Lymphatic: No Adenopathy EKG EKG : Pulse Rate (adult): 85 Cardiac Rhythm: NSR Was a procedure done? Was a procedure done?: No GI differential Dx Differential Diagnosis: Constipation, Diverticular disease, Esophagitis, Gastritis/PUD, Gastroenteritis X-Ray, Labs, Meds, VS Vital Signs Date Time Temp Pulse Resp B/P (MAP) Pulse Ox O2 Delivery O2 Flow Rate FiO2 03/13/25 10:18 85 03/13/25 09:13 85 03/13/25 09:07 97.9 95 18 118/70 100 97.9 Lab Test 03/13/25 09:30 Range/Units White Blood Count 4.8 4.4-10.8 10^3/uL Red Blood Count 2.45 L 4.5-5.90 10^6/uL Hemoglobin 7.4 L 13.5-17.5 g/dL Hematocrit 23.1 L 41.0-53.0 % Mean Corpuscular Volume 94.3 80.0-100.0 fL Mean Corpuscular Hemoglobin 30.2 28.0-32.0 pg Mean Corpuscular Hemoglobin Concent 32.1 32.0-36.0 g/dL Red Cell Distribution Width 23.3 H 11.8-14.3 % Platelet Count 56 L 140-450 10^3/uL Mean Platelet Volume 9.9 6.9-10.8 fL Neutrophils (%) (Auto) 66.4 37.0-80.0 % Lymphocytes (%) (Auto) 18.4 10.0-50.0 % Monocytes (%) (Auto) 12.5 H 0.0-12.0 % Eosinophils (%) (Auto) 1.9 0.0-7.0 % Basophils (%) (Auto) 0.8 0.0-2.0 % Neutrophils # (Auto) 3.2 1.6-8.6 10 ^3/uL Lymphocytes # (Auto) 0.9 0.4-5.4 10 ^3/uL Monocytes # (Auto) 0.6 0-1.3 10 ^3/uL Eosinophils # (Auto) 0.1 0-0.8 10 ^3/uL Basophils # (Auto) 0 0-0.2 10 ^3/uL Nucleated Red Blood Cells 0.1 % Sodium Level 138 136-145 mmol/L Potassium Level 3.5 3.5-5.1 mmol/L Chloride Level 108 H 98-107 mmol/L Carbon Dioxide Level 23 20-31 mmol/L Anion Gap 7 5-15 Blood Urea Nitrogen 14 9-23 mg/dL Creatinine 0.99 0.700-1.30 mg/dL Glomerular Filtration Rate Calc 95 >90 mL/min BUN/Creatinine Ratio 14.1 10.0-20.0 Serum Glucose 95 74-106 mg/dL Calcium Level 7.3 L 8.7-10.4 mg/dL Patient alert. States that has anemia. Sclerae icterus. Vitals stable. He does have swelling of bilateral lower extremity. Liver cirrhosis. He is not confused. Ammonia level was not needed at the present moment. Possibly will need blood transfusion. Explained to the patient. Continue monitoring. Time of 1ST Reevaluation: 10:25 Reevaluation 1ST: Unchanged Patient Education/Counseling: Diagnosis, Treatment, Prognosis Family Education/Counseling: No Family Present SEPSIS Sepsis Screen Date sepsis recognized/suspect: Mar 13, 2025 Time Sepsis recognized/suspect: 909 Recent Procedure: No On Antibiotic Therapy: No Respiratory Rate >20: No Heart Rate >90: No Temp<36 C (96.8 F) or >38.3 C: No SBP <90 or MAP <65 mmHG: No New Acute Mental Status Change: No Is the patient on CPAP, BIPAP,: No Physician Orders Heplock Iv (03/13/25 09:11) Oxygen (03/13/25 09:11) Manager Cosmetics (03/13/25 09:11) Blood Pressure (03/13/25 09:11) Pulse Oximetry (03/13/25 09:11) Electrocardigram (03/13/25 09:11) Type And Screen (03/13/25 09:11) Chest Portable (03/13/25 10:53) Vital Signs Date Time Temp Pulse Resp B/P (MAP) Pulse Ox O2 Delivery O2 Flow Rate FiO2 03/13/25 10:18 85 03/13/25 09:13 85 03/13/25 09:07 97.9 95 18 118/70 100 97.9 Laboratory Tests Test 03/13/25 09:30 White Blood Count 4.8 10^3/uL (4.4-10.8) Departure 1 Departure Time of Disposition: 10:56 Impression: Primary Impression: Cirrhosis of liver Qualified Codes: K70.30 - Alcoholic cirrhosis of liver without ascites Additional Impression: Symptomatic anemia Disposition: ADMITTED INPATIENT Admit to: Med Surg Condition: Guarded Critical Care Note Critical Care Time?: No Stability Stability form required: No Heart Score Heart Score: Heart Score Response (Comments) Value History N/A 0 EKG N/A 0 Age N/A 0 Risk Factors N/A 0 Troponin N/A 0 Total 0 I personally scribed for MERARY RIBERA MD ([email or web address]) on 03/13/25 at 10:18. Electronically submitted by Haley Peña ([email or web address]). I personally scribed for MERARY RIBERA MD ([email or web address]) on 03/13/25 at 10:18. Electronically submitted by Haley Peña ([email or web address]). MERARY RIBERA MD Mar 13, 2025 10:18
--- NOTE | 2025-03-13 11:29 | DVH ---
CHEST RADIOGRAPH Indication: sob Technique: Single frontal view of the chest was obtained COMPARISON: XY CHEST PORTABLE on DOS: 02/09/25, XY CHEST XRAY 1 VIEW on DOS: 09/11/24, XY CHEST PORTABLE on DOS: 05/08/24, XY CHEST PORTABLE on DOS: 05/03/23, CXRP on DOS: 12/19/21 FINDINGS: Lines and Tubes: None Lungs: Clear Pleura: No effusion. No pneumothorax. Cardiomediastinal contours: Unremarkable Bones: Unremarkable IMPRESSION: No acute disease.
--- NOTE | 2025-03-13 12:43 | DVH ---
Bilateral lower extremity venous duplex Clinical History: dvt Comparison: US LT UPPER DVT on DOS: 03/06/25, US BILAT LOWER DVT on DOS: 02/09/25, US BILAT LOWER DVT on DOS: 05/09/24, US LT LOWER DVT on DOS: 05/07/23, US BILAT LOWER DVT on DOS: 05/03/23 Technique: Duplex Doppler evaluation of the deep venous systems of both lower extremities from the common femora l veins to the popliteal veins including color Doppler and spectral/pulsed waveform analysis was perf ormed. Findings: RIGHT SIDE: The common femoral vein demonstrates appropriate compressibility and waveform variability. There is compressibility/patency of the great saphenous vein at the proximal thigh. The femoral vein demonstrates appropriate compressibility and waveform variability. The deep femoral vein demonstrates appropriate compressibility and waveform variability. The popliteal vein demonstrates appropriate compressibility and waveform variability. There is normal compressibility at the tibioperoneal trunk. LEFT SIDE: The common femoral vein demonstrates appropriate compressibility and waveform variability. There is compressibility/patency of the great saphenous vein at the proximal thigh. The femoral vein demonstrates appropriate compressibility and waveform variability. The deep femoral vein demonstrates appropriate compressibility and waveform variability. The popliteal vein demonstrates appropriate compressibility and waveform variability. There is normal compressibility at the tibioperoneal trunk. Impression: No right or left femoropopliteal venous thrombosis.
[2025-03-13] MEDS: FUROSEMIDE 20 MG/2 ML VIAL IV ONE (14:06)
[2025-03-13] MEDS: SODIUM CHLORIDE 0.9% 1,000 ML IV SCH (14:45)
[2025-03-13 15:50] LABS: Hemoglobin 7.3 g/dL (13.5-17.5); Nucleated Red Blood Cells % 0.2 %
[2025-03-13 15:52] LABS: Hematocrit 22.6 % (41.0-53.0); Mean Corpuscular Hemoglobin 30.6 pg (28.0-32.0); Mean Corpuscular Volume 94.4 fL (80.0-100.0)
[2025-03-13 16:08] LABS: Anion Gap 6 (5-15); BUN/Creatinine Ratio 11.7 (10.0-20.0); Blood Urea Nitrogen 11 mg/dL (9-23); Carbon Dioxide 25 mmol/L (20-31); Glucose 94 mg/dL (74-106); Potassium 4.0 mmol/L (3.5-5.1); Sodium 140 mmol/L (136-145)
[2025-03-13 16:11] LABS: Alanine Aminotransferase 45 U/L (7-40); Albumin 2.0 g/dL (3.2-4.8); Alkaline Phosphatase 277 U/L (46-116); Bilirubin, Total 8.2 mg/dL (0.2-1.0); Calcium 7.3 mg/dL (8.7-10.4); Chloride 109 mmol/L (98-107); Total Protein 4.8 g/dL (5.7-8.2)
--- NOTE | 2025-03-13 16:25 | DVHHP2 ---
History of Present Illness History of Present Illness Mr. Travon Coles is a 45-year-old male with a past medical history of alcohol- related liver cirrhosis, prior esophageal varices status post banding, and TIPS placement, who presents to the ED with dark stools for the past few days and worsening anemia. The patient was seen at his PCPs office where his hemoglobin was 6.1 g/dL, prompting ED referral. In the ED, hemoglobin was 7.4 g/dL. He reports black tarry stools but denies hematemesis, abdominal pain, fever, chills, chest pain, or shortness of breath. He has had prior admissions for anemia but states this is the first time he has noted concurrent melena since his last evaluation. His last EGD and colonoscopy were in September 2024, which showed no esophageal varices and only gastritis. No recent NSAID use or anticoagulation reported. Past Medical History: Alcohol-related liver cirrhosis Esophageal varices, status post banding Status post TIPS procedure Gastritis Past Surgical History: TIPS placement Variceal band ligation per patient Review of Systems Allergies: Coded Allergies: NO KNOWN ALLERGIES (Unverified , 11/06/20) Medications Current Medications Medications Dose Ordered Sig/Christina Route Start Time Stop Time Status Last Admin Dose Admin Sodium Chloride 1,000 ml @ 60 mls/hr [id number] IV 03/13/25 14:45 Pantoprazole Sodium 40 mg BID IV 03/13/25 22:00 Ceftriaxone Sodium/Dextrose 50 ml @ 50 mls/hr DAILY IV 03/13/25 16:15 Exam Vital Signs Vital Signs Date Time Temp Pulse Resp B/P (MAP) Pulse Ox O2 Delivery O2 Flow Rate FiO2 03/13/25 14:03 98.2 82 20 131/57 (81) 98 98.2 Exam Physical Examination: General: Alert and oriented 3, no acute distress HEENT: Pale conjunctivae, anicteric sclera Neck: No lymphadenopathy, no JVD Cardiac: Regular rate and rhythm, no murmurs/rubs/gallops Respiratory: Clear to auscultation bilaterally Abdomen:distended, non tender normoactive bowel sounds, ascites? Extremities: edema +2 Neuro: No focal deficits Labs/Xrays Labs Test 03/13/25 15:23 Range/Units White Blood Count 6.1 # 4.4-10.8 10^3/uL Red Blood Count 2.39 L 4.5-5.90 10^6/uL Hemoglobin 7.3 L 13.5-17.5 g/dL Hematocrit 22.6 L 41.0-53.0 % Mean Corpuscular Volume 94.4 80.0-100.0 fL Mean Corpuscular Hemoglobin 30.6 28.0-32.0 pg Mean Corpuscular Hemoglobin Concent 32.4 32.0-36.0 g/dL Red Cell Distribution Width 23.8 H 11.8-14.3 % Platelet Count 53 L 140-450 10^3/uL Mean Platelet Volume 9.3 6.9-10.8 fL Neutrophils (%) (Auto) 69.2 37.0-80.0 % Lymphocytes (%) (Auto) 15.9 10.0-50.0 % Monocytes (%) (Auto) 11.5 0.0-12.0 % Eosinophils (%) (Auto) 2.3 0.0-7.0 % Basophils (%) (Auto) 1.1 0.0-2.0 % Neutrophils # (Auto) 4.2 1.6-8.6 10 ^3/uL Lymphocytes # (Auto) 1.0 0.4-5.4 10 ^3/uL Monocytes # (Auto) 0.7 0-1.3 10 ^3/uL Eosinophils # (Auto) 0.1 0-0.8 10 ^3/uL Basophils # (Auto) 0.1 0-0.2 10 ^3/uL Nucleated Red Blood Cells 0.2 % SEPSIS Sepsis Screen Date sepsis recognized/suspect: Mar 13, 2025 Time Sepsis recognized/suspect: 909 Recent Procedure: No On Antibiotic Therapy: No Respiratory Rate >20: No Heart Rate >90: No Temp<36 C (96.8 F) or >38.3 C: No SBP <90 or MAP <65 mmHG: No New Acute Mental Status Change: No Is the patient on CPAP, BIPAP,: No Physician Orders Heplock Iv (03/13/25 09:11) Oxygen (03/13/25 09:11) Remote Encoding Center Manager (03/13/25 09:11) Blood Pressure (03/13/25 09:11) Pulse Oximetry (03/13/25 09:11) Electrocardigram (03/13/25 09:11) Chest Portable (03/13/25 10:53) Bilat Lower Dvt (03/13/25 10:57) Admit (03/13/25 14:45) Code Status (03/13/25 14:45) Vital Signs .PER UNIT PROTOCOL (03/13/25 14:45) Review Orders With Adm. (03/13/25 14:45) Npo (Nothing By Mouth) Diet (03/13/25 Dinner) Sodium Chloride 0.9% (03/13/25 14:45) Notify Md Of Changes From Base (03/13/25 14:45) Advance Directive (03/13/25 14:45) Patient Condition (03/13/25 14:45) Allergies (03/13/25 14:45) Comprehensive Metabolic Panel (03/13/25 15:15) Urinalysis (03/13/25 15:15) Complete Blood Count (03/13/25 22:00) Complete Blood Count (03/14/25 10:00) Complete Blood Count (03/14/25 22:00) * Gi [facility] Psychology Assistant (03/13/25 15:31) 2 Large Bore Ivs (20mg Or Larg (03/13/25 15:31) Pantoprazole (Protonix) (03/13/25 22:00) Ceftriaxone 2gm/50ml D5w (Rocephin 2gm/5 (03/13/25 16:15) Stool Occult Blood (03/13/25 15:31) Abdomen Limited (03/13/25 15:31) Vital Signs Date Time Temp Pulse Resp B/P (MAP) Pulse Ox O2 Delivery O2 Flow Rate FiO2 03/13/25 14:03 98.2 82 20 131/57 (81) 98 98.2 03/13/25 10:18 85 03/13/25 09:13 85 03/13/25 09:07 97.9 95 18 118/70 100 97.9 Laboratory Tests Test 03/13/25 09:30 03/13/25 15:23 White Blood Count 4.8 10^3/uL (4.4-10.8) 6.1 10^3/uL (4.4-10.8) # Assessment/Plan Assessment/Plan #GI bleeding #Anemia #Liver cirrhosis due to alcohol, last drink 2054 #Ascites? #sp TIPS #sp esophageal bands #CHF, stable #GERD #Transaminitis #Thrombocytopenia Admit Medsurg GI consulted NPO Protonix BID Ceftriaxone, SPB prophylaxis furosemide BID liver US protonix and sucralfate Case discussed with Dr Gage Full code no dvt prophylaxis Plan discussed with: Patient, Spouse My Orders Orders - MONA COSBY Procedure Category Date Status Time Admit ADMIT 03/13/25 Transmitted 14:45 Code Status CODE 03/13/25 Transmitted 14:45 Vital Signs [facility] 03/13/25 In Process 14:45 Review Orders With MAHAD 03/13/25 In Process Adm.Md 14:45 Npo (Nothing By DIET 03/13/25 Transmitted Mouth) Diet Dinner Sodium Chloride 0.9% PHA 03/13/25 In Process 14:45 Notify Of Changes [facility] 03/13/25 In Process From Base 14:45 Advance Directive [facility] 03/13/25 In Process 14:45 Patient Condition ORDERS 03/13/25 Transmitted 14:45 Allergies MAHAD 03/13/25 In Process 14:45 Comprehensive LAB 03/13/25 In Process Metabolic Panel 15:15 Urinalysis LAB 03/13/25 Logged 15:15 Complete Blood Count LAB 03/13/25 Logged 22:00 Complete Blood Count LAB 03/14/25 Verified 10:00 Complete Blood Count LAB 03/14/25 Verified 22:00 * Gi [facility] Psychology Assistant CONS 03/13/25 Transmitted 15:31 2 Large Bore Ivs [facility] 03/13/25 In Process (20mg Or Larg 15:31 Pantoprazole PHA 03/13/25 In Process (Protonix) 22:00 Ceftriaxone 2gm/50ml PHA 03/13/25 In Process D5w (Rocephin 2gm/5 16:15 Stool Occult Blood LAB 03/13/25 Logged 15:31 Abdomen Limited US 03/13/25 Taken 15:31 Date of Service: Mar 13, 2025 Billing Provider: CARO JUDD MD Common Visit Codes: [id number] INP/OBS CARE (HIGH) MONA COSBY RESIDENT Mar 13, 2025 16:25
--- NOTE | 2025-03-13 17:08 | DVH ---
Technique: Real-time ultrasound imaging of the abdomen was performed with grayscale and color Doppler . Indication: ascities, liver cirrhosis Comparison: US GALLBLADDER on DOS: 02/11/25, CT CT AB PEL WO CON-NO ORAL OR IV on DOS: 10/18/24, CT CT A BD PELVIS W CON-ORAL IV on DOS: 09/10/24, US LIVER on DOS: 09/08/24, US LIVER on DOS: 05/09/24 Findings: Liver measures 11.1 cm. It is increased in echogenicity and echotexture without focal mass. Portal v ein is demonstrating reversal/hepatofugal flow. Perihepatic ascites fluid. Gallbladder demonstrates no evidence for cholelithiasis. There is no pericholecystic fluid. The wall thickness is normal. The common bile duct is nonvisualized. No intrahepatic biliary ductal dilatation. The right kidney measures 10.2 cm. No hydronephrosis or sonographic evidence of nephrolithiasis. The visualized portion of the pancreas is unremarkable. The visualized portion of the IVC is unremarkable. Impression: Cirrhotic morphology liver and ascites. Hepatofugal / reversal of portal vein flow consistent with portal hypertension.
--- NOTE | 2025-03-13 17:42 | DVHCONRES ---
Date Seen: Mar 13, 2025 Resident Creating Document: ROMAN LEIJA RESIDENT Referring Physician Mary Franco Reason for Consultation melena, history of variceal bleeding, alcoholic liver cirrhosis History of Present Illness 45-year-old male with a history of alcohol-related liver cirrhosis, prior esophageal varices status post banding, TIPS placement, and chronic gastritis, admitted for evaluation and management of upper GI bleeding and worsening anemia. Patient initially presented with melena for several days, hemoglobin 7.4 g/dL in ED (previously 6.1 g/dL at PCP). Reports black tarry stools; denies hematemesis, abdominal pain, hematochezia, nausea, vomiting, fever, or chills. Diet: Currently tolerating clear liquid diet without nausea or abdominal discomfort. No vomiting or abdominal pain. Recent GI procedures: * EGD: Mild antral gastritis with pre-pyloric and antral gastric ulcers/ero sions, dmeu-[id number]-vhuasvhy gastroparesis, no esophageal varices, no active bleeding. * Colonoscopy: 1+ internal hemorrhoids, otherwise normal colon and terminal ileum; no colitis or diverticulosis. Imaging: * RUQ Ultrasound: Cirrhotic morphology, perihepatic ascites, reversal of portal vein flow (portal hypertension), mild gallbladder wall thickening, no stones. * Abdominal Doppler: Confirms hepatofugal portal flow and ascites. * Lower extremity Doppler: Negative for DVT. Interval Events / Progress * Hemoglobin at ~7.4 g/dL * Persistent abdominal distension, no tenderness. * elevated bilirubin (T. bili 8.2), transaminases mildly elevated (AST 91, ALT 45), elevated Alk Phos (277), ammonia 36. * Coags prolonged (INR 1.71.8, PT 1718 sec). * Serologies negative for Hep A IgM, Hep B surface antigen, Hep C antibody, HIV 1/2. * MELD-Na score elevated; patient remains under transplant follow-up. Past Medical History * Alcohol-related liver cirrhosis * Portal hypertension * Esophageal varices (s/p band ligation) * Status post TIPS * Chronic gastritis * History of GI bleeding * Ascites Past Surgical History * TIPS placement * Variceal band ligation Family History: Diabetes mellitus G8 MOTHER Hypertension G8 MOTHER Allergies: Coded Allergies: NO KNOWN ALLERGIES (Unverified , 11/06/20) Home Meds Active Scripts Effervescent Base (Bulk) (EFFERVESCENT) Pow, 30 TAB PO DAILY for 30 Days, #30 POW 3 Refills Prov:HELENE BOSWELL MD 02/11/25 Lactulose (Lactulose) 10 Gm Rei, 30 ML PO BID for 30 Days, #2000 ML 5 Refills Prov:HELENE BOSWELL MD 02/11/25 Pantoprazole Sodium Sesquihydr (Pantoprazole Sodium) 40 Mg Tab, 40 MG PO BID for 60 Days, #120 TAB Prov:WALTER VILLARREAL RESIDENT 10/22/24 Spironolactone (Spironolactone) 25 Mg Tab, 1 TAB PO DAILY for 60 Days, #60 TAB 1 Refill Prov:WALTER VILLARREAL RESIDENT 10/22/24 Reported Medications Potassium Chloride (Potassium Chloride ER) 20 Meq Tab, 1 TAB PO DAILY 03/04/25 Sucralfate (Sucralfate) 1 Gm Tab, 1 TAB PO BID 03/04/25 Ferrous Sulfate (Gnp Iron) 325 Mg Tab, 1 TAB PO QAM 02/09/25 Furosemide (Furosemide) 20 Mg Tab, 1 TAB PO DAILY 02/09/25 Cholecalciferol (VITAMIN D) 5,000 Unit Tab, 5000 UNIT OR DAILY, TAB 05/09/24 Current Medications Current Medications Medications (Trade) Dose Ordered Sig/Christina Route PRN Reason Start Time Stop Time Status Last Admin Sodium Chloride 1,000 ml @ 60 mls/hr [id number] IV 03/13/25 14:45 Pantoprazole Sodium (Protonix) 40 mg BID IV 03/13/25 22:00 Ceftriaxone Sodium/Dextrose 50 ml @ 50 mls/hr DAILY IV 03/13/25 16:15 Sucralfate (Carafate Tab) 1 gm QIDACHS PO 03/13/25 17:00 Furosemide (Lasix Injection) 20 mg BIDD IV 03/13/25 18:00 Review of Systems * Positive: Melena (improving), bloating, ascites. * Negative: Hematemesis, hematochezia, nausea, vomiting, jaundice, pruritus. Vital Signs Vital Signs Date Time Temp Pulse Resp B/P (MAP) Pulse Ox O2 Delivery O2 Flow Rate FiO2 03/13/25 14:03 98.2 82 20 131/57 (81) 98 98.2 Physical Exam * General: Alert, oriented 3, no acute distress * HEENT: Pale conjunctiva, no scleral icterus * Abdomen: Distended, non-tender, normoactive bowel sounds, mild ascites * Extremities: 2+ pitting edema * Neuro: No focal deficits Labs/Diagnostic Data Labs Test 03/13/25 15:23 Range/Units White Blood Count 6.1 # 4.4-10.8 10^3/uL Red Blood Count 2.39 L 4.5-5.90 10^6/uL Hemoglobin 7.3 L 13.5-17.5 g/dL Hematocrit 22.6 L 41.0-53.0 % Mean Corpuscular Volume 94.4 80.0-100.0 fL Mean Corpuscular Hemoglobin 30.6 28.0-32.0 pg Mean Corpuscular Hemoglobin Concent 32.4 32.0-36.0 g/dL Red Cell Distribution Width 23.8 H 11.8-14.3 % Platelet Count 53 L 140-450 10^3/uL Mean Platelet Volume 9.3 6.9-10.8 fL Neutrophils (%) (Auto) 69.2 37.0-80.0 % Lymphocytes (%) (Auto) 15.9 10.0-50.0 % Monocytes (%) (Auto) 11.5 0.0-12.0 % Eosinophils (%) (Auto) 2.3 0.0-7.0 % Basophils (%) (Auto) 1.1 0.0-2.0 % Neutrophils # (Auto) 4.2 1.6-8.6 10 ^3/uL Lymphocytes # (Auto) 1.0 0.4-5.4 10 ^3/uL Monocytes # (Auto) 0.7 0-1.3 10 ^3/uL Eosinophils # (Auto) 0.1 0-0.8 10 ^3/uL Basophils # (Auto) 0.1 0-0.2 10 ^3/uL Nucleated Red Blood Cells 0.2 % Sodium Level 140 136-145 mmol/L Potassium Level 4.0 3.5-5.1 mmol/L Chloride Level 109 H 98-107 mmol/L Carbon Dioxide Level 25 20-31 mmol/L Anion Gap 6 5-15 Blood Urea Nitrogen 11 9-23 mg/dL Creatinine 0.94 0.700-1.30 mg/dL Glomerular Filtration Rate Calc 101 >90 mL/min BUN/Creatinine Ratio 11.7 10.0-20.0 Serum Glucose 94 74-106 mg/dL Calcium Level 7.3 L 8.7-10.4 mg/dL Total Bilirubin 8.2 H 0.2-1.0 mg/dL Aspartate Amino Transferase (AST) 91 H 13-40 U/L Alanine Aminotransferase (ALT) 45 H 7-40 U/L Alkaline Phosphatase 277 H 46-116 U/L Total Protein 4.8 L 5.7-8.2 g/dL Albumin 2.0 L 3.2-4.8 g/dL Assessment 1. Upper GI bleeding likely secondary to antral gastritis and gastric ulcers in the context of portal hypertension and cirrhosis; no active bleeding on recent EGD. 2. Alcohol-related liver cirrhosis with portal hypertension evidenced by hepatofugal portal flow, ascites, coagulopathy, thrombocytopenia, hypoalbumin emia. 3. Ascites mild on imaging; monitor for SBP. 4. History of esophageal varices s/p banding no recurrence on latest EGD. 5. Anemia secondary to GI blood loss currently stable post transfusion. 6. Wlzd-re-bupoqzmi gastroparesis managed with dietary modifications. 7. Internal hemorrhoids not actively bleeding. 8. Thrombocytopenia likely from hypersplenism/portal hypertension. 9. Electrolyte abnormalities hypokalemia, hypocalcemia, hypomagnesemia; replete as needed. Plan/Recommendation GI / Hepatology * Continue Pantoprazole 40 mg IV BID. * Continue Sucralfate 1 g PO QID. * Continue Lactulose 30 mL PO daily, titrate for 23 soft stools/day. * Continue Ceftriaxone IV daily for SBP prophylaxis. * Monitor CBC, CMP, INR/PT, ammonia, iron panel daily. * Await gastric biopsy results. * Monitor for ascites progression; if symptomatic or worsening, consider diagnostic/therapeutic paracentesis. Nutrition * Continue clear liquid diet; advance to soft diet as tolerated. * Avoid alcohol, NSAIDs, hepatotoxic agents. Volume / Electrolytes * Continue furosemide 20 mg IV BID; monitor weights and I/O. * Replete K+, Ca++, Mg++ as indicated. Prophylaxis * SBP: Ceftriaxone as above. * Stress ulcer: Pantoprazole. * DVT: Hold anticoagulation until bleeding risk further reduced. Case discussed in detail with the attending physician, including the clinical presentation, diagnostic workup, and comprehensive management plan. The patient was present for the discussion and demonstrated understanding of his condition and the proposed plan. Plan discussed with: Patient ROMAN LEIJA RESIDENT Mar 13, 2025 17:42
[2025-03-13] MEDS: SUCRALFATE 1 GM TAB PO SCH (18:30)
[2025-03-13] MEDS: FUROSEMIDE 20 MG/2 ML VIAL IV SCH (18:31)
[2025-03-13] MEDS: cefTRIAXone 2GM/50ML D5W 50 ML IV SCH (18:33)
[2025-03-13] MEDS: LACTULOSE 20Gm/30ML SOLN PO SCH (18:35)
[2025-03-13 22:27] LABS: Hematocrit 22.7 % (41.0-53.0); Hemoglobin 7.2 g/dL (13.5-17.5); Mean Corpuscular Hemoglobin 30.0 pg (28.0-32.0); Mean Corpuscular Volume 94.2 fL (80.0-100.0); Nucleated Red Blood Cells % 0.3 %
[2025-03-14 01:00] VITALS: BP 136/55; PULSE 86; RESP 20; TEMP 97.9; O2SAT 98
[2025-03-14 01:33] VITALS: BP 120/72; PULSE 88; RESP 20; TEMP 98.3; O2SAT 97
[2025-03-14] MEDS: PANTOPRAZOLE 40 MG/10 ML VIAL INJ IV SCH (01:54)
[2025-03-14 03:39] LABS: Urine Protein, UAD Negative (Negative)
[2025-03-14 05:00] VITALS: BP 120/72; PULSE 88; RESP 20; TEMP 98.1; O2SAT 97
[2025-03-14 07:46] LABS: Hemoglobin 7.2 g/dL (13.5-17.5); Nucleated Red Blood Cells % 0.2 %
[2025-03-14 07:48] LABS: INR 2.0 (0.9-1.15); Prothrombin Time 19.8 sec (9.3-11.8)
[2025-03-14 07:52] LABS: Hematocrit 22.2 % (41.0-53.0); Mean Corpuscular Hemoglobin 30.8 pg (28.0-32.0); Mean Corpuscular Volume 94.8 fL (80.0-100.0)
[2025-03-14 07:57] LABS: Anion Gap 11 (5-15); BUN/Creatinine Ratio 14.7 (10.0-20.0); Blood Urea Nitrogen 14 mg/dL (9-23); Carbon Dioxide 21 mmol/L (20-31); Sodium 140 mmol/L (136-145)
[2025-03-14 08:08] LABS: Alanine Aminotransferase 44 U/L (7-40); Albumin 2.0 g/dL (3.2-4.8); Alkaline Phosphatase 246 U/L (46-116); Bilirubin, Total 8.2 mg/dL (0.2-1.0); Calcium 7.3 mg/dL (8.7-10.4); Chloride 108 mmol/L (98-107); Glucose 73 mg/dL (74-106); Potassium 3.2 mmol/L (3.5-5.1); Total Protein 4.6 g/dL (5.7-8.2)
[2025-03-14 08:46] LABS: Anisocytosis Slight
--- NOTE | 2025-03-14 11:40 | DVHPN2 ---
Progress Note - Dictate Date Seen: Mar 14, 2025 Medical Necessity Reason Pt with a Central, PICC or Fol: No Subjective No new complaints, patient seen at bedside in H 3 There was no further episodes of nausea vomiting melena or GI bleeding Patient did report taking some NSAIDs recently for headache Hemoglobin stable at 7.2 vital signs Vital Sign Date Time Temp Pulse Resp B/P (MAP) Pulse Ox O2 Delivery O2 Flow Rate FiO2 03/14/25 05:55 120/72 03/14/25 05:00 98.1 88 20 97 98.1 03/14/25 01:33 Room Air* 0 21 Total Intake and Output 03/13/25 03/13/25 03/14/25 15:00 23:00 07:00 Intake Total 50 ml 240 ml Balance 50 ml 240 ml medications Current Medications Medications Dose Ordered Sig/Christina Route Start Time Stop Time Status Last Admin Dose Admin Sodium Chloride 1,000 ml @ 60 mls/hr [id number] IV 03/13/25 14:45 Pantoprazole Sodium 40 mg BID IV 03/13/25 22:00 03/14/25 10:37 40 MG Ceftriaxone Sodium/Dextrose 50 ml @ 50 mls/hr DAILY IV 03/13/25 16:15 03/14/25 10:38 50 MLS/HR Sucralfate 1 gm QIDACHS PO 03/13/25 17:00 03/14/25 05:50 1 GM Furosemide 20 mg BIDD IV 03/13/25 18:00 03/14/25 05:55 20 MG Lactulose 30 ml DAILY PO 03/13/25 17:45 03/14/25 10:37 30 ML objective General: Alert, oriented 3, no acute distress HEENT: Pale conjunctiva, no scleral icterus Abdomen: soft, non-tender, normoactive bowel sounds, mild ascites Extremities: 1+ pitting edema Neuro: No focal deficits laboratory and microbiology Laboratory Tests 03/14/25 06:59 Test 03/14/25 06:59 Range/Units Serum Glucose 73 L 74-106 mg/dL Impression: Cirrhotic morphology liver and karlie hepatic ascites. Hepatofugal / reversal of portal vein flow consistent with portal hypertension. Problems(with codes): (1) Cirrhosis of liver (2) Acute on chronic anemia (3) Pulmonary vascular congestion (4) Liver cirrhosis, alcoholic (5) Elevated liver enzymes Prognosis Plan Advance to full liquid diet then soft mechanical I am planning to do conservative observation and management at this time Protonix 40 mg p.o. twice a day Carafate 1 g p.o. twice a day Low-dose diuretic Patient was advised to DC aspirin NSAIDs Patient is possibly requesting a discharge tomorrow as he may have a follow up appointment with [facility] on Sunday for his transplant evaluation Plan discussed with: Patient, Other (ER Nurse) ZAYDA STERN MD Mar 14, 2025 11:40
--- NOTE | 2025-03-14 17:42 | DVHDS2 ---
Discharge Summary Date of Admission Mar 13, 2025 at 14:45 Date of Discharge: Mar 14, 2025 Admitting Diagnosis GI bleed Labs/Diagnostic Data: Laboratory Results Test 03/14/25 06:59 03/14/25 03:19 03/14/25 03:18 White Blood Count 5.6 10^3/uL (4.4-10.8) Red Blood Count 2.35 10^6/uL (4.5-5.90) Hemoglobin 7.2 g/dL (13.5-17.5) Hematocrit 22.2 % (41.0-53.0) Mean Corpuscular Volume 94.8 fL (80.0-100.0) Mean Corpuscular Hemoglobin 30.8 pg (28.0-32.0) Mean Corpuscular Hemoglobin Concent 32.5 g/dL (32.0-36.0) Red Cell Distribution Width 23.2 % (11.8-14.3) Platelet Count 53 10^3/uL (140-450) Mean Platelet Volume 10.1 fL (6.9-10.8) Neutrophils (%) (Auto) 66.1 % (37.0-80.0) Lymphocytes (%) (Auto) 18.5 % (10.0-50.0) Monocytes (%) (Auto) 12.2 % (0.0-12.0) Eosinophils (%) (Auto) 2.3 % (0.0-7.0) Basophils (%) (Auto) 0.9 % (0.0-2.0) Neutrophils # (Auto) 3.7 10 ^3/uL (1.6-8.6) Lymphocytes # (Auto) 1.0 10 ^3/uL (0.4-5.4) Monocytes # (Auto) 0.7 10 ^3/uL (0-1.3) Eosinophils # (Auto) 0.1 10 ^3/uL (0-0.8) Basophils # (Auto) 0.1 10 ^3/uL (0-0.2) Nucleated Red Blood Cells 0.2 % Platelet Estimate Decreased Anisocytosis (manual) Slight Prothrombin Time 19.8 sec (9.3-11.8) Prothrombin Time INR 2.00 (0.9-1.15) Sodium Level 140 mmol/L (136-145) Potassium Level 3.2 mmol/L (3.5-5.1) Chloride Level 108 mmol/L (98-107) Carbon Dioxide Level 21 mmol/L (20-31) Anion Gap 11 (5-15) Blood Urea Nitrogen 14 mg/dL (9-23) Creatinine 0.95 mg/dL (0.700-1.30) Glomerular Filtration Rate Calc 100 mL/min (>90) BUN/Creatinine Ratio 14.7 (10.0-20.0) Serum Glucose 73 mg/dL (74-106) Calcium Level 7.3 mg/dL (8.7-10.4) Total Bilirubin 8.2 mg/dL (0.2-1.0) Aspartate Amino Transferase (AST) 92 U/L (13-40) Alanine Aminotransferase (ALT) 44 U/L (7-40) Alkaline Phosphatase 246 U/L (46-116) Ammonia 27 umol/L (11-32) Total Protein 4.6 g/dL (5.7-8.2) Albumin 2.0 g/dL (3.2-4.8) Urine Color Yellow (Yellow) Urine Clarity Clear (Clear) Urine pH 6.5 (5.0-9.0) Urine Specific [place] 1.010 (1.001-1.035) Urine Protein Negative (Negative) Urine Ketones Negative (Negative) Urine Blood Negative /uL (Negative) Urine Nitrite Negative (Negative) Urine Bilirubin Negative (Negative) Urine Urobilinogen Normal mg/dL (Negative) Urine Leukocyte Esterase Negative /uL (Negative) Urine Glucose Normal mg/dL (Normal) Stool Occult Blood Positive (Negative) Stool Occult Blood Sample #3 (Negative) Other Laboratory Tests 03/14/25 06:59 Brief Hx & Hospital Course: 45-year-old gentleman admitted to the hospital from the emergency room with GI bleed. He has history of liver cirrhosis and esophageal varices with history of banding and TIPSS. Patient decided to leave AMA today understanding the consequences. Condition at Discharge: Undetermined (Left AMA) Final Diagnosis/Problems List GI bleed Liver cirrhosis Esophageal varices Noncompliance Discharge Disposition: AMA Discharge Instruct/Medications Diet: See Comment (AMA) Diet comment: AMA Activity comment: AMA Follow Up/Referral: AMA Medications: AMA Scheduled Cholecalciferol (Vitamin D), 5,000 UNIT OR DAILY, (Reported) Effervescent Base (Bulk) (Effervescent), 30 TAB PO DAILY Ferrous Sulfate (Gnp Iron), 1 TAB PO QAM, (Reported) Furosemide (Furosemide), 1 TAB PO DAILY, (Reported) Lactulose (Lactulose), 30 ML PO BID Pantoprazole Sodium Sesquihydr (Pantoprazole Sodium), 40 MG PO BID Potassium Chloride (Potassium Chloride ER), 1 TAB PO DAILY, (Reported) Spironolactone (Spironolactone), 1 TAB PO DAILY Sucralfate (Sucralfate), 1 TAB PO BID, (Reported) Discharge Statement: "Patient was advised to return to the ER or call 911 if any headaches, dizziness, shortness of breath, chest pain, abdominal pain, bleeding, fevers, or worsening of medical condition. Patient was counseled about treatment plan, medications, possible side effects, patientverbalized understanding. All questions were answered to the best of my ability. This discharge took greater then 30 minutes in planning, reviewing documentation, counseling the patient, and discussing with other team members." ASSESSMENT ASSESSMENT Assessment Date of Service: Mar 14, 2025 Billing Provider: INDIANA SABILLON MD Common Visit Codes: 88296-OIZ/OBS DISCH DAY <30MIN INDIANA SABILLON MD Mar 14, 2025 17:42
[2025-03-15] MEDS ORDERED: SPIRONOLACTONE 25 MG TAB PO SCH (10:00)
--- NOTE | 2025-03-16 06:49 | ECG ---
[facility] Test Date: 2025-03-13 Test Time: 09:13:48 Pat Name: IOANA PARK Department: ED Room: [address] [place] [address] A Gender: M Sprinkler Worker: deanne : 1980 Requested By: MERARY RIBERA Order Number: [id number] Reading MD: Martinez Howard Measurements Intervals [place] Rate: 85 P: 39 [place]: 278 QRS: 79 QRSD: 112 T: 10 QT: 377 QTc: 449 Interpretive Statements Sinus rhythm Prolonged [place] interval Right ventricular hypertrophy Inferior infarct, old Electronically Signed On 03-16-2025 18:14:31 PDT by Martinez Howard Please click the below link to view image of tracing.
== END 2025-03-14 12:15 | disposition left against medical advice (07) | DRG 280 ==
LOC: ER 09:05 → OVERFLOW 14:45
PROVIDERS: ATTEND Emergency Medicine
DX: K70.31 Alcoholic cirrhosis of liver with ascites (principal); I85.11 Secondary esophageal varices with bleeding; K76.6 Portal hypertension; D69.6 Thrombocytopenia, unspecified; E83.51 Hypocalcemia; E88.09 Other disorders of plasma-protein metabolism, not elsewhere classified; Z53.29 Procedure and treatment not carried out because of patient's decision for other reasons; D64.9 Anemia, unspecified; I50.9 Heart failure, unspecified; K21.9 Gastro-esophageal reflux disease without esophagitis; E87.6 Hypokalemia; E83.42 Hypomagnesemia; K64.8 Other hemorrhoids; Z87.11 Personal history of peptic ulcer disease; Z79.899 Other long term (current) drug therapy; Z83.3 Family history of diabetes mellitus; Z82.49 Family history of ischemic heart disease and other diseases of the circulatory system; Z91.199 Patient's noncompliance with other medical treatment and regimen due to unspecified reason
CPT/HCPCS: 36415; 71045; 76705; 80048; 80053; 81003; 82140; 82270; 85025; 85610; 86850; 86900; 86901; 87081; 93005; 93970; 96374; 96375; G0378; J2470